=== PATIENT | male | born 1950 | race African-American/Black ===

== ENCOUNTER 2017-04-05 13:56 | Inpatient (IN) | payer MEDICARE ==
[~2017-04-05] VITALS: Ht 177.8 cm; Wt 57.6 kg
[2017-04-05 14:10] VITALS: BP 126/69
[2017-04-05] MEDS ORDERED: Dicyclomine HCl 10mg/5ml oral soln ORAL ONE (14:15)
--- NOTE | 2017-04-05 14:15 | Emergency Room Report ---
History of Present Illness General Chief Complaint: Diarrhea Source: Patient Present Illness HPI 67YOM with no known PMHx or PSHx presents with watery diarrhea for 2 months. 4-5 watery BMs daily mixed with normal BMs No blood No foreign travel, sick contacts No recent Abx use Appetite normal Denies nausea/vomiting, fever/chills, urinary complaints Allergies: Coded Allergies: No Known Allergies (Unverified , 04/05/17) Patient History Past Medical History: none Past Surgical History: none Pertinent Family History: none Social History: Denies: smoking, alcohol use, drug use Immunizations: UTD Reviewed Nursing Documentation: PMH: Agreed, PSxH: Agreed Nursing Documentation-PMH Past Medical History: No Stated History Review of Systems All Other Systems: negative except mentioned in HPI Physical Exam Vital Signs Date Time Temp Pulse Resp B/P (MAP) Pulse Ox O2 Delivery O2 Flow Rate FiO2 04/05/17 14:00 99.9 102 16 157/79 99 Room Air Sp02 EP Interpretation: reviewed, normal General Appearance: normal inspection, well appearing, no apparent distress, alert, GCS 15, non-toxic Head: normocephalic, atraumatic Eyes: bilateral eye PERRL, bilateral eye EOMI ENT: normal ENT inspection, hearing grossly normal, normal voice Neck: normal inspection, full range of motion, supple, no bony tend Respiratory: normal inspection, lungs clear, normal breath sounds, no respiratory distress, no retraction, no wheezing Cardiovascular #1: regular rate, rhythm, no edema Gastrointestinal: normal inspection, normal bowel sounds, non tender, soft, no mass, no guarding, no hernia, no pulsatile mass, no rebound Genitourinary: no CVA tenderness Musculoskeletal: normal inspection, back normal, normal range of motion, Lucrecia' s Sign negative Neurologic: normal inspection, alert, responsive, speech normal Psychiatric: normal inspection, judgement/insight normal, mood/affect normal Skin: normal inspection, normal color, no rash Medical Decision Making Medicare Attestation I Jostin Hatch MD hereby attest that the medical record entry for date of service, 04/05/17 accurately reflects signatures/notations that I made in my capacity as MD when I treated/diagnosed the above listed Medicare beneficiary. I attest that this information is true, accurate and complete to the best of my knowledge. I understand that any falsification, omission, or concealment of material fact may subject me to administrative, civil, or criminal liability. This patient warrants hospital admission for extreme of age and has a condition that cannot be treated as outpatient. Diagnostic Impression: Primary Impression: Diarrhea Qualified Codes: R19.7 - Diarrhea, unspecified Additional Impressions: Anemia Qualified Codes: D64.9 - Anemia, unspecified Hypokalemia ER Course 2 months diarrhea VSS. Afebrile Abdomen serially non-focal Labs: HypoK - repleted in ED. Critically low Hb/Hct HypoK - Likely d/t diarrhea - Repleted in ED - No ECG changes Anemia - Unknown source - 2U PRBCs transfused in ED - Non focal abdomen. No rectal, upper GI bleed Med/surg admit - stable vitals Dr. Guido 451pm EKG Diagnostic Results Rate: normal Rhythm: NSR ST Segments: no acute changes ASA given to the pt in ED: No Rhythm Strip Diag. Results EP Interpretation: yes Rate: 79 Rhythm: NSR, no PVC's, no ectopy Last Vital Signs Date Time Temp Pulse Resp B/P (MAP) Pulse Ox O2 Delivery O2 Flow Rate FiO2 04/05/17 14:00 99.9 102 16 157/79 99 Room Air Status: improved Disposition: ADMITTED INPATIENT Condition: Serious JOSTIN HATCH M.D. Apr 05, 2017 14:15
[2017-04-05 14:40] LABS: MEAN CORPUSCULAR HEMOGLOBIN 19.9 PG (27.0-31.0); MEAN CORPUSCULAR HGB CONC 29.5 G/DL (32.0-36.0); MEAN CORPUSCULAR VOLUME 68 FL (80-99); MEAN PLATELET VOLUME 5.4 FL (6.5-10.1); PLATELET COUNT 365 K/UL (150-450); RED BLOOD COUNT 3.22 M/UL (4.70-6.10); RED CELL DISTRIBUTION WIDTH 17.1 % (11.6-14.8); WHITE BLOOD COUNT 8.7 K/UL (4.8-10.8)
[2017-04-05 14:53] LABS: ALANINE AMINOTRANSFERASE 17 U/L (12-78); ALBUMIN/GLOBULIN RATIO 0.7 (1.0-2.7); ANION GAP 8 mmol/L (5-15); ASPARTATE AMINO TRANSFERASE 19 U/L (15-37); CALCIUM 8.4 MG/DL (8.5-10.1); CARBON DIOXIDE 27 MMOL/L (21-32); CHLORIDE 102 MMOL/L (98-107); CREATININE 1.1 MG/DL (0.55-1.30); GLOMERULAR FILTRATION RATE > 60 mL/min (>60); LIPASE 135 U/L (73-393); POTASSIUM 3.1 MMOL/L (3.5-5.1); SODIUM 137 MMOL/L (136-145); TOTAL PROTEIN 6.7 G/DL (6.4-8.2)
[2017-04-05] MEDS ORDERED: KCl 10% 40mEq/30ml liquid ORAL ONE (15:00)
[2017-04-05 16:01] LABS: LYMPHOCYTES % (MANUAL) 13 % (20-45); NEUTROPHILS % (MANUAL) 82 % (45-75); TOTAL CELLS COUNTED 100
[2017-04-05 16:03] LABS: ANISOCYTOSIS 3+; HYPOCHROMASIA 3+; MICROCYTES 2+; ROULEAUX 1+
[2017-04-05 16:06] LABS: BAND NEUTROPHILS % (MANUAL) 0 % (0-8); BASOPHILS % (MANUAL) 0 % (0-2); EOSINOPHILS % (MANUAL) 0 % (0-3); PLATELET ESTIMATE ADEQUATE; PLATELET MORPHOLOGY NORMAL
[2017-04-05 17:39] LABS: APPEARANCE,URINE CLEAR; KETONES,URINE NEGATIVE (NEGATIVE); LEUKOCYTE ESTERASE ,URINE NEGATIVE (NEGATIVE); NITRITE,URINE NEGATIVE (NEGATIVE); PH,URINE 7 (4.5-8.0); PROTEIN,URINE NEGATIVE (NEGATIVE); UROBILINOGEN,URINE 1 MG/DL (0.0-1.0)
[2017-04-05] MEDS ORDERED: MULTIVITAMINS1 EAC2 ORAL (18:05)
[2017-04-05] MEDS ORDERED: Mylanta II UD 30ml ORAL PRN (18:30)
[2017-04-05] MEDS ORDERED: Zolpidem 5mg tab ORAL PRN (18:30)
[2017-04-05] MEDS ORDERED: Miralax 17gm pkt ORAL PRN (18:30)
[2017-04-05] MEDS ORDERED: LORazepam Inj 2mg/ml 1ml IV PRN (18:30)
[2017-04-05] MEDS ORDERED: Morphine Sulfate 2mg/ml Inj IVP PRN (18:30)
[2017-04-05 18:34] VITALS: BP 128/71
[2017-04-05 18:46] VITALS: BP 128/71
[2017-04-05 19:59] VITALS: BP 138/82
[2017-04-05 21:43] LABS: PATH BLOOD SMEAR/OMC SENT TO PATHOLOGIST
[2017-04-05 22:44] LABS: RETICULOCYTE COUNT 0.8 % (0.0-2.0)
[2017-04-05 23:55] LABS: PROTHROMBIN TIME 10.8 SEC (9.30-11.50)
[2017-04-05 23:56] VITALS: BP 127/78
[2017-04-05 23:59] LABS: LACTATE DEHYDROGENASE 212 U/L (81-234)
[2017-04-06 00:25] LABS: FOLIC ACID 12.6 NG/ML (3.1-17.5); IRON 26 ug/dL (50-175); TOTAL IRON BINDING CAPACITY 272 ug/dL (250-450)
[2017-04-06 04:39] VITALS: BP 137/68
[2017-04-06 07:39] LABS: PROTHROMBIN TIME 10.5 SEC (9.30-11.50)
[2017-04-06 07:50] LABS: BASOPHILS % (AUTO) 0.5 % (0.0-2.0); EOSINOPHILS % (AUTO) 0.6 % (0.0-3.0); LYMPHOCYTES % (AUTO) 12.4 % (20.0-45.0); MEAN CORPUSCULAR HEMOGLOBIN 22.7 PG (27.0-31.0); MEAN CORPUSCULAR HGB CONC 31.6 G/DL (32.0-36.0); MEAN CORPUSCULAR VOLUME 72 FL (80-99); MEAN PLATELET VOLUME 6.2 FL (6.5-10.1); MONOCYTES % (AUTO) 8.6 % (1.0-10.0); NEUTROPHILS % (AUTO) 77.9 % (45.0-75.0); PLATELET COUNT 295 K/UL (150-450); RED BLOOD COUNT 3.92 M/UL (4.70-6.10); RED CELL DISTRIBUTION WIDTH 19.9 % (11.6-14.8); WHITE BLOOD COUNT 8.9 K/UL (4.8-10.8)
[2017-04-06 08:20] LABS: ALANINE AMINOTRANSFERASE 16 U/L (12-78); ALBUMIN/GLOBULIN RATIO 0.6 (1.0-2.7); ANION GAP 7 mmol/L (5-15); ASPARTATE AMINO TRANSFERASE 22 U/L (15-37); CALCIUM 8.5 MG/DL (8.5-10.1); CARBON DIOXIDE 29 MMOL/L (21-32); CHLORIDE 106 MMOL/L (98-107); CREATININE 0.9 MG/DL (0.55-1.30); GLOMERULAR FILTRATION RATE > 60 mL/min (>60); POTASSIUM 4.1 MMOL/L (3.5-5.1); SODIUM 142 MMOL/L (136-145); THYROID STIMULATING HORMONE 0.806 uiU/mL (0.360-3.740); TOTAL PROTEIN 6.7 G/DL (6.4-8.2)
[2017-04-06 08:24] VITALS: BP 120/64
[2017-04-06 09:00] VITALS: BP 140/105
[2017-04-06 12:16] VITALS: BP 135/79
--- NOTE | 2017-04-06 15:29 | Cardiology Report ---
APPROVED REPORT EKG Measurement Heart [id number] Normal sinus rhythm Possible Left atrial enlargement Rightward axis Borderline ECG
[2017-04-06 16:07] VITALS: BP 130/71
--- NOTE | 2017-04-06 18:42 | GI Initial Consult Note ---
Linda Ratliff N.PRadha 04/06/17 1842: History of Present Illness General Date patient seen: Apr 06, 2017 Time patient seen: 10:00 Reason for Hospitalization: Diarrhea Referring physician: CYN BAILEY Reason for Consultation: DIARRHEA Present Illness HPI 67YOM with no known PMHx or PSHx presents with watery diarrhea for 2 months. 4-5 watery BMs daily mixed with normal BMs No blood No foreign travel, sick contacts No recent Abx use Appetite normal Denies nausea/vomiting, fever/chills, urinary complaints. GI consulted for chronic diarrhea and anemia. HPI as noted above. Pt seen on floor, awake A&Ox4 NAD with no active s/sx of N/V/D. He presents today with anemia requiring 2 units of blood and c/o of chronic diarrhea for months. Noted patient ESR is also elevated. He has no history of endoscopic or colonoscopy. Home Meds Reported Medications Multivitamins* (MULTIVITAMINS*) 1 Each Tablet, 1 TAB ORAL DAILY, TAB 0 Refills 04/05/17 Med list reviewed/reconciled: Yes Allergies: Coded Allergies: No Known Allergies (Unverified , 04/05/17) Patient History History Provided By: Patient, Medical Record PMH Narrative Past Medical History: none Past Surgical History: none Pertinent Family History: none Social History: Denies: smoking, alcohol use, drug use Immunizations: UTD Reviewed Nursing Documentation: PMH: Agreed, PSxH: Agreed Nursing Documentation-PM Past Medical History: No Stated History Review of Systems All Other Systems: negative except mentioned in HPI Physical Exam Vital Signs Date Time Temp Pulse Resp B/P (MAP) Pulse Ox O2 Delivery O2 Flow Rate FiO2 04/05/17 14:00 99.9 102 16 157/79 99 Room Air Sp02 EP Interpretation: reviewed, normal Labs Laboratory Tests Test 04/05/17 23:30 04/06/17 05:10 Prothrombin Time 10.8 SEC (9.30-11.50) 10.5 SEC (9.30-11.50) Prothromb Time International Ratio 1.0 (0.9-1.1) 1.0 (0.9-1.1) Activated Partial Thromboplast Time 29 SEC (23-33) 29 SEC (23-33) Iron Level 26 ug/dL (50-175) L Total Iron Binding Capacity 272 ug/dL (250-450) Percent Iron Saturation 10 % (15-50) L Unsaturated Iron Binding 246 ug/dL (112-346) Lactate Dehydrogenase 212 U/L (81-234) Vitamin B12 Level 471 PG/ML (193-986) Folate 12.6 NG/ML (3.1-17.5) White Blood Count 8.9 K/UL (4.8-10.8) Red Blood Count 3.92 M/UL (4.70-6.10) L Hemoglobin 8.9 G/DL (14.2-18.0) #L Hematocrit 28.1 % (42.0-52.0) L Mean Corpuscular Volume 72 FL (80-99) L Mean Corpuscular Hemoglobin 22.7 PG (27.0-31.0) L Mean Corpuscular Hemoglobin Concent 31.6 G/DL (32.0-36.0) L Red Cell Distribution Width 19.9 % (11.6-14.8) H Platelet Count 295 K/UL (150-450) Mean Platelet Volume 6.2 FL (6.5-10.1) L Neutrophils (%) (Auto) 77.9 % (45.0-75.0) H Lymphocytes (%) (Auto) 12.4 % (20.0-45.0) L Monocytes (%) (Auto) 8.6 % (1.0-10.0) Eosinophils (%) (Auto) 0.6 % (0.0-3.0) Basophils (%) (Auto) 0.5 % (0.0-2.0) Erythrocyte Sedimentation Rate 46 MM/HR (0-20) H Reticulocyte Count 1.0 % (0.0-2.0) Sodium Level 142 MMOL/L (136-145) Potassium Level 4.1 MMOL/L (3.5-5.1) Chloride Level 106 MMOL/L (98-107) Carbon Dioxide Level 29 MMOL/L (21-32) Anion Gap 7 mmol/L (5-15) Blood Urea Nitrogen 10 mg/dL (7-18) Creatinine 0.9 MG/DL (0.55-1.30) Estimat Glomerular Filtration Rate > 60 mL/min (>60) Glucose Level 77 MG/DL (74-106) Calcium Level 8.5 MG/DL (8.5-10.1) Total Bilirubin 0.5 MG/DL (0.2-1.0) Aspartate Amino Transf (AST/SGOT) 22 U/L (15-37) Alanine Aminotransferase (ALT/SGPT) 16 U/L (12-78) Alkaline Phosphatase 47 U/L (46-116) Total Protein 6.7 G/DL (6.4-8.2) Albumin 2.6 G/DL (3.4-5.0) L Globulin 4.1 g/dL Albumin/Globulin Ratio 0.6 (1.0-2.7) L Thyroid Stimulating Hormone (TSH) 0.806 uiU/mL (0.360-3.740) General Appearance: well appearing, no apparent distress, alert Head: normocephalic EENT: PERRL/EOMI, normal ENT inspection Neck: supple Respiratory: normal breath sounds, no respiratory distress Cardiovascular: normal rate Gastrointestinal: normal inspection, non tender, soft, normal bowel sounds, non -distended Rectal: deferred Genitourinary: deferred Musculoskeletal: normal inspection, back normal Neurologic: normal inspection, alert, oriented x3, responsive Psychiatric: normal inspection, judgement/insight normal, memory normal Skin: normal inspection, normal color, no rash, warm/dry, palpation normal, well hydrated Lymphatic: normal inspection, no adenopathy Current Medications Current Medications Medications (Trade) Dose Ordered Sig/Juana Route PRN Reason Start Time Stop Time Status Last Admin Dose Admin Acetaminophen (Tylenol) 650 mg Q4H PRN ORAL fever 04/05/17 18:30 05/05/17 18:29 Al Hydroxide/Mg Hydroxide (Mylanta II) 30 ml Q6H PRN ORAL dyspepsia 04/05/17 18:30 05/05/17 18:29 Dextrose (Dextrose 50%) STAT PRN IV Hypoglycemia 04/05/17 18:30 05/05/17 18:29 Lorazepam (Ativan 2mg/ml 1ml) 0.5 mg Q4H PRN IV For Anxiety 04/05/17 18:30 04/12/17 18:29 Morphine Sulfate (Morphine Sulfate) 1 mg Q4H PRN IVP For Pain 4-10 04/05/17 18:30 04/12/17 18:29 Ondansetron HCl (Zofran) 4 mg Q6H PRN IVP Nausea & Vomiting 04/05/17 18:30 05/05/17 18:29 Polyethylene Glycol (Miralax) 17 gm HSPRN PRN ORAL Constipation 04/05/17 18:30 05/05/17 18:29 Zolpidem Tartrate (Ambien) 5 mg HSPRN PRN ORAL Insomnia 04/05/17 18:30 04/12/17 18:29 GI: Plan Problems: (1) Iron deficiency (2) Anemia (3) Diarrhea (4) Dehydration Plan tentatively schedule patient for EGD/colonoscopy this tuesday - CLD tomorrow starting lunch, regular diet now. iron deficient >> venofer x 1 send for cdiff, stool studies PO hydration + electrolyte replacement anemia work up OB stool r/o GI bleed monitor H&H, prn transfusions bowel regime ppi fu labs Discussed with Dr. Xiao. Thank you for this patient referral, we will follow. LEXII XIAO 04/08/17 0949: History of Present Illness General Reason for Hospitalization: Diarrhea Present Illness Home Meds Reported Medications Multivitamins* (MULTIVITAMINS*) 1 Each Tablet, 1 TAB ORAL DAILY, TAB 0 Refills 04/05/17 Allergies: Coded Allergies: No Known Allergies (Unverified , 04/05/17) GI: Plan Plan The patient was seen and examined at bedside and all new and available data was reviewed in the patients chart. I agree with the above findings, impression and plan. (Patient seen earlier today. Signature stamp does not reflect patient encounter time.). - MD Evy [facility]Little [facility] Aj N.PRadha Apr 06, 2017 18:42 LEXII XIAO Apr 08, 2017 09:49
[2017-04-06 20:00] VITALS: BP 134/69
[2017-04-06] MEDS ORDERED: Iron Sucrose 100 MG in NS 55 ML IV ONE (21:00)
--- NOTE | 2017-04-06 22:02 | Consultation ---
Consult Note Consult Note ID CONSULT: Clarence# [id number] Assessment/Plan ASSESSMENT: 67 y/o male with: // Chronic diarrhea ( >2mo ) r/o infectious - pending stool Cx, C.difficile // Severe periodontal disease // Afebrile without leukocytosis // Severe microcytic iron deficiency anemia r/o GIB - GI following, plan EGD, colonoscopy - SP PRBCs - CEA pending // Unintentional weight loss // Elevated ESR // NKDA // Full Code PLAN: - no indication for empiric ABX at this time - check O&P, giardia, cryptosporidium - EGD/colonoscopy per GI - f/u C.difficile, stool culture, CEA - monitor CBC, temperatures - monitor BMP - transfuse prn Thanks! Will follow ALEXANDRE JEAN Apr 06, 2017 22:02
--- NOTE | 2017-04-06 22:15 | History and Physical ---
History of Present Illness General Date patient seen: Apr 05, 2017 Reason for Hospitalization: Diarrhea Present Illness HPI 67 year old male with no known PMHx or PSHx presents with watery diarrhea for 2 months.. 4-5 watery BMs daily mixed with normal BMs Denies nausea/vomiting, fever/chills, urinary complaints. Pt looks chronically ill. He was found to have hem of 6. and admitted for symptomatic anemia and chronic diarrhea. Allergies: Coded Allergies: No Known Allergies (Unverified , 04/05/17) Medication History Scheduled Multivitamins* (Multivitamins*), 1 TAB ORAL DAILY, (Reported) Patient History Healthcare decision maker Resuscitation status Advanced Directive on File Past Medical/Surgical History Past Medical/Surgical History: (1) Diarrhea Review of Systems Constitutional: Reports: fever, malaise Gastrointestinal: Reports: diarrhea All Other Systems: negative except mentioned in HPI Physical Exam General Appearance: cachetic Lines, tubes and drains: peripheral Neck: non-tender, normal alignment Respiratory/Chest: chest wall non-tender, lungs clear Breasts: no masses Cardiovascular/Chest: normal peripheral pulses Abdomen: normal bowel sounds, soft Last 24 Hour Vital Signs Date Time Temp Pulse Resp B/P (MAP) Pulse Ox O2 Delivery O2 Flow Rate FiO2 04/06/17 20:00 98.4 65 20 134/69 95 Room Air 04/06/17 16:07 98.0 70 20 130/71 100 Room Air 04/06/17 12:16 98.8 81 20 135/79 100 Room Air 04/06/17 09:00 97.7 63 19 140/105 96 Room Air 04/06/17 08:24 98.2 61 18 120/64 100 Room Air 04/06/17 04:39 97.7 77 18 137/68 100 Room Air 04/05/17 23:56 98.2 87 18 127/78 100 Room Air Intake and Output 04/06/17 04/07/17 19:00 07:00 Intake Total 1490 ml Balance 1490 ml Intake Oral 1490 ml # Voids 3 Laboratory Tests Test 04/05/17 23:30 04/06/17 05:10 Prothrombin Time 10.8 SEC (9.30-11.50) 10.5 SEC (9.30-11.50) Prothromb Time International Ratio 1.0 (0.9-1.1) 1.0 (0.9-1.1) Activated Partial Thromboplast Time 29 SEC (23-33) 29 SEC (23-33) Iron Level 26 ug/dL (50-175) L Total Iron Binding Capacity 272 ug/dL (250-450) Percent Iron Saturation 10 % (15-50) L Unsaturated Iron Binding 246 ug/dL (112-346) Lactate Dehydrogenase 212 U/L (81-234) Vitamin B12 Level 471 PG/ML (193-986) Folate 12.6 NG/ML (3.1-17.5) White Blood Count 8.9 K/UL (4.8-10.8) Red Blood Count 3.92 M/UL (4.70-6.10) L Hemoglobin 8.9 G/DL (14.2-18.0) #L Hematocrit 28.1 % (42.0-52.0) L Mean Corpuscular Volume 72 FL (80-99) L Mean Corpuscular Hemoglobin 22.7 PG (27.0-31.0) L Mean Corpuscular Hemoglobin Concent 31.6 G/DL (32.0-36.0) L Red Cell Distribution Width 19.9 % (11.6-14.8) H Platelet Count 295 K/UL (150-450) Mean Platelet Volume 6.2 FL (6.5-10.1) L Neutrophils (%) (Auto) 77.9 % (45.0-75.0) H Lymphocytes (%) (Auto) 12.4 % (20.0-45.0) L Monocytes (%) (Auto) 8.6 % (1.0-10.0) Eosinophils (%) (Auto) 0.6 % (0.0-3.0) Basophils (%) (Auto) 0.5 % (0.0-2.0) Erythrocyte Sedimentation Rate 46 MM/HR (0-20) H Reticulocyte Count 1.0 % (0.0-2.0) Sodium Level 142 MMOL/L (136-145) Potassium Level 4.1 MMOL/L (3.5-5.1) Chloride Level 106 MMOL/L (98-107) Carbon Dioxide Level 29 MMOL/L (21-32) Anion Gap 7 mmol/L (5-15) Blood Urea Nitrogen 10 mg/dL (7-18) Creatinine 0.9 MG/DL (0.55-1.30) Estimat Glomerular Filtration Rate > 60 mL/min (>60) Glucose Level 77 MG/DL (74-106) Calcium Level 8.5 MG/DL (8.5-10.1) Total Bilirubin 0.5 MG/DL (0.2-1.0) Aspartate Amino Transf (AST/SGOT) 22 U/L (15-37) Alanine Aminotransferase (ALT/SGPT) 16 U/L (12-78) Alkaline Phosphatase 47 U/L (46-116) Total Protein 6.7 G/DL (6.4-8.2) Albumin 2.6 G/DL (3.4-5.0) L Globulin 4.1 g/dL Albumin/Globulin Ratio 0.6 (1.0-2.7) L Thyroid Stimulating Hormone (TSH) 0.806 uiU/mL (0.360-3.740) Height (Feet): 5 Height (Inches): 10.00 Weight (Pounds): 140 Medications Current Medications Medications (Trade) Dose Ordered Sig/Juana Route PRN Reason Start Time Stop Time Status Last Admin Dose Admin Acetaminophen (Tylenol) 650 mg Q4H PRN ORAL fever 04/05/17 18:30 05/05/17 18:29 Al Hydroxide/Mg Hydroxide (Mylanta II) 30 ml Q6H PRN ORAL dyspepsia 04/05/17 18:30 05/05/17 18:29 Dextrose (Dextrose 50%) STAT PRN IV Hypoglycemia 04/05/17 18:30 05/05/17 18:29 Lorazepam (Ativan 2mg/ml 1ml) 0.5 mg Q4H PRN IV For Anxiety 04/05/17 18:30 04/12/17 18:29 Morphine Sulfate (Morphine Sulfate) 1 mg Q4H PRN IVP For Pain 4-10 04/05/17 18:30 04/12/17 18:29 Ondansetron HCl (Zofran) 4 mg Q6H PRN IVP Nausea & Vomiting 04/05/17 18:30 05/05/17 18:29 Pantoprazole (Protonix) 40 mg DAILY IVP 04/07/17 09:00 05/07/17 08:59 Polyethylene Glycol (Miralax) 17 gm HSPRN PRN ORAL Constipation 04/05/17 18:30 05/05/17 18:29 Zolpidem Tartrate (Ambien) 5 mg HSPRN PRN ORAL Insomnia 04/05/17 18:30 04/12/17 18:29 Assessment/Plan Problem List: (1) Diarrhea ICD Codes: R19.7 - Diarrhea, unspecified SNOMED: 94824996 Qualifiers: Qualified Codes: R19.7 - Diarrhea, unspecified (2) Severe protein-calorie malnutrition ICD Codes: E43 - Unspecified severe protein-calorie malnutrition SNOMED: 026552036 (3) Anemia ICD Codes: D64.9 - Anemia, unspecified SNOMED: 109080064 Qualifiers: Qualified Codes: D64.9 - Anemia, unspecified (4) Dehydration ICD Codes: E86.0 - Dehydration SNOMED: 15539685 Assessment/Plan stool for o/p anemia w/u GI evaluation CYN BAILEY Apr 06, 2017 22:15
--- NOTE | 2017-04-06 22:16 | Pulmonology Progress Note ---
Assessment/Plan Problems: (1) Diarrhea (2) Severe protein-calorie malnutrition (3) Anemia (4) Dehydration Assessment/Plan stool for o/p anemia w/u GI evaluation appreciated, for EGD on tuesday prbc prn, venofer Subjective ROS Limited/Unobtainable: No Constitutional: Reports: no symptoms HEENT: Repors: no symptoms Respiratory: Reports: no symptoms Cardiovascular: Reports: no symptoms Allergies: Coded Allergies: No Known Allergies (Unverified , 04/05/17) Objective Last 24 Hour Vital Signs Date Time Temp Pulse Resp B/P (MAP) Pulse Ox O2 Delivery O2 Flow Rate FiO2 04/06/17 20:00 98.4 65 20 134/69 95 Room Air 04/06/17 16:07 98.0 70 20 130/71 100 Room Air 04/06/17 12:16 98.8 81 20 135/79 100 Room Air 04/06/17 09:00 97.7 63 19 140/105 96 Room Air 04/06/17 08:24 98.2 61 18 120/64 100 Room Air 04/06/17 04:39 97.7 77 18 137/68 100 Room Air 04/05/17 23:56 98.2 87 18 127/78 100 Room Air Intake and Output 04/06/17 04/07/17 19:00 07:00 Intake Total 1490 ml Balance 1490 ml Intake Oral 1490 ml # Voids 3 General Appearance: cachetic HEENT: normocephalic, atraumatic Respiratory/Chest: chest wall non-tender, lungs clear Cardiovascular: normal peripheral pulses, normal rate Abdomen: normal bowel sounds, soft, non tender Genitourinary: normal external genitalia Extremities: no clubbing Neurologic/Psychiatric: plate worker helper II-XII grossly normal Lymphatic: no neck adenopathy Laboratory Tests 04/05/17 23:30: Prothrombin Time 10.8, Prothromb Time International Ratio 1.0, Activated Partial Thromboplast Time 29, Iron Level 26L, Total Iron Binding Capacity 272, Percent Iron Saturation 10L, Unsaturated Iron Binding 246, Lactate Dehydrogenase 212, Vitamin B12 Level 471, Folate 12.6 04/06/17 05:10: Prothrombin Time 10.5, Prothromb Time International Ratio 1.0, Activated Partial Thromboplast Time 29, White Blood Count 8.9, Red Blood Count 3.92L, Hemoglobin 8.9#L, Hematocrit 28.1L, Mean Corpuscular Volume 72L, Mean Corpuscular Hemoglobin 22.7L, Mean Corpuscular Hemoglobin Concent 31.6L, Red Cell Distribution Width 19.9H, Platelet Count 295, Mean Platelet Volume 6.2L, Neutrophils (%) (Auto) 77.9H, Lymphocytes (%) (Auto) 12.4L, Monocytes (%) (Auto ) 8.6, Eosinophils (%) (Auto) 0.6, Basophils (%) (Auto) 0.5, Erythrocyte Sedimentation Rate 46H, Reticulocyte Count 1.0, Sodium Level 142, Potassium Level 4.1, Chloride Level 106, Carbon Dioxide Level 29, Anion Gap 7, Blood Urea Nitrogen 10, Creatinine 0.9, Estimat Glomerular Filtration Rate > 60, Glucose Level 77, Calcium Level 8.5, Total Bilirubin 0.5, Aspartate Amino Transf (AST/ SGOT) 22, Alanine Aminotransferase (ALT/SGPT) 16, Alkaline Phosphatase 47, Total Protein 6.7, Albumin 2.6L, Globulin 4.1, Albumin/Globulin Ratio 0.6L, Thyroid Stimulating Hormone (TSH) 0.806 Current Medications Medications (Trade) Dose Ordered Sig/Juana Route PRN Reason Start Time Stop Time Status Last Admin Dose Admin Acetaminophen (Tylenol) 650 mg Q4H PRN ORAL fever 04/05/17 18:30 05/05/17 18:29 Al Hydroxide/Mg Hydroxide (Mylanta II) 30 ml Q6H PRN ORAL dyspepsia 04/05/17 18:30 05/05/17 18:29 Dextrose (Dextrose 50%) STAT PRN IV Hypoglycemia 04/05/17 18:30 05/05/17 18:29 Lorazepam (Ativan 2mg/ml 1ml) 0.5 mg Q4H PRN IV For Anxiety 04/05/17 18:30 04/12/17 18:29 Morphine Sulfate (Morphine Sulfate) 1 mg Q4H PRN IVP For Pain 4-10 04/05/17 18:30 04/12/17 18:29 Ondansetron HCl (Zofran) 4 mg Q6H PRN IVP Nausea & Vomiting 04/05/17 18:30 05/05/17 18:29 Pantoprazole (Protonix) 40 mg DAILY IVP 04/07/17 09:00 05/07/17 08:59 Polyethylene Glycol (Miralax) 17 gm HSPRN PRN ORAL Constipation 04/05/17 18:30 05/05/17 18:29 Zolpidem Tartrate (Ambien) 5 mg HSPRN PRN ORAL Insomnia 04/05/17 18:30 04/12/17 18:29 CYN BAILEY Apr 06, 2017 22:16
--- NOTE | 2017-04-06 23:28 | Diagnostic Imaging Report ---
APPROVED REPORT CPT Code: 97920 Present Symptoms Comments: R/O DVT BILATERAL: Imaging reveals a patent deep venous system bilaterally. There is no evidence of thrombus within the femoral, popliteal or tibial segments. The greater saphenous veins are also within normal limits. Doppler indicates normal spontaneous flow within these segments.
[2017-04-07] VITALS: BP 139/81
--- NOTE | 2017-04-07 03:30 | Consultation ---
DATE OF CONSULTATION: 04/06/2017 INFECTIOUS DISEASE CONSULTATION CONSULTING PHYSICIAN: Wilfred Quiros M.D. REQUESTING PHYSICIAN: Monique Guido M.D. REASON FOR CONSULTATION: Chronic diarrhea. HISTORY OF PRESENT ILLNESS: This is a 67-year-old male, admitted on 04/06/2017 with chronic diarrhea. Diarrhea has been for more than two months. Four to five watery bowel movements a day. No blood. No recent travel. No associated weight loss. Denies fevers, chills, or abdominal pain. He is afebrile without leukocytosis. He has elevated ESR and severe microcytic iron-deficiency anemia for which he was transfused and is now receiving intravenous iron. He has been seen by gastrointestinal and has plans for upper and lower endoscopy. C. difficile toxin and stool culture are pending. ID now consulted to assist in management. PAST MEDICAL HISTORY: None. PAST SURGICAL HISTORY: None. MEDICATIONS: 1. Protonix. 2. No antibiotics. ALLERGIES: No known drug allergies. SOCIAL HISTORY: The patient lives in [place]. No recent travel. FAMILY HISTORY: Noncontributory. REVIEW OF SYSTEMS: As per history of present illness. Ten systems reviewed. All pertinent positives and negatives noted. PHYSICAL EXAMINATION: VITAL SIGNS: Maximum temperature 99.9 degrees, blood pressure 134/69, heart rate in the 70s, respiratory rate 20, and saturating 95% on room air. GENERAL: No apparent distress. Nontoxic appearing. Thin. HEAD AND NECK: Severe periodontal disease. CARDIOVASCULAR: Regular rate and rhythm. No murmurs. PULMONARY: Clear to auscultation bilaterally. ABDOMEN: Bowel sounds present. Soft, nondistended, and nontender. EXTREMITIES: No edema. SKIN: No rash. NEUROLOGICAL: Alert and oriented x3. Nonfocal. LABORATORY DATA: White blood cell count 8.9 with left shift, hemoglobin 6.4, increased to 8.9, and platelets 295,000. Sodium 142, potassium 4.1, chloride 106, bicarb 29, BUN 10, and creatinine 0.9. ESR 46. INR 1. Liver function tests within normal limits. Urinalysis negative. MICROBIOLOGY: 1. On 04/06/2017, C. difficile toxin pending. 2. On 04/06/2017, stool culture pending. IMAGING: On 04/06/2017, Doppler ultrasound, negative for DVT. ASSESSMENT: 1. Chronic diarrhea for more than two months rule out infectious causes. Stool culture and Clostridium difficile are pending. 2. Severe periodontal disease. 3. Afebrile without leukocytosis. 4. Severe microcytic iron deficiency anemia. We will rule out gastrointestinal bleed. No malignancy. Gastrointestinal is following and has planned for esophagogastroduodenoscopy and colonoscopy. Hemoglobin has improved after transfusion. 5. Unintentional weight loss. 6. Elevated erythrocyte sedimentation rate. 7. No known drug allergies. 8. Full Code. PLAN: 1. No indication for empiric antibiotics at this time. 2. Check ova and parasite, Giardia, and Cryptosporidium. 3. Esophagogastroduodenoscopy and colonoscopy per GI. 4. Follow up with C. difficile stool culture and CEA. 5. Monitor CBC and temperatures. 6. Monitor BMP. 7. Transfuse as needed. Thank you. We will follow. Wilfred Quiros M.D. DR: CLAUDE JOB#: [id number] CC: Monique Guido M.D.; Fax#: [phone] Rylee Jennings M.D; FAX#: [phone]
[2017-04-07 04:00] VITALS: BP 116/58
[2017-04-07 07:51] LABS: ANION GAP 9 mmol/L (5-15); CALCIUM 9.2 MG/DL (8.5-10.1); CARBON DIOXIDE 29 MMOL/L (21-32); CHLORIDE 100 MMOL/L (98-107); CREATININE 0.9 MG/DL (0.55-1.30); GLOMERULAR FILTRATION RATE > 60 mL/min (>60); MAGNESIUM 1.8 MG/DL (1.8-2.4); PHOSPHORUS 2.8 MG/DL (2.5-4.9); POTASSIUM 3.4 MMOL/L (3.5-5.1); SODIUM 138 MMOL/L (136-145)
[2017-04-07 07:56] LABS: BASOPHILS % (AUTO) 0.4 % (0.0-2.0); EOSINOPHILS % (AUTO) 0.3 % (0.0-3.0); LYMPHOCYTES % (AUTO) 14.5 % (20.0-45.0); MEAN CORPUSCULAR HEMOGLOBIN 21.6 PG (27.0-31.0); MEAN CORPUSCULAR HGB CONC 30.3 G/DL (32.0-36.0); MEAN CORPUSCULAR VOLUME 72 FL (80-99); MEAN PLATELET VOLUME 6.7 FL (6.5-10.1); MONOCYTES % (AUTO) 7.6 % (1.0-10.0); NEUTROPHILS % (AUTO) 77.2 % (45.0-75.0); PLATELET COUNT 312 K/UL (150-450); RED BLOOD COUNT 4.79 M/UL (4.70-6.10); RED CELL DISTRIBUTION WIDTH 19.5 % (11.6-14.8); WHITE BLOOD COUNT 9.6 K/UL (4.8-10.8)
[2017-04-07 07:58] LABS: PROTHROMBIN TIME 10.5 SEC (9.30-11.50)
[2017-04-07 08:28] LABS: FERRITIN 19 NG/ML (8-388); THYROID STIMULATING HORMONE 0.995 uiU/mL (0.360-3.740)
[2017-04-07] MEDS: Pantoprazole Inj IVP SCH (08:38)
[2017-04-07 08:47] VITALS: BP 134/70
[2017-04-07 09:08] LABS: FOLIC ACID 17.2 NG/ML (3.1-17.5); IRON 234 ug/dL (50-175); TOTAL IRON BINDING CAPACITY 347 ug/dL (250-450)
[2017-04-07 11:49] LABS: OTHERS PATHOLOGIST COMMENT
[2017-04-07] MEDS ORDERED: Nulytely 4L ORAL ONE (16:00)
[2017-04-07] MEDS ORDERED: Bisacodyl EC 5mg tab ORAL ONE (16:00)
[2017-04-07] MEDS ORDERED: Tubing IV Secondary IV ONE (16:01)
[2017-04-07] MEDS ORDERED: Tubing Blood Filter IV ONE (16:01)
--- NOTE | 2017-04-07 17:20 | GI Progress Note ---
Assessment/Plan Problems: (1) Colonoscopy planned SNOMED: 789864847 (2) Diarrhea ICD Codes: R19.7 - Diarrhea, unspecified SNOMED: 80008474 Qualifiers: Qualified Codes: R19.7 - Diarrhea, unspecified (3) Iron deficiency ICD Codes: E61.1 - Iron deficiency SNOMED: 73546003 (4) Anemia ICD Codes: D64.9 - Anemia, unspecified SNOMED: 241482030 Qualifiers: Qualified Codes: D64.9 - Anemia, unspecified (5) Dehydration ICD Codes: E86.0 - Dehydration SNOMED: 18530957 (6) Severe protein-calorie malnutrition ICD Codes: E43 - Unspecified severe protein-calorie malnutrition SNOMED: 520634674 Status: stable Status Narrative Discussed with Dr. Son. Assessment/Plan EGD/colonoscopy scheduled tomorrow. - CLD, NPO @ [place] - hold all blood thinners tonight iron deficient >> venofer x 1 send for cdiff, stool studies PO hydration + electrolyte replacement anemia work up OB stool r/o GI bleed monitor H&H, prn transfusions bowel regime ppi fu labs Discussed with Dr. Son. Thank you for this patient referral, we will follow. The patient was seen and examined at bedside and all new and available data was reviewed in the patients chart. I agree with the above findings, impression and plan. (Patient seen earlier today. Signature stamp does not reflect patient encounter time.). - Adam Son MD Subjective Subjective diarrhea Objective Last 24 Hour Vital Signs Date Time Temp Pulse Resp B/P (MAP) Pulse Ox O2 Delivery O2 Flow Rate FiO2 04/07/17 08:47 97.3 83 18 134/70 98 04/07/17 04:00 98.1 69 18 116/58 99 Room Air 04/07/17 00:00 98.1 79 18 139/81 98 Room Air 04/06/17 20:00 98.4 65 20 134/69 95 Room Air Laboratory Tests Test 04/07/17 04:35 04/07/17 14:45 White Blood Count 9.6 K/UL (4.8-10.8) Red Blood Count 4.79 M/UL (4.70-6.10) Hemoglobin 10.4 G/DL (14.2-18.0) L Hematocrit 34.2 % (42.0-52.0) L Mean Corpuscular Volume 72 FL (80-99) L Mean Corpuscular Hemoglobin 21.6 PG (27.0-31.0) L Mean Corpuscular Hemoglobin Concent 30.3 G/DL (32.0-36.0) L Red Cell Distribution Width 19.5 % (11.6-14.8) H Platelet Count 312 K/UL (150-450) Mean Platelet Volume 6.7 FL (6.5-10.1) Neutrophils (%) (Auto) 77.2 % (45.0-75.0) H Lymphocytes (%) (Auto) 14.5 % (20.0-45.0) L Monocytes (%) (Auto) 7.6 % (1.0-10.0) Eosinophils (%) (Auto) 0.3 % (0.0-3.0) Basophils (%) (Auto) 0.4 % (0.0-2.0) Reticulocyte Count 1.0 % (0.0-2.0) Prothrombin Time 10.5 SEC (9.30-11.50) Prothromb Time International Ratio 1.0 (0.9-1.1) Activated Partial Thromboplast Time 30 SEC (23-33) Sodium Level 138 MMOL/L (136-145) Potassium Level 3.4 MMOL/L (3.5-5.1) L Chloride Level 100 MMOL/L (98-107) Carbon Dioxide Level 29 MMOL/L (21-32) Anion Gap 9 mmol/L (5-15) Blood Urea Nitrogen 7 mg/dL (7-18) Creatinine 0.9 MG/DL (0.55-1.30) Estimat Glomerular Filtration Rate > 60 mL/min (>60) Glucose Level 83 MG/DL (74-106) Calcium Level 9.2 MG/DL (8.5-10.1) Phosphorus Level 2.8 MG/DL (2.5-4.9) Magnesium Level 1.8 MG/DL (1.8-2.4) Iron Level 234 ug/dL (50-175) H Total Iron Binding Capacity 347 ug/dL (250-450) Percent Iron Saturation 67 % (15-50) H Unsaturated Iron Binding 113 ug/dL (112-346) Ferritin 19 NG/ML (8-388) Vitamin B12 Level 412 PG/ML (193-986) Folate 17.2 NG/ML (3.1-17.5) Thyroid Stimulating Hormone (TSH) 0.995 uiU/mL (0.360-3.740) Free Thyroxine 1.18 NG/DL (0.10-1.46) HIV (1&2) Antibody Rapid Negative (NEGATIVE) Stool Occult Blood Pending Giardia Antigen Pending Height (Feet): 5 Height (Inches): 10.00 Weight (Pounds): 140 General Appearance: WD/WN, no apparent distress, alert Cardiovascular: normal rate Respiratory/Chest: normal breath sounds, no respiratory distress Abdominal Exam: normal bowel sounds, non tender, soft Extremities: normal range of motion, non-tender Linda Ratliff N.P. Apr 07, 2017 17:20 LEXII SON Apr 08, 2017 09:56
[2017-04-07 20:43] VITALS: BP 157/99
--- NOTE | 2017-04-07 20:57 | Infectious Diseases Prog Note ---
Assessment/Plan Assessment/Plan ASSESSMENT: 67 y/o male with: // Chronic diarrhea ( >2mo ) r/o infectious - pending: stool Cx, C.difficile, O& P, giardia // Severe periodontal disease // Afebrile without leukocytosis // Severe microcytic iron deficiency anemia r/o GIB - GI following - EGD / colonoscopy 04/08: pending - SP PRBCs - CEA pending // Unintentional weight loss // Elevated ESR // NKDA // Full Code PLAN: - no indication for empiric ABX at this time - EGD/colonoscopy per GI - f/u C.difficile, stool culture, CEA, O&P, giardia - monitor CBC, temperatures - monitor BMP - transfuse prn Subjective Allergies: Coded Allergies: No Known Allergies (Unverified , 04/05/17) Subjective remains afebrile stool studies pending plan EGD/colo tomorrow Objective Vital Signs Last 24 Hour Vital Signs Date Time Temp Pulse Resp B/P (MAP) Pulse Ox O2 Delivery O2 Flow Rate FiO2 04/07/17 20:43 96.8 83 20 157/99 98 Room Air 04/07/17 08:47 97.3 83 18 134/70 98 04/07/17 04:00 98.1 69 18 116/58 99 Room Air 04/07/17 00:00 98.1 79 18 139/81 98 Room Air Height (Feet): 5 Height (Inches): 10.00 Weight (Pounds): 140 General Appearance: no acute distress Respiratory/Chest: no respiratory distress Cardiovascular: normal rate, regular rhythm Abdomen: normal bowel sounds, soft, non tender, non distended Laboratory Tests Test 04/07/17 04:35 04/07/17 14:45 White Blood Count 9.6 K/UL (4.8-10.8) Red Blood Count 4.79 M/UL (4.70-6.10) Hemoglobin 10.4 G/DL (14.2-18.0) L Hematocrit 34.2 % (42.0-52.0) L Mean Corpuscular Volume 72 FL (80-99) L Mean Corpuscular Hemoglobin 21.6 PG (27.0-31.0) L Mean Corpuscular Hemoglobin Concent 30.3 G/DL (32.0-36.0) L Red Cell Distribution Width 19.5 % (11.6-14.8) H Platelet Count 312 K/UL (150-450) Mean Platelet Volume 6.7 FL (6.5-10.1) Neutrophils (%) (Auto) 77.2 % (45.0-75.0) H Lymphocytes (%) (Auto) 14.5 % (20.0-45.0) L Monocytes (%) (Auto) 7.6 % (1.0-10.0) Eosinophils (%) (Auto) 0.3 % (0.0-3.0) Basophils (%) (Auto) 0.4 % (0.0-2.0) Reticulocyte Count 1.0 % (0.0-2.0) Prothrombin Time 10.5 SEC (9.30-11.50) Prothromb Time International Ratio 1.0 (0.9-1.1) Activated Partial Thromboplast Time 30 SEC (23-33) Sodium Level 138 MMOL/L (136-145) Potassium Level 3.4 MMOL/L (3.5-5.1) L Chloride Level 100 MMOL/L (98-107) Carbon Dioxide Level 29 MMOL/L (21-32) Anion Gap 9 mmol/L (5-15) Blood Urea Nitrogen 7 mg/dL (7-18) Creatinine 0.9 MG/DL (0.55-1.30) Estimat Glomerular Filtration Rate > 60 mL/min (>60) Glucose Level 83 MG/DL (74-106) Calcium Level 9.2 MG/DL (8.5-10.1) Phosphorus Level 2.8 MG/DL (2.5-4.9) Magnesium Level 1.8 MG/DL (1.8-2.4) Iron Level 234 ug/dL (50-175) H Total Iron Binding Capacity 347 ug/dL (250-450) Percent Iron Saturation 67 % (15-50) H Unsaturated Iron Binding 113 ug/dL (112-346) Ferritin 19 NG/ML (8-388) Vitamin B12 Level 412 PG/ML (193-986) Folate 17.2 NG/ML (3.1-17.5) Thyroid Stimulating Hormone (TSH) 0.995 uiU/mL (0.360-3.740) Free Thyroxine 1.18 NG/DL (0.10-1.46) HIV (1&2) Antibody Rapid Negative (NEGATIVE) Stool Occult Blood Pending Giardia Antigen Pending Current Medications Medications (Trade) Dose Ordered Sig/Juana Route PRN Reason Start Time Stop Time Status Last Admin Dose Admin Acetaminophen (Tylenol) 650 mg Q4H PRN ORAL fever 04/05/17 18:30 05/05/17 18:29 Al Hydroxide/Mg Hydroxide (Mylanta II) 30 ml Q6H PRN ORAL dyspepsia 04/05/17 18:30 05/05/17 18:29 Dextrose (Dextrose 50%) STAT PRN IV Hypoglycemia 04/05/17 18:30 05/05/17 18:29 Lorazepam (Ativan 2mg/ml 1ml) 0.5 mg Q4H PRN IV For Anxiety 04/05/17 18:30 04/12/17 18:29 Morphine Sulfate (Morphine Sulfate) 1 mg Q4H PRN IVP For Pain 4-10 04/05/17 18:30 04/12/17 18:29 Ondansetron HCl (Zofran) 4 mg Q6H PRN IVP Nausea & Vomiting 04/05/17 18:30 05/05/17 18:29 Pantoprazole (Protonix) 40 mg DAILY IVP 04/07/17 09:00 05/07/17 08:59 04/07/17 08:38 Polyethylene Glycol (Miralax) 17 gm HSPRN PRN ORAL Constipation 04/05/17 18:30 05/05/17 18:29 Sodium Phosphate (Fleet's Sodium Phosl Enema) 133 ml ONCE ONCE RECTAL 04/07/17 23:00 04/07/17 23:01 Zolpidem Tartrate (Ambien) 5 mg HSPRN PRN ORAL Insomnia 04/05/17 18:30 04/12/17 18:29 ALEXANDRE JEAN Apr 07, 2017 20:57
--- NOTE | 2017-04-07 21:30 | Pulmonology Progress Note ---
Assessment/Plan Problems: (1) Diarrhea (2) Severe protein-calorie malnutrition (3) Anemia (4) Dehydration Assessment/Plan stool for o/p anemia w/u GI evaluation appreciated, for EGD on tuesday CT abd/pevis and chest to rule out malignandcy Subjective ROS Limited/Unobtainable: No Constitutional: Reports: no symptoms HEENT: Repors: no symptoms Respiratory: Reports: no symptoms Allergies: Coded Allergies: No Known Allergies (Unverified , 04/05/17) Objective Last 24 Hour Vital Signs Date Time Temp Pulse Resp B/P (MAP) Pulse Ox O2 Delivery O2 Flow Rate FiO2 04/07/17 20:43 96.8 83 20 157/99 98 Room Air 04/07/17 08:47 97.3 83 18 134/70 98 04/07/17 04:00 98.1 69 18 116/58 99 Room Air 04/07/17 00:00 98.1 79 18 139/81 98 Room Air Intake and Output 04/07/17 04/08/17 19:00 07:00 Intake Total 480 ml Balance 480 ml Intake Oral 480 ml # Voids 6 General Appearance: WD/WN, cachetic HEENT: normocephalic, atraumatic Respiratory/Chest: chest wall non-tender, lungs clear Cardiovascular: normal peripheral pulses, normal rate Abdomen: normal bowel sounds, soft, non tender Genitourinary: normal external genitalia Extremities: no clubbing 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 Laboratory Tests 04/07/17 04:35: White Blood Count 9.6, Red Blood Count 4.79, Hemoglobin 10.4L, Hematocrit 34.2L , Mean Corpuscular Volume 72L, Mean Corpuscular Hemoglobin 21.6L, Mean Corpuscular Hemoglobin Concent 30.3L, Red Cell Distribution Width 19.5H, Platelet Count 312, Mean Platelet Volume 6.7, Neutrophils (%) (Auto) 77.2H, Lymphocytes (%) (Auto) 14.5L, Monocytes (%) (Auto) 7.6, Eosinophils (%) (Auto) 0.3, Basophils (%) (Auto) 0.4, Reticulocyte Count 1.0, Prothrombin Time 10.5, Prothromb Time International Ratio 1.0, Activated Partial Thromboplast Time 30, Sodium Level 138, Potassium Level 3.4L, Chloride Level 100, Carbon Dioxide Level 29, Anion Gap 9, Blood Urea Nitrogen 7, Creatinine 0.9, Estimat Glomerular Filtration Rate > 60, Glucose Level 83, Calcium Level 9.2, Phosphorus Level 2.8, Magnesium Level 1.8, Iron Level 234H, Total Iron Binding Capacity 347, Percent Iron Saturation 67H, Unsaturated Iron Binding 113, Ferritin 19, Vitamin B12 Level 412, Folate 17.2, Thyroid Stimulating Hormone ( TSH) 0.995, Free Thyroxine 1.18, HIV (1&2) Antibody Rapid Negative 04/07/17 14:45: Stool Occult Blood [Pending], Giardia Antigen [Pending] Current Medications Medications (Trade) Dose Ordered Sig/Juana Route PRN Reason Start Time Stop Time Status Last Admin Dose Admin Acetaminophen (Tylenol) 650 mg Q4H PRN ORAL fever 04/05/17 18:30 05/05/17 18:29 Al Hydroxide/Mg Hydroxide (Mylanta II) 30 ml Q6H PRN ORAL dyspepsia 04/05/17 18:30 05/05/17 18:29 Dextrose (Dextrose 50%) STAT PRN IV Hypoglycemia 04/05/17 18:30 05/05/17 18:29 Lorazepam (Ativan 2mg/ml 1ml) 0.5 mg Q4H PRN IV For Anxiety 04/05/17 18:30 04/12/17 18:29 Morphine Sulfate (Morphine Sulfate) 1 mg Q4H PRN IVP For Pain 4-10 04/05/17 18:30 04/12/17 18:29 Ondansetron HCl (Zofran) 4 mg Q6H PRN IVP Nausea & Vomiting 04/05/17 18:30 05/05/17 18:29 Pantoprazole (Protonix) 40 mg DAILY IVP 04/07/17 09:00 05/07/17 08:59 04/07/17 08:38 Polyethylene Glycol (Miralax) 17 gm HSPRN PRN ORAL Constipation 04/05/17 18:30 05/05/17 18:29 Sodium Phosphate (Fleet's Sodium Phosl Enema) 133 ml ONCE ONCE RECTAL 04/07/17 23:00 04/07/17 23:01 Zolpidem Tartrate (Ambien) 5 mg HSPRN PRN ORAL Insomnia 04/05/17 18:30 04/12/17 18:29 CYN BAILEY Apr 07, 2017 21:30
[2017-04-07] MEDS ORDERED: Fleet's Enema 133ml RECTAL ONE (23:00)
[2017-04-08] VITALS (8 sets, daily range): BP systolic 118–149; BP diastolic 56–85
--- NOTE | 2017-04-08 06:39 | Anethesia Preoperative Eval ---
Anesthesia Pre-op PMH/ROS General Date of Evaluation: Apr 08, 2017 Time of Evaluation: 06:35 Anesthesiologist: wanda ASA Score: ASA 2 Mallampati Score Class I : Soft palate, uvula, fauces, pillars visible Class II: Soft palate, uvula, fauces visible Class III: Soft palate, base of uvula visible Class IV: Only hard plate visible Mallampati Classification: Class II Surgeon: cayden Diagnosis: gerd, anemia Surgical Procedure: egd/colonoscopy Anesthesia History: none Family History: no anesthesia problems Allergies: Coded Allergies: No Known Allergies (Unverified , 04/05/17) Medications: see eMAR Past Medical History Gastrointestinal/Genitourinary: Reports: GERD Hematology/Immune: Reports: anemia Anesthesia Pre-op Phys. Exam Physician Exam Last Vital Signs Date Time Temp Pulse Resp B/P (MAP) Pulse Ox O2 Delivery O2 Flow Rate FiO2 04/08/17 03:08 97.0 66 20 132/68 99 Room Air Constitutional: NAD Neurologic: CN 2-12 intact Cardiovascular: RRR Respiratory: CTA Gastrointestinal: S/NT/ND Airway Exam Mallampati Score: Class II MO: full Neck: supple TMD: 2fb ROM: full Teeth: broken Anesthesia Pre-op A/P Labs Hematology Test 04/08/17 05:10 White Blood Count Pending Red Blood Count Pending Hemoglobin Pending Hematocrit Pending Mean Corpuscular Volume Pending Mean Corpuscular Hemoglobin Pending Mean Corpuscular Hemoglobin Concent Pending Red Cell Distribution Width Pending Platelet Count Pending Mean Platelet Volume Pending Neutrophils (%) (Auto) Pending Lymphocytes (%) (Auto) Pending Monocytes (%) (Auto) Pending Eosinophils (%) (Auto) Pending Basophils (%) (Auto) Pending Coagulation Test 04/08/17 05:10 Prothrombin Time Pending Prothromb Time International Ratio Pending Activated Partial Thromboplast Time Pending Chemistry Test 04/08/17 05:10 Sodium Level Pending Potassium Level Pending Chloride Level Pending Carbon Dioxide Level Pending Blood Urea Nitrogen Pending Creatinine Pending Estimat Glomerular Filtration Rate Pending Glucose Level Pending Calcium Level Pending Prostate Specific Antigen Pending Risk Assessment & Plan Assessment: asa3 Plan: mac Status Change Before Surgery: No Pre-Antibiotics Drug: EARLINE Shannon Apr 08, 2017 06:39
[2017-04-08 07:00] LABS: PROTHROMBIN TIME 10.7 SEC (9.30-11.50)
[2017-04-08 07:12] LABS: BASOPHILS % (AUTO) 0.4 % (0.0-2.0); EOSINOPHILS % (AUTO) 0.3 % (0.0-3.0); LYMPHOCYTES % (AUTO) 10.7 % (20.0-45.0); MEAN CORPUSCULAR HEMOGLOBIN 21.4 PG (27.0-31.0); MEAN CORPUSCULAR HGB CONC 29.9 G/DL (32.0-36.0); MEAN CORPUSCULAR VOLUME 72 FL (80-99); MEAN PLATELET VOLUME 6.8 FL (6.5-10.1); MONOCYTES % (AUTO) 7.7 % (1.0-10.0); NEUTROPHILS % (AUTO) 80.9 % (45.0-75.0); PLATELET COUNT 282 K/UL (150-450); RED BLOOD COUNT 4.24 M/UL (4.70-6.10); RED CELL DISTRIBUTION WIDTH 20.2 % (11.6-14.8); WHITE BLOOD COUNT 10.4 K/UL (4.8-10.8)
[2017-04-08] MEDS ORDERED: Lidocaine 1% MPF 10mg/ml 5ml ONE (07:45)
[2017-04-08] MEDS ORDERED: Propofol 200mg/20ml IV ONE (07:45)
[2017-04-08 07:54] LABS: ANION GAP 7 mmol/L (5-15); CALCIUM 8.8 MG/DL (8.5-10.1); CARBON DIOXIDE 30 MMOL/L (21-32); CHLORIDE 104 MMOL/L (98-107); CREATININE 0.8 MG/DL (0.55-1.30); GLOMERULAR FILTRATION RATE > 60 mL/min (>60); POTASSIUM 4.4 MMOL/L (3.5-5.1); PSA TOTAL 1.4 ng/mL (0.0-4.0); SODIUM 141 MMOL/L (136-145)
[2017-04-08] MEDS ORDERED: NS 500ML IV ONE (08:00)
[2017-04-08] MEDS ORDERED: Midazolam 2mg/2ml Inj IVP PRN (08:00)
[2017-04-08] MEDS ORDERED: DiphenhydrAMINE 50mg/ml Inj IVP PRN (08:00)
[2017-04-08] MEDS ORDERED: fentaNYL 100 mcg/2 mL IV PRN (08:00)
[2017-04-08] MEDS ORDERED: Atropine Inj 1mg/10ml Syr IV PRN (08:00)
--- NOTE | 2017-04-08 08:01 | Pre-Procedure Note/Attestation ---
Pre-Procedure Note/Attestation Complete Prior to Procedure Planned Procedure: not applicable Procedure Narrative: egd colonoscopy Indications for Procedure Pre-Operative Diagnosis: anemia Attestation I attest that I discussed the nature of the procedure; its benefits; risks and complications; and alternatives (and the risks and benefits of such alternatives ), prior to the procedure, with the patient (or the patient's legal credit and collections representative). I attest that, if there was a reasonable possibility of needing a blood transfusion, the patient (or the patient's legal credit and collections representative) was given the [facility] standardized written summary, pursuant to the Dileep Stephanie Blood Safety Act ([place] Health and Safety Code # 1645, as amended). I attest that I re-evaluated the patient just prior to the surgery and that there has been no change in the patient's H&P, except as documented below: LEXII XIAO Apr 08, 2017 08:01
--- NOTE | 2017-04-08 08:29 | Pulmonology Progress Note ---
Assessment/Plan Assessment/Plan ASSESSMENT rectal mass Diarrhea Dehydration iron deficiency anemia hypokalemia severe protein calorie malnutrition PLAN OF CARE MS floor IVF s/p EGD and colonoscopy 04/08 with findings of rectal mass pathology pending surgery eval appreciated per surgery: no obstruction, no active bleeding, no need for urgent surgical intervention, first will need chemo and radiation recommended onco eval onco consult requested loza CT / CT C/A/P diet as tolerated Stool studies ( stool cx, OP, C dif) GI follows along with surgery Venous Duplex BLE negative anemia w/up c/w iron deficiency anemia on Venofer stool OB pending s/p blood transfusion, HH up, monitor counts PPI dietary eval case discussed and evaluated by supervising physician Subjective Allergies: Coded Allergies: No Known Allergies (Unverified , 04/05/17) Subjective s/p EGD and colon earlier today with findings of rectal mass surgeon already seen and evaluated the patient Objective Last 24 Hour Vital Signs Date Time Temp Pulse Resp B/P (MAP) Pulse Ox O2 Delivery O2 Flow Rate FiO2 04/08/17 03:08 97.0 66 20 132/68 99 Room Air 04/08/17 00:23 96.6 76 20 149/76 99 Room Air 04/07/17 20:43 96.8 83 20 157/99 98 Room Air 04/07/17 08:47 97.3 83 18 134/70 98 General Appearance: no acute distress HEENT: normocephalic, atraumatic, anicteric Respiratory/Chest: lungs clear, normal breath sounds, no respiratory distress Cardiovascular: normal rate, regular rhythm, no JVD Abdomen: normal bowel sounds, soft, non tender, non distended Neurologic/Psychiatric: no motor/sensory deficits, alert, oriented x 3, responsive Musculoskeletal: normal muscle bulk Microbiology Date/Time Source Procedure Growth Status 04/07/17 14:45 Stool Clostridium difficile Toxin Assay - Final Complete Laboratory Tests 04/07/17 14:45: Stool Occult Blood Positive, Giardia Antigen [Pending] 04/08/17 05:10: White Blood Count 10.4, Red Blood Count 4.24L, Hemoglobin 9.1L, Hematocrit 30.4L , Mean Corpuscular Volume 72L, Mean Corpuscular Hemoglobin 21.4L, Mean Corpuscular Hemoglobin Concent 29.9L, Red Cell Distribution Width 20.2H, Platelet Count 282, Mean Platelet Volume 6.8, Neutrophils (%) (Auto) 80.9H, Lymphocytes (%) (Auto) 10.7L, Monocytes (%) (Auto) 7.7, Eosinophils (%) (Auto) 0.3, Basophils (%) (Auto) 0.4, Prothrombin Time 10.7, Prothromb Time International Ratio 1.0, Activated Partial Thromboplast Time 29, Sodium Level 141, Potassium Level 4.4, Chloride Level 104, Carbon Dioxide Level 30, Anion Gap 7, Blood Urea Nitrogen 7, Creatinine 0.8, Estimat Glomerular Filtration Rate > 60, Glucose Level 76, Calcium Level 8.8, Prostate Specific Antigen 1.4 Current Medications Medications (Trade) Dose Ordered Sig/Junaa Route PRN Reason Start Time Stop Time Status Last Admin Dose Admin Acetaminophen (Tylenol) 650 mg Q4H PRN ORAL fever 04/05/17 18:30 05/05/17 18:29 Al Hydroxide/Mg Hydroxide (Mylanta II) 30 ml Q6H PRN ORAL dyspepsia 04/05/17 18:30 05/05/17 18:29 Al Hydroxide/Mg Hydroxide (Mylanta) 15 ml Q1H PRN ORAL gi upset 04/08/17 08:00 UNV Atropine Sulfate (Atropine) 0.5 mg Q5M PRN IV bpm less than 45 04/08/17 08:00 UNV Dextrose (Dextrose 50%) STAT PRN IV Hypoglycemia 04/05/17 18:30 05/05/17 18:29 Diphenhydramine HCl (Benadryl) 25 mg Q15M PRN IVP Itching 04/08/17 08:00 UNV Fentanyl Citrate (Sublimaze 100 mcg/2 mL) 25 mcg Q10M PRN IV Moderate Pain (Pain Scale 4-6) 04/08/17 08:00 UNV Hydralazine HCl (Apresoline) 5 mg Q30M PRN IV SBP>160 OR___/DBP>90 OR___ 04/08/17 08:00 UNV Lorazepam (Ativan 2mg/ml 1ml) 0.5 mg Q4H PRN IV For Anxiety 04/05/17 18:30 04/12/17 18:29 Midazolam HCl (Versed 2mg/2ml vial) 1 mg Q15M PRN IVP For Anxiety 04/08/17 08:00 UNV Morphine Sulfate (Morphine Sulfate) 1 mg Q4H PRN IVP For Pain 4-10 04/05/17 18:30 04/12/17 18:29 Ondansetron HCl (Zofran) 4 mg Q1H PRN IVP Nausea & Vomiting 04/08/17 08:00 UNV Ondansetron HCl (Zofran) 4 mg Q6H PRN IVP Nausea & Vomiting 04/05/17 18:30 05/05/17 18:29 Pantoprazole (Protonix) 40 mg DAILY IVP 04/07/17 09:00 05/07/17 08:59 04/07/17 08:38 Polyethylene Glycol (Miralax) 17 gm HSPRN PRN ORAL Constipation 04/05/17 18:30 05/05/17 18:29 Sodium Chloride 1,000 ml @ 10 mls/hr Q24H IVLG 04/08/17 07:55 04/08/17 09:54 UNV Zolpidem Tartrate (Ambien) 5 mg HSPRN PRN ORAL Insomnia 04/05/17 18:30 04/12/17 18:29 Suhas ([facility])Gloria NP Apr 08, 2017 08:29
--- NOTE | 2017-04-08 08:49 | Endoscopy Procedure Note ---
Endoscopy Procedure Note Indication for Procedure: anemia Procedures Performed: EGD, colonoscopy Operative Findings/Diagnosis: rectal mass, 8 colon polyps Specimen: yes Pt Tolerated Procedure Well: Yes Estimated Blood Loss: none Anesthesiologist: gabrielle Anesthesia: general - GOPI anthony Implant(s) used?: No 50 yrs or older w/o bx or poly: Not Applicable 10yrs. F/U not recommended: Not Applicable LEXII XIAO Apr 08, 2017 08:49
--- NOTE | 2017-04-08 08:53 | General Progress Note ---
Assessment/Plan Problem List: (1) Rectal mass ICD Codes: K62.9 - Disease of anus and rectum, unspecified SNOMED: 886624257 (2) Diarrhea ICD Codes: R19.7 - Diarrhea, unspecified SNOMED: 59065598 Qualifiers: Qualified Codes: R19.7 - Diarrhea, unspecified (3) Iron deficiency ICD Codes: E61.1 - Iron deficiency SNOMED: 63332918 (4) Anemia ICD Codes: D64.9 - Anemia, unspecified SNOMED: 790346326 Qualifiers: Qualified Codes: D64.9 - Anemia, unspecified Assessment/Plan fu biopsy results loza CT CEA Subjective ROS Limited/Unobtainable: Yes Allergies: Coded Allergies: No Known Allergies (Unverified , 04/05/17) Objective Last 24 Hour Vital Signs Date Time Temp Pulse Resp B/P (MAP) Pulse Ox O2 Delivery O2 Flow Rate FiO2 04/08/17 03:08 97.0 66 20 132/68 99 Room Air 04/08/17 00:23 96.6 76 20 149/76 99 Room Air 04/07/17 20:43 96.8 83 20 157/99 98 Room Air Laboratory Tests 04/07/17 14:45: Stool Occult Blood Positive, Giardia Antigen [Pending] 04/08/17 05:10: White Blood Count 10.4, Red Blood Count 4.24L, Hemoglobin 9.1L, Hematocrit 30.4L , Mean Corpuscular Volume 72L, Mean Corpuscular Hemoglobin 21.4L, Mean Corpuscular Hemoglobin Concent 29.9L, Red Cell Distribution Width 20.2H, Platelet Count 282, Mean Platelet Volume 6.8, Neutrophils (%) (Auto) 80.9H, Lymphocytes (%) (Auto) 10.7L, Monocytes (%) (Auto) 7.7, Eosinophils (%) (Auto) 0.3, Basophils (%) (Auto) 0.4, Prothrombin Time 10.7, Prothromb Time International Ratio 1.0, Activated Partial Thromboplast Time 29, Sodium Level 141, Potassium Level 4.4, Chloride Level 104, Carbon Dioxide Level 30, Anion Gap 7, Blood Urea Nitrogen 7, Creatinine 0.8, Estimat Glomerular Filtration Rate > 60, Glucose Level 76, Calcium Level 8.8, Prostate Specific Antigen 1.4 Height (Feet): 5 Height (Inches): 10.00 Weight (Pounds): 127 General Appearance: alert EENT: normal ENT inspection Neck: supple Cardiovascular: normal rate Respiratory/Chest: decreased breath sounds Abdomen: normal bowel sounds, non tender, soft Extremities: non-tender LEXII XIAO Apr 08, 2017 08:53
[2017-04-08] MEDS: Pantoprazole Inj IVP SCH (09:38)
--- NOTE | 2017-04-08 09:57 | Immediate Post-Op Evaluation ---
Immediate Post-Op Evalulation Immediate Post-Op Evalulation Procedure: egd/colonoscopy Date of Evaluation: Apr 08, 2017 Time of Evaluation: 09:07 IV Fluids: 200ml 0.9ns Blood Products: none Estimated Blood Loss: negligible Blood Pressure Systolic: 124 Blood Pressure Diastolic: 74 Pulse Rate: 72 Respiratory Rate: 18 O2 Sat by Pulse Oximetry: 100 Temperature (Fahrenheit): 97.7 Pain Score (1-10): 0 Nausea: No Vomiting: No Complications none Patient Status: awake, reacts, patent Hydration Status: adequate Drug: EARLINE Shannon Apr 08, 2017 09:57
--- NOTE | 2017-04-08 09:58 | 48 Hour Post Anesthesia Eval ---
Post Anesthesia Evaluation Procedure: egd/colonoscopy Date of Evaluation: Apr 08, 2017 Time of Evaluation: 09:57 Blood Pressure Systolic: 124 0: 76 Pulse Rate: 73 Respiratory Rate: 18 Temperature (Fahrenheit): 97.7 O2 Sat by Pulse Oximetry: 100 Airway: patent Nausea: No Vomiting: No Pain Intensity: 0 Hydration Status: adequate Cardiopulmonary Status: stable Mental Status/LOC: patient returned to baseline Post-Anesthesia Complications: none Follow-up care needed: N/A EARLINE ALONSO Apr 08, 2017 09:58
--- NOTE | 2017-04-08 11:23 | Infectious Diseases Prog Note ---
Assessment/Plan Assessment/Plan ASSESSMENT: 67 y/o male with: // Chronic diarrhea ( >2mo ) r/o infectious - pending: stool Cx, O&P, giardia C.difficile: Neg SP EGD and Colonoscopy : rectal mass, 8 colon polyp // Severe periodontal disease // Afebrile without leukocytosis // Severe microcytic iron deficiency anemia r/o GIB - GI following - EGD / colonoscopy 04/08: pending - SP PRBCs - CEA pending // Unintentional weight loss // Elevated ESR // NKDA // Full Code PLAN: - no indication for empiric ABX at this time - EGD/colonoscopy per GI - f/u stool culture, CEA, O&P, giardia - monitor CBC, temperatures - monitor BMP - transfuse prn Subjective Allergies: Coded Allergies: No Known Allergies (Unverified , 04/05/17) Subjective comfortable Objective Vital Signs Last 24 Hour Vital Signs Date Time Temp Pulse Resp B/P (MAP) Pulse Ox O2 Delivery O2 Flow Rate FiO2 04/08/17 09:58 73 18 100 04/08/17 09:57 72 18 100 04/08/17 09:12 97.8 78 17 141/73 99 Room Air 04/08/17 09:05 77 19 125/70 98 Room Air 04/08/17 09:00 74 20 136/75 100 Nasal Cannula 3.0 04/08/17 08:55 97.9 71 18 125/76 100 Nasal Cannula 3.0 04/08/17 03:08 97.0 66 20 132/68 99 Room Air 04/08/17 00:23 96.6 76 20 149/76 99 Room Air 04/07/17 20:43 96.8 83 20 157/99 98 Room Air Height (Feet): 5 Height (Inches): 10.00 Weight (Pounds): 127 HEENT: anicteric Respiratory/Chest: normal breath sounds Cardiovascular: regularly irregular Abdomen: no organomegaly Microbiology Date/Time Source Procedure Growth Status 04/07/17 14:45 Stool Stool Culture - Preliminary Gram Negative Bacillus 1 Resulted 04/07/17 14:45 Stool Clostridium difficile Toxin Assay - Final Complete Laboratory Tests Test 04/07/17 14:45 04/08/17 05:10 Stool Occult Blood Positive (NEGATIVE) Giardia Antigen Pending White Blood Count 10.4 K/UL (4.8-10.8) Red Blood Count 4.24 M/UL (4.70-6.10) L Hemoglobin 9.1 G/DL (14.2-18.0) L Hematocrit 30.4 % (42.0-52.0) L Mean Corpuscular Volume 72 FL (80-99) L Mean Corpuscular Hemoglobin 21.4 PG (27.0-31.0) L Mean Corpuscular Hemoglobin Concent 29.9 G/DL (32.0-36.0) L Red Cell Distribution Width 20.2 % (11.6-14.8) H Platelet Count 282 K/UL (150-450) Mean Platelet Volume 6.8 FL (6.5-10.1) Neutrophils (%) (Auto) 80.9 % (45.0-75.0) H Lymphocytes (%) (Auto) 10.7 % (20.0-45.0) L Monocytes (%) (Auto) 7.7 % (1.0-10.0) Eosinophils (%) (Auto) 0.3 % (0.0-3.0) Basophils (%) (Auto) 0.4 % (0.0-2.0) Prothrombin Time 10.7 SEC (9.30-11.50) Prothromb Time International Ratio 1.0 (0.9-1.1) Activated Partial Thromboplast Time 29 SEC (23-33) Sodium Level 141 MMOL/L (136-145) Potassium Level 4.4 MMOL/L (3.5-5.1) Chloride Level 104 MMOL/L (98-107) Carbon Dioxide Level 30 MMOL/L (21-32) Anion Gap 7 mmol/L (5-15) Blood Urea Nitrogen 7 mg/dL (7-18) Creatinine 0.8 MG/DL (0.55-1.30) Estimat Glomerular Filtration Rate > 60 mL/min (>60) Glucose Level 76 MG/DL (74-106) Calcium Level 8.8 MG/DL (8.5-10.1) Prostate Specific Antigen 1.4 ng/mL (0.0-4.0) Current Medications Medications (Trade) Dose Ordered Sig/Juana Route PRN Reason Start Time Stop Time Status Last Admin Dose Admin Acetaminophen (Tylenol) 650 mg Q4H PRN ORAL fever 04/05/17 18:30 05/05/17 18:29 Al Hydroxide/Mg Hydroxide (Mylanta II) 30 ml Q6H PRN ORAL dyspepsia 04/05/17 18:30 05/05/17 18:29 Al Hydroxide/Mg Hydroxide (Mylanta) 15 ml Q1H PRN ORAL gi upset 04/08/17 08:00 04/08/17 13:00 Atropine Sulfate (Atropine) 0.5 mg Q5M PRN IV bpm less than 45 04/08/17 08:00 04/08/17 13:00 Dextrose (Dextrose 50%) STAT PRN IV Hypoglycemia 04/05/17 18:30 05/05/17 18:29 Diphenhydramine HCl (Benadryl) 25 mg Q15M PRN IVP Itching 04/08/17 08:00 04/08/17 13:00 Fentanyl Citrate (Sublimaze 100 mcg/2 mL) 25 mcg Q10M PRN IV Moderate Pain (Pain Scale 4-6) 04/08/17 08:00 04/08/17 13:00 Hydralazine HCl (Apresoline) 5 mg Q30M PRN IV SBP>160 OR___/DBP>90 OR___ 04/08/17 08:00 04/08/17 13:00 Lorazepam (Ativan 2mg/ml 1ml) 0.5 mg Q4H PRN IV For Anxiety 04/05/17 18:30 04/12/17 18:29 Midazolam HCl (Versed 2mg/2ml vial) 1 mg Q15M PRN IVP For Anxiety 04/08/17 08:00 04/08/17 13:00 Morphine Sulfate (Morphine Sulfate) 1 mg Q4H PRN IVP For Pain 4-10 04/05/17 18:30 04/12/17 18:29 Ondansetron HCl (Zofran) 4 mg Q1H PRN IVP Nausea & Vomiting 04/08/17 08:00 04/08/17 13:00 Ondansetron HCl (Zofran) 4 mg Q6H PRN IVP Nausea & Vomiting 04/05/17 18:30 05/05/17 18:29 Pantoprazole (Protonix) 40 mg DAILY IVP 04/07/17 09:00 05/07/17 08:59 04/08/17 09:38 Polyethylene Glycol (Miralax) 17 gm HSPRN PRN ORAL Constipation 04/05/17 18:30 05/05/17 18:29 Sodium Chloride 1,000 ml @ 10 mls/hr Q24H IVLG 04/08/17 07:55 04/08/17 13:00 Zolpidem Tartrate (Ambien) 5 mg HSPRN PRN ORAL Insomnia 04/05/17 18:30 04/12/17 18:29 ASHLYN WALDRON M.D. Apr 08, 2017 11:23
--- NOTE | 2017-04-08 13:44 | Consultation ---
History of Present Illness General Date patient seen: Apr 08, 2017 Chief Complaint: Diarrhea Referring physician: CYN BAILEY Reason for Consultation: DIARRHEA Present Illness HPI 67M admitted with complaints of persistent watery diarrhea for 2+ months. upon admission was scheduled for EGD and colonoscopy by GI. CT scan performed. Rectal tumor noted. Patient states he has not had any problems other than diarrhea. on other complaints. no weight loss that he recalls. no pain. no n /v/f/c. surgery called to evaluate. Allergies: Coded Allergies: No Known Allergies (Unverified , 04/05/17) Medication History Scheduled Multivitamins* (Multivitamins*), 1 TAB ORAL DAILY, (Reported) Patient History History Provided By: Patient, Medical Record Healthcare decision maker Resuscitation status Advanced Directive on File Past Medical/Surgical History Past Medical/Surgical History: (1) Hypokalemia (2) Diarrhea (3) Iron deficiency (4) Anemia (5) Dehydration (6) Severe protein-calorie malnutrition (7) Colonoscopy planned (8) Rectal mass Review of Systems All Other Systems: negative except mentioned in HPI Physical Exam General Appearance: no apparent distress Lines, tubes and drains: peripheral HEENT: mucous membranes moist, PERRL Neck: normal inspection Respiratory/Chest: normal breath sounds, no respiratory distress, no accessory muscle use Cardiovascular/Chest: normal peripheral pulses, normal rate Abdomen: normal bowel sounds, non tender, soft, no organomegaly, no mass Genitourinary/Rectal: other - deferred till tomorrow. just had colonoscopy. Extremities: normal inspection Skin Exam: normal pigmentation Neurologic: alert, oriented x 3 Last 24 Hour Vital Signs Date Time Temp Pulse Resp B/P (MAP) Pulse Ox O2 Delivery O2 Flow Rate FiO2 04/08/17 09:58 73 18 100 04/08/17 09:57 72 18 100 04/08/17 09:12 97.8 78 17 141/73 99 Room Air 04/08/17 09:05 77 19 125/70 98 Room Air 04/08/17 09:00 74 20 136/75 100 Nasal Cannula 3.0 04/08/17 08:55 97.9 71 18 125/76 100 Nasal Cannula 3.0 04/08/17 03:08 97.0 66 20 132/68 99 Room Air 04/08/17 00:23 96.6 76 20 149/76 99 Room Air 04/07/17 20:43 96.8 83 20 157/99 98 Room Air Intake and Output 04/08/17 04/09/17 19:00 07:00 Intake Total 150 ml Output Total 0 ml Balance 150 ml IV Total 150 ml Output Estimated Blood Loss 0 ml Laboratory Tests Test 04/07/17 14:45 04/08/17 05:10 Stool Occult Blood Positive (NEGATIVE) Giardia Antigen Pending White Blood Count 10.4 K/UL (4.8-10.8) Red Blood Count 4.24 M/UL (4.70-6.10) L Hemoglobin 9.1 G/DL (14.2-18.0) L Hematocrit 30.4 % (42.0-52.0) L Mean Corpuscular Volume 72 FL (80-99) L Mean Corpuscular Hemoglobin 21.4 PG (27.0-31.0) L Mean Corpuscular Hemoglobin Concent 29.9 G/DL (32.0-36.0) L Red Cell Distribution Width 20.2 % (11.6-14.8) H Platelet Count 282 K/UL (150-450) Mean Platelet Volume 6.8 FL (6.5-10.1) Neutrophils (%) (Auto) 80.9 % (45.0-75.0) H Lymphocytes (%) (Auto) 10.7 % (20.0-45.0) L Monocytes (%) (Auto) 7.7 % (1.0-10.0) Eosinophils (%) (Auto) 0.3 % (0.0-3.0) Basophils (%) (Auto) 0.4 % (0.0-2.0) Prothrombin Time 10.7 SEC (9.30-11.50) Prothromb Time International Ratio 1.0 (0.9-1.1) Activated Partial Thromboplast Time 29 SEC (23-33) Sodium Level 141 MMOL/L (136-145) Potassium Level 4.4 MMOL/L (3.5-5.1) Chloride Level 104 MMOL/L (98-107) Carbon Dioxide Level 30 MMOL/L (21-32) Anion Gap 7 mmol/L (5-15) Blood Urea Nitrogen 7 mg/dL (7-18) Creatinine 0.8 MG/DL (0.55-1.30) Estimat Glomerular Filtration Rate > 60 mL/min (>60) Glucose Level 76 MG/DL (74-106) Calcium Level 8.8 MG/DL (8.5-10.1) Prostate Specific Antigen 1.4 ng/mL (0.0-4.0) Microbiology Date/Time Source Procedure Growth Status 04/07/17 14:45 Stool Stool Culture - Preliminary Gram Negative Bacillus 1 Resulted 04/07/17 14:45 Stool Clostridium difficile Toxin Assay - Final Complete Height (Feet): 5 Height (Inches): 10.00 Weight (Pounds): 127 Medications Current Medications Medications (Trade) Dose Ordered Sig/Juana Route PRN Reason Start Time Stop Time Status Last Admin Dose Admin Acetaminophen (Tylenol) 650 mg Q4H PRN ORAL fever 04/05/17 18:30 05/05/17 18:29 Al Hydroxide/Mg Hydroxide (Mylanta II) 30 ml Q6H PRN ORAL dyspepsia 04/05/17 18:30 05/05/17 18:29 Dextrose (Dextrose 50%) STAT PRN IV Hypoglycemia 04/05/17 18:30 05/05/17 18:29 Lorazepam (Ativan 2mg/ml 1ml) 0.5 mg Q4H PRN IV For Anxiety 04/05/17 18:30 04/12/17 18:29 Morphine Sulfate (Morphine Sulfate) 1 mg Q4H PRN IVP For Pain 4-10 04/05/17 18:30 04/12/17 18:29 Ondansetron HCl (Zofran) 4 mg Q6H PRN IVP Nausea & Vomiting 04/05/17 18:30 05/05/17 18:29 Pantoprazole (Protonix) 40 mg DAILY IVP 04/07/17 09:00 05/07/17 08:59 04/08/17 09:38 Polyethylene Glycol (Miralax) 17 gm HSPRN PRN ORAL Constipation 04/05/17 18:30 05/05/17 18:29 Zolpidem Tartrate (Ambien) 5 mg HSPRN PRN ORAL Insomnia 04/05/17 18:30 04/12/17 18:29 Assessment/Plan Problem List: (1) Rectal mass Assessment & Plan: 67M recently diagnosed rectal tumor. pathology unknown. history minimal. -will await pathology results -no acute surgical intervention given non obstructive and no active bleeding -if cancer will need chemo/radiation first -heme/onc consult. -will follow. ICD Codes: K62.9 - Disease of anus and rectum, unspecified SNOMED: [id number] Wayne Ulloa Apr 08, 2017 13:44
--- NOTE | 2017-04-08 16:30 | Procedure Note ---
DATE OF PROCEDURE: 04/08/2017 SURGEON: Mainor Son M.D. PROCEDURE: Upper endoscopy with biopsy and colonoscopy with biopsy with snare polypectomy. ANESTHESIOLOGIST: Tari Dobbins M.D. INSTRUMENT: Olympus adult flexible upper endoscope and colonoscope. INDICATION: Anemia. REASON FOR PROCEDURE: The procedure, risks, benefits, and possible consequences, including hemorrhage, aspiration, perforation and infection, and alternative treatments, were explained to the patient/legal guardian by Dr. Mainor Son and the patient/legal guardian understood and accepted these risks. DESCRIPTION OF PROCEDURE: After informed consent was obtained and the patient was adequately sedated, Olympus upper endoscope was advanced from mouth into the second portion of the duodenum and retroflexion was performed in the stomach. The patient has distal esophageal ring and small hiatal hernia. No evidence of obvious esophagitis. In the stomach, there were numerous polyps, mostly fundic gland polyps and one of them was biopsied. There was also evidence of gastritis. Random biopsy from antrum was obtained to rule out H. pylori infection. At this time, the upper endoscope was retrieved and the patient was turned over for colonoscopy. First, a rectal exam was performed, which shows that the patient had a mass examined in the rectum. Then, the scope was advanced from the rectum into the cecum documented by appendiceal orifice, ileocecal valve, and right upper quadrant palpation. Quality of prep was very good. The patient had severe diverticulosis throughout the colon both in the right and left. The patient had a total of eight polyps removed in this colonoscopy examination, two in the ascending, four in the transverse, and two in the sigmoid. The largest polyp was in the transverse, which was roughly about 8 mm removed with the snare polypectomy technique. The rest of the polyps were smaller, some removed with a snare and some with biopsy. The patient had a mass starting at the anal verge and ulcerative. There was a short segment, maybe 2 cm mass that is somewhat circumferential and ulcerated. We did multiple biopsy of this mass. SUMMARY OF FINDINGS: 1. Distal esophageal ring. 2. Hiatal hernia. 3. Gastritis. 4. Gastric polyps. 5. A total of eight colonic polyps removed, see above for details. 6. Diverticulosis, severe. 7. Rectal mass. RECOMMENDATIONS: Follow up biopsies and treat accordingly. Check CEA level. Follow up loza CT. If there is no evidence of any metastasis on the CT, the patient will need a rectal EUS for staging. I want to thank, Dr. Guido, for this kind referral. Mainor Son M.D. DR: EDILBERTO JOB#: [id number] CC: Monique Guido M.D.; Fax#: [phone]
--- NOTE | 2017-04-08 17:17 | Diagnostic Imaging Report ---
INDICATION: Weight loss, anemia, diarrhea, history of cancer needing metastatic workup TECHNIQUE: Patient ingested oral contrast. IV administration nonionic contrast . Multiphasic spiral acquisitions obtained through the chest, abdomen, and pelvis Multiplanar reconstructions were generated. Total dose length product 947 mGycm. CTDIvol(s) 8, 64, 10, 10 mGy. Radiation dose was minimized using automated exposure control COMPARISON: None FINDINGS There is generalized edema of the subcutaneous, abdominal, and mediastinal fat. Chest: The lungs demonstrate minimal scarring or atelectasis at the lung bases . There is a 2 mm nodule in the left upper lobe, image 13 series 6, located at the periphery. Otherwise, no infiltrates, effusions, masses demonstrated. The heart size is normal. There is questionably left ventricular muscular hypertrophy.. No pericardial effusion. No mediastinal or hilar mass or adenopathy. The thyroid is prominent but otherwise unremarkable. No axillary or chest wall mass or adenopathy. The bones are unremarkable Abdomen pelvis: A large complex mass is present within the pelvis, involving the distal rectum and extending to the anus. This measures 6.3 cm transverse by 7.5 cm AP by 9 cm craniocaudad. It demonstrates mostly enhancing soft tissue. However, there are areas of lobulation. There is a contiguous area of multiple foci of mural low attenuation which may represent either cystic necrotic areas or intramural abscesses. These are predominantly posterolateral to the left.. No definite pelvic adenopathy demonstrated. The mass is inseparable from the prostate anteriorly and inferiorly. A fat plane does exists between the mass and the seminal vesicles except for a focal area on the right. The liver demonstrates multiple cysts. It also demonstrates multiple subcentimeter low attenuation lesions which are too small to characterize. Gallbladder, bile ducts, pancreas,, adrenals are unremarkable. The right kidney demonstrates a 1.5 diameter lower pole cyst. The left kidney is unremarkable. There is a retroaortic left renal vein incidentally noted. No mesenteric or retroperitoneal mass or adenopathy. The prostate is enlarged, measures 6 cm transverse by 3.3 cm AP. It may be compressed anteriorly by the mass, as it is ovoid rather than round Despite the mass, there is no proximal colonic dilatation demonstrated. Contrast extends all the way through the small bowel and to the colon at the level of the mass. There is no evidence of diverticulosis or diverticulitis. The appendix is normal. No small bowel distention or small bowel wall thickening demonstrated. No free or loculated intraperitoneal air or fluid. The esophagus, stomach, duodenum are all unremarkable. The bones are unremarkable except for degenerative changes of the lumbar spine Impression: 6.3 x 7.5 x 9 cm mass involving the rectum. This is consistent with clinical history of rectal carcinoma described by the referring physician. Invasion of the mass into the adjacent prostate and the right side of the seminal vesicles not completely excludable Confluent areas of low-attenuation within the periphery of the mass, as described. These may represent cystic necrotic areas, versus mural abscesses. Despite the size of the mass, no definite local pelvic adenopathy. No definite evidence of hepatic metastases. However, there are hepatic low attenuation lesions which are too small to characterize, most likely represent cysts but small metastatic deposits cannot be completely ruled out. In addition, there are larger hepatic low attenuation lesions with definite represent cysts 2 mm left upper lobe pulmonary nodule. Nonspecific, likely postinflammatory in nature but a small metastatic deposit cannot be ruled out No other evidence of metastatic disease Possible ventricular muscular hypertrophy Prostatomegaly Degenerative spondylosis The CT scanner at [facility] is accredited by the [employer] and the scans are performed using protocols designed to limit radiation exposure to as low as reasonably achievable to attain images of sufficient resolution adequate for diagnostic evaluation.
[2017-04-08 21:36] LABS: IRON 34 ug/dL (50-175); TOTAL IRON BINDING CAPACITY 292 ug/dL (250-450)
[2017-04-08 21:48] LABS: FERRITIN 50 NG/ML (8-388)
[2017-04-09 00:29] VITALS: BP 140/74
[2017-04-09 04:51] VITALS: BP 140/90
--- NOTE | 2017-04-09 07:55 | General Progress Note ---
Progress Note Progress Note pt seen for large rectal mass. had colonoscopy yersterday showing same. CT abd/pelvis confirms large 7 cm mass of rectum. -will await pathology results though almost certainly CA, if confirmed would require neioadjuvant chemo/radiation first -will follow. CARMITA LEBRON Apr 09, 2017 07:55
[2017-04-09 08:16] LABS: BASOPHILS % (AUTO) 0.3 % (0.0-2.0); EOSINOPHILS % (AUTO) 0.5 % (0.0-3.0); LYMPHOCYTES % (AUTO) 12.7 % (20.0-45.0); MEAN CORPUSCULAR HEMOGLOBIN 21.6 PG (27.0-31.0); MEAN CORPUSCULAR HGB CONC 30.1 G/DL (32.0-36.0); MEAN CORPUSCULAR VOLUME 72 FL (80-99); MEAN PLATELET VOLUME 6.3 FL (6.5-10.1); MONOCYTES % (AUTO) 6.6 % (1.0-10.0); NEUTROPHILS % (AUTO) 79.9 % (45.0-75.0); PLATELET COUNT 280 K/UL (150-450); RED BLOOD COUNT 4.05 M/UL (4.70-6.10); RED CELL DISTRIBUTION WIDTH 20.8 % (11.6-14.8)
--- NOTE | 2017-04-09 08:22 | Pulmonology Progress Note ---
Assessment/Plan Assessment/Plan ASSESSMENT rectal mass Diarrhea Dehydration iron deficiency anemia hypokalemia severe protein calorie malnutrition PLAN OF CARE MS floor IVF s/p EGD and colonoscopy 04/08 with findings of rectal mass pathology pending surgery eval appreciated per surgery: no obstruction, no active bleeding, no need for urgent surgical intervention, first will need chemo and radiation recommended onco eval onco consult requested loza CT / CT C/A/P demonstrated -6.3 x 7.5 x 9 cm mass involving the rectum. Invasion of the mass into the adjacent prostate and the right side of the seminal vesicles not completely excludable diet as tolerated Stool studies ( stool cx, OP, C dif) GI follows along with surgery Venous Duplex BLE negative anemia w/up c/w iron deficiency anemia on Venofer stool OB positive s/p blood transfusion, HH up, monitor counts PPI dietary eval onco eval pending, first will need chemo and radiation prior to surgery PSA WNL fup with pathology case discussed and evaluated by supervising physician Subjective Allergies: Coded Allergies: No Known Allergies (Unverified , 04/05/17) Subjective s/p EGD and colon with findings of rectal mass CT /P confirmed presence of rectal mass HH with small trend down, no active bleeding Objective Last 24 Hour Vital Signs Date Time Temp Pulse Resp B/P (MAP) Pulse Ox O2 Delivery O2 Flow Rate FiO2 04/09/17 04:51 97.6 93 20 140/90 98 Room Air 04/09/17 00:29 97.8 80 19 140/74 98 Room Air 04/08/17 20:52 97.7 90 19 146/85 98 Room Air 04/08/17 16:00 97.7 85 19 118/56 97 Room Air 04/08/17 09:58 73 18 100 04/08/17 09:57 72 18 100 04/08/17 09:12 97.8 78 17 141/73 99 Room Air 04/08/17 09:05 77 19 125/70 98 Room Air 04/08/17 09:00 74 20 136/75 100 Nasal Cannula 3.0 04/08/17 08:55 97.9 71 18 125/76 100 Nasal Cannula 3.0 Objective General Appearance: no acute distress HEENT: normocephalic, atraumatic, anicteric Respiratory/Chest: lungs clear, normal breath sounds, no respiratory distress Cardiovascular: normal rate, regular rhythm, no JVD Abdomen: normal bowel sounds, soft, non tender, non distended Neurologic/Psychiatric: no motor/sensory deficits, alert, oriented x 3, responsive Musculoskeletal: normal muscle bulk Microbiology Date/Time Source Procedure Growth Status 04/07/17 14:45 Stool Stool Culture - Preliminary Gram Negative Bacillus 1 Resulted 04/07/17 14:45 Stool Clostridium difficile Toxin Assay - Final Complete Laboratory Tests 04/09/17 05:10: White Blood Count [Pending], Red Blood Count [Pending], Hemoglobin [Pending], Hematocrit [Pending], Mean Corpuscular Volume [Pending], Mean Corpuscular Hemoglobin [Pending], Mean Corpuscular Hemoglobin Concent [Pending], Red Cell Distribution Width [Pending], Platelet Count [Pending], Mean Platelet Volume [ Pending], Neutrophils (%) (Auto) [Pending], Lymphocytes (%) (Auto) [Pending], Monocytes (%) (Auto) [Pending], Eosinophils (%) (Auto) [Pending], Basophils (%) (Auto) [Pending], Sodium Level [Pending], Potassium Level [Pending], Chloride Level [Pending], Carbon Dioxide Level [Pending], Blood Urea Nitrogen [Pending], Creatinine [Pending], Estimat Glomerular Filtration Rate [Pending], Glucose Level [Pending], Calcium Level [Pending] Current Medications Medications (Trade) Dose Ordered Sig/Juana Route PRN Reason Start Time Stop Time Status Last Admin Dose Admin Acetaminophen (Tylenol) 650 mg Q4H PRN ORAL fever 04/05/17 18:30 05/05/17 18:29 Al Hydroxide/Mg Hydroxide (Mylanta II) 30 ml Q6H PRN ORAL dyspepsia 04/05/17 18:30 05/05/17 18:29 Dextrose (Dextrose 50%) STAT PRN IV Hypoglycemia 04/05/17 18:30 05/05/17 18:29 Iron Sucrose 100 mg/Sodium Chloride 60 ml @ 240 mls/hr BEDTIME IV 04/09/17 21:00 04/13/17 21:14 Lorazepam (Ativan 2mg/ml 1ml) 0.5 mg Q4H PRN IV For Anxiety 04/05/17 18:30 04/12/17 18:29 Morphine Sulfate (Morphine Sulfate) 1 mg Q4H PRN IVP For Pain 4-10 04/05/17 18:30 04/12/17 18:29 Ondansetron HCl (Zofran) 4 mg Q6H PRN IVP Nausea & Vomiting 04/05/17 18:30 05/05/17 18:29 Pantoprazole (Protonix) 40 mg DAILY IVP 04/07/17 09:00 05/07/17 08:59 04/08/17 09:38 Polyethylene Glycol (Miralax) 17 gm HSPRN PRN ORAL Constipation 04/05/17 18:30 05/05/17 18:29 Zolpidem Tartrate (Ambien) 5 mg HSPRN PRN ORAL Insomnia 04/05/17 18:30 04/12/17 18:29 Suhas BarthWhite Plains HospitalGloria Thompson NP Apr 09, 2017 08:21
[2017-04-09 08:41] LABS: ANION GAP 7 mmol/L (5-15); CALCIUM 8.6 MG/DL (8.5-10.1); CARBON DIOXIDE 30 MMOL/L (21-32); CHLORIDE 104 MMOL/L (98-107); GLOMERULAR FILTRATION RATE > 60 mL/min (>60); SODIUM 140 MMOL/L (136-145)
[2017-04-09 08:48] VITALS: BP 144/91
[2017-04-09] MEDS: Pantoprazole Inj IVP SCH (09:08)
[2017-04-09 12:12] VITALS: BP 173/96
--- NOTE | 2017-04-09 12:25 | Infectious Diseases Prog Note ---
Assessment/Plan Assessment/Plan A; Chronic diarrhea Rectal mass Colon polyps, 8 removed Anemia Distal esophageal ring P; observe off antibiotic Subjective ROS Limited/Unobtainable: No Constitutional: Reports: no symptoms HEENT: Reports: no symptoms Respiratory: Reports: no symptoms Cardiovascular: Reports: no symptoms Gastrointestinal/Abdominal: Reports: no symptoms Genitourinary: Reports: no symptoms Allergies: Coded Allergies: No Known Allergies (Unverified , 04/05/17) Objective Vital Signs Last 24 Hour Vital Signs Date Time Temp Pulse Resp B/P (MAP) Pulse Ox O2 Delivery O2 Flow Rate FiO2 04/09/17 12:12 97.6 73 18 173/96 100 Room Air 04/09/17 08:48 97.2 94 20 144/91 100 Room Air 04/09/17 04:51 97.6 93 20 140/90 98 Room Air 04/09/17 00:29 97.8 80 19 140/74 98 Room Air 04/08/17 20:52 97.7 90 19 146/85 98 Room Air 04/08/17 16:00 97.7 85 19 118/56 97 Room Air Height (Feet): 5 Height (Inches): 10.00 Weight (Pounds): 127 HEENT: mucous membranes moist Respiratory/Chest: lungs clear Cardiovascular: normal rate Abdomen: soft, non tender Extremities: no edema Neurologic/Psychiatric: alert, oriented x 3, responsive Microbiology Date/Time Source Procedure Growth Status 04/07/17 14:45 Stool Stool Culture - Preliminary NO SALMONELLA,SHIGELLA,OR CAMPYLOBACT... Resulted 04/07/17 14:45 Stool Clostridium difficile Toxin Assay - Final Complete Laboratory Tests Test 04/09/17 05:10 White Blood Count 9.0 K/UL (4.8-10.8) Red Blood Count 4.05 M/UL (4.70-6.10) L Hemoglobin 8.8 G/DL (14.2-18.0) L Hematocrit 29.1 % (42.0-52.0) L Mean Corpuscular Volume 72 FL (80-99) L Mean Corpuscular Hemoglobin 21.6 PG (27.0-31.0) L Mean Corpuscular Hemoglobin Concent 30.1 G/DL (32.0-36.0) L Red Cell Distribution Width 20.8 % (11.6-14.8) H Platelet Count 280 K/UL (150-450) Mean Platelet Volume 6.3 FL (6.5-10.1) L Neutrophils (%) (Auto) 79.9 % (45.0-75.0) H Lymphocytes (%) (Auto) 12.7 % (20.0-45.0) L Monocytes (%) (Auto) 6.6 % (1.0-10.0) Eosinophils (%) (Auto) 0.5 % (0.0-3.0) Basophils (%) (Auto) 0.3 % (0.0-2.0) Sodium Level 140 MMOL/L (136-145) Potassium Level 4.0 MMOL/L (3.5-5.1) Chloride Level 104 MMOL/L (98-107) Carbon Dioxide Level 30 MMOL/L (21-32) Anion Gap 7 mmol/L (5-15) Blood Urea Nitrogen 11 mg/dL (7-18) Creatinine 1.0 MG/DL (0.55-1.30) Estimat Glomerular Filtration Rate > 60 mL/min (>60) Glucose Level 87 MG/DL (74-106) Calcium Level 8.6 MG/DL (8.5-10.1) Current Medications Medications (Trade) Dose Ordered Sig/Juana Route PRN Reason Start Time Stop Time Status Last Admin Dose Admin Acetaminophen (Tylenol) 650 mg Q4H PRN ORAL fever 04/05/17 18:30 05/05/17 18:29 Al Hydroxide/Mg Hydroxide (Mylanta II) 30 ml Q6H PRN ORAL dyspepsia 04/05/17 18:30 05/05/17 18:29 Clonidine HCl (Catapres) 0.1 mg EVERY 6 HOURS PRN ORAL sbp above 160 04/09/17 12:00 05/09/17 11:59 Dextrose (Dextrose 50%) STAT PRN IV Hypoglycemia 04/05/17 18:30 05/05/17 18:29 Iron Sucrose 100 mg/Sodium Chloride 60 ml @ 240 mls/hr BEDTIME IV 04/09/17 21:00 04/13/17 21:14 Lorazepam (Ativan 2mg/ml 1ml) 0.5 mg Q4H PRN IV For Anxiety 04/05/17 18:30 04/12/17 18:29 Morphine Sulfate (Morphine Sulfate) 1 mg Q4H PRN IVP For Pain 4-10 04/05/17 18:30 04/12/17 18:29 Ondansetron HCl (Zofran) 4 mg Q6H PRN IVP Nausea & Vomiting 04/05/17 18:30 05/05/17 18:29 Pantoprazole (Protonix) 40 mg DAILY IVP 04/07/17 09:00 05/07/17 08:59 04/09/17 09:08 Polyethylene Glycol (Miralax) 17 gm HSPRN PRN ORAL Constipation 04/05/17 18:30 05/05/17 18:29 Zolpidem Tartrate (Ambien) 5 mg HSPRN PRN ORAL Insomnia 04/05/17 18:30 04/12/17 18:29 MATTHEW STORM Apr 09, 2017 12:25
[2017-04-09 16:00] VITALS: BP 121/68
[2017-04-09 20:00] VITALS: BP 121/74
[2017-04-09] MEDS: Iron Sucrose 100 MG in NS 55 ML IV SCH (21:25)
[2017-04-10] VITALS: BP 134/76
[2017-04-10 04:00] VITALS: BP 151/89
--- NOTE | 2017-04-10 07:11 | General Progress Note ---
Progress Note Progress Note pt seen for large rectal mass. sp colonoscopy and bx. of large rectal mass and had multiple polyps removed pt hs also had ct of abdomen and pelvis showing : A large complex mass is present within the pelvis, involving the distal rectum and extending to the anus. This measures 6.3 cm transverse by 7.5 cm AP by 9 cm craniocaudad. It demonstrates mostly enhancing soft tissue. However, there are areas of lobulation. There is a contiguous area of multiple foci of mural low attenuation which may represent either cystic necrotic areas or intramural abscesses. These are predominantly posterolateral to the left.. No definite pelvic adenopathy demonstrated. The mass is inseparable from the prostate anteriorly and inferiorly. A fat plane does exists between the mass and the seminal vesicles except for a focal area on the right. As noted previously aqwait pathology result. If CA is confirmed usually wound undergo neoadjuvant chemo/radiation therapy prior to surgical resection. Above discussed with patient. VICARMITA Apr 10, 2017 07:11
[2017-04-10 08:02] LABS: BASOPHILS % (AUTO) 0.3 % (0.0-2.0); EOSINOPHILS % (AUTO) 0.5 % (0.0-3.0); LYMPHOCYTES % (AUTO) 16.8 % (20.0-45.0); MEAN CORPUSCULAR HGB CONC 30.5 G/DL (32.0-36.0); MEAN CORPUSCULAR VOLUME 72 FL (80-99); MEAN PLATELET VOLUME 7.8 FL (6.5-10.1); MONOCYTES % (AUTO) 7.3 % (1.0-10.0); NEUTROPHILS % (AUTO) 75.1 % (45.0-75.0); PLATELET COUNT 273 K/UL (150-450); RED BLOOD COUNT 4.31 M/UL (4.70-6.10); RED CELL DISTRIBUTION WIDTH 21.8 % (11.6-14.8); WHITE BLOOD COUNT 8.6 K/UL (4.8-10.8)
[2017-04-10 08:03] VITALS: BP 133/80
[2017-04-10 08:03] LABS: PSA TOTAL 1.2 ng/mL (0.0-4.0)
[2017-04-10 08:20] LABS: ANION GAP 8 mmol/L (5-15); CALCIUM 9.3 MG/DL (8.5-10.1); CARBON DIOXIDE 29 MMOL/L (21-32); CHLORIDE 103 MMOL/L (98-107); CREATININE 0.9 MG/DL (0.55-1.30); GLOMERULAR FILTRATION RATE > 60 mL/min (>60); POTASSIUM 3.8 MMOL/L (3.5-5.1); SODIUM 140 MMOL/L (136-145)
--- NOTE | 2017-04-10 08:37 | Pulmonology Progress Note ---
Assessment/Plan Assessment/Plan ASSESSMENT rectal Ca st 3 pulmonary nodule , possible mets Diarrhea Dehydration iron deficiency anemia hypokalemia severe protein calorie malnutrition PLAN OF CARE MS floor IVF s/p EGD and colonoscopy 04/08 with findings of rectal mass pathology pending surgery eval appreciated per surgery: no obstruction, no active bleeding, no need for urgent surgical intervention, first will need chemo and radiation recommended onco eval onco eval appreciated cancer tumor markers pending ulmonary nodule -possible mets per onco needs to be set with radiation oncology loza CT / CT C/A/P demonstrated -6.3 x 7.5 x 9 cm mass involving the rectum. Invasion of the mass into the adjacent prostate and the right side of the seminal vesicles not completely excludable PSA WNL diet as tolerated Stool studies ( stool cx, OP, C dif)all negative GI follows along with surgery per order- 04/11 endoscopic US with possible FNA/biopsy Venous Duplex BLE negative anemia w/up c/w iron deficiency anemia on Venofer stool OB positive s/p blood transfusion, HH up, monitor counts PPI dietary eval onco follwos, first will need chemo and radiation prior to surgery PSA WNL fup with pathology endoscopic US aspiration with biopsy for staging of rectal mass in am dc plan with further recommendations from onco case discussed and evaluated by supervising physician Subjective Allergies: Coded Allergies: No Known Allergies (Unverified , 04/05/17) Subjective s/p EGD and colon with findings of rectal mass CT A/P confirmed presence of rectal mass CT chest with pulmonary nodule HH at baseline, no active bleeding occasional abdominal discomfort Objective Last 24 Hour Vital Signs Date Time Temp Pulse Resp B/P (MAP) Pulse Ox O2 Delivery O2 Flow Rate FiO2 04/10/17 08:03 97.7 85 18 133/80 97 Room Air 04/10/17 04:00 97.7 84 18 151/89 97 Room Air 04/10/17 00:00 97.3 92 18 134/76 99 Room Air 04/09/17 20:00 97.9 80 18 121/74 99 Room Air 04/09/17 16:00 97.8 76 17 121/68 100 Room Air 04/09/17 14:39 173/96 04/09/17 12:12 97.6 73 18 173/96 100 Room Air 04/09/17 08:48 97.2 94 20 144/91 100 Room Air Objective General Appearance: no acute distress HEENT: normocephalic, atraumatic, anicteric Respiratory/Chest: lungs clear, normal breath sounds, no respiratory distress Cardiovascular: normal rate, regular rhythm, no JVD Abdomen: normal bowel sounds, soft, non tender, non distended Neurologic/Psychiatric: no motor/sensory deficits, alert, oriented x 3, responsive Musculoskeletal: normal muscle bulk Microbiology Date/Time Source Procedure Growth Status 04/07/17 14:45 Stool Ova and Parasites - Final Complete 04/07/17 14:45 Stool Ova and Parasite Result 1 - Final Complete 04/07/17 14:45 Stool Stool Culture - Preliminary NO SALMONELLA,SHIGELLA,OR CAMPYLOBACT... Resulted 04/07/17 14:45 Stool Clostridium difficile Toxin Assay - Final Complete Laboratory Tests 04/10/17 04:30: White Blood Count 8.6, Red Blood Count 4.31L, Hemoglobin 9.5L, Hematocrit 31.1L , Mean Corpuscular Volume 72L, Mean Corpuscular Hemoglobin 22.0L, Mean Corpuscular Hemoglobin Concent 30.5L, Red Cell Distribution Width 21.8H, Platelet Count 273, Mean Platelet Volume 7.8, Neutrophils (%) (Auto) 75.1H, Lymphocytes (%) (Auto) 16.8L, Monocytes (%) (Auto) 7.3, Eosinophils (%) (Auto) 0.5, Basophils (%) (Auto) 0.3, Sodium Level 140, Potassium Level 3.8, Chloride Level 103, Carbon Dioxide Level 29, Anion Gap 8, Blood Urea Nitrogen 9, Creatinine 0.9, Estimat Glomerular Filtration Rate > 60, Glucose Level 81, Calcium Level 9.3, Ferritin 51, Prostate Specific Antigen 1.2 Current Medications Medications (Trade) Dose Ordered Sig/Juana Route PRN Reason Start Time Stop Time Status Last Admin Dose Admin Acetaminophen (Tylenol) 650 mg Q4H PRN ORAL fever 04/05/17 18:30 05/05/17 18:29 Al Hydroxide/Mg Hydroxide (Mylanta II) 30 ml Q6H PRN ORAL dyspepsia 04/05/17 18:30 05/05/17 18:29 Clonidine HCl (Catapres) 0.1 mg EVERY 6 HOURS PRN ORAL sbp above 160 04/09/17 12:00 05/09/17 11:59 04/09/17 14:39 Dextrose (Dextrose 50%) STAT PRN IV Hypoglycemia 04/05/17 18:30 05/05/17 18:29 Iron Sucrose 100 mg/Sodium Chloride 60 ml @ 240 mls/hr BEDTIME IV 04/09/17 21:00 04/13/17 21:14 04/09/17 21:25 Lorazepam (Ativan 2mg/ml 1ml) 0.5 mg Q4H PRN IV For Anxiety 04/05/17 18:30 04/12/17 18:29 Morphine Sulfate (Morphine Sulfate) 1 mg Q4H PRN IVP For Pain 4-10 04/05/17 18:30 04/12/17 18:29 Ondansetron HCl (Zofran) 4 mg Q6H PRN IVP Nausea & Vomiting 04/05/17 18:30 05/05/17 18:29 Pantoprazole (Protonix) 40 mg DAILY IVP 04/07/17 09:00 05/07/17 08:59 04/09/17 09:08 Polyethylene Glycol (Miralax) 17 gm HSPRN PRN ORAL Constipation 04/05/17 18:30 05/05/17 18:29 Zolpidem Tartrate (Ambien) 5 mg HSPRN PRN ORAL Insomnia 04/05/17 18:30 04/12/17 18:29 Suhas BarthHelen Hayes HospitalGloria Thompson NP Apr 10, 2017 08:37
[2017-04-10] MEDS: Pantoprazole Inj IVP SCH (08:43)
--- NOTE | 2017-04-10 09:16 | General Progress Note ---
Assessment/Plan Assessment/Plan Stage III rectal cancer --> potential evidence of pulm mets but 2mm needs outpatient eval --> plain for chemotherapy with radiation and needs to be set up with rad onc --> appreciate surgery recs --> imaging has been reviewed Anemia of GI bleed --> hgb goal of >7 Anemia of chronic diease Diarrhea Dehydration Hypokaelmia Subjective Date patient seen: Apr 09, 2017 Constitutional: Denies: no symptoms, chills, diaphoresis, fever, malaise, weakness, other HEENT: Denies: no symptoms, eye pain, blurred vision, tearing, double vision, ear pain, ear discharge, nose pain, nose congestion, throat pain, throat swelling, mouth pain, mouth swelling, other Cardiovascular: Denies: no symptoms, chest pain, edema, irregular heart rate, lightheadedness, palpitations, syncope, other Respiratory: Denies: no symptoms, cough, orthopnea, shortness of breath, SOB with excertion, SOB at rest, sputum, stridor, wheezing, other Gastrointestinal/Abdominal: Denies: no symptoms, abdomen distended, abdominal pain, black stools, tarry stools, blood in stool, constipated, diarrhea, difficulty swallowing, nausea, poor appetite, poor fluid intake, rectal bleeding , vomiting, other Genitourinary: Denies: no symptoms, burning, discharge, frequency, flank pain, hematuria, incontinence, pain, urgency, other Neurologic/Psychiatric: Denies: no symptoms, anxiety, depressed, emotional problems, headache, numbness, paresthesia, pre-existing deficit, seizure, tingling, tremors, weakness, other Endocrine: Denies: no symptoms, excessive sweating, flushing, intolerance to cold, intolerance to heat, increased hunger, increased thirst, increased urine, unexplained weight gain, unexplained weight loss, other Hematologic/Lymphatic: Denies: no symptoms, anemia, easy bleeding, easy bruising, other Allergies: Coded Allergies: No Known Allergies (Unverified , 04/05/17) Subjective stable, no events, stage iii ca Objective Last 24 Hour Vital Signs Date Time Temp Pulse Resp B/P (MAP) Pulse Ox O2 Delivery O2 Flow Rate FiO2 04/10/17 08:03 97.7 85 18 133/80 97 Room Air 04/10/17 04:00 97.7 84 18 151/89 97 Room Air 04/10/17 00:00 97.3 92 18 134/76 99 Room Air 04/09/17 20:00 97.9 80 18 121/74 99 Room Air 04/09/17 16:00 97.8 76 17 121/68 100 Room Air 04/09/17 14:39 173/96 04/09/17 12:12 97.6 73 18 173/96 100 Room Air Laboratory Tests 04/10/17 04:30: White Blood Count 8.6, Red Blood Count 4.31L, Hemoglobin 9.5L, Hematocrit 31.1L , Mean Corpuscular Volume 72L, Mean Corpuscular Hemoglobin 22.0L, Mean Corpuscular Hemoglobin Concent 30.5L, Red Cell Distribution Width 21.8H, Platelet Count 273, Mean Platelet Volume 7.8, Neutrophils (%) (Auto) 75.1H, Lymphocytes (%) (Auto) 16.8L, Monocytes (%) (Auto) 7.3, Eosinophils (%) (Auto) 0.5, Basophils (%) (Auto) 0.3, Sodium Level 140, Potassium Level 3.8, Chloride Level 103, Carbon Dioxide Level 29, Anion Gap 8, Blood Urea Nitrogen 9, Creatinine 0.9, Estimat Glomerular Filtration Rate > 60, Glucose Level 81, Calcium Level 9.3, Ferritin 51, Prostate Specific Antigen 1.2 Height (Feet): 5 Height (Inches): 10.00 Weight (Pounds): 127 General Appearance: alert EENT: TMs normal Neck: normal alignment Cardiovascular: regular rhythm Respiratory/Chest: lungs clear Abdomen: non tender Genitourinary/Rectal: normal rectal exam DEENA DUDLEY Apr 10, 2017 09:16
--- NOTE | 2017-04-10 10:28 | Infectious Diseases Prog Note ---
Assessment/Plan Assessment/Plan A; diarrhea removed Rectal mass Colon polyps, 8 removed Anemia Distal esophageal ring P; observe off antibiotic Waiting for pathology report Subjective ROS Limited/Unobtainable: No Constitutional: Reports: no symptoms Cardiovascular: Reports: no symptoms Gastrointestinal/Abdominal: Reports: blood in stool Genitourinary: Reports: no symptoms Neurologic: Reports: no symptoms Allergies: Coded Allergies: No Known Allergies (Unverified , 04/05/17) Objective Vital Signs Last 24 Hour Vital Signs Date Time Temp Pulse Resp B/P (MAP) Pulse Ox O2 Delivery O2 Flow Rate FiO2 04/10/17 08:03 97.7 85 18 133/80 97 Room Air 04/10/17 04:00 97.7 84 18 151/89 97 Room Air 04/10/17 00:00 97.3 92 18 134/76 99 Room Air 04/09/17 20:00 97.9 80 18 121/74 99 Room Air 04/09/17 16:00 97.8 76 17 121/68 100 Room Air 04/09/17 14:39 173/96 04/09/17 12:12 97.6 73 18 173/96 100 Room Air Height (Feet): 5 Height (Inches): 10.00 Weight (Pounds): 127 General Appearance: no acute distress HEENT: mucous membranes moist Respiratory/Chest: lungs clear Cardiovascular: normal rate Abdomen: soft, non tender Extremities: no edema Neurologic/Psychiatric: alert, oriented x 3, responsive Microbiology Date/Time Source Procedure Growth Status 04/07/17 14:45 Stool Ova and Parasites - Final Complete 04/07/17 14:45 Stool Ova and Parasite Result 1 - Final Complete 04/07/17 14:45 Stool Stool Culture - Preliminary NO SALMONELLA,SHIGELLA,OR CAMPYLOBACT... Resulted 04/07/17 14:45 Stool Clostridium difficile Toxin Assay - Final Complete Laboratory Tests Test 04/10/17 04:30 White Blood Count 8.6 K/UL (4.8-10.8) Red Blood Count 4.31 M/UL (4.70-6.10) L Hemoglobin 9.5 G/DL (14.2-18.0) L Hematocrit 31.1 % (42.0-52.0) L Mean Corpuscular Volume 72 FL (80-99) L Mean Corpuscular Hemoglobin 22.0 PG (27.0-31.0) L Mean Corpuscular Hemoglobin Concent 30.5 G/DL (32.0-36.0) L Red Cell Distribution Width 21.8 % (11.6-14.8) H Platelet Count 273 K/UL (150-450) Mean Platelet Volume 7.8 FL (6.5-10.1) Neutrophils (%) (Auto) 75.1 % (45.0-75.0) H Lymphocytes (%) (Auto) 16.8 % (20.0-45.0) L Monocytes (%) (Auto) 7.3 % (1.0-10.0) Eosinophils (%) (Auto) 0.5 % (0.0-3.0) Basophils (%) (Auto) 0.3 % (0.0-2.0) Sodium Level 140 MMOL/L (136-145) Potassium Level 3.8 MMOL/L (3.5-5.1) Chloride Level 103 MMOL/L (98-107) Carbon Dioxide Level 29 MMOL/L (21-32) Anion Gap 8 mmol/L (5-15) Blood Urea Nitrogen 9 mg/dL (7-18) Creatinine 0.9 MG/DL (0.55-1.30) Estimat Glomerular Filtration Rate > 60 mL/min (>60) Glucose Level 81 MG/DL (74-106) Calcium Level 9.3 MG/DL (8.5-10.1) Ferritin 51 NG/ML (8-388) Prostate Specific Antigen 1.2 ng/mL (0.0-4.0) Current Medications Medications (Trade) Dose Ordered Sig/Juana Route PRN Reason Start Time Stop Time Status Last Admin Dose Admin Acetaminophen (Tylenol) 650 mg Q4H PRN ORAL fever 04/05/17 18:30 05/05/17 18:29 Al Hydroxide/Mg Hydroxide (Mylanta II) 30 ml Q6H PRN ORAL dyspepsia 04/05/17 18:30 05/05/17 18:29 Clonidine HCl (Catapres) 0.1 mg EVERY 6 HOURS PRN ORAL sbp above 160 04/09/17 12:00 05/09/17 11:59 04/09/17 14:39 Dextrose (Dextrose 50%) STAT PRN IV Hypoglycemia 04/05/17 18:30 05/05/17 18:29 Iron Sucrose 100 mg/Sodium Chloride 60 ml @ 240 mls/hr BEDTIME IV 04/09/17 21:00 04/13/17 21:14 04/09/17 21:25 Lorazepam (Ativan 2mg/ml 1ml) 0.5 mg Q4H PRN IV For Anxiety 04/10/17 10:30 04/17/17 23:59 Morphine Sulfate (Morphine Sulfate) 1 mg Q4H PRN IVP For Pain 4-10 04/10/17 10:30 04/17/17 23:59 Ondansetron HCl (Zofran) 4 mg Q6H PRN IVP Nausea & Vomiting 04/05/17 18:30 05/05/17 18:29 Pantoprazole (Protonix) 40 mg DAILY IVP 04/07/17 09:00 05/07/17 08:59 04/10/17 08:43 Polyethylene Glycol (Miralax) 17 gm HSPRN PRN ORAL Constipation 04/05/17 18:30 05/05/17 18:29 Zolpidem Tartrate (Ambien) 5 mg HSPRN PRN ORAL Insomnia 04/05/17 18:30 04/12/17 18:29 MATTHEW STORM Apr 10, 2017 10:28
[2017-04-10] MEDS ORDERED: Morphine Sulfate 2mg/ml Inj IVP PRN (10:30)
[2017-04-10] MEDS ORDERED: LORazepam Inj 2mg/ml 1ml IV PRN (10:30)
--- NOTE | 2017-04-10 11:30 | Consultation ---
DATE OF CONSULTATION: 04/09/2017 HEMATOLOGY/ONCOLOGY CONSULTATION CONSULTING PHYSICIAN: Ajay Ching M.D. ATTENDING PHYSICIAN: Monique Guido M.D. REASON FOR CONSULTATION: Rectal mass and anemia. CURRENT COMPLAINT AND HISTORY OF PRESENT ILLNESS: Dear Dr. Guido, Today, I had an opportunity to see one of your patient's, who as you are well aware is a 67-year-old delightful gentleman with a past medical history remarkable for diarrhea for two months. The patient ended up to be seen in the emergency room at [facility] and subsequently was worked up. The patient underwent colonoscopy by Dr. Son. Rectal mass was found. During evaluation, it was found that the patient developed significant anemia. My service was called to handle the issue of rectal mass as well as anemia. PAST MEDICAL HISTORY: Chronic diarrhea. Severe periodontal disease. Leukocytosis with left shift. Iron-deficiency anemia. Anemia of chronic disease. Unintentional weight loss. Elevated sedimentation rate. MEDICATIONS: 1. Iron IV. 2. Catapres. 3. Protonix. 4. Tylenol. 5. Morphine sulfate. 6. MiraLAX. 7. Zofran. 8. Ambien. 9. Mylanta. ALLERGIES: NKDA. FAMILY HISTORY: Noncontributory. SOCIAL HISTORY: No history of smoking. No history of alcohol abuse. No history of illicit drug use. REVIEW OF SYSTEMS: Unobtainable. PHYSICAL EXAMINATION: VITAL SIGNS: T-max 97 degrees. Respiratory rate 20. Heart rate 80. Blood pressure 130/80. HEENT: Head, normocephalic and atraumatic. NECK: Supple. No thyroid enlargement. No lymphadenopathy. LUNGS: Decreased breath sounds bilaterally with a few rhonchi in the base. HEART: S1 and S2 regular. ABDOMEN: Soft and benign. No organomegaly present. Bowel sounds present. EXTREMITIES: No cyanosis, clubbing, or edema. LABORATORY DATA: WBC 9.0, hemoglobin 8.8, hematocrit 29.1, and platelets 280,000. Coagulation shows INR 1.0. Chemistry shows creatinine 1.0. Stool for OB positive. IMPRESSION: 1. Rectal mass, possible rectal cancer. 2. Anemia of iron deficiency. 3. Anemia of chronic disease. 4. Decreased hemoglobin and hematocrit, rule out gastrointestinal bleed. 5. Chronic diarrhea. 6. Malnutrition. 7. Failure to thrive. RECOMMENDATIONS: 1. Watch counts. 2. Watch coagulopathy. 3. GI followup. 4. Surgical followup. 5. Possible chemotherapy. 6. Possible radiation. 7. Pain control. 8. Discussed with the staff. 9. Skin care. 10. Nutrition. Ajay MD Jeane DR: MONSE JOB#: [id number] CC:
[2017-04-10 11:42] VITALS: BP 135/84
[2017-04-10 16:22] VITALS: BP_SYST 142
[2017-04-10 19:37] VITALS: BP_SYST 158; BP_SYST 98; BP_DIAS 54; BP_DIAS 99
[2017-04-10] MEDS: Iron Sucrose 100 MG in NS 55 ML IV SCH (21:03)
--- NOTE | 2017-04-10 22:44 | General Progress Note ---
Assessment/Plan Assessment/Plan Stage III rectal cancer --> potential evidence of pulm mets but 2mm needs outpatient eval --> plain for chemotherapy with radiation and needs to be set up with rad onc --> appreciate surgery recs --> imaging has been reviewed Anemia of GI bleed --> hgb goal of >7 --> continue to trend HH daily Anemia of chronic disease Diarrhea Dehydration Hypokaelmia Subjective Constitutional: Reports: no symptoms HEENT: Reports: no symptoms Cardiovascular: Reports: no symptoms Respiratory: Reports: no symptoms Gastrointestinal/Abdominal: Reports: no symptoms Genitourinary: Reports: no symptoms Neurologic/Psychiatric: Reports: no symptoms Endocrine: Reports: no symptoms Hematologic/Lymphatic: Reports: no symptoms Allergies: Coded Allergies: No Known Allergies (Unverified , 04/05/17) Subjective stable, no events Objective Last 24 Hour Vital Signs Date Time Temp Pulse Resp B/P (MAP) Pulse Ox O2 Delivery O2 Flow Rate FiO2 04/10/17 19:37 98.2 93 18 158/99 96 Room Air 04/10/17 16:22 98.2 84 18 142/ 97 Room Air 04/10/17 11:42 97.9 85 18 135/84 100 Room Air 04/10/17 08:03 97.7 85 18 133/80 97 Room Air 04/10/17 04:00 97.7 84 18 151/89 97 Room Air 04/10/17 00:00 97.3 92 18 134/76 99 Room Air Intake and Output 04/10/17 04/11/17 19:00 07:00 Intake Total 840 ml Balance 840 ml Intake Oral 840 ml # Voids 5 # Bowel Movements 3 Laboratory Tests 04/10/17 04:30: White Blood Count 8.6, Red Blood Count 4.31L, Hemoglobin 9.5L, Hematocrit 31.1L , Mean Corpuscular Volume 72L, Mean Corpuscular Hemoglobin 22.0L, Mean Corpuscular Hemoglobin Concent 30.5L, Red Cell Distribution Width 21.8H, Platelet Count 273, Mean Platelet Volume 7.8, Neutrophils (%) (Auto) 75.1H, Lymphocytes (%) (Auto) 16.8L, Monocytes (%) (Auto) 7.3, Eosinophils (%) (Auto) 0.5, Basophils (%) (Auto) 0.3, Sodium Level 140, Potassium Level 3.8, Chloride Level 103, Carbon Dioxide Level 29, Anion Gap 8, Blood Urea Nitrogen 9, Creatinine 0.9, Estimat Glomerular Filtration Rate > 60, Glucose Level 81, Calcium Level 9.3, Ferritin 51, Prostate Specific Antigen 1.2 Height (Feet): 5 Height (Inches): 10.00 Weight (Pounds): 127 General Appearance: no apparent distress EENT: normal ENT inspection Neck: normal inspection Extremities: normal range of motion, non-tender DEENA DUDLEY Apr 10, 2017 22:44
[2017-04-11] VITALS (10 sets, daily range): BP systolic 127–154; BP diastolic 71–93
[2017-04-11 07:53] LABS: MEAN CORPUSCULAR HEMOGLOBIN 22.2 PG (27.0-31.0); MEAN CORPUSCULAR HGB CONC 30.5 G/DL (32.0-36.0); MEAN CORPUSCULAR VOLUME 73 FL (80-99); MEAN PLATELET VOLUME 7.1 FL (6.5-10.1); PLATELET COUNT 290 K/UL (150-450); RED BLOOD COUNT 4.54 M/UL (4.70-6.10); RED CELL DISTRIBUTION WIDTH 21.8 % (11.6-14.8); WHITE BLOOD COUNT 14.8 K/UL (4.8-10.8)
[2017-04-11] MEDS: Pantoprazole Inj IVP SCH (08:05)
[2017-04-11 08:20] LABS: ANION GAP 7 mmol/L (5-15); CARBON DIOXIDE 29 MMOL/L (21-32); CHLORIDE 100 MMOL/L (98-107); CREATININE 0.9 MG/DL (0.55-1.30); GLOMERULAR FILTRATION RATE > 60 mL/min (>60); POTASSIUM 3.4 MMOL/L (3.5-5.1); SODIUM 136 MMOL/L (136-145)
--- NOTE | 2017-04-11 08:28 | Anethesia Preoperative Eval ---
Anesthesia Pre-op PMH/ROS General Date of Evaluation: Apr 11, 2017 Time of Evaluation: 08:24 Anesthesiologist: wanda ASA Score: ASA 2 Mallampati Score Class I : Soft palate, uvula, fauces, pillars visible Class II: Soft palate, uvula, fauces visible Class III: Soft palate, base of uvula visible Class IV: Only hard plate visible Mallampati Classification: Class II Surgeon: cayden Diagnosis: anemia Surgical Procedure: eus Anesthesia History: none Social History: smoking - nonsmoker Family History: no anesthesia problems Allergies: Coded Allergies: No Known Allergies (Unverified , 04/05/17) Medications: see eMAR Past Medical History Gastrointestinal/Genitourinary: Reports: GERD, other - rectal mass Hematology/Immune: Reports: anemia Anesthesia Pre-op Phys. Exam Physician Exam Last Vital Signs Date Time Temp Pulse Resp B/P (MAP) Pulse Ox O2 Delivery O2 Flow Rate FiO2 04/11/17 05:55 97.8 68 19 151/74 98 Room Air 04/08/17 09:00 3.0 Constitutional: NAD Neurologic: CN 2-12 intact Cardiovascular: RRR Respiratory: CTA Gastrointestinal: S/NT/ND Airway Exam Mallampati Score: Class II MO: full Neck: supple TMD: 2fb ROM: full Teeth: broken Anesthesia Pre-op A/P Labs Labs Test 04/09/17 05:10 04/10/17 04:30 04/11/17 05:00 White Blood Count 9.0 K/UL (4.8-10.8) 8.6 K/UL (4.8-10.8) 14.8 K/UL (4.8-10.8) Red Blood Count 4.05 M/UL (4.70-6.10) 4.31 M/UL (4.70-6.10) 4.54 M/UL (4.70-6.10) Hemoglobin 8.8 G/DL (14.2-18.0) 9.5 G/DL (14.2-18.0) 10.1 G/DL (14.2-18.0) Hematocrit 29.1 % (42.0-52.0) 31.1 % (42.0-52.0) 33.0 % (42.0-52.0) Mean Corpuscular Volume 72 FL (80-99) 72 FL (80-99) 73 FL (80-99) Mean Corpuscular Hemoglobin 21.6 PG (27.0-31.0) 22.0 PG (27.0-31.0) 22.2 PG (27.0-31.0) Mean Corpuscular Hemoglobin Concent 30.1 G/DL (32.0-36.0) 30.5 G/DL (32.0-36.0) 30.5 G/DL (32.0-36.0) Red Cell Distribution Width 20.8 % (11.6-14.8) 21.8 % (11.6-14.8) 21.8 % (11.6-14.8) Platelet Count 280 K/UL (150-450) 273 K/UL (150-450) 290 K/UL (150-450) Mean Platelet Volume 6.3 FL (6.5-10.1) 7.8 FL (6.5-10.1) 7.1 FL (6.5-10.1) Neutrophils (%) (Auto) 79.9 % (45.0-75.0) 75.1 % (45.0-75.0) % (45.0-75.0) Lymphocytes (%) (Auto) 12.7 % (20.0-45.0) 16.8 % (20.0-45.0) % (20.0-45.0) Monocytes (%) (Auto) 6.6 % (1.0-10.0) 7.3 % (1.0-10.0) % (1.0-10.0) Eosinophils (%) (Auto) 0.5 % (0.0-3.0) 0.5 % (0.0-3.0) % (0.0-3.0) Basophils (%) (Auto) 0.3 % (0.0-2.0) 0.3 % (0.0-2.0) % (0.0-2.0) Sodium Level 140 MMOL/L (136-145) 140 MMOL/L (136-145) 136 MMOL/L (136-145) Potassium Level 4.0 MMOL/L (3.5-5.1) 3.8 MMOL/L (3.5-5.1) 3.4 MMOL/L (3.5-5.1) Chloride Level 104 MMOL/L (98-107) 103 MMOL/L (98-107) 100 MMOL/L (98-107) Carbon Dioxide Level 30 MMOL/L (21-32) 29 MMOL/L (21-32) 29 MMOL/L (21-32) Anion Gap 7 mmol/L (5-15) 8 mmol/L (5-15) 7 mmol/L (5-15) Blood Urea Nitrogen 11 mg/dL (7-18) 9 mg/dL (7-18) 8 mg/dL (7-18) Creatinine 1.0 MG/DL (0.55-1.30) 0.9 MG/DL (0.55-1.30) 0.9 MG/DL (0.55-1.30) Estimat Glomerular Filtration Rate > 60 mL/min (>60) > 60 mL/min (>60) > 60 mL/min (>60) Glucose Level 87 MG/DL (74-106) 81 MG/DL (74-106) 84 MG/DL (74-106) Calcium Level 8.6 MG/DL (8.5-10.1) 9.3 MG/DL (8.5-10.1) 9.0 MG/DL (8.5-10.1) Ferritin 51 NG/ML (8-388) Prostate Specific Antigen 1.2 ng/mL (0.0-4.0) Prothrombin Time 10.0 SEC (9.30-11.50) Prothromb Time International Ratio 1.0 (0.9-1.1) Activated Partial Thromboplast Time 32 SEC (23-33) Risk Assessment & Plan Assessment: asa2 Plan: mac Status Change Before Surgery: No Pre-Antibiotics Drug: EARLINE Shannon Apr 11, 2017 08:28
[2017-04-11] MEDS ORDERED: DiphenhydrAMINE 50mg/ml Inj IVP PRN (08:30)
[2017-04-11] MEDS ORDERED: Atropine Inj 1mg/10ml Syr IV PRN (08:30)
[2017-04-11] MEDS ORDERED: fentaNYL 100 mcg/2 mL IV PRN (08:30)
[2017-04-11] MEDS ORDERED: Midazolam 2mg/2ml Inj IVP PRN (08:30)
--- NOTE | 2017-04-11 08:44 | Pre-Procedure Note/Attestation ---
Pre-Procedure Note/Attestation Complete Prior to Procedure Procedure Narrative: EUS Indications for Procedure Pre-Operative Diagnosis: rectal mass Attestation I attest that I discussed the nature of the procedure; its benefits; risks and complications; and alternatives (and the risks and benefits of such alternatives ), prior to the procedure, with the patient (or the patient's legal data entry representative). I attest that, if there was a reasonable possibility of needing a blood transfusion, the patient (or the patient's legal data entry representative) was given the [facility] standardized written summary, pursuant to the [place] Blood Safety Act ([place] Health and Safety Code # 1645, as amended). I attest that I re-evaluated the patient just prior to the surgery and that there has been no change in the patient's H&P, except as documented below: LEXII XIAO Apr 11, 2017 08:44
--- NOTE | 2017-04-11 08:44 | General Progress Note ---
Assessment/Plan Problem List: (1) Rectal mass ICD Codes: K62.9 - Disease of anus and rectum, unspecified SNOMED: 080583211 (2) Diarrhea ICD Codes: R19.7 - Diarrhea, unspecified SNOMED: 81606038 Qualifiers: Qualified Codes: R19.7 - Diarrhea, unspecified (3) Iron deficiency ICD Codes: E61.1 - Iron deficiency SNOMED: 58019036 (4) Anemia ICD Codes: D64.9 - Anemia, unspecified SNOMED: 660099912 Qualifiers: Qualified Codes: D64.9 - Anemia, unspecified Assessment/Plan fu biopsy results PLAN eus TODAY CEA Subjective ROS Limited/Unobtainable: No Allergies: Coded Allergies: No Known Allergies (Unverified , 04/05/17) Objective Last 24 Hour Vital Signs Date Time Temp Pulse Resp B/P (MAP) Pulse Ox O2 Delivery O2 Flow Rate FiO2 04/11/17 05:55 97.8 68 19 151/74 98 Room Air 04/11/17 00:40 98.0 83 19 154/86 98 Room Air 04/10/17 19:37 98.2 93 18 158/99 96 Room Air 04/10/17 16:22 98.2 84 18 142/ 97 Room Air 04/10/17 11:42 97.9 85 18 135/84 100 Room Air Laboratory Tests 04/11/17 05:00: White Blood Count 14.8#H, Red Blood Count 4.54L, Hemoglobin 10.1L, Hematocrit 33.0L, Mean Corpuscular Volume 73L, Mean Corpuscular Hemoglobin 22.2L, Mean Corpuscular Hemoglobin Concent 30.5L, Red Cell Distribution Width 21.8H, Platelet Count 290, Mean Platelet Volume 7.1, Neutrophils (%) (Auto) , Lymphocytes (%) (Auto) , Monocytes (%) (Auto) , Eosinophils (%) (Auto) , Basophils (%) (Auto) , Neutrophils % (Manual) [Pending], Lymphocytes % (Manual) [Pending], Platelet Estimate [Pending], Platelet Morphology [Pending], Prothrombin Time 10.0, Prothromb Time International Ratio 1.0, Activated Partial Thromboplast Time 32, Sodium Level 136, Potassium Level 3.4L, Chloride Level 100, Carbon Dioxide Level 29, Anion Gap 7, Blood Urea Nitrogen 8, Creatinine 0.9, Estimat Glomerular Filtration Rate > 60, Glucose Level 84, Calcium Level 9.0 Height (Feet): 5 Height (Inches): 10.00 Weight (Pounds): 127 General Appearance: no apparent distress EENT: normal ENT inspection Neck: supple Respiratory/Chest: decreased breath sounds Abdomen: normal bowel sounds, non tender, soft Extremities: non-tender LEXII XIAO Apr 11, 2017 08:43
[2017-04-11] MEDS ORDERED: Propofol 200mg/20ml IV ONE (08:45)
[2017-04-11] MEDS ORDERED: Lidocaine 1% MPF 10mg/ml 5ml ONE (08:45)
[2017-04-11] MEDS ORDERED: NS 500ML IV ONE (08:59)
--- NOTE | 2017-04-11 09:17 | Endoscopy Procedure Note ---
Endoscopy Procedure Note Indication for Procedure: rectal mass Procedures Performed: other - EUS Operative Findings/Diagnosis: T3N1 lesion Specimen: none Pt Tolerated Procedure Well: Yes Estimated Blood Loss: none Anesthesiologist: gabrielle Anesthesia: MAC Implant(s) used?: No 50 yrs or older w/o bx or poly: Not Applicable 10yrs. F/U not recommended: Not Applicable LEXII XIAO Apr 11, 2017 09:17
--- NOTE | 2017-04-11 09:37 | Immediate Post-Op Evaluation ---
Immediate Post-Op Evalulation Immediate Post-Op Evalulation Procedure: eus rectal Date of Evaluation: Apr 11, 2017 Time of Evaluation: 09:36 IV Fluids: 100ml 0.9ns Blood Products: none Estimated Blood Loss: negligible Blood Pressure Systolic: 127 Blood Pressure Diastolic: 71 Pulse Rate: 82 Respiratory Rate: 18 O2 Sat by Pulse Oximetry: 100 Temperature (Fahrenheit): 99.5 Pain Score (1-10): 0 Nausea: No Vomiting: No Complications none Patient Status: awake, reacts, patent Hydration Status: adequate Drug: EARLINE Shannon Apr 11, 2017 09:37
--- NOTE | 2017-04-11 09:39 | 48 Hour Post Anesthesia Eval ---
Post Anesthesia Evaluation Procedure: eus rectal Date of Evaluation: Apr 11, 2017 Time of Evaluation: 09:39 Blood Pressure Systolic: 127 0: 71 Pulse Rate: 83 Respiratory Rate: 18 Temperature (Fahrenheit): 99.5 O2 Sat by Pulse Oximetry: 100 Airway: patent Nausea: No Vomiting: No Pain Intensity: 0 Hydration Status: adequate Cardiopulmonary Status: stable Mental Status/LOC: patient returned to baseline Post-Anesthesia Complications: none Follow-up care needed: N/A EARLINE ALONSO Apr 11, 2017 09:39
[2017-04-11 09:42] LABS: ANISOCYTOSIS 2+; BAND NEUTROPHILS % (MANUAL) 0 % (0-8); BASOPHILS % (MANUAL) 0 % (0-2); EOSINOPHILS % (MANUAL) 0 % (0-3); HYPOCHROMASIA 1+; LYMPHOCYTES % (MANUAL) 7 % (20-45); MICROCYTES 1+; NEUTROPHILS % (MANUAL) 87 % (45-75); PLATELET ESTIMATE ADEQUATE; PLATELET MORPHOLOGY NORMAL; TOTAL CELLS COUNTED 100
--- NOTE | 2017-04-11 10:30 | Consultation ---
DATE OF CONSULTATION: 04/08/2017 HEMATOLOGY/ONCOLOGY CONSULTATION CONSULTING PHYSICIAN: oRmmel Ching M.D. REQUESTING PHYSICIAN: Monique Guido M.D. REASON FOR CONSULTATION: Evaluation of rectal carcinoma, colonoscopy. IDENTIFICATION DATA: Dear Dr. Guido, The patient is a pleasant 67-year-old male with complaints of diarrhea for approximately one month. He has had EGD and colonoscopy by GI service. Rectal tumor was noted. No recent weight loss. Imaging was reviewed. He had a CAT scan of the chest, abdomen, and pelvis, which showed hepatosplenomegaly, 2 mm left upper lobe nodule, nonspecific, and no definitive evidence of hepatic metastasis. A large 6.3 x 8 x 9 cm mass in the rectum consistent with clinical rectal carcinoma, invasion into . He presents at this time with anemia. He was seen again by the GI team and noted to be iron deficient. Biopsy completed, it shows evidence of malignancy. Hematology/Oncology service was consulted. PAST MEDICAL HISTORY: Iron-deficiency anemia, hypokalemia, dehydration, severe protein-calorie malnutrition, and rectal mass. PAST SURGICAL HISTORY: EGD and colonoscopy. MEDICATIONS: Multivitamins. ALLERGIES: No known drug allergies. SOCIAL HISTORY: No alcohol, tobacco, or illicit drug use. REVIEW OF SYSTEMS: CONSTITUTIONAL: No fever, chills, or night sweats. SKIN: No rashes, bumps, or itching. HEENT: No headache, hearing or vision changes. BREASTS: No lumps, pain, or discharge. PULMONARY: No cough, sputum, or shortness of breath. GASTROINTESTINAL: No nausea, vomiting, or diarrhea. GENITOURINARY: No dysuria, frequency, or urgency. MUSCULOSKELETAL: No joint swelling, muscle pain, or trauma. PHYSICAL EXAMINATION: GENERAL: The patient is in no acute distress. VITAL SIGNS: Reviewed. PULMONARY: Decreased breath sounds. CARDIOVASCULAR: Regular rate. No S3 or S4. ABDOMEN: Soft, nontender, and nondistended. EXTREMITIES: There is 1+ edema. LABORATORY DATA: WBC 10.7, hemoglobin 9.1, hematocrit 28, and platelets 183,000. . PSA 1.4. CEA is pending. Ferritin of 19. Chemistry panel . INR of 1. ASSESSMENT AND RECOMMENDATIONS: 1. Rectal enlargement and mass consistent with rectal carcinoma, minimal locally advanced at this stage, which is stage III. The best treatment would be chemotherapy with radiation then a colostomy only to confirm that pulmonary nodule is not evidence of stage IV disease. In addition, she will begin chemotherapy with radiation as soon as possible. Pathology is again pending. 2. Anemia, secondary to iron deficiency. The patient has been given iron treatment with Venofer. Continue this for a total of five days. 3. Anemia, secondary to gastrointestinal bleeding. 4. Thrombocytosis, likely secondary to reactive process. 5. Watery diarrhea related to malignancy. 6. Severe protein-calorie malnutrition. 7. Outpatient Hematology/Oncology followup and per the patient's insurance. I appreciate the consultation. Rommel Ching M.D. DR: SOLITARIO JOB#: [id number] CC:
--- NOTE | 2017-04-11 11:22 | Infectious Diseases Prog Note ---
Assessment/Plan Assessment/Plan ASSESSMENT: 67 y/o male with: //New fever and leukocytosis- ?mural abscess vs cancer related vs new CRYSTAL //REctal mass -CT chest/abd/p w/: 04/08: 6.3 x 7.5 x 9 cm mass involving the rectum. This is consistent with clinical history of rectal carcinoma described by the referring physician. Invasion of the mass into the adjacent prostate and the right side of the seminal vesicles not completely excludable. Confluent areas of low-attenuation within the periphery of the mass, as described. These may represent cystic necrotic areas, versus mural abscesses. Despite the size of the mass, no definite local pelvic adenopathy. No definite evidence of hepatic metastases. However, there are hepatic low attenuation lesions which are too small to characterize, most likely represent cysts but small metastatic deposits cannot be completely ruled out. In addition , there are larger hepatic low attenuation lesions with definite represent cysts 2 mm left upper lobe pulmonary nodule. Nonspecific, likely postinflammatory in nature but a small metastatic deposit cannot be ruled outNo other evidence of metastatic disease Possible ventricular muscular hypertrophy. Prostatomegaly. Degenerative spondylosis // Chronic diarrhea ( >2mo ) r/o infectious -stool cx normal michael -o+p x1 neg -Giardia ag neg- C.difficile: Neg SP EGD and Colonoscopy : rectal mass, 8 colon polyp // Severe periodontal disease // Severe microcytic iron deficiency anemia r/o GIB - GI following - EGD / colonoscopy 04/08: pending - SP PRBCs - CEA pending // Unintentional weight loss // Elevated ESR // NKDA // Full Code PLAN: -Start empiric IV Zosyn given fever and leukocytosis for possible abscess -u/a with reflex, CXR, Bcx x2 -obtain Crypstoporidium ag, o+p x2, Cyclospora/isospora stool - no indication for empiric ABX at this time - monitor CBC, temperatures - monitor BMP - transfuse prn Discussed with RN and with Dr Ulloa. Subjective Allergies: Coded Allergies: No Known Allergies (Unverified , 04/05/17) Subjective febrile this am to 101.3 and leukocytosist to 14.8. Objective Vital Signs Last 24 Hour Vital Signs Date Time Temp Pulse Resp B/P (MAP) Pulse Ox O2 Delivery O2 Flow Rate FiO2 04/11/17 09:46 101.3 78 17 135/78 100 Room Air 04/11/17 09:40 84 17 137/79 100 Room Air 04/11/17 09:39 83 18 100 04/11/17 09:37 82 18 100 04/11/17 09:35 86 18 138/82 99 Room Air 04/11/17 09:30 80 18 138/85 100 Simple Mask 6.0 04/11/17 09:24 99.5 82 15 127/71 100 Simple Mask 6.0 04/11/17 05:55 97.8 68 19 151/74 98 Room Air 04/11/17 00:40 98.0 83 19 154/86 98 Room Air 04/10/17 19:37 98.2 93 18 158/99 96 Room Air 04/10/17 16:22 98.2 84 18 142/ 97 Room Air 04/10/17 11:42 97.9 85 18 135/84 100 Room Air Height (Feet): 5 Height (Inches): 10.00 Weight (Pounds): 127 Objective General Appearance: no acute distress, cahcetic HEENT: mucous membranes moist Respiratory/Chest: lungs clear Cardiovascular: normal rate Abdomen: soft, non tender Extremities: no edema Neurologic/Psychiatric: alert, oriented x 3, responsive reviewed Laboratory Tests Test 04/11/17 05:00 White Blood Count 14.8 K/UL (4.8-10.8) #H Red Blood Count 4.54 M/UL (4.70-6.10) L Hemoglobin 10.1 G/DL (14.2-18.0) L Hematocrit 33.0 % (42.0-52.0) L Mean Corpuscular Volume 73 FL (80-99) L Mean Corpuscular Hemoglobin 22.2 PG (27.0-31.0) L Mean Corpuscular Hemoglobin Concent 30.5 G/DL (32.0-36.0) L Red Cell Distribution Width 21.8 % (11.6-14.8) H Platelet Count 290 K/UL (150-450) Mean Platelet Volume 7.1 FL (6.5-10.1) Neutrophils (%) (Auto) % (45.0-75.0) Lymphocytes (%) (Auto) % (20.0-45.0) Monocytes (%) (Auto) % (1.0-10.0) Eosinophils (%) (Auto) % (0.0-3.0) Basophils (%) (Auto) % (0.0-2.0) Differential Total Cells Counted 100 Neutrophils % (Manual) 87 % (45-75) H Lymphocytes % (Manual) 7 % (20-45) L Monocytes % (Manual) 6 % (1-10) Eosinophils % (Manual) 0 % (0-3) Basophils % (Manual) 0 % (0-2) Band Neutrophils 0 % (0-8) Platelet Estimate Adequate Platelet Morphology Normal Hypochromasia 1+ Anisocytosis 2+ Microcytosis 1+ Prothrombin Time 10.0 SEC (9.30-11.50) Prothromb Time International Ratio 1.0 (0.9-1.1) Activated Partial Thromboplast Time 32 SEC (23-33) Sodium Level 136 MMOL/L (136-145) Potassium Level 3.4 MMOL/L (3.5-5.1) L Chloride Level 100 MMOL/L (98-107) Carbon Dioxide Level 29 MMOL/L (21-32) Anion Gap 7 mmol/L (5-15) Blood Urea Nitrogen 8 mg/dL (7-18) Creatinine 0.9 MG/DL (0.55-1.30) Estimat Glomerular Filtration Rate > 60 mL/min (>60) Glucose Level 84 MG/DL (74-106) Calcium Level 9.0 MG/DL (8.5-10.1) Current Medications Medications (Trade) Dose Ordered Sig/Juana Route PRN Reason Start Time Stop Time Status Last Admin Dose Admin Acetaminophen (Tylenol) 650 mg Q4H PRN ORAL fever 04/05/17 18:30 05/05/17 18:29 04/11/17 10:07 Al Hydroxide/Mg Hydroxide (Mylanta II) 30 ml Q6H PRN ORAL dyspepsia 04/05/17 18:30 05/05/17 18:29 Al Hydroxide/Mg Hydroxide (Mylanta) 15 ml Q1H PRN ORAL gi upset 04/11/17 08:30 04/11/17 14:30 Atropine Sulfate (Atropine) 0.5 mg Q5M PRN IV bpm less than 45 04/11/17 08:30 04/11/17 14:30 Clonidine HCl (Catapres) 0.1 mg EVERY 6 HOURS PRN ORAL sbp above 160 04/09/17 12:00 05/09/17 11:59 04/09/17 14:39 Dextrose (Dextrose 50%) STAT PRN IV Hypoglycemia 04/05/17 18:30 05/05/17 18:29 Diphenhydramine HCl (Benadryl) 25 mg Q15M PRN IVP Itching 04/11/17 08:30 04/11/17 14:30 Fentanyl Citrate (Sublimaze 100 mcg/2 mL) 25 mcg Q10M PRN IV Moderate Pain (Pain Scale 4-6) 04/11/17 08:30 04/11/17 14:30 Hydralazine HCl (Apresoline) 5 mg Q30M PRN IV SBP>160 /DBP>90 04/11/17 08:30 04/11/17 14:30 Iron Sucrose 100 mg/Sodium Chloride 60 ml @ 240 mls/hr BEDTIME IV 04/09/17 21:00 04/13/17 21:14 04/10/17 21:03 Lorazepam (Ativan 2mg/ml 1ml) 0.5 mg Q4H PRN IV For Anxiety 04/10/17 10:30 04/17/17 23:59 Midazolam HCl (Versed 2mg/2ml vial) 1 mg Q15M PRN IVP For Anxiety 04/11/17 08:30 04/11/17 14:30 Morphine Sulfate (Morphine Sulfate) 1 mg Q4H PRN IVP For Pain 4-10 04/10/17 10:30 04/17/17 23:59 Ondansetron HCl (Zofran) 4 mg Q1H PRN IVP Nausea & Vomiting 04/11/17 08:30 04/11/17 14:30 Ondansetron HCl (Zofran) 4 mg Q6H PRN IVP Nausea & Vomiting 04/05/17 18:30 05/05/17 18:29 Pantoprazole (Protonix) 40 mg DAILY IVP 04/07/17 09:00 05/07/17 08:59 04/11/17 08:05 Polyethylene Glycol (Miralax) 17 gm HSPRN PRN ORAL Constipation 04/05/17 18:30 05/05/17 18:29 Zolpidem Tartrate (Ambien) 5 mg HSPRN PRN ORAL Insomnia 04/05/17 18:30 04/12/17 18:29 Lalita Sifuentes M.D. Apr 11, 2017 11:22
[2017-04-11] MEDS: Zosyn 3.375gm/50ml Premix 50 ML IVPB SCH ×2 (14:22→22:00)
--- NOTE | 2017-04-11 14:27 | Diagnostic Imaging Report ---
Clinical Indication: Abdominal pain Technique: No oral contrast utilized, per emergency room physician request IV administration nonionic contrast. Venous phase spiral acquisition obtained through the abdomen and pelvis. Multiplanar reconstructions were generated. Total dose length product 424 mGycm. CTDIvol(s) 9.8 mGy. Dose reduction achieved using automated exposure control Comparison: 04/08/2017 Findings: 7.5 x 6.5 x 9.5 cm diameter rectal mass is again demonstrated. Mural cystic necrotic areas are again demonstrated posterior to the left. The mass is inseparable from the prostate anteriorly. No evidence of colonic dilatation despite the mass. No small bowel distention. The appendix is unremarkable, although the tip herniates slightly into the right inguinal canal. There is colonic diverticulosis. No evidence of diverticulitis. No small bowel distention. The liver demonstrates multiple cysts, as well as multiple subcentimeter low-attenuation lesions which are too small to characterize. There is generalized mild edema of the subcutaneous fat.. The gallbladder, bile ducts, pancreas, spleen, are unremarkable. 15 mm right renal cyst is again demonstrated, unchanged. The left kidney is unremarkable. No hydronephrosis. The prostate is enlarged The included lung bases are clear except for some scarring on the left. The bones are unremarkable except for degenerative changes of the lumbar spine. Findings are overall unchanged Impression: No significant change, over 3 days 7.5 x 6.5 x 9.5 cm diameter rectal mass, also previously described. As previously reported, mural low attenuation is noted posterior to the left. This may represent there is of necrosis, adjacent chronic adenopathy, or one or more mural abscesses. Prostatomegaly Multiple hepatic cysts. Subcentimeter low-attenuation lesions in the liver also demonstrated, most likely benign simple cysts, neoplasm as etiology of any these cannot be ruled out Other findings as noted, including right renal cyst, left basilar pulmonary parenchymal scarring, degenerative spondylosis The CT scanner at [facility] is accredited by the [employer] [place] [employer] and the scans are performed using protocols designed to limit radiation exposure to as low as reasonably achievable to attain images of sufficient resolution adequate for diagnostic evaluation.
--- NOTE | 2017-04-11 20:00 | Procedure Note ---
DATE OF PROCEDURE: 04/11/2017 SURGEON: Mainor Son M.D. REFERRING PHYSICIAN: Monique Guido M.D. PROCEDURE: Rectal ultrasound. INDICATION: Rectal mass. The procedure, risks, benefits, and possible consequences, including hemorrhage, aspiration, perforation and infection, and alternative treatments, were explained to the patient/legal guardian by Dr. Mainor Son and the patient/legal guardian understood and accepted these risks. DESCRIPTION OF PROCEDURE: After informed consent was obtained and the patient was adequately sedated, first rectal exam was performed, which was positive for a rectal mass. Then, the scope was advanced from the rectum into the area at about 25 cm from anal verge. The patient had a large rectal mass right above the dentate line. This passed breaking through the muscularis propria layer, so at least T3. There was also a lymph node, 8 mm lymph node was seen, so this is most probably a T3 N1 lesion so far. The patient tolerated the procedure well without any complication. Again, a large mass starting from the anal verge and breaking through the muscularis propria layer of the rectal wall and there is at least one lymph node. So this is a T3 N1 lesion of the rectum. RECOMMENDATIONS: Follow up with Oncology for possibly chemoradiation and possible future surgeries if there is no obvious metastasis. I want to thank Dr. Guido for this kind referral. Mainor Son M.D. DR: RAVI JOB#: [id number] CC: Monique Guido M.D.; Fax#: [phone]
[2017-04-11] MEDS: Iron Sucrose 100 MG in NS 55 ML IV SCH (21:00)
--- NOTE | 2017-04-11 21:09 | Pulmonology Progress Note ---
Assessment/Plan Problems: (1) Sepsis (2) Diarrhea (3) Severe protein-calorie malnutrition (4) Anemia (5) Dehydration (6) Rectal mass Assessment/Plan stool for o/p anemia w/u GI evaluation appreciated, f biopsy results pending loza cultures abx started by ID PT/ot Subjective ROS Limited/Unobtainable: No Constitutional: Reports: no symptoms HEENT: Repors: no symptoms Allergies: Coded Allergies: No Known Allergies (Unverified , 04/05/17) Objective Last 24 Hour Vital Signs Date Time Temp Pulse Resp B/P (MAP) Pulse Ox O2 Delivery O2 Flow Rate FiO2 04/11/17 20:00 100.2 115 18 146/93 99 Room Air 04/11/17 15:49 98.8 96 18 150/83 100 Room Air 04/11/17 12:00 98.1 97 20 142/87 98 Room Air 04/11/17 11:06 98.1 04/11/17 09:46 101.3 78 17 135/78 100 Room Air 04/11/17 09:40 84 17 137/79 100 Room Air 04/11/17 09:39 83 18 100 04/11/17 09:37 82 18 100 04/11/17 09:35 86 18 138/82 99 Room Air 04/11/17 09:30 80 18 138/85 100 Simple Mask 6.0 04/11/17 09:24 99.5 82 15 127/71 100 Simple Mask 6.0 04/11/17 05:55 97.8 68 19 151/74 98 Room Air 04/11/17 00:40 98.0 83 19 154/86 98 Room Air Intake and Output 04/11/17 04/12/17 19:00 07:00 Intake Total 460 ml Output Total 0 ml Balance 460 ml Intake Oral 360 ml IV Total 100 ml Output Estimated Blood Loss 0 ml # Voids 2 # Bowel Movements 1 General Appearance: cachetic HEENT: normocephalic, atraumatic Respiratory/Chest: chest wall non-tender, lungs clear Cardiovascular: normal peripheral pulses, normal rate Abdomen: normal bowel sounds, soft, non tender Skin: no lesions Neurologic/Psychiatric: flower arranger II-XII grossly normal Laboratory Tests 04/11/17 05:00: White Blood Count 14.8#H, Red Blood Count 4.54L, Hemoglobin 10.1L, Hematocrit 33.0L, Mean Corpuscular Volume 73L, Mean Corpuscular Hemoglobin 22.2L, Mean Corpuscular Hemoglobin Concent 30.5L, Red Cell Distribution Width 21.8H, Platelet Count 290, Mean Platelet Volume 7.1, Neutrophils (%) (Auto) , Lymphocytes (%) (Auto) , Monocytes (%) (Auto) , Eosinophils (%) (Auto) , Basophils (%) (Auto) , Differential Total Cells Counted 100, Neutrophils % ( Manual) 87H, Lymphocytes % (Manual) 7L, Monocytes % (Manual) 6, Eosinophils % ( Manual) 0, Basophils % (Manual) 0, Band Neutrophils 0, Platelet Estimate Adequate, Platelet Morphology Normal, Hypochromasia 1+, Anisocytosis 2+, Microcytosis 1+, Prothrombin Time 10.0, Prothromb Time International Ratio 1.0, Activated Partial Thromboplast Time 32, Sodium Level 136, Potassium Level 3.4L, Chloride Level 100, Carbon Dioxide Level 29, Anion Gap 7, Blood Urea Nitrogen 8 , Creatinine 0.9, Estimat Glomerular Filtration Rate > 60, Glucose Level 84, Calcium Level 9.0 04/11/17 20:00: Stool Cyclospora Smear [Pending], Cryptosporidium Exam (LAB) [Pending], Isospora Exam [Pending] Current Medications Medications (Trade) Dose Ordered Sig/Juana Route PRN Reason Start Time Stop Time Status Last Admin Dose Admin Acetaminophen (Tylenol) 650 mg Q4H PRN ORAL fever 04/05/17 18:30 05/05/17 18:29 04/11/17 18:52 Al Hydroxide/Mg Hydroxide (Mylanta II) 30 ml Q6H PRN ORAL dyspepsia 04/05/17 18:30 05/05/17 18:29 Clonidine HCl (Catapres) 0.1 mg EVERY 6 HOURS PRN ORAL sbp above 160 04/09/17 12:00 05/09/17 11:59 04/09/17 14:39 Dextrose (Dextrose 50%) STAT PRN IV Hypoglycemia 04/05/17 18:30 05/05/17 18:29 Iron Sucrose 100 mg/Sodium Chloride 60 ml @ 240 mls/hr BEDTIME IV 04/09/17 21:00 04/13/17 21:14 04/10/17 21:03 Lorazepam (Ativan 2mg/ml 1ml) 0.5 mg Q4H PRN IV For Anxiety 04/10/17 10:30 04/17/17 23:59 Morphine Sulfate (Morphine Sulfate) 1 mg Q4H PRN IVP For Pain 4-10 04/10/17 10:30 04/17/17 23:59 Ondansetron HCl (Zofran) 4 mg Q6H PRN IVP Nausea & Vomiting 04/05/17 18:30 05/05/17 18:29 Pantoprazole (Protonix) 40 mg DAILY IVP 04/07/17 09:00 05/07/17 08:59 04/11/17 08:05 Piperacillin/ Tazobactam/ Dextrose 50 ml @ 12.5 mls/hr Q8HR IVPB 04/11/17 14:00 04/16/17 13:59 04/11/17 14:22 Polyethylene Glycol (Miralax) 17 gm HSPRN PRN ORAL Constipation 04/05/17 18:30 05/05/17 18:29 Zolpidem Tartrate (Ambien) 5 mg HSPRN PRN ORAL Insomnia 04/05/17 18:30 04/12/17 18:29 CYN BAILEY Apr 11, 2017 21:09
[2017-04-12] VITALS (7 sets, daily range): BP systolic 113–153; BP diastolic 62–91
[2017-04-12] MEDS: Zosyn 3.375gm/50ml Premix 50 ML IVPB SCH ×3 (05:34→21:17)
[2017-04-12 06:31] LABS: APPEARANCE,URINE CLEAR; KETONES,URINE NEGATIVE (NEGATIVE); LEUKOCYTE ESTERASE ,URINE NEGATIVE (NEGATIVE); NITRITE,URINE NEGATIVE (NEGATIVE); PH,URINE 7 (4.5-8.0); PROTEIN,URINE NEGATIVE (NEGATIVE); UROBILINOGEN,URINE 1 MG/DL (0.0-1.0)
[2017-04-12 06:45] LABS: SQUAMOUS EPITHELIAL CELL,UR OCCASIONAL /LPF (NONE/OCC); WBC,URINE 0-2 /HPF (0 - 0)
[2017-04-12 07:01] LABS: ALANINE AMINOTRANSFERASE 19 U/L (12-78); ALBUMIN/GLOBULIN RATIO 0.5 (1.0-2.7); ANION GAP 7 mmol/L (5-15); ASPARTATE AMINO TRANSFERASE 29 U/L (15-37); CALCIUM 8.8 MG/DL (8.5-10.1); CARBON DIOXIDE 29 MMOL/L (21-32); CHLORIDE 100 MMOL/L (98-107); GLOMERULAR FILTRATION RATE > 60 mL/min (>60); POTASSIUM 4.7 MMOL/L (3.5-5.1); SODIUM 136 MMOL/L (136-145); TOTAL PROTEIN 7.4 G/DL (6.4-8.2)
[2017-04-12 07:04] LABS: MEAN CORPUSCULAR HEMOGLOBIN 23.2 PG (27.0-31.0); MEAN CORPUSCULAR VOLUME 73 FL (80-99); MEAN PLATELET VOLUME 6.8 FL (6.5-10.1); PLATELET COUNT 290 K/UL (150-450); WHITE BLOOD COUNT 20.2 K/UL (4.8-10.8)
--- NOTE | 2017-04-12 08:34 | General Progress Note ---
Assessment/Plan Assessment/Plan Assessment/Plan Stage III rectal cancer --> potential evidence of pulm mets but 2mm needs outpatient eval --> plan for chemotherapy with radiation and needs to be set up with rad onc --> discussed with pt importance of outpatient chemo --> appreciate surgery recs --> imaging has been reviewed Anemia of GI bleed --> hgb goal of >7 --> continue to trend HH daily Anemia of chronic disease Diarrhea Dehydration Hypokaelmia Subjective Date patient seen: Apr 11, 2017 Constitutional: Reports: fever HEENT: Reports: no symptoms Cardiovascular: Reports: no symptoms Respiratory: Reports: no symptoms Gastrointestinal/Abdominal: Reports: no symptoms Genitourinary: Reports: no symptoms Neurologic/Psychiatric: Reports: no symptoms Endocrine: Reports: no symptoms Hematologic/Lymphatic: Reports: no symptoms Allergies: Coded Allergies: No Known Allergies (Unverified , 04/05/17) Subjective procedure today Objective Last 24 Hour Vital Signs Date Time Temp Pulse Resp B/P (MAP) Pulse Ox O2 Delivery O2 Flow Rate FiO2 04/12/17 04:00 98.6 103 18 145/89 99 Room Air 04/12/17 00:00 98.8 101 18 140/84 100 Room Air 04/11/17 20:00 100.2 115 18 146/93 99 Room Air 04/11/17 19:51 99.9 04/11/17 15:49 98.8 96 18 150/83 100 Room Air 04/11/17 12:00 98.1 97 20 142/87 98 Room Air 04/11/17 09:46 101.3 78 17 135/78 100 Room Air 04/11/17 09:40 84 17 137/79 100 Room Air 04/11/17 09:39 83 18 100 04/11/17 09:37 82 18 100 04/11/17 09:35 86 18 138/82 99 Room Air 04/11/17 09:30 80 18 138/85 100 Simple Mask 6.0 04/11/17 09:24 99.5 82 15 127/71 100 Simple Mask 6.0 Laboratory Tests 04/11/17 20:00: Stool Cyclospora Smear [Pending], Cryptosporidium Exam (LAB) [Pending], Isospora Exam [Pending] 04/12/17 03:20: Urine Color Yellow, Urine Appearance Clear, Urine pH 7, Urine Specific [place] 1.010, Urine Protein Negative, Urine Glucose (UA) Negative, Urine Ketones Negative, Urine Occult Blood 1+H, Urine Nitrite Negative, Urine Bilirubin Negative, Urine Urobilinogen 1H, Urine Leukocyte Esterase Negative, Urine RBC 2- 4H, Urine WBC 0-2, Urine Squamous Epithelial Cells Occasional, Urine Transitional Epithelial Cells , Urine Bacteria None 04/12/17 06:10: White Blood Count 20.2H, Red Blood Count 4.00L, Hemoglobin 9.3L, Hematocrit 29.0L, Mean Corpuscular Volume 73L, Mean Corpuscular Hemoglobin 23.2L, Mean Corpuscular Hemoglobin Concent 32.0, Red Cell Distribution Width 23.0H, Platelet Count 290, Mean Platelet Volume 6.8, Neutrophils (%) (Auto) , Lymphocytes (%) (Auto) , Monocytes (%) (Auto) , Eosinophils (%) (Auto) , Basophils (%) (Auto) , Neutrophils % (Manual) [Pending], Lymphocytes % (Manual) [Pending], Platelet Estimate [Pending], Platelet Morphology [Pending], Sodium Level 136, Potassium Level 4.7, Chloride Level 100, Carbon Dioxide Level 29, Anion Gap 7, Blood Urea Nitrogen 13, Creatinine 1.0, Estimat Glomerular Filtration Rate > 60, Glucose Level 83, Calcium Level 8.8, Total Bilirubin 0.6, Aspartate Amino Transf (AST/SGOT) 29, Alanine Aminotransferase (ALT/SGPT) 19, Alkaline Phosphatase 46, Total Protein 7.4, Albumin 2.6L, Globulin 4.8, Albumin/ Globulin Ratio 0.5L Height (Feet): 5 Height (Inches): 10.00 Weight (Pounds): 127 General Appearance: no apparent distress EENT: PERRL/EOMI Neck: normal alignment, supple Cardiovascular: normal rate, regular rhythm Respiratory/Chest: chest wall non-tender Abdomen: normal bowel sounds Neurologic: alert Rommel Ching Apr 12, 2017 08:34
[2017-04-12 08:57] LABS: BAND NEUTROPHILS % (MANUAL) 1 % (0-8); BASOPHILS % (MANUAL) 0 % (0-2); EOSINOPHILS % (MANUAL) 0 % (0-3); HYPOCHROMASIA 2+; LYMPHOCYTES % (MANUAL) 3 % (20-45); NEUTROPHILS % (MANUAL) 90 % (45-75); PLATELET ESTIMATE ADEQUATE; PLATELET MORPHOLOGY NORMAL; TOTAL CELLS COUNTED 100
[2017-04-12 08:59] LABS: ANISOCYTOSIS 2+; MICROCYTES 1+
[2017-04-12] MEDS: Pantoprazole Inj IVP SCH (09:52)
--- NOTE | 2017-04-12 10:42 | Infectious Diseases Prog Note ---
Assessment/Plan Assessment/Plan ASSESSMENT: 67 y/o male with: //New fever and leukocytosis; worsening leukocytosis- 2ry to GNR Bacteremia- suspect this is 2ry to a probable mural abscess seen periprostatic on CT vs bacterial gut translocation after colonoscopy or rectal EUS done 04/11 morning - -04/11 BCx / GNR (ID and sensi pending) -CT abd/p 04/11:No significant change, over 3 days. 7.5 x 6.5 x 9.5 cm diameter rectal mass, also previously described. As previously reported, mural low attenuation is noted posterior to the left. This may represent there is of necrosis, adjacent chronic adenopathy, or one or more mural abscesses. Prostatomegaly.Multiple hepatic cysts. Subcentimeter low-attenuation lesions in the liver also demonstrated, most likely benign simple cysts, neoplasm as etiology of any these cannot be ruled out -EUS rectal 04/11: large rectal mass right above the dentate line. This passed breaking through the muscularis propria layer, so at least T3. There was also a lymph node, 8 mm lymph node was seen, so this is most probably a T3 N1 lesion so far. //REctal mass -CT chest/abd/p w/: 04/08: 6.3 x 7.5 x 9 cm mass involving the rectum. This is consistent with clinical history of rectal carcinoma described by the referring physician. Invasion of the mass into the adjacent prostate and the right side of the seminal vesicles not completely excludable. Confluent areas of low-attenuation within the periphery of the mass, as described. These may represent cystic necrotic areas, versus mural abscesses. Despite the size of the mass, no definite local pelvic adenopathy. No definite evidence of hepatic metastases. However, there are hepatic low attenuation lesions which are too small to characterize, most likely represent cysts but small metastatic deposits cannot be completely ruled out. In addition , there are larger hepatic low attenuation lesions with definite represent cysts 2 mm left upper lobe pulmonary nodule. Nonspecific, likely postinflammatory in nature but a small metastatic deposit cannot be ruled outNo other evidence of metastatic disease Possible ventricular muscular hypertrophy. Prostatomegaly. Degenerative spondylosis // Chronic diarrhea ( >2mo ) r/o infectious -stool cx normal michael -o+p x1 neg -Giardia ag neg- C.difficile: Neg SP EGD and Colonoscopy : rectal mass, 8 colon polyp // Severe periodontal disease // Severe microcytic iron deficiency anemia r/o GIB - GI following - EGD / colonoscopy 04/08: pending - SP PRBCs - CEA pending // Unintentional weight loss // Elevated ESR // NKDA // Full Code PLAN: -Continue IV Zosyn #2 pending ID and sensi GNR bcx -repeat 2 sets of bcx -Consider IR guided drainage of area of possible mural abscess -f/u Crypstoporidium ag, o+p x2, Cyclospora/isospora stool - monitor CBC, temperatures - monitor BMP - transfuse prn Discussed with RN and Dr Guido. Subjective Allergies: Coded Allergies: No Known Allergies (Unverified , 04/05/17) Subjective fever curve improving, Tm 100.2 in last 24hrs leukocytosis worsening, now up to 20 high grade bacteremia with GNR underweitn EUS rectal yesterday morning Objective Vital Signs Last 24 Hour Vital Signs Date Time Temp Pulse Resp B/P (MAP) Pulse Ox O2 Delivery O2 Flow Rate FiO2 04/12/17 08:00 98.4 111 20 152/91 Room Air 04/12/17 04:00 98.6 103 18 145/89 99 Room Air 04/12/17 00:00 98.8 101 18 140/84 100 Room Air 04/11/17 20:00 100.2 115 18 146/93 99 Room Air 04/11/17 19:51 99.9 04/11/17 15:49 98.8 96 18 150/83 100 Room Air 04/11/17 12:00 98.1 97 20 142/87 98 Room Air Height (Feet): 5 Height (Inches): 10.00 Weight (Pounds): 127 Objective General Appearance: no acute distress, cahcetic HEENT: mucous membranes moist Respiratory/Chest: lungs clear Cardiovascular: normal rate Abdomen: soft, non tender Extremities: no edema Neurologic/Psychiatric: alert, oriented x 3, responsive Microbiology Date/Time Source Procedure Growth Status 04/11/17 12:30 Blood Blood Culture - Preliminary Resulted 04/11/17 12:15 Blood Blood Culture - Preliminary Resulted Laboratory Tests Test 04/11/17 20:00 04/12/17 03:20 04/12/17 06:10 Stool Cyclospora Smear Pending Cryptosporidium Exam (LAB) Pending Isospora Exam Pending Urine Color Yellow Urine Appearance Clear Urine pH 7 (4.5-8.0) Urine Specific [place] 1.010 (1.005-1.035) Urine Protein Negative (NEGATIVE) Urine Glucose (UA) Negative (NEGATIVE) Urine Ketones Negative (NEGATIVE) Urine Occult Blood 1+ (NEGATIVE) H Urine Nitrite Negative (NEGATIVE) Urine Bilirubin Negative (NEGATIVE) Urine Urobilinogen 1 MG/DL (0.0-1.0) H Urine Leukocyte Esterase Negative (NEGATIVE) Urine RBC 2-4 /HPF (0 - 0) H Urine WBC 0-2 /HPF (0 - 0) Urine Squamous Epithelial Cells Occasional /LPF Urine Transitional Epithelial Cells /LPF (NONE) Urine Bacteria None /HPF (NONE) White Blood Count 20.2 K/UL (4.8-10.8) H Red Blood Count 4.00 M/UL (4.70-6.10) L Hemoglobin 9.3 G/DL (14.2-18.0) L Hematocrit 29.0 % (42.0-52.0) L Mean Corpuscular Volume 73 FL (80-99) L Mean Corpuscular Hemoglobin 23.2 PG (27.0-31.0) L Mean Corpuscular Hemoglobin Concent 32.0 G/DL (32.0-36.0) Red Cell Distribution Width 23.0 % (11.6-14.8) H Platelet Count 290 K/UL (150-450) Mean Platelet Volume 6.8 FL (6.5-10.1) Neutrophils (%) (Auto) % (45.0-75.0) Lymphocytes (%) (Auto) % (20.0-45.0) Monocytes (%) (Auto) % (1.0-10.0) Eosinophils (%) (Auto) % (0.0-3.0) Basophils (%) (Auto) % (0.0-2.0) Differential Total Cells Counted 100 Neutrophils % (Manual) 90 % (45-75) H Lymphocytes % (Manual) 3 % (20-45) L Monocytes % (Manual) 6 % (1-10) Eosinophils % (Manual) 0 % (0-3) Basophils % (Manual) 0 % (0-2) Band Neutrophils 1 % (0-8) Platelet Estimate Adequate Platelet Morphology Normal Hypochromasia 2+ Anisocytosis 2+ Microcytosis 1+ Sodium Level 136 MMOL/L (136-145) Potassium Level 4.7 MMOL/L (3.5-5.1) Chloride Level 100 MMOL/L (98-107) Carbon Dioxide Level 29 MMOL/L (21-32) Anion Gap 7 mmol/L (5-15) Blood Urea Nitrogen 13 mg/dL (7-18) Creatinine 1.0 MG/DL (0.55-1.30) Estimat Glomerular Filtration Rate > 60 mL/min (>60) Glucose Level 83 MG/DL (74-106) Calcium Level 8.8 MG/DL (8.5-10.1) Total Bilirubin 0.6 MG/DL (0.2-1.0) Aspartate Amino Transf (AST/SGOT) 29 U/L (15-37) Alanine Aminotransferase (ALT/SGPT) 19 U/L (12-78) Alkaline Phosphatase 46 U/L (46-116) Total Protein 7.4 G/DL (6.4-8.2) Albumin 2.6 G/DL (3.4-5.0) L Globulin 4.8 g/dL Albumin/Globulin Ratio 0.5 (1.0-2.7) L Current Medications Medications (Trade) Dose Ordered Sig/Juana Route PRN Reason Start Time Stop Time Status Last Admin Dose Admin Acetaminophen (Tylenol) 650 mg Q4H PRN ORAL fever 04/05/17 18:30 05/05/17 18:29 04/11/17 18:52 Al Hydroxide/Mg Hydroxide (Mylanta II) 30 ml Q6H PRN ORAL dyspepsia 04/05/17 18:30 05/05/17 18:29 Clonidine HCl (Catapres) 0.1 mg EVERY 6 HOURS PRN ORAL sbp above 160 04/09/17 12:00 05/09/17 11:59 04/09/17 14:39 Dextrose (Dextrose 50%) STAT PRN IV Hypoglycemia 04/05/17 18:30 05/05/17 18:29 Iron Sucrose 100 mg/Sodium Chloride 60 ml @ 240 mls/hr BEDTIME IV 04/09/17 21:00 04/13/17 21:14 04/11/17 21:00 Lorazepam (Ativan 2mg/ml 1ml) 0.5 mg Q4H PRN IV For Anxiety 04/10/17 10:30 04/17/17 23:59 Morphine Sulfate (Morphine Sulfate) 1 mg Q4H PRN IVP For Pain 4-10 04/10/17 10:30 04/17/17 23:59 Ondansetron HCl (Zofran) 4 mg Q6H PRN IVP Nausea & Vomiting 04/05/17 18:30 05/05/17 18:29 Pantoprazole (Protonix) 40 mg DAILY IVP 04/07/17 09:00 05/07/17 08:59 04/12/17 09:52 Piperacillin/ Tazobactam/ Dextrose 50 ml @ 12.5 mls/hr Q8HR IVPB 04/11/17 14:00 04/16/17 13:59 04/12/17 05:34 Polyethylene Glycol (Miralax) 17 gm HSPRN PRN ORAL Constipation 04/05/17 18:30 05/05/17 18:29 Zolpidem Tartrate (Ambien) 5 mg HSPRN PRN ORAL Insomnia 04/05/17 18:30 04/12/17 18:29 Lalita Sifuentes M.D. Apr 12, 2017 10:42
--- NOTE | 2017-04-12 14:43 | GI Progress Note ---
Assessment/Plan Problems: (1) Colonoscopy planned SNOMED: 157369910 (2) Diarrhea ICD Codes: R19.7 - Diarrhea, unspecified SNOMED: 51218762 Qualifiers: Qualified Codes: R19.7 - Diarrhea, unspecified (3) Iron deficiency ICD Codes: E61.1 - Iron deficiency SNOMED: 84215173 (4) Anemia ICD Codes: D64.9 - Anemia, unspecified SNOMED: 443964645 Qualifiers: Qualified Codes: D64.9 - Anemia, unspecified (5) Dehydration ICD Codes: E86.0 - Dehydration SNOMED: 62394819 (6) Severe protein-calorie malnutrition ICD Codes: E43 - Unspecified severe protein-calorie malnutrition SNOMED: 386243778 Status: unchanged Status Narrative Discussed with Dr. Son. Assessment/Plan s/p EUS rectal mass - T3 N1 lesion of the rectum. RECOMMENDATIONS: fu oncology recs for possible chemoradiation fu surgical recs if there is no obvious metastasis. Subjective Subjective diarrhea Objective Last 24 Hour Vital Signs Date Time Temp Pulse Resp B/P (MAP) Pulse Ox O2 Delivery O2 Flow Rate FiO2 04/12/17 12:00 96.4 125 20 153/91 98 Room Air 04/12/17 08:00 98.4 111 20 152/91 Room Air 04/12/17 04:00 98.6 103 18 145/89 99 Room Air 04/12/17 00:00 98.8 101 18 140/84 100 Room Air 04/11/17 20:00 100.2 115 18 146/93 99 Room Air 04/11/17 19:51 99.9 04/11/17 15:49 98.8 96 18 150/83 100 Room Air Laboratory Tests Test 04/11/17 20:00 04/12/17 03:20 04/12/17 06:10 Stool Cyclospora Smear Pending Cryptosporidium Exam (LAB) Pending Isospora Exam Pending Urine Color Yellow Urine Appearance Clear Urine pH 7 (4.5-8.0) Urine Specific [place] 1.010 (1.005-1.035) Urine Protein Negative (NEGATIVE) Urine Glucose (UA) Negative (NEGATIVE) Urine Ketones Negative (NEGATIVE) Urine Occult Blood 1+ (NEGATIVE) H Urine Nitrite Negative (NEGATIVE) Urine Bilirubin Negative (NEGATIVE) Urine Urobilinogen 1 MG/DL (0.0-1.0) H Urine Leukocyte Esterase Negative (NEGATIVE) Urine RBC 2-4 /HPF (0 - 0) H Urine WBC 0-2 /HPF (0 - 0) Urine Squamous Epithelial Cells Occasional /LPF Urine Transitional Epithelial Cells /LPF (NONE) Urine Bacteria None /HPF (NONE) White Blood Count 20.2 K/UL (4.8-10.8) H Red Blood Count 4.00 M/UL (4.70-6.10) L Hemoglobin 9.3 G/DL (14.2-18.0) L Hematocrit 29.0 % (42.0-52.0) L Mean Corpuscular Volume 73 FL (80-99) L Mean Corpuscular Hemoglobin 23.2 PG (27.0-31.0) L Mean Corpuscular Hemoglobin Concent 32.0 G/DL (32.0-36.0) Red Cell Distribution Width 23.0 % (11.6-14.8) H Platelet Count 290 K/UL (150-450) Mean Platelet Volume 6.8 FL (6.5-10.1) Neutrophils (%) (Auto) % (45.0-75.0) Lymphocytes (%) (Auto) % (20.0-45.0) Monocytes (%) (Auto) % (1.0-10.0) Eosinophils (%) (Auto) % (0.0-3.0) Basophils (%) (Auto) % (0.0-2.0) Differential Total Cells Counted 100 Neutrophils % (Manual) 90 % (45-75) H Lymphocytes % (Manual) 3 % (20-45) L Monocytes % (Manual) 6 % (1-10) Eosinophils % (Manual) 0 % (0-3) Basophils % (Manual) 0 % (0-2) Band Neutrophils 1 % (0-8) Platelet Estimate Adequate Platelet Morphology Normal Hypochromasia 2+ Anisocytosis 2+ Microcytosis 1+ Sodium Level 136 MMOL/L (136-145) Potassium Level 4.7 MMOL/L (3.5-5.1) Chloride Level 100 MMOL/L (98-107) Carbon Dioxide Level 29 MMOL/L (21-32) Anion Gap 7 mmol/L (5-15) Blood Urea Nitrogen 13 mg/dL (7-18) Creatinine 1.0 MG/DL (0.55-1.30) Estimat Glomerular Filtration Rate > 60 mL/min (>60) Glucose Level 83 MG/DL (74-106) Calcium Level 8.8 MG/DL (8.5-10.1) Total Bilirubin 0.6 MG/DL (0.2-1.0) Aspartate Amino Transf (AST/SGOT) 29 U/L (15-37) Alanine Aminotransferase (ALT/SGPT) 19 U/L (12-78) Alkaline Phosphatase 46 U/L (46-116) Total Protein 7.4 G/DL (6.4-8.2) Albumin 2.6 G/DL (3.4-5.0) L Globulin 4.8 g/dL Albumin/Globulin Ratio 0.5 (1.0-2.7) L Height (Feet): 5 Height (Inches): 10.00 Weight (Pounds): 127 General Appearance: WD/WN, no apparent distress, alert Cardiovascular: normal rate Respiratory/Chest: normal breath sounds, no respiratory distress Abdominal Exam: normal bowel sounds, non tender, soft Extremities: normal range of motion, non-tender Linda Ratliff N.P. Apr 12, 2017 14:43
--- NOTE | 2017-04-12 15:05 | General Progress Note ---
Progress Note Progress Note Surgery: patient febrile with worsening leukocytosis today. states he feels well. otherwise no complaints. CT reviewed with radiologist. possible that perirectal mass has abscess but more likely necrotic tissue. given fevers and wbc without other etiology will need to evaluate further to ensure not an abscess. will plan for radiological aspiration soon. Wayne Ulloa Apr 12, 2017 15:05
--- NOTE | 2017-04-12 16:18 | Pulmonology Progress Note ---
Assessment/Plan Problems: (1) Sepsis (2) Diarrhea (3) Severe protein-calorie malnutrition (4) Anemia (5) Dehydration (6) Rectal mass Assessment/Plan CT guided drainage ordered WBC rising febrile today stool for o/p anemia w/u biopsy results pending loza cultures abx by ID PT/ot Ct of head and neuro evaluation Subjective ROS Limited/Unobtainable: No Constitutional: Reports: no symptoms HEENT: Repors: no symptoms Respiratory: Reports: no symptoms Allergies: Coded Allergies: No Known Allergies (Unverified , 04/05/17) Objective Last 24 Hour Vital Signs Date Time Temp Pulse Resp B/P (MAP) Pulse Ox O2 Delivery O2 Flow Rate FiO2 04/12/17 12:00 96.4 125 20 153/91 98 Room Air 04/12/17 08:00 98.4 111 20 152/91 Room Air 04/12/17 04:00 98.6 103 18 145/89 99 Room Air 04/12/17 00:00 98.8 101 18 140/84 100 Room Air 04/11/17 20:00 100.2 115 18 146/93 99 Room Air 04/11/17 19:51 99.9 Intake and Output 04/12/17 04/13/17 19:00 07:00 Intake Total 300 ml Output Total 200 ml Balance 100 ml Intake Oral 300 ml Output Urine Total 200 ml # Bowel Movements 1 General Appearance: cachetic HEENT: normocephalic, atraumatic Respiratory/Chest: chest wall non-tender, lungs clear Cardiovascular: normal peripheral pulses, normal rate Abdomen: normal bowel sounds, soft, non tender Genitourinary: normal external genitalia Extremities: no cyanosis Skin: no rash 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, no motor/sensory deficits Microbiology Date/Time Source Procedure Growth Status 04/11/17 12:30 Blood Blood Culture - Preliminary Resulted 04/11/17 12:15 Blood Blood Culture - Preliminary Resulted Laboratory Tests 04/11/17 20:00: Stool Cyclospora Smear [Pending], Cryptosporidium Exam (LAB) [Pending], Isospora Exam [Pending] 04/12/17 03:20: Urine Color Yellow, Urine Appearance Clear, Urine pH 7, Urine Specific Shepherd 1.010, Urine Protein Negative, Urine Glucose (UA) Negative, Urine Ketones Negative, Urine Occult Blood 1+H, Urine Nitrite Negative, Urine Bilirubin Negative, Urine Urobilinogen 1H, Urine Leukocyte Esterase Negative, Urine RBC 2- 4H, Urine WBC 0-2, Urine Squamous Epithelial Cells Occasional, Urine Transitional Epithelial Cells , Urine Bacteria None 04/12/17 06:10: White Blood Count 20.2H, Red Blood Count 4.00L, Hemoglobin 9.3L, Hematocrit 29.0L, Mean Corpuscular Volume 73L, Mean Corpuscular Hemoglobin 23.2L, Mean Corpuscular Hemoglobin Concent 32.0, Red Cell Distribution Width 23.0H, Platelet Count 290, Mean Platelet Volume 6.8, Neutrophils (%) (Auto) , Lymphocytes (%) (Auto) , Monocytes (%) (Auto) , Eosinophils (%) (Auto) , Basophils (%) (Auto) , Differential Total Cells Counted 100, Neutrophils % ( Manual) 90H, Lymphocytes % (Manual) 3L, Monocytes % (Manual) 6, Eosinophils % ( Manual) 0, Basophils % (Manual) 0, Band Neutrophils 1, Platelet Estimate Adequate, Platelet Morphology Normal, Hypochromasia 2+, Anisocytosis 2+, Microcytosis 1+, Sodium Level 136, Potassium Level 4.7, Chloride Level 100, Carbon Dioxide Level 29, Anion Gap 7, Blood Urea Nitrogen 13, Creatinine 1.0, Estimat Glomerular Filtration Rate > 60, Glucose Level 83, Calcium Level 8.8, Total Bilirubin 0.6, Aspartate Amino Transf (AST/SGOT) 29, Alanine Aminotransferase (ALT/SGPT) 19, Alkaline Phosphatase 46, Total Protein 7.4, Albumin 2.6L, Globulin 4.8, Albumin/Globulin Ratio 0.5L Current Medications Medications (Trade) Dose Ordered Sig/Juana Route PRN Reason Start Time Stop Time Status Last Admin Dose Admin Acetaminophen (Tylenol) 650 mg Q4H PRN ORAL fever 04/05/17 18:30 05/05/17 18:29 04/12/17 15:59 Al Hydroxide/Mg Hydroxide (Mylanta II) 30 ml Q6H PRN ORAL dyspepsia 04/05/17 18:30 05/05/17 18:29 Clonidine HCl (Catapres) 0.1 mg EVERY 6 HOURS PRN ORAL sbp above 160 04/09/17 12:00 05/09/17 11:59 04/09/17 14:39 Dextrose (Dextrose 50%) STAT PRN IV Hypoglycemia 04/05/17 18:30 05/05/17 18:29 Iron Sucrose 100 mg/Sodium Chloride 60 ml @ 240 mls/hr BEDTIME IV 04/09/17 21:00 04/13/17 21:14 04/11/17 21:00 Lorazepam (Ativan 2mg/ml 1ml) 0.5 mg Q4H PRN IV For Anxiety 04/10/17 10:30 04/17/17 23:59 Morphine Sulfate (Morphine Sulfate) 1 mg Q4H PRN IVP For Pain 4-10 04/10/17 10:30 04/17/17 23:59 Ondansetron HCl (Zofran) 4 mg Q6H PRN IVP Nausea & Vomiting 04/05/17 18:30 05/05/17 18:29 Pantoprazole (Protonix) 40 mg DAILY IVP 04/07/17 09:00 05/07/17 08:59 04/12/17 09:52 Piperacillin/ Tazobactam/ Dextrose 50 ml @ 12.5 mls/hr Q8HR IVPB 04/11/17 14:00 04/16/17 13:59 04/12/17 15:16 Polyethylene Glycol (Miralax) 17 gm HSPRN PRN ORAL Constipation 04/05/17 18:30 05/05/17 18:29 Zolpidem Tartrate (Ambien) 5 mg HSPRN PRN ORAL Insomnia 04/05/17 18:30 04/12/17 18:29 CYN BAILEY Apr 12, 2017 16:18
--- NOTE | 2017-04-12 16:56 | General Progress Note ---
Assessment/Plan Assessment/Plan Assessment/Plan Stage III rectal cancer --> potential evidence of pulm mets but 2mm needs outpatient eval --> plan for chemotherapy with radiation and needs to be set up with rad onc --> discussed with pt importance of outpatient chemo --> appreciate surgery recs --> imaging has been reviewed Anemia of GI bleed --> hgb goal of >7 --> continue to trend HH daily Leukocytosis 2/2 bacteremia --> ID following Fever 2/2 infection Anemia of chronic disease Diarrhea Dehydration Hypokaelmia Subjective Constitutional: Reports: fever HEENT: Reports: no symptoms Cardiovascular: Reports: no symptoms Respiratory: Reports: no symptoms Gastrointestinal/Abdominal: Reports: no symptoms Genitourinary: Reports: no symptoms Neurologic/Psychiatric: Reports: no symptoms Endocrine: Reports: no symptoms Hematologic/Lymphatic: Reports: no symptoms Allergies: Coded Allergies: No Known Allergies (Unverified , 04/05/17) Subjective febrile, worsening leukocytosis Objective Last 24 Hour Vital Signs Date Time Temp Pulse Resp B/P (MAP) Pulse Ox O2 Delivery O2 Flow Rate FiO2 04/12/17 16:00 98.8 100 20 130/73 97 Room Air 04/12/17 12:00 96.4 125 20 153/91 98 Room Air 04/12/17 08:00 98.4 111 20 152/91 Room Air 04/12/17 04:00 98.6 103 18 145/89 99 Room Air 04/12/17 00:00 98.8 101 18 140/84 100 Room Air 04/11/17 20:00 100.2 115 18 146/93 99 Room Air 04/11/17 19:51 99.9 Intake and Output 04/12/17 04/13/17 19:00 07:00 Intake Total 300 ml Output Total 200 ml Balance 100 ml Intake Oral 300 ml Output Urine Total 200 ml # Bowel Movements 1 Laboratory Tests 04/11/17 20:00: Stool Cyclospora Smear [Pending], Cryptosporidium Exam (LAB) [Pending], Isospora Exam [Pending] 04/12/17 03:20: Urine Color Yellow, Urine Appearance Clear, Urine pH 7, Urine Specific Melbeta 1.010, Urine Protein Negative, Urine Glucose (UA) Negative, Urine Ketones Negative, Urine Occult Blood 1+H, Urine Nitrite Negative, Urine Bilirubin Negative, Urine Urobilinogen 1H, Urine Leukocyte Esterase Negative, Urine RBC 2- 4H, Urine WBC 0-2, Urine Squamous Epithelial Cells Occasional, Urine Transitional Epithelial Cells , Urine Bacteria None 04/12/17 06:10: White Blood Count 20.2H, Red Blood Count 4.00L, Hemoglobin 9.3L, Hematocrit 29.0L, Mean Corpuscular Volume 73L, Mean Corpuscular Hemoglobin 23.2L, Mean Corpuscular Hemoglobin Concent 32.0, Red Cell Distribution Width 23.0H, Platelet Count 290, Mean Platelet Volume 6.8, Neutrophils (%) (Auto) , Lymphocytes (%) (Auto) , Monocytes (%) (Auto) , Eosinophils (%) (Auto) , Basophils (%) (Auto) , Differential Total Cells Counted 100, Neutrophils % ( Manual) 90H, Lymphocytes % (Manual) 3L, Monocytes % (Manual) 6, Eosinophils % ( Manual) 0, Basophils % (Manual) 0, Band Neutrophils 1, Platelet Estimate Adequate, Platelet Morphology Normal, Hypochromasia 2+, Anisocytosis 2+, Microcytosis 1+, Sodium Level 136, Potassium Level 4.7, Chloride Level 100, Carbon Dioxide Level 29, Anion Gap 7, Blood Urea Nitrogen 13, Creatinine 1.0, Estimat Glomerular Filtration Rate > 60, Glucose Level 83, Calcium Level 8.8, Total Bilirubin 0.6, Aspartate Amino Transf (AST/SGOT) 29, Alanine Aminotransferase (ALT/SGPT) 19, Alkaline Phosphatase 46, Total Protein 7.4, Albumin 2.6L, Globulin 4.8, Albumin/Globulin Ratio 0.5L Height (Feet): 5 Height (Inches): 10.00 Weight (Pounds): 127 General Appearance: no apparent distress EENT: normal ENT inspection Neck: normal alignment Cardiovascular: normal rate Respiratory/Chest: lungs clear Neurologic: oriented x 3 Rommel Ching Apr 12, 2017 16:56
[2017-04-12] MEDS: Iron Sucrose 100 MG in NS 55 ML IV SCH (20:23)
[2017-04-13 03:44] VITALS: BP 145/78
[2017-04-13] MEDS: Zosyn 3.375gm/50ml Premix 50 ML IVPB SCH ×3 (06:05→21:43)
[2017-04-13 06:52] LABS: ANION GAP 9 mmol/L (5-15); CALCIUM 8.5 MG/DL (8.5-10.1); CARBON DIOXIDE 27 MMOL/L (21-32); CHLORIDE 100 MMOL/L (98-107); GLOMERULAR FILTRATION RATE > 60 mL/min (>60); POTASSIUM 3.9 MMOL/L (3.5-5.1); SODIUM 135 MMOL/L (136-145)
[2017-04-13 07:01] LABS: MEAN CORPUSCULAR HEMOGLOBIN 22.3 PG (27.0-31.0); MEAN CORPUSCULAR HGB CONC 30.9 G/DL (32.0-36.0); MEAN CORPUSCULAR VOLUME 72 FL (80-99); MEAN PLATELET VOLUME 6.5 FL (6.5-10.1); PLATELET COUNT 298 K/UL (150-450); RED BLOOD COUNT 3.82 M/UL (4.70-6.10); RED CELL DISTRIBUTION WIDTH 23.2 % (11.6-14.8); WHITE BLOOD COUNT 17.4 K/UL (4.8-10.8)
[2017-04-13 08:00] VITALS: BP 145/97
[2017-04-13 08:36] LABS: BAND NEUTROPHILS % (MANUAL) 0 % (0-8); BASOPHILS % (MANUAL) 0 % (0-2); EOSINOPHILS % (MANUAL) 0 % (0-3); LYMPHOCYTES % (MANUAL) 4 % (20-45); NEUTROPHILS % (MANUAL) 89 % (45-75); PLATELET ESTIMATE ADEQUATE; TOTAL CELLS COUNTED 100
[2017-04-13 08:37] LABS: HYPOCHROMASIA 1+; MICROCYTES 1+; PLATELET MORPHOLOGY NORMAL
[2017-04-13] MEDS: Pantoprazole Inj IVP SCH (08:50)
--- NOTE | 2017-04-13 10:09 | Pre-Procedure Note/Attestation ---
Pre-Procedure Note/Attestation Complete Prior to Procedure Planned Procedure: not applicable Procedure Narrative: CT guided aspiration of perirectal fluid collections Indications for Procedure Pre-Operative Diagnosis: perirectal abscess Attestation I attest that I discussed the nature of the procedure; its benefits; risks and complications; and alternatives (and the risks and benefits of such alternatives ), prior to the procedure, with the patient (or the patient's legal inbound call center representative). I attest that, if there was a reasonable possibility of needing a blood transfusion, the patient (or the patient's legal inbound call center representative) was given the [facility] standardized written summary, pursuant to the Dileep Stephanie Blood Safety Act ([place] Health and Safety Code # 1645, as amended). I attest that I re-evaluated the patient just prior to the surgery and that there has been no change in the patient's H&P, except as documented below: KEITH CORLEY M.D. Apr 13, 2017 10:09
--- NOTE | 2017-04-13 10:18 | Infectious Diseases Prog Note ---
Assessment/Plan Assessment/Plan ASSESSMENT: 67 y/o male with: //New fever and leukocytosis; worsening leukocytosis- 2ry to GNR Bacteremia- suspect this is 2ry to a probable mural abscess seen periprostatic on CT vs bacterial gut translocation after colonoscopy or rectal EUS done 04/11 morning - leukocytosis improving, still spiking fevers 04/13 -04/11 BCx 4/ GNR (ID and sensi pending); Bcx 04/12 pending -CT abd/p 04/11:No significant change, over 3 days. 7.5 x 6.5 x 9.5 cm diameter rectal mass, also previously described. As previously reported, mural low attenuation is noted posterior to the left. This may represent there is of necrosis, adjacent chronic adenopathy, or one or more mural abscesses. Prostatomegaly.Multiple hepatic cysts. Subcentimeter low-attenuation lesions in the liver also demonstrated, most likely benign simple cysts, neoplasm as etiology of any these cannot be ruled out -EUS rectal 04/11: large rectal mass right above the dentate line. This passed breaking through the muscularis propria layer, so at least T3. There was also a lymph node, 8 mm lymph node was seen, so this is most probably a T3 N1 lesion so far. //REctal mass -CT chest/abd/p w/: 04/08: 6.3 x 7.5 x 9 cm mass involving the rectum. This is consistent with clinical history of rectal carcinoma described by the referring physician. Invasion of the mass into the adjacent prostate and the right side of the seminal vesicles not completely excludable. Confluent areas of low-attenuation within the periphery of the mass, as described. These may represent cystic necrotic areas, versus mural abscesses. Despite the size of the mass, no definite local pelvic adenopathy. No definite evidence of hepatic metastases. However, there are hepatic low attenuation lesions which are too small to characterize, most likely represent cysts but small metastatic deposits cannot be completely ruled out. In addition , there are larger hepatic low attenuation lesions with definite represent cysts 2 mm left upper lobe pulmonary nodule. Nonspecific, likely postinflammatory in nature but a small metastatic deposit cannot be ruled outNo other evidence of metastatic disease Possible ventricular muscular hypertrophy. Prostatomegaly. Degenerative spondylosis // Chronic diarrhea ( >2mo ) r/o infectious -stool cx normal michael -o+p x1 neg -Giardia ag neg- C.difficile: Neg SP EGD and Colonoscopy : rectal mass, 8 colon polyp (largest 8mm); path pending // Severe periodontal disease // Severe microcytic iron deficiency anemia r/o GIB - GI following - EGD / colonoscopy 04/08: pending - SP PRBCs - CEA pending // Unintentional weight loss // Elevated ESR // NKDA // Full Code PLAN: -Continue IV Zosyn #3 pending ID and sensi GNR bcx -f/u repeat 2 sets of bcx -For IR guided drainage of area of possible mural abscess today -please send aerobic and anaerobic cx -f/u Crypstoporidium ag, o+p x2, Cyclospora/isospora stool - monitor CBC, temperatures - monitor BMP - transfuse prn Discussed with RN and Dr Guido. Subjective Allergies: Coded Allergies: No Known Allergies (Unverified , 04/05/17) Subjective spike T up to 102 yesterday afternoon awaiting repaet Bcx and ID GNR leukocytosis improving for CT guided drainage today Objective Vital Signs Last 24 Hour Vital Signs Date Time Temp Pulse Resp B/P (MAP) Pulse Ox O2 Delivery O2 Flow Rate FiO2 04/13/17 08:00 97.7 106 19 145/97 97 Room Air 04/13/17 03:44 97.9 79 21 145/78 98 Room Air 04/12/17 23:35 97.9 84 20 129/71 96 04/12/17 20:13 98.4 91 20 113/62 99 Room Air 04/12/17 16:58 98.8 04/12/17 16:00 98.8 100 20 130/73 97 Room Air 04/12/17 15:55 102.0 04/12/17 12:00 96.4 125 20 153/91 98 Room Air Height (Feet): 5 Height (Inches): 10.00 Weight (Pounds): 127 Objective General Appearance: no acute distress, cahcetic HEENT: mucous membranes moist Respiratory/Chest: lungs clear Cardiovascular: normal rate Abdomen: soft, non tender Extremities: no edema Neurologic/Psychiatric: alert, oriented x 3, responsive Microbiology Date/Time Source Procedure Growth Status 04/11/17 12:30 Blood Blood Culture - Preliminary Gram Negative Bacillus 1 Resulted 04/11/17 12:15 Blood Blood Culture - Preliminary Gram Negative Bacillus 1 Resulted Laboratory Tests Test 04/13/17 05:10 White Blood Count 17.4 K/UL (4.8-10.8) H Red Blood Count 3.82 M/UL (4.70-6.10) L Hemoglobin 8.5 G/DL (14.2-18.0) L Hematocrit 27.6 % (42.0-52.0) L Mean Corpuscular Volume 72 FL (80-99) L Mean Corpuscular Hemoglobin 22.3 PG (27.0-31.0) L Mean Corpuscular Hemoglobin Concent 30.9 G/DL (32.0-36.0) L Red Cell Distribution Width 23.2 % (11.6-14.8) H Platelet Count 298 K/UL (150-450) Mean Platelet Volume 6.5 FL (6.5-10.1) Neutrophils (%) (Auto) % (45.0-75.0) Lymphocytes (%) (Auto) % (20.0-45.0) Monocytes (%) (Auto) % (1.0-10.0) Eosinophils (%) (Auto) % (0.0-3.0) Basophils (%) (Auto) % (0.0-2.0) Differential Total Cells Counted 100 Neutrophils % (Manual) 89 % (45-75) H Lymphocytes % (Manual) 4 % (20-45) L Monocytes % (Manual) 7 % (1-10) Eosinophils % (Manual) 0 % (0-3) Basophils % (Manual) 0 % (0-2) Band Neutrophils 0 % (0-8) Platelet Estimate Adequate Platelet Morphology Normal Hypochromasia 1+ Microcytosis 1+ Sodium Level 135 MMOL/L (136-145) L Potassium Level 3.9 MMOL/L (3.5-5.1) Chloride Level 100 MMOL/L (98-107) Carbon Dioxide Level 27 MMOL/L (21-32) Anion Gap 9 mmol/L (5-15) Blood Urea Nitrogen 13 mg/dL (7-18) Creatinine 1.0 MG/DL (0.55-1.30) Estimat Glomerular Filtration Rate > 60 mL/min (>60) Glucose Level 82 MG/DL (74-106) Calcium Level 8.5 MG/DL (8.5-10.1) Current Medications Medications (Trade) Dose Ordered Sig/Juana Route PRN Reason Start Time Stop Time Status Last Admin Dose Admin Acetaminophen (Tylenol) 650 mg Q4H PRN ORAL fever 04/05/17 18:30 05/05/17 18:29 04/12/17 15:59 Al Hydroxide/Mg Hydroxide (Mylanta II) 30 ml Q6H PRN ORAL dyspepsia 04/05/17 18:30 05/05/17 18:29 Clonidine HCl (Catapres) 0.1 mg EVERY 6 HOURS PRN ORAL sbp above 160 04/09/17 12:00 05/09/17 11:59 04/09/17 14:39 Dextrose (Dextrose 50%) STAT PRN IV Hypoglycemia 04/05/17 18:30 05/05/17 18:29 Iron Sucrose 100 mg/Sodium Chloride 60 ml @ 240 mls/hr BEDTIME IV 04/09/17 21:00 04/13/17 21:14 04/12/17 20:23 Lorazepam (Ativan 2mg/ml 1ml) 0.5 mg Q4H PRN IV For Anxiety 04/10/17 10:30 04/17/17 23:59 Morphine Sulfate (Morphine Sulfate) 1 mg Q4H PRN IVP For Pain 4-10 04/10/17 10:30 04/17/17 23:59 Ondansetron HCl (Zofran) 4 mg Q6H PRN IVP Nausea & Vomiting 04/05/17 18:30 05/05/17 18:29 Pantoprazole (Protonix) 40 mg DAILY IVP 04/07/17 09:00 05/07/17 08:59 04/13/17 08:50 Piperacillin/ Tazobactam/ Dextrose 50 ml @ 12.5 mls/hr Q8HR IVPB 04/11/17 14:00 04/16/17 13:59 04/13/17 06:05 Polyethylene Glycol (Miralax) 17 gm HSPRN PRN ORAL Constipation 04/05/17 18:30 05/05/17 18:29 Lalita Sifuentes M.D. Apr 13, 2017 10:18
--- NOTE | 2017-04-13 10:45 | General Progress Note ---
Progress Note Progress Note Surgery: had IR drainage of perirectal fluid. seems to be serosang. will await microbiology results. samples sent. Wayne Ulloa Apr 13, 2017 10:45
--- NOTE | 2017-04-13 11:04 | Diagnostic Imaging Report ---
Indication: MASS Technique: Spiral acquisitions obtained through the brain pre- and post-IV contrast administration. Angled axial and coronal 5 x 5 mm slices reconstructed. Total dose length product 3095 mGycm. CTDIvol(s) 70, 16, 99, 70 mGy. Dose reduction achieved using automated exposure control Comparison: None Findings: No acute hemorrhage or edema. No mass effect or midline shift. No abnormal contrast enhancement demonstrated. There is mild age-related enlargement of the ventricles and extra axial CSF spaces. There is periventricular deep white matter chronic ischemic change. Tiny lacunar infarct is seen adjacent to the frontal horn of the left lateral ventricle. Impression: Chronic and age-related changes Negative for acute intracranial bleed, mass effect, or contrast enhancing lesion The CT scanner at [facility] is accredited by the [employer] and the scans are performed using protocols designed to limit radiation exposure to as low as reasonably achievable to attain images of sufficient resolution adequate for diagnostic evaluation.
--- NOTE | 2017-04-13 11:33 | GI Progress Note ---
Assessment/Plan Problems: (1) Colonoscopy planned SNOMED: 884261646 (2) Diarrhea ICD Codes: R19.7 - Diarrhea, unspecified SNOMED: 71853718 Qualifiers: Qualified Codes: R19.7 - Diarrhea, unspecified (3) Iron deficiency ICD Codes: E61.1 - Iron deficiency SNOMED: 27480347 (4) Anemia ICD Codes: D64.9 - Anemia, unspecified SNOMED: 477609424 Qualifiers: Qualified Codes: D64.9 - Anemia, unspecified (5) Dehydration ICD Codes: E86.0 - Dehydration SNOMED: 80857474 (6) Severe protein-calorie malnutrition ICD Codes: E43 - Unspecified severe protein-calorie malnutrition SNOMED: 852066216 Status: stable Status Narrative Discussed with Dr. Son. Assessment/Plan s/p EUS rectal mass - T3 N1 lesion of the rectum. RECOMMENDATIONS: fu oncology recs for possible chemoradiation fu surgical recs if there is no obvious metastasis. Subjective Gastrointestinal/Abdominal: Reports: no symptoms Subjective diarrhea Objective Last 24 Hour Vital Signs Date Time Temp Pulse Resp B/P (MAP) Pulse Ox O2 Delivery O2 Flow Rate FiO2 04/13/17 08:00 97.7 106 19 145/97 97 Room Air 04/13/17 03:44 97.9 79 21 145/78 98 Room Air 04/12/17 23:35 97.9 84 20 129/71 96 04/12/17 20:13 98.4 91 20 113/62 99 Room Air 04/12/17 16:58 98.8 04/12/17 16:00 98.8 100 20 130/73 97 Room Air 04/12/17 15:55 102.0 04/12/17 12:00 96.4 125 20 153/91 98 Room Air Intake and Output 04/13/17 04/14/17 19:00 07:00 # Bowel Movements 2 Laboratory Tests Test 04/13/17 05:10 White Blood Count 17.4 K/UL (4.8-10.8) H Red Blood Count 3.82 M/UL (4.70-6.10) L Hemoglobin 8.5 G/DL (14.2-18.0) L Hematocrit 27.6 % (42.0-52.0) L Mean Corpuscular Volume 72 FL (80-99) L Mean Corpuscular Hemoglobin 22.3 PG (27.0-31.0) L Mean Corpuscular Hemoglobin Concent 30.9 G/DL (32.0-36.0) L Red Cell Distribution Width 23.2 % (11.6-14.8) H Platelet Count 298 K/UL (150-450) Mean Platelet Volume 6.5 FL (6.5-10.1) Neutrophils (%) (Auto) % (45.0-75.0) Lymphocytes (%) (Auto) % (20.0-45.0) Monocytes (%) (Auto) % (1.0-10.0) Eosinophils (%) (Auto) % (0.0-3.0) Basophils (%) (Auto) % (0.0-2.0) Differential Total Cells Counted 100 Neutrophils % (Manual) 89 % (45-75) H Lymphocytes % (Manual) 4 % (20-45) L Monocytes % (Manual) 7 % (1-10) Eosinophils % (Manual) 0 % (0-3) Basophils % (Manual) 0 % (0-2) Band Neutrophils 0 % (0-8) Platelet Estimate Adequate Platelet Morphology Normal Hypochromasia 1+ Microcytosis 1+ Sodium Level 135 MMOL/L (136-145) L Potassium Level 3.9 MMOL/L (3.5-5.1) Chloride Level 100 MMOL/L (98-107) Carbon Dioxide Level 27 MMOL/L (21-32) Anion Gap 9 mmol/L (5-15) Blood Urea Nitrogen 13 mg/dL (7-18) Creatinine 1.0 MG/DL (0.55-1.30) Estimat Glomerular Filtration Rate > 60 mL/min (>60) Glucose Level 82 MG/DL (74-106) Calcium Level 8.5 MG/DL (8.5-10.1) Height (Feet): 5 Height (Inches): 10.00 Weight (Pounds): 127 General Appearance: WD/WN, no apparent distress, alert Cardiovascular: normal rate Respiratory/Chest: normal breath sounds, no respiratory distress Abdominal Exam: normal bowel sounds, non tender, soft Extremities: normal range of motion, non-tender Linda Ratliff N.Scott Apr 13, 2017 11:33
[2017-04-13 12:00] VITALS: BP 126/72
[2017-04-13 16:00] VITALS: BP 141/75
--- NOTE | 2017-04-13 18:00 | Pulmonology Progress Note ---
Assessment/Plan Problems: (1) Sepsis (2) Diarrhea (3) Severe protein-calorie malnutrition (4) Anemia (5) Dehydration (6) Rectal mass Assessment/Plan CT guided drainage done, serosagnuines blood WBC rising febrile today stool for o/p anemia w/u biopsy results pending loza cultures abx by ID PT/ot Ct of head reviewed Subjective ROS Limited/Unobtainable: No Constitutional: Reports: no symptoms Respiratory: Reports: no symptoms Allergies: Coded Allergies: No Known Allergies (Unverified , 04/05/17) Objective Last 24 Hour Vital Signs Date Time Temp Pulse Resp B/P (MAP) Pulse Ox O2 Delivery O2 Flow Rate FiO2 04/13/17 16:00 98.2 83 19 141/75 99 Room Air 04/13/17 12:00 97.9 97 18 126/72 97 Room Air 04/13/17 08:00 97.7 106 19 145/97 97 Room Air 04/13/17 03:44 97.9 79 21 145/78 98 Room Air 04/12/17 23:35 97.9 84 20 129/71 96 04/12/17 20:13 98.4 91 20 113/62 99 Room Air Intake and Output 04/13/17 04/14/17 19:00 07:00 Intake Total 50.0 ml Balance 50.0 ml IV Total 50.0 ml # Bowel Movements 2 General Appearance: cachetic HEENT: normocephalic, atraumatic Respiratory/Chest: chest wall non-tender, lungs clear Cardiovascular: normal peripheral pulses, normal rate Abdomen: normal bowel sounds, soft, non tender, no organomegaly Genitourinary: normal external genitalia Extremities: no cyanosis Skin: no rash 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 Lymphatic: no neck adenopathy Microbiology Date/Time Source Procedure Growth Status 04/11/17 12:30 Blood Blood Culture - Preliminary Gram Negative Bacillus 1 Resulted 04/11/17 12:15 Blood Blood Culture - Preliminary Gram Negative Bacillus 1 Resulted Laboratory Tests 04/13/17 05:10: White Blood Count 17.4H, Red Blood Count 3.82L, Hemoglobin 8.5L, Hematocrit 27.6L, Mean Corpuscular Volume 72L, Mean Corpuscular Hemoglobin 22.3L, Mean Corpuscular Hemoglobin Concent 30.9L, Red Cell Distribution Width 23.2H, Platelet Count 298, Mean Platelet Volume 6.5, Neutrophils (%) (Auto) , Lymphocytes (%) (Auto) , Monocytes (%) (Auto) , Eosinophils (%) (Auto) , Basophils (%) (Auto) , Differential Total Cells Counted 100, Neutrophils % ( Manual) 89H, Lymphocytes % (Manual) 4L, Monocytes % (Manual) 7, Eosinophils % ( Manual) 0, Basophils % (Manual) 0, Band Neutrophils 0, Platelet Estimate Adequate, Platelet Morphology Normal, Hypochromasia 1+, Microcytosis 1+, Sodium Level 135L, Potassium Level 3.9, Chloride Level 100, Carbon Dioxide Level 27, Anion Gap 9, Blood Urea Nitrogen 13, Creatinine 1.0, Estimat Glomerular Filtration Rate > 60, Glucose Level 82, Calcium Level 8.5 Current Medications Medications (Trade) Dose Ordered Sig/Juana Route PRN Reason Start Time Stop Time Status Last Admin Dose Admin Acetaminophen (Tylenol) 650 mg Q4H PRN ORAL fever 04/05/17 18:30 05/05/17 18:29 04/12/17 15:59 Al Hydroxide/Mg Hydroxide (Mylanta II) 30 ml Q6H PRN ORAL dyspepsia 04/05/17 18:30 05/05/17 18:29 Clonidine HCl (Catapres) 0.1 mg EVERY 6 HOURS PRN ORAL sbp above 160 04/09/17 12:00 05/09/17 11:59 04/09/17 14:39 Dextrose (Dextrose 50%) STAT PRN IV Hypoglycemia 04/05/17 18:30 05/05/17 18:29 Iron Sucrose 100 mg/Sodium Chloride 60 ml @ 240 mls/hr BEDTIME IV 04/09/17 21:00 04/13/17 21:14 04/12/17 20:23 Lorazepam (Ativan 2mg/ml 1ml) 0.5 mg Q4H PRN IV For Anxiety 04/10/17 10:30 04/17/17 23:59 Morphine Sulfate (Morphine Sulfate) 1 mg Q4H PRN IVP For Pain 4-10 04/10/17 10:30 04/17/17 23:59 Ondansetron HCl (Zofran) 4 mg Q6H PRN IVP Nausea & Vomiting 04/05/17 18:30 05/05/17 18:29 Pantoprazole (Protonix) 40 mg DAILY IVP 04/07/17 09:00 05/07/17 08:59 04/13/17 08:50 Piperacillin/ Tazobactam/ Dextrose 50 ml @ 12.5 mls/hr Q8HR IVPB 04/11/17 14:00 04/16/17 13:59 04/13/17 14:18 Polyethylene Glycol (Miralax) 17 gm HSPRN PRN ORAL Constipation 04/05/17 18:30 05/05/17 18:29 CYN BAILEY Apr 13, 2017 18:00
[2017-04-13 20:01] VITALS: BP 130/72
[2017-04-13] MEDS: Iron Sucrose 100 MG in NS 55 ML IV SCH (20:13)
--- NOTE | 2017-04-13 22:06 | General Progress Note ---
Assessment/Plan Assessment/Plan Assessment/Plan Stage III rectal cancer --> potential evidence of and hepatic pulm mets --> plan for chemotherapy with radiation and needs to be set up with rad onc --> discussed with pt importance of outpatient chemo --> appreciate surgery recs --> imaging has been reviewed Anemia of GI bleed --> hgb goal of >7 --> continue to trend HH daily Leukocytosis 2/2 bacteremia --> ID following Fever 2/2 infection Anemia of chronic disease Diarrhea Dehydration Hypokaelmia Subjective Constitutional: Reports: no symptoms HEENT: Reports: no symptoms Cardiovascular: Reports: no symptoms Respiratory: Reports: no symptoms Gastrointestinal/Abdominal: Reports: no symptoms Genitourinary: Reports: no symptoms Neurologic/Psychiatric: Reports: no symptoms Endocrine: Reports: no symptoms Hematologic/Lymphatic: Reports: no symptoms Allergies: Coded Allergies: No Known Allergies (Unverified , 04/05/17) Subjective diarrhea Objective Last 24 Hour Vital Signs Date Time Temp Pulse Resp B/P (MAP) Pulse Ox O2 Delivery O2 Flow Rate FiO2 04/13/17 20:01 97.7 90 21 130/72 99 Room Air 04/13/17 16:00 98.2 83 19 141/75 99 Room Air 04/13/17 12:00 97.9 97 18 126/72 97 Room Air 04/13/17 08:00 97.7 106 19 145/97 97 Room Air 04/13/17 03:44 97.9 79 21 145/78 98 Room Air 04/12/17 23:35 97.9 84 20 129/71 96 Intake and Output 04/13/17 04/14/17 19:00 07:00 Intake Total 100.0 ml Balance 100.0 ml IV Total 100.0 ml # Bowel Movements 3 Laboratory Tests 04/13/17 05:10: White Blood Count 17.4H, Red Blood Count 3.82L, Hemoglobin 8.5L, Hematocrit 27.6L, Mean Corpuscular Volume 72L, Mean Corpuscular Hemoglobin 22.3L, Mean Corpuscular Hemoglobin Concent 30.9L, Red Cell Distribution Width 23.2H, Platelet Count 298, Mean Platelet Volume 6.5, Neutrophils (%) (Auto) , Lymphocytes (%) (Auto) , Monocytes (%) (Auto) , Eosinophils (%) (Auto) , Basophils (%) (Auto) , Differential Total Cells Counted 100, Neutrophils % ( Manual) 89H, Lymphocytes % (Manual) 4L, Monocytes % (Manual) 7, Eosinophils % ( Manual) 0, Basophils % (Manual) 0, Band Neutrophils 0, Platelet Estimate Adequate, Platelet Morphology Normal, Hypochromasia 1+, Microcytosis 1+, Sodium Level 135L, Potassium Level 3.9, Chloride Level 100, Carbon Dioxide Level 27, Anion Gap 9, Blood Urea Nitrogen 13, Creatinine 1.0, Estimat Glomerular Filtration Rate > 60, Glucose Level 82, Calcium Level 8.5 Height (Feet): 5 Height (Inches): 10.00 Weight (Pounds): 127 General Appearance: no apparent distress EENT: normal ENT inspection Neck: normal alignment Cardiovascular: normal rate Respiratory/Chest: no accessory muscle use Skin: normal pigmentation Rommel Ching Apr 13, 2017 22:06
[2017-04-14] VITALS: BP_SYST 111; BP_SYST 140; BP_DIAS 71; BP_DIAS 81
[2017-04-14 04:02] VITALS: BP 144/88
[2017-04-14] MEDS: Zosyn 3.375gm/50ml Premix 50 ML IVPB SCH (05:34)
[2017-04-14 06:42] LABS: BASOPHILS % (AUTO) 0.3 % (0.0-2.0); EOSINOPHILS % (AUTO) 0.2 % (0.0-3.0); LYMPHOCYTES % (AUTO) 8.6 % (20.0-45.0); MEAN CORPUSCULAR HEMOGLOBIN 22.1 PG (27.0-31.0); MEAN CORPUSCULAR VOLUME 74 FL (80-99); MEAN PLATELET VOLUME 6.4 FL (6.5-10.1); MONOCYTES % (AUTO) 8.1 % (1.0-10.0); NEUTROPHILS % (AUTO) 82.8 % (45.0-75.0); PLATELET COUNT 299 K/UL (150-450); RED BLOOD COUNT 3.78 M/UL (4.70-6.10); RED CELL DISTRIBUTION WIDTH 24.4 % (11.6-14.8); WHITE BLOOD COUNT 10.6 K/UL (4.8-10.8)
[2017-04-14 07:41] VITALS: BP 135/86
[2017-04-14 07:48] LABS: ANION GAP 9 mmol/L (5-15); CALCIUM 8.5 MG/DL (8.5-10.1); CARBON DIOXIDE 27 MMOL/L (21-32); CHLORIDE 102 MMOL/L (98-107); CREATININE 0.9 MG/DL (0.55-1.30); GLOMERULAR FILTRATION RATE > 60 mL/min (>60); POTASSIUM 3.3 MMOL/L (3.5-5.1); SODIUM 138 MMOL/L (136-145)
[2017-04-14] MEDS: Pantoprazole Inj IVP SCH (09:02)
--- NOTE | 2017-04-14 10:34 | GI Progress Note ---
Assessment/Plan Problems: (1) Colonoscopy planned SNOMED: 225478680 (2) Diarrhea ICD Codes: R19.7 - Diarrhea, unspecified SNOMED: 54879954 Qualifiers: Qualified Codes: R19.7 - Diarrhea, unspecified (3) Iron deficiency ICD Codes: E61.1 - Iron deficiency SNOMED: 09097537 (4) Anemia ICD Codes: D64.9 - Anemia, unspecified SNOMED: 374929888 Qualifiers: Qualified Codes: D64.9 - Anemia, unspecified (5) Dehydration ICD Codes: E86.0 - Dehydration SNOMED: 26563018 (6) Severe protein-calorie malnutrition ICD Codes: E43 - Unspecified severe protein-calorie malnutrition SNOMED: 868882789 Status: stable Status Narrative Discussed with Dr. Son. Assessment/Plan s/p EUS rectal mass - T3 N1 lesion of the rectum. RECOMMENDATIONS: fu oncology recs for possible chemoradiation fu surgical recs if there is no obvious metastasis. Subjective Subjective diarrhea Objective Last 24 Hour Vital Signs Date Time Temp Pulse Resp B/P (MAP) Pulse Ox O2 Delivery O2 Flow Rate FiO2 04/14/17 07:41 98.1 97 20 135/86 99 Room Air 04/14/17 04:02 98.1 88 20 144/88 99 Room Air 04/14/17 00:00 97.7 83 20 140/81 100 Room Air 04/13/17 20:01 97.7 90 21 130/72 99 Room Air 04/13/17 16:00 98.2 83 19 141/75 99 Room Air 04/13/17 12:00 97.9 97 18 126/72 97 Room Air Intake and Output 04/14/17 04/15/17 19:00 07:00 Intake Total 260 ml Balance 260 ml Intake Oral 260 ml # Voids 2 # Bowel Movements 2 Laboratory Tests Test 04/14/17 04:30 04/14/17 04:50 Sodium Level 138 MMOL/L (136-145) Potassium Level 3.3 MMOL/L (3.5-5.1) L Chloride Level 102 MMOL/L (98-107) Carbon Dioxide Level 27 MMOL/L (21-32) Anion Gap 9 mmol/L (5-15) Blood Urea Nitrogen 9 mg/dL (7-18) Creatinine 0.9 MG/DL (0.55-1.30) Estimat Glomerular Filtration Rate > 60 mL/min (>60) Glucose Level 88 MG/DL (74-106) Calcium Level 8.5 MG/DL (8.5-10.1) White Blood Count 10.6 K/UL (4.8-10.8) Red Blood Count 3.78 M/UL (4.70-6.10) L Hemoglobin 8.4 G/DL (14.2-18.0) L Hematocrit 27.8 % (42.0-52.0) L Mean Corpuscular Volume 74 FL (80-99) L Mean Corpuscular Hemoglobin 22.1 PG (27.0-31.0) L Mean Corpuscular Hemoglobin Concent 30.0 G/DL (32.0-36.0) L Red Cell Distribution Width 24.4 % (11.6-14.8) H Platelet Count 299 K/UL (150-450) Mean Platelet Volume 6.4 FL (6.5-10.1) L Neutrophils (%) (Auto) 82.8 % (45.0-75.0) H Lymphocytes (%) (Auto) 8.6 % (20.0-45.0) L Monocytes (%) (Auto) 8.1 % (1.0-10.0) Eosinophils (%) (Auto) 0.2 % (0.0-3.0) Basophils (%) (Auto) 0.3 % (0.0-2.0) Height (Feet): 5 Height (Inches): 10.00 Weight (Pounds): 127 General Appearance: WD/WN, no apparent distress, alert Cardiovascular: normal rate Respiratory/Chest: normal breath sounds, no respiratory distress Abdominal Exam: normal bowel sounds, non tender, soft Extremities: normal range of motion, non-tender Linda Ratliff N.P. Apr 14, 2017 10:34
[2017-04-14] MEDS ORDERED: NS 275ml ONE (11:00)
[2017-04-14] MEDS ORDERED: Tubing IV Secondary IV ONE (11:00)
--- NOTE | 2017-04-14 11:08 | Infectious Diseases Prog Note ---
Assessment/Plan Assessment/Plan ASSESSMENT: 67 y/o male with: //High grade E.coli bacteremia - possible from perirectal abscess vs gut translocation after either colonoscopy or rectal EUS 04/11 --04/11 BCx / E.coli (panS); Bcx 04/12 NTD --s/p CT guided drainage perirectal abscess 04/13; cx pending //Fever/leukocytosis- 2ry to above- resolved -CT abd/p 04/11:No significant change, over 3 days. 7.5 x 6.5 x 9.5 cm diameter rectal mass, also previously described. As previously reported, mural low attenuation is noted posterior to the left. This may represent there is of necrosis, adjacent chronic adenopathy, or one or more mural abscesses. Prostatomegaly.Multiple hepatic cysts. Subcentimeter low-attenuation lesions in the liver also demonstrated, most likely benign simple cysts, neoplasm as etiology of any these cannot be ruled out -EUS rectal 04/11: large rectal mass right above the dentate line. This passed breaking through the muscularis propria layer, so at least T3. There was also a lymph node, 8 mm lymph node was seen, so this is most probably a T3 N1 lesion so far. //REctal mass-path c/w well differentiated adenoCA -CT chest/abd/p w/: 04/08: 6.3 x 7.5 x 9 cm mass involving the rectum. This is consistent with clinical history of rectal carcinoma described by the referring physician. Invasion of the mass into the adjacent prostate and the right side of the seminal vesicles not completely excludable. Confluent areas of low-attenuation within the periphery of the mass, as described. These may represent cystic necrotic areas, versus mural abscesses. Despite the size of the mass, no definite local pelvic adenopathy. No definite evidence of hepatic metastases. However, there are hepatic low attenuation lesions which are too small to characterize, most likely represent cysts but small metastatic deposits cannot be completely ruled out. In addition , there are larger hepatic low attenuation lesions with definite represent cysts 2 mm left upper lobe pulmonary nodule. Nonspecific, likely postinflammatory in nature but a small metastatic deposit cannot be ruled outNo other evidence of metastatic disease Possible ventricular muscular hypertrophy. Prostatomegaly. Degenerative spondylosis // Chronic diarrhea ( >2mo ) r/o infectious -stool cx normal michael -o+p x1 neg -Giardia ag, Cryptosporidium ag neg- C.difficile: Neg SP EGD and Colonoscopy : rectal mass, 8 colon polyp (largest 8mm); path tubular adenoma, hyperplastic polyp // Severe periodontal disease // Severe microcytic iron deficiency anemia r/o GIB - GI following - EGD / colonoscopy 04/08: pending - SP PRBCs - CEA pending // Unintentional weight loss // Elevated ESR // NKDA // Full Code PLAN: -Switch IV Zosyn #4 to Ceftriaxone 2g IV daily; will treat for 14 day from first neg Bcx 04/12; expected en date 04/25/2017 -upon discharge, can be transitioned to PO Cipro to complete course -f/u repeat 2 sets of bcx -f/u abscess cx -f/u o+p x2, Cyclospora/isospora stool - monitor CBC, temperatures - monitor BMP - transfuse prn Discussed with RN and Dr Guido. Subjective Allergies: Coded Allergies: No Known Allergies (Unverified , 04/05/17) Subjective afebrile in 36hrs leukocytosis resolved Bcx with E.coli, repeat Bcx NTD awaiting abscess cx rectal mass path c/w well differentiated adenoCA Objective Vital Signs Last 24 Hour Vital Signs Date Time Temp Pulse Resp B/P (MAP) Pulse Ox O2 Delivery O2 Flow Rate FiO2 04/14/17 07:41 98.1 97 20 135/86 99 Room Air 04/14/17 04:02 98.1 88 20 144/88 99 Room Air 04/14/17 00:00 97.7 83 20 140/81 100 Room Air 04/13/17 20:01 97.7 90 21 130/72 99 Room Air 04/13/17 16:00 98.2 83 19 141/75 99 Room Air 04/13/17 12:00 97.9 97 18 126/72 97 Room Air Height (Feet): 5 Height (Inches): 10.00 Weight (Pounds): 127 Objective General Appearance: no acute distress, cahcetic HEENT: mucous membranes moist Respiratory/Chest: lungs clear Cardiovascular: normal rate Abdomen: soft, non tender Extremities: no edema Neurologic/Psychiatric: alert, oriented x 3, responsive Microbiology Date/Time Source Procedure Growth Status 04/12/17 18:45 Blood Blood Culture - Preliminary NO GROWTH AFTER 24 HOURS Resulted 04/12/17 18:30 Blood Blood Culture - Preliminary NO GROWTH AFTER 24 HOURS Resulted 04/11/17 12:30 Blood Blood Culture - Final Escherichia Coli Complete 04/11/17 12:15 Blood Blood Culture - Final Escherichia Coli Complete Laboratory Tests Test 04/14/17 04:30 04/14/17 04:50 Sodium Level 138 MMOL/L (136-145) Potassium Level 3.3 MMOL/L (3.5-5.1) L Chloride Level 102 MMOL/L (98-107) Carbon Dioxide Level 27 MMOL/L (21-32) Anion Gap 9 mmol/L (5-15) Blood Urea Nitrogen 9 mg/dL (7-18) Creatinine 0.9 MG/DL (0.55-1.30) Estimat Glomerular Filtration Rate > 60 mL/min (>60) Glucose Level 88 MG/DL (74-106) Calcium Level 8.5 MG/DL (8.5-10.1) White Blood Count 10.6 K/UL (4.8-10.8) Red Blood Count 3.78 M/UL (4.70-6.10) L Hemoglobin 8.4 G/DL (14.2-18.0) L Hematocrit 27.8 % (42.0-52.0) L Mean Corpuscular Volume 74 FL (80-99) L Mean Corpuscular Hemoglobin 22.1 PG (27.0-31.0) L Mean Corpuscular Hemoglobin Concent 30.0 G/DL (32.0-36.0) L Red Cell Distribution Width 24.4 % (11.6-14.8) H Platelet Count 299 K/UL (150-450) Mean Platelet Volume 6.4 FL (6.5-10.1) L Neutrophils (%) (Auto) 82.8 % (45.0-75.0) H Lymphocytes (%) (Auto) 8.6 % (20.0-45.0) L Monocytes (%) (Auto) 8.1 % (1.0-10.0) Eosinophils (%) (Auto) 0.2 % (0.0-3.0) Basophils (%) (Auto) 0.3 % (0.0-2.0) Current Medications Medications (Trade) Dose Ordered Sig/Juana Route PRN Reason Start Time Stop Time Status Last Admin Dose Admin Acetaminophen (Tylenol) 650 mg Q4H PRN ORAL fever 04/05/17 18:30 05/05/17 18:29 04/12/17 15:59 Al Hydroxide/Mg Hydroxide (Mylanta II) 30 ml Q6H PRN ORAL dyspepsia 04/05/17 18:30 05/05/17 18:29 Clonidine HCl (Catapres) 0.1 mg EVERY 6 HOURS PRN ORAL sbp above 160 04/09/17 12:00 05/09/17 11:59 04/09/17 14:39 Dextrose (Dextrose 50%) STAT PRN IV Hypoglycemia 04/05/17 18:30 05/05/17 18:29 Lorazepam (Ativan 2mg/ml 1ml) 0.5 mg Q4H PRN IV For Anxiety 04/10/17 10:30 04/17/17 23:59 Morphine Sulfate (Morphine Sulfate) 1 mg Q4H PRN IVP For Pain 4-10 04/10/17 10:30 04/17/17 23:59 Ondansetron HCl (Zofran) 4 mg Q6H PRN IVP Nausea & Vomiting 04/05/17 18:30 05/05/17 18:29 Pantoprazole (Protonix) 40 mg DAILY IVP 04/07/17 09:00 05/07/17 08:59 04/14/17 09:02 Piperacillin/ Tazobactam/ Dextrose 50 ml @ 12.5 mls/hr Q8HR IVPB 04/11/17 14:00 04/16/17 13:59 04/14/17 05:34 Polyethylene Glycol (Miralax) 17 gm HSPRN PRN ORAL Constipation 04/05/17 18:30 05/05/17 18:29 Lalita Sifuentes M.D. Apr 14, 2017 11:08
--- NOTE | 2017-04-14 12:21 | Diagnostic Imaging Report ---
Indication: Fever, leukocytosis, perirectal fluid collection demonstrated on recent imaging studies Technique: Informed consent obtained prior to commencement of the procedure. Procedure timeout performed. Localizing spiral acquisitions obtained through the lower pelvis. Intended puncture sites were sterilely prepped and draped. Local anesthesia with 1% lidocaine. A Yueh needle was passed into the upper mural fluid collection. A second Yueh needle was passed to the lower fluid collection. Followup CT images obtained, demonstrating satisfactory position of the needles, although the lower needle did require one readjustment. A total of approximately 30 mL of serosanguineous fluid was aspirated from the lower needle. No fluid could be aspirated from the upper needle. This needle was readjusted, and the patient was rescanned. Followup images demonstrate complete evacuation of both collections from aspirating the lower needle, indicating that the 2 locules communicated. Specimen was sent to the lab for microbial analysis. The patient tolerated the procedure well, without immediate complication. Total dose length product 924 mGycm. CTDIvol(s) 10x5 mGy. Radiation dose was minimized using automated exposure control Comparison: CT abdomen pelvis 04/10/2017 Findings: As above Impression: Successful aspiration of suspected perirectal mural abscesses, as described The CT scanner at [facility] is accredited by the [employer] and the scans are performed using protocols designed to limit radiation exposure to as low as reasonably achievable to attain images of sufficient resolution adequate for diagnostic evaluation.
[2017-04-14 13:00] VITALS: BP 129/79
[2017-04-14] MEDS: cefTRIAXone 2 GM in NS 110 ML IVPB SCH (13:57)
[2017-04-14] MEDS ORDERED: Morphine 5mg/2.5ml Oral Soln ORAL PRN (15:00)
[2017-04-14 16:00] VITALS: BP 140/81
--- NOTE | 2017-04-14 17:43 | Pulmonology Progress Note ---
Assessment/Plan Problems: (1) Sepsis (2) Diarrhea (3) Severe protein-calorie malnutrition (4) Anemia (5) Dehydration (6) Rectal mass Assessment/Plan switch abx to PO when OK with ID WBC wnl febrile today stool for o/p anemia w/u biopsy results showed adenocancer loza cultures abx by ID pt refusing rehabilitation Subjective ROS Limited/Unobtainable: No Constitutional: Reports: no symptoms HEENT: Repors: no symptoms Allergies: Coded Allergies: No Known Allergies (Unverified , 04/05/17) Objective Last 24 Hour Vital Signs Date Time Temp Pulse Resp B/P (MAP) Pulse Ox O2 Delivery O2 Flow Rate FiO2 04/14/17 16:00 98.2 92 19 140/81 99 Room Air 04/14/17 13:00 98.6 92 20 129/79 100 Room Air 04/14/17 07:41 98.1 97 20 135/86 99 Room Air 04/14/17 04:02 98.1 88 20 144/88 99 Room Air 04/14/17 00:00 97.7 83 20 140/81 100 Room Air 04/13/17 20:01 97.7 90 21 130/72 99 Room Air Intake and Output 04/14/17 04/15/17 19:00 07:00 Intake Total 710 ml Balance 710 ml Intake Oral 600 ml IV Total 110 ml # Voids 2 # Bowel Movements 4 General Appearance: no acute distress, cachetic HEENT: normocephalic, atraumatic Respiratory/Chest: chest wall non-tender, lungs clear Cardiovascular: normal peripheral pulses, regular rhythm Abdomen: normal bowel sounds, no organomegaly Extremities: no clubbing Skin: no ulcers Neurologic/Psychiatric: abnormal gait Lymphatic: no groin adenopathy Microbiology Date/Time Source Procedure Growth Status 04/12/17 18:45 Blood Blood Culture - Preliminary NO GROWTH AFTER 24 HOURS Resulted 04/12/17 18:30 Blood Blood Culture - Preliminary NO GROWTH AFTER 24 HOURS Resulted Laboratory Tests 04/14/17 04:30: Sodium Level 138, Potassium Level 3.3L, Chloride Level 102, Carbon Dioxide Level 27, Anion Gap 9, Blood Urea Nitrogen 9, Creatinine 0.9, Estimat Glomerular Filtration Rate > 60, Glucose Level 88, Calcium Level 8.5 04/14/17 04:50: White Blood Count 10.6, Red Blood Count 3.78L, Hemoglobin 8.4L, Hematocrit 27.8L , Mean Corpuscular Volume 74L, Mean Corpuscular Hemoglobin 22.1L, Mean Corpuscular Hemoglobin Concent 30.0L, Red Cell Distribution Width 24.4H, Platelet Count 299, Mean Platelet Volume 6.4L, Neutrophils (%) (Auto) 82.8H, Lymphocytes (%) (Auto) 8.6L, Monocytes (%) (Auto) 8.1, Eosinophils (%) (Auto) 0.2, Basophils (%) (Auto) 0.3 Current Medications Medications (Trade) Dose Ordered Sig/Juana Route PRN Reason Start Time Stop Time Status Last Admin Dose Admin Acetaminophen (Tylenol) 650 mg Q4H PRN ORAL fever 04/05/17 18:30 05/05/17 18:29 04/12/17 15:59 Al Hydroxide/Mg Hydroxide (Mylanta II) 30 ml Q6H PRN ORAL dyspepsia 04/05/17 18:30 05/05/17 18:29 Ceftriaxone Sodium 2 gm/ Sodium Chloride 110 ml @ 220 mls/hr Q24H IVPB 04/14/17 13:30 04/21/17 13:29 04/14/17 13:57 Clonidine HCl (Catapres) 0.1 mg EVERY 6 HOURS PRN ORAL sbp above 160 04/09/17 12:00 05/09/17 11:59 04/09/17 14:39 Dextrose (Dextrose 50%) STAT PRN IV Hypoglycemia 04/05/17 18:30 05/05/17 18:29 Lorazepam (Ativan 2mg/ml 1ml) 0.5 mg Q4H PRN IV For Anxiety 04/10/17 10:30 04/17/17 23:59 Morphine Sulfate (Morphine 5mg/ 2.5ml Oral Soln) 3 mg Q4H PRN ORAL PAIN SCALE 4-10 04/14/17 15:00 05/14/17 14:59 Ondansetron HCl (Zofran) 4 mg Q6H PRN IVP Nausea & Vomiting 04/05/17 18:30 05/05/17 18:29 Pantoprazole (Protonix) 40 mg DAILY IVP 04/07/17 09:00 05/07/17 08:59 04/14/17 09:02 Polyethylene Glycol (Miralax) 17 gm HSPRN PRN ORAL Constipation 04/05/17 18:30 05/05/17 18:29 CYN BAILEY Apr 14, 2017 17:43
[2017-04-14 20:00] VITALS: BP 148/82
--- NOTE | 2017-04-14 20:37 | General Progress Note ---
Assessment/Plan Assessment/Plan Assessment/Plan Stage III rectal cancer --> potential evidence of and hepatic pulm mets --> plan for chemotherapy with radiation and needs to be set up with rad onc --> discussed with patient re outpatient chemo --> appreciate surgery recs --> imaging has been reviewed Anemia of GI bleed --> hgb goal of >7 --> continue to trend HH daily Leukocytosis 2/2 bacteremia --> ID following Fever 2/2 infection Anemia of chronic disease Diarrhea Dehydration Hypokaelmia Subjective ROS Limited/Unobtainable: Yes Allergies: Coded Allergies: No Known Allergies (Unverified , 04/05/17) Objective Last 24 Hour Vital Signs Date Time Temp Pulse Resp B/P (MAP) Pulse Ox O2 Delivery O2 Flow Rate FiO2 04/14/17 20:00 97.2 81 20 148/82 99 Room Air 04/14/17 16:00 98.2 92 19 140/81 99 Room Air 04/14/17 13:00 98.6 92 20 129/79 100 Room Air 04/14/17 07:41 98.1 97 20 135/86 99 Room Air 04/14/17 04:02 98.1 88 20 144/88 99 Room Air 04/14/17 00:00 97.7 83 20 140/81 100 Room Air Intake and Output 04/14/17 04/15/17 19:00 07:00 Intake Total 950 ml Balance 950 ml Intake Oral 840 ml IV Total 110 ml # Voids 2 # Bowel Movements 4 Laboratory Tests 04/14/17 04:30: Sodium Level 138, Potassium Level 3.3L, Chloride Level 102, Carbon Dioxide Level 27, Anion Gap 9, Blood Urea Nitrogen 9, Creatinine 0.9, Estimat Glomerular Filtration Rate > 60, Glucose Level 88, Calcium Level 8.5 04/14/17 04:50: White Blood Count 10.6, Red Blood Count 3.78L, Hemoglobin 8.4L, Hematocrit 27.8L , Mean Corpuscular Volume 74L, Mean Corpuscular Hemoglobin 22.1L, Mean Corpuscular Hemoglobin Concent 30.0L, Red Cell Distribution Width 24.4H, Platelet Count 299, Mean Platelet Volume 6.4L, Neutrophils (%) (Auto) 82.8H, Lymphocytes (%) (Auto) 8.6L, Monocytes (%) (Auto) 8.1, Eosinophils (%) (Auto) 0.2, Basophils (%) (Auto) 0.3 Height (Feet): 5 Height (Inches): 10.00 Weight (Pounds): 127 Rommel Ching Apr 14, 2017 20:37
[2017-04-15] VITALS: BP 145/85
[2017-04-15 04:06] VITALS: BP 148/85
[2017-04-15 07:48] LABS: BASOPHILS % (AUTO) 0.5 % (0.0-2.0); EOSINOPHILS % (AUTO) 0.2 % (0.0-3.0); LYMPHOCYTES % (AUTO) 12.3 % (20.0-45.0); MEAN CORPUSCULAR HEMOGLOBIN 22.2 PG (27.0-31.0); MEAN CORPUSCULAR HGB CONC 29.8 G/DL (32.0-36.0); MEAN CORPUSCULAR VOLUME 75 FL (80-99); MEAN PLATELET VOLUME 6.8 FL (6.5-10.1); MONOCYTES % (AUTO) 9.4 % (1.0-10.0); NEUTROPHILS % (AUTO) 77.6 % (45.0-75.0); PLATELET COUNT 310 K/UL (150-450); RED BLOOD COUNT 3.98 M/UL (4.70-6.10); RED CELL DISTRIBUTION WIDTH 24.9 % (11.6-14.8); WHITE BLOOD COUNT 8.8 K/UL (4.8-10.8)
[2017-04-15 08:00] VITALS: BP 141/83
[2017-04-15 08:32] LABS: ALANINE AMINOTRANSFERASE 32 U/L (12-78); ALBUMIN/GLOBULIN RATIO 0.5 (1.0-2.7); ANION GAP 9 mmol/L (5-15); ASPARTATE AMINO TRANSFERASE 55 U/L (15-37); CALCIUM 8.5 MG/DL (8.5-10.1); CARBON DIOXIDE 28 MMOL/L (21-32); CHLORIDE 103 MMOL/L (98-107); CREATININE 0.9 MG/DL (0.55-1.30); CRP QUANT 9.5 mg/dL (0.00-0.90); GLOMERULAR FILTRATION RATE > 60 mL/min (>60); MAGNESIUM 2.1 MG/DL (1.8-2.4); PHOSPHORUS 2.7 MG/DL (2.5-4.9); POTASSIUM 3.4 MMOL/L (3.5-5.1); SODIUM 140 MMOL/L (136-145); TOTAL PROTEIN 7.1 G/DL (6.4-8.2)
[2017-04-15 09:27] LABS: ERYTHROCYTE SEDIMENTATION RATE 73 MM/HR (0-20)
--- NOTE | 2017-04-15 09:55 | Infectious Diseases Prog Note ---
Assessment/Plan Assessment/Plan ASSESSMENT: 67 y/o male with: //High grade E.coli bacteremia - possible from perirectal abscess vs gut translocation after either colonoscopy or rectal EUS 04/11 --04/11 BCx / E.coli (panS); Bcx 04/12 NTD --s/p CT guided drainage perirectal abscess 04/13; cx pending //Fever/leukocytosis- 2ry to above- resolved -CT abd/p 04/11:No significant change, over 3 days. 7.5 x 6.5 x 9.5 cm diameter rectal mass, also previously described. As previously reported, mural low attenuation is noted posterior to the left. This may represent there is of necrosis, adjacent chronic adenopathy, or one or more mural abscesses. Prostatomegaly.Multiple hepatic cysts. Subcentimeter low-attenuation lesions in the liver also demonstrated, most likely benign simple cysts, neoplasm as etiology of any these cannot be ruled out -EUS rectal 04/11: large rectal mass right above the dentate line. This passed breaking through the muscularis propria layer, so at least T3. There was also a lymph node, 8 mm lymph node was seen, so this is most probably a T3 N1 lesion so far. //REctal mass-path c/w well differentiated adenoCA -CT chest/abd/p w/: 04/08: 6.3 x 7.5 x 9 cm mass involving the rectum. This is consistent with clinical history of rectal carcinoma described by the referring physician. Invasion of the mass into the adjacent prostate and the right side of the seminal vesicles not completely excludable. Confluent areas of low-attenuation within the periphery of the mass, as described. These may represent cystic necrotic areas, versus mural abscesses. Despite the size of the mass, no definite local pelvic adenopathy. No definite evidence of hepatic metastases. However, there are hepatic low attenuation lesions which are too small to characterize, most likely represent cysts but small metastatic deposits cannot be completely ruled out. In addition , there are larger hepatic low attenuation lesions with definite represent cysts 2 mm left upper lobe pulmonary nodule. Nonspecific, likely postinflammatory in nature but a small metastatic deposit cannot be ruled outNo other evidence of metastatic disease Possible ventricular muscular hypertrophy. Prostatomegaly. Degenerative spondylosis // Chronic diarrhea ( >2mo ) r/o infectious -stool cx normal michael -o+p x1 neg -Giardia ag, Cryptosporidium ag neg- C.difficile: Neg SP EGD and Colonoscopy : rectal mass, 8 colon polyp (largest 8mm); path tubular adenoma, hyperplastic polyp // Severe periodontal disease // Severe microcytic iron deficiency anemia r/o GIB - GI following - EGD / colonoscopy 04/08: pending - SP PRBCs - CEA pending // Unintentional weight loss // Elevated ESR // NKDA // Full Code PLAN: -Continue IV Ceftriaxone 2g IV daily Abx d#5; will treat for 14 day from first neg Bcx 04/12; expected en date 04/25/2017 -upon discharge, can be transitioned to PO Cipro to complete course -s/p 4d Zosyn 04/14 -f/u repeat 2 sets of bcx -f/u abscess cx -f/u o+p x2, Cyclospora/isospora stool - monitor CBC, temperatures - monitor BMP - transfuse prn Discussed with RN and Dr Guido. Subjective Allergies: Coded Allergies: No Known Allergies (Unverified , 04/05/17) Subjective afebrile in >48hrs leukocytosis resolved Bcx with E.coli, repeat Bcx NTD awaiting abscess cx Objective Vital Signs Last 24 Hour Vital Signs Date Time Temp Pulse Resp B/P (MAP) Pulse Ox O2 Delivery O2 Flow Rate FiO2 04/15/17 08:00 98.6 98 19 141/83 100 Room Air 04/15/17 04:06 97.6 82 18 148/85 92 Room Air 99.0 04/15/17 00:00 97.3 84 18 145/85 99 Room Air 04/14/17 20:00 97.2 81 20 148/82 99 Room Air 04/14/17 16:00 98.2 92 19 140/81 99 Room Air 04/14/17 13:00 98.6 92 20 129/79 100 Room Air Height (Feet): 5 Height (Inches): 10.00 Weight (Pounds): 127 Objective General Appearance: no acute distress, cahcetic HEENT: mucous membranes moist Respiratory/Chest: lungs clear Cardiovascular: normal rate Abdomen: soft, non tender Extremities: no edema Neurologic/Psychiatric: alert, oriented x 3, responsive Microbiology Date/Time Source Procedure Growth Status 04/12/17 18:45 Blood Blood Culture - Preliminary NO GROWTH AFTER 48 HOURS Resulted 04/12/17 18:30 Blood Blood Culture - Preliminary NO GROWTH AFTER 48 HOURS Resulted Laboratory Tests Test 04/15/17 05:20 White Blood Count 8.8 K/UL (4.8-10.8) Red Blood Count 3.98 M/UL (4.70-6.10) L Hemoglobin 8.8 G/DL (14.2-18.0) L Hematocrit 29.7 % (42.0-52.0) L Mean Corpuscular Volume 75 FL (80-99) L Mean Corpuscular Hemoglobin 22.2 PG (27.0-31.0) L Mean Corpuscular Hemoglobin Concent 29.8 G/DL (32.0-36.0) L Red Cell Distribution Width 24.9 % (11.6-14.8) H Platelet Count 310 K/UL (150-450) Mean Platelet Volume 6.8 FL (6.5-10.1) Neutrophils (%) (Auto) 77.6 % (45.0-75.0) H Lymphocytes (%) (Auto) 12.3 % (20.0-45.0) L Monocytes (%) (Auto) 9.4 % (1.0-10.0) Eosinophils (%) (Auto) 0.2 % (0.0-3.0) Basophils (%) (Auto) 0.5 % (0.0-2.0) Erythrocyte Sedimentation Rate 73 MM/HR (0-20) H Sodium Level 140 MMOL/L (136-145) Potassium Level 3.4 MMOL/L (3.5-5.1) L Chloride Level 103 MMOL/L (98-107) Carbon Dioxide Level 28 MMOL/L (21-32) Anion Gap 9 mmol/L (5-15) Blood Urea Nitrogen 8 mg/dL (7-18) Creatinine 0.9 MG/DL (0.55-1.30) Estimat Glomerular Filtration Rate > 60 mL/min (>60) Glucose Level 72 MG/DL (74-106) L Calcium Level 8.5 MG/DL (8.5-10.1) Phosphorus Level 2.7 MG/DL (2.5-4.9) Magnesium Level 2.1 MG/DL (1.8-2.4) Total Bilirubin 0.2 MG/DL (0.2-1.0) Aspartate Amino Transf (AST/SGOT) 55 U/L (15-37) H Alanine Aminotransferase (ALT/SGPT) 32 U/L (12-78) Alkaline Phosphatase 46 U/L (46-116) C-Reactive Protein, Quantitative 9.5 mg/dL (0.00-0.90) H Total Protein 7.1 G/DL (6.4-8.2) Albumin 2.4 G/DL (3.4-5.0) L Globulin 4.7 g/dL Albumin/Globulin Ratio 0.5 (1.0-2.7) L Current Medications Medications (Trade) Dose Ordered Sig/Juana Route PRN Reason Start Time Stop Time Status Last Admin Dose Admin Acetaminophen (Tylenol) 650 mg Q4H PRN ORAL fever 04/05/17 18:30 05/05/17 18:29 04/12/17 15:59 Al Hydroxide/Mg Hydroxide (Mylanta II) 30 ml Q6H PRN ORAL dyspepsia 04/05/17 18:30 05/05/17 18:29 Ceftriaxone Sodium 2 gm/ Sodium Chloride 110 ml @ 220 mls/hr Q24H IVPB 04/14/17 13:30 04/21/17 13:29 04/14/17 13:57 Clonidine HCl (Catapres) 0.1 mg EVERY 6 HOURS PRN ORAL sbp above 160 04/09/17 12:00 05/09/17 11:59 04/09/17 14:39 Dextrose (Dextrose 50%) STAT PRN IV Hypoglycemia 04/05/17 18:30 05/05/17 18:29 Lorazepam (Ativan 2mg/ml 1ml) 0.5 mg Q4H PRN IV For Anxiety 04/10/17 10:30 04/17/17 23:59 Morphine Sulfate (Morphine 5mg/ 2.5ml Oral Soln) 3 mg Q4H PRN ORAL PAIN SCALE 4-10 04/14/17 15:00 05/14/17 14:59 Ondansetron HCl (Zofran) 4 mg Q6H PRN IVP Nausea & Vomiting 04/05/17 18:30 05/05/17 18:29 Pantoprazole (Protonix) 40 mg DAILY IVP 04/07/17 09:00 05/07/17 08:59 04/14/17 09:02 Polyethylene Glycol (Miralax) 17 gm HSPRN PRN ORAL Constipation 04/05/17 18:30 05/05/17 18:29 Lalita Sifuentes M.D. Apr 15, 2017 09:55
--- NOTE | 2017-04-15 09:58 | GI Progress Note ---
Assessment/Plan Problems: (1) Colonoscopy planned SNOMED: 805562946 (2) Diarrhea ICD Codes: R19.7 - Diarrhea, unspecified SNOMED: 44622958 Qualifiers: Qualified Codes: R19.7 - Diarrhea, unspecified (3) Iron deficiency ICD Codes: E61.1 - Iron deficiency SNOMED: 27350864 (4) Anemia ICD Codes: D64.9 - Anemia, unspecified SNOMED: 166310857 Qualifiers: Qualified Codes: D64.9 - Anemia, unspecified (5) Dehydration ICD Codes: E86.0 - Dehydration SNOMED: 01952267 (6) Severe protein-calorie malnutrition ICD Codes: E43 - Unspecified severe protein-calorie malnutrition SNOMED: 321287073 Status: stable Status Narrative Discussed with Dr. Son. Assessment/Plan s/p EUS rectal mass - T3 N1 lesion of the rectum. RECOMMENDATIONS: fu oncology recs for possible chemoradiation fu surgical recs if there is no obvious metastasis. Subjective Subjective diarrhea Objective Last 24 Hour Vital Signs Date Time Temp Pulse Resp B/P (MAP) Pulse Ox O2 Delivery O2 Flow Rate FiO2 04/15/17 08:00 98.6 98 19 141/83 100 Room Air 04/15/17 04:06 97.6 82 18 148/85 92 Room Air 99.0 04/15/17 00:00 97.3 84 18 145/85 99 Room Air 04/14/17 20:00 97.2 81 20 148/82 99 Room Air 04/14/17 16:00 98.2 92 19 140/81 99 Room Air 04/14/17 13:00 98.6 92 20 129/79 100 Room Air Laboratory Tests Test 04/15/17 05:20 White Blood Count 8.8 K/UL (4.8-10.8) Red Blood Count 3.98 M/UL (4.70-6.10) L Hemoglobin 8.8 G/DL (14.2-18.0) L Hematocrit 29.7 % (42.0-52.0) L Mean Corpuscular Volume 75 FL (80-99) L Mean Corpuscular Hemoglobin 22.2 PG (27.0-31.0) L Mean Corpuscular Hemoglobin Concent 29.8 G/DL (32.0-36.0) L Red Cell Distribution Width 24.9 % (11.6-14.8) H Platelet Count 310 K/UL (150-450) Mean Platelet Volume 6.8 FL (6.5-10.1) Neutrophils (%) (Auto) 77.6 % (45.0-75.0) H Lymphocytes (%) (Auto) 12.3 % (20.0-45.0) L Monocytes (%) (Auto) 9.4 % (1.0-10.0) Eosinophils (%) (Auto) 0.2 % (0.0-3.0) Basophils (%) (Auto) 0.5 % (0.0-2.0) Erythrocyte Sedimentation Rate 73 MM/HR (0-20) H Sodium Level 140 MMOL/L (136-145) Potassium Level 3.4 MMOL/L (3.5-5.1) L Chloride Level 103 MMOL/L (98-107) Carbon Dioxide Level 28 MMOL/L (21-32) Anion Gap 9 mmol/L (5-15) Blood Urea Nitrogen 8 mg/dL (7-18) Creatinine 0.9 MG/DL (0.55-1.30) Estimat Glomerular Filtration Rate > 60 mL/min (>60) Glucose Level 72 MG/DL (74-106) L Calcium Level 8.5 MG/DL (8.5-10.1) Phosphorus Level 2.7 MG/DL (2.5-4.9) Magnesium Level 2.1 MG/DL (1.8-2.4) Total Bilirubin 0.2 MG/DL (0.2-1.0) Aspartate Amino Transf (AST/SGOT) 55 U/L (15-37) H Alanine Aminotransferase (ALT/SGPT) 32 U/L (12-78) Alkaline Phosphatase 46 U/L (46-116) C-Reactive Protein, Quantitative 9.5 mg/dL (0.00-0.90) H Total Protein 7.1 G/DL (6.4-8.2) Albumin 2.4 G/DL (3.4-5.0) L Globulin 4.7 g/dL Albumin/Globulin Ratio 0.5 (1.0-2.7) L Height (Feet): 5 Height (Inches): 10.00 Weight (Pounds): 127 General Appearance: WD/WN, no apparent distress, alert, thin Cardiovascular: normal rate Respiratory/Chest: normal breath sounds, no respiratory distress Abdominal Exam: normal bowel sounds, non tender, soft Extremities: normal range of motion, non-tender Linda Ratliff N.P. Apr 15, 2017 09:58
[2017-04-15] MEDS: Pantoprazole Inj IVP SCH (10:25)
[2017-04-15 12:00] VITALS: BP 147/90
--- NOTE | 2017-04-15 12:33 | General Progress Note ---
Assessment/Plan Assessment/Plan Assessment/Plan Stage III rectal cancer --> potential evidence of and hepatic pulm mets --> plan for chemotherapy with radiation and needs to be set up with rad onc --> discussed with patient re outpatient chemo --> appreciate surgery recs --> imaging has been reviewed Anemia of GI bleed --> hgb goal of >7 --> continue to trend HH daily Leukocytosis 2/2 bacteremia --> ID following Fever 2/2 infection Anemia of chronic disease Diarrhea Dehydration Hypokaelmia Subjective Gastrointestinal/Abdominal: Reports: blood in stool Allergies: Coded Allergies: No Known Allergies (Unverified , 04/05/17) All Systems: reviewed and negative except above Subjective pt having bloody diarrhea per RN Objective Last 24 Hour Vital Signs Date Time Temp Pulse Resp B/P (MAP) Pulse Ox O2 Delivery O2 Flow Rate FiO2 04/15/17 12:00 98.1 90 19 147/90 100 04/15/17 08:00 98.6 98 19 141/83 100 Room Air 04/15/17 04:06 97.6 82 18 148/85 92 Room Air 99.0 04/15/17 00:00 97.3 84 18 145/85 99 Room Air 04/14/17 20:00 97.2 81 20 148/82 99 Room Air 04/14/17 16:00 98.2 92 19 140/81 99 Room Air 04/14/17 13:00 98.6 92 20 129/79 100 Room Air Intake and Output 04/15/17 04/16/17 19:00 07:00 # Bowel Movements 2 Laboratory Tests 04/15/17 05:20: White Blood Count 8.8, Red Blood Count 3.98L, Hemoglobin 8.8L, Hematocrit 29.7L , Mean Corpuscular Volume 75L, Mean Corpuscular Hemoglobin 22.2L, Mean Corpuscular Hemoglobin Concent 29.8L, Red Cell Distribution Width 24.9H, Platelet Count 310, Mean Platelet Volume 6.8, Neutrophils (%) (Auto) 77.6H, Lymphocytes (%) (Auto) 12.3L, Monocytes (%) (Auto) 9.4, Eosinophils (%) (Auto) 0.2, Basophils (%) (Auto) 0.5, Erythrocyte Sedimentation Rate 73H, Sodium Level 140, Potassium Level 3.4L, Chloride Level 103, Carbon Dioxide Level 28, Anion Gap 9, Blood Urea Nitrogen 8, Creatinine 0.9, Estimat Glomerular Filtration Rate > 60, Glucose Level 72L, Calcium Level 8.5, Phosphorus Level 2.7, Magnesium Level 2.1, Total Bilirubin 0.2, Aspartate Amino Transf (AST/SGOT) 55H , Alanine Aminotransferase (ALT/SGPT) 32, Alkaline Phosphatase 46, C-Reactive Protein, Quantitative 9.5H, Total Protein 7.1, Albumin 2.4L, Globulin 4.7, Albumin/Globulin Ratio 0.5L Height (Feet): 5 Height (Inches): 10.00 Weight (Pounds): 127 General Appearance: no apparent distress EENT: normal ENT inspection Abdomen: hyperactive bowel sounds Extremities: non-tender, normal inspection Neurologic: [place] II-XII grossly normal Rommel Ching Apr 15, 2017 12:33
--- NOTE | 2017-04-15 12:43 | General Progress Note ---
Progress Note Progress Note Afebrile. Pt is awake, tolerating regular diet. He denies abdominal pain. The colonoscopic bx confirmed the presence of an adenocarcinoma of the rectum. I concur with the oncologist's recommendation for chemo-radiation. Thereis no need for surgical intervention at this time. Jones Gusman MD Apr 15, 2017 12:43
[2017-04-15] MEDS: cefTRIAXone 2 GM in NS 110 ML IVPB SCH (13:17)
--- NOTE | 2017-04-15 13:40 | Pulmonology Progress Note ---
Assessment/Plan Assessment/Plan ASSESSMENT rectal adenocarcinoma st 3 s/p 04/13 CT guided drainage of perirectal abscess bacteremia with E coli ( due to rectal abscess vs possible gut translocation during recent GI procedures ) pulmonary nodule , possible mets Diarrhea Dehydration iron deficiency anemia hypokalemia severe protein calorie malnutrition PLAN OF CARE MS floor IVF s/p EGD and colonoscopy 04/08 with findings of rectal mass pathology pending surgery eval appreciated per surgery: no obstruction, no active bleeding, no need for urgent surgical intervention, first will need chemo and radiation abx ID follows initial blood cx + E coli Repeated blood cx preliminary negative onco follows, first will need chemo and radiation prior to surgery PSA WNL cancer tumor markers pending pulmonary nodule -possible mets per onco needs to be set with radiation oncology loza CT / CT C/A/P demonstrated -6.3 x 7.5 x 9 cm mass involving the rectum. Invasion of the mass into the adjacent prostate and the right side of the seminal vesicles not completely excludable PSA WNL diet as tolerated Stool studies ( stool cx, OP, C dif)all negative GI follows along with surgery per order- 04/11 endoscopic US with possible FNA/biopsy Venous Duplex BLE negative anemia w/up c/w iron deficiency anemia on Venofer stool OB positive s/p blood transfusion, HH up, monitor counts PPI dietary eval dc plan with further recommendations from onco , fup with onco as outpt case discussed and evaluated by supervising physician fup oncology recs for possible chemoradiation fup surgical recs if there is no obvious metastasis. Subjective Allergies: Coded Allergies: No Known Allergies (Unverified , 04/05/17) Subjective leukocytosis resolved s/p successful drainage of 30 ml of serosanguineous fluid episode of rectal bleeding last night Objective Last 24 Hour Vital Signs Date Time Temp Pulse Resp B/P (MAP) Pulse Ox O2 Delivery O2 Flow Rate FiO2 04/15/17 12:00 98.1 90 19 147/90 100 04/15/17 08:00 98.6 98 19 141/83 100 Room Air 04/15/17 04:06 97.6 82 18 148/85 92 Room Air 99.0 04/15/17 00:00 97.3 84 18 145/85 99 Room Air 04/14/17 20:00 97.2 81 20 148/82 99 Room Air 04/14/17 16:00 98.2 92 19 140/81 99 Room Air Intake and Output 04/15/17 04/16/17 19:00 07:00 # Bowel Movements 2 Objective General Appearance: no acute distress HEENT: normocephalic, atraumatic, anicteric Respiratory/Chest: lungs clear, normal breath sounds, no respiratory distress Cardiovascular: normal rate, regular rhythm, no JVD Abdomen: normal bowel sounds, soft, non tender, non distended Neurologic/Psychiatric: no motor/sensory deficits, alert, oriented x 3, responsive Musculoskeletal: normal muscle bulk Microbiology Date/Time Source Procedure Growth Status 04/12/17 18:45 Blood Blood Culture - Preliminary NO GROWTH AFTER 48 HOURS Resulted 04/12/17 18:30 Blood Blood Culture - Preliminary NO GROWTH AFTER 48 HOURS Resulted 04/13/17 10:20 Abdominal Abscess Anaerobic Culture - Preliminary NO GROWTH AFTER 48 HOURS Resulted Laboratory Tests 04/15/17 05:20: White Blood Count 8.8, Red Blood Count 3.98L, Hemoglobin 8.8L, Hematocrit 29.7L , Mean Corpuscular Volume 75L, Mean Corpuscular Hemoglobin 22.2L, Mean Corpuscular Hemoglobin Concent 29.8L, Red Cell Distribution Width 24.9H, Platelet Count 310, Mean Platelet Volume 6.8, Neutrophils (%) (Auto) 77.6H, Lymphocytes (%) (Auto) 12.3L, Monocytes (%) (Auto) 9.4, Eosinophils (%) (Auto) 0.2, Basophils (%) (Auto) 0.5, Erythrocyte Sedimentation Rate 73H, Sodium Level 140, Potassium Level 3.4L, Chloride Level 103, Carbon Dioxide Level 28, Anion Gap 9, Blood Urea Nitrogen 8, Creatinine 0.9, Estimat Glomerular Filtration Rate > 60, Glucose Level 72L, Calcium Level 8.5, Phosphorus Level 2.7, Magnesium Level 2.1, Total Bilirubin 0.2, Aspartate Amino Transf (AST/SGOT) 55H , Alanine Aminotransferase (ALT/SGPT) 32, Alkaline Phosphatase 46, C-Reactive Protein, Quantitative 9.5H, Total Protein 7.1, Albumin 2.4L, Globulin 4.7, Albumin/Globulin Ratio 0.5L Current Medications Medications (Trade) Dose Ordered Sig/Juana Route PRN Reason Start Time Stop Time Status Last Admin Dose Admin Acetaminophen (Tylenol) 650 mg Q4H PRN ORAL fever 04/05/17 18:30 05/05/17 18:29 04/12/17 15:59 Al Hydroxide/Mg Hydroxide (Mylanta II) 30 ml Q6H PRN ORAL dyspepsia 04/05/17 18:30 05/05/17 18:29 Ceftriaxone Sodium 2 gm/ Sodium Chloride 110 ml @ 220 mls/hr Q24H IVPB 04/14/17 13:30 04/21/17 13:29 04/15/17 13:17 Clonidine HCl (Catapres) 0.1 mg EVERY 6 HOURS PRN ORAL sbp above 160 04/09/17 12:00 05/09/17 11:59 04/09/17 14:39 Dextrose (Dextrose 50%) STAT PRN IV Hypoglycemia 04/05/17 18:30 05/05/17 18:29 Lorazepam (Ativan 2mg/ml 1ml) 0.5 mg Q4H PRN IV For Anxiety 04/10/17 10:30 04/17/17 23:59 Morphine Sulfate (Morphine 5mg/ 2.5ml Oral Soln) 3 mg Q4H PRN ORAL PAIN SCALE 4-10 04/14/17 15:00 05/14/17 14:59 Ondansetron HCl (Zofran) 4 mg Q6H PRN IVP Nausea & Vomiting 04/05/17 18:30 05/05/17 18:29 Pantoprazole (Protonix) 40 mg DAILY IVP 04/07/17 09:00 05/07/17 08:59 04/15/17 10:25 Polyethylene Glycol (Miralax) 17 gm HSPRN PRN ORAL Constipation 04/05/17 18:30 05/05/17 18:29 [facility]Gloria Thompson NP Apr 15, 2017 13:40
[2017-04-15] MEDS ORDERED: KCl 10% 40mEq/30ml liquid NG ONE (14:00)
[2017-04-15 16:00] VITALS: BP 130/80
[2017-04-15 20:00] VITALS: BP 158/90
[2017-04-16] VITALS: BP 154/91
[2017-04-16 04:00] VITALS: BP 153/91
[2017-04-16 08:00] VITALS: BP 160/95
--- NOTE | 2017-04-16 08:02 | General Progress Note ---
Assessment/Plan Problem List: (1) Diarrhea ICD Codes: R19.7 - Diarrhea, unspecified SNOMED: 78161440 Qualifiers: Qualified Codes: R19.7 - Diarrhea, unspecified (2) Iron deficiency ICD Codes: E61.1 - Iron deficiency SNOMED: 47262388 (3) Anemia ICD Codes: D64.9 - Anemia, unspecified SNOMED: 121390247 Qualifiers: Qualified Codes: D64.9 - Anemia, unspecified (4) Rectal cancer ICD Codes: C20 - Malignant neoplasm of rectum SNOMED: 049086677 Assessment/Plan fu oncology plans patient will need out patient chemo and radiation fu H&H PRN blood transfusion Subjective ROS Limited/Unobtainable: Yes Allergies: Coded Allergies: No Known Allergies (Unverified , 04/05/17) Subjective no event over night Objective Last 24 Hour Vital Signs Date Time Temp Pulse Resp B/P (MAP) Pulse Ox O2 Delivery O2 Flow Rate FiO2 04/16/17 04:00 97.7 68 21 153/91 100 Room Air 04/16/17 00:00 97.9 68 20 154/91 100 Room Air 04/15/17 20:00 98.1 21 158/90 100 Room Air 04/15/17 16:00 98.1 86 19 130/80 99 Room Air 04/15/17 12:00 98.1 90 19 147/90 100 Height (Feet): 5 Height (Inches): 10.00 Weight (Pounds): 127 General Appearance: alert EENT: normal ENT inspection Neck: supple Cardiovascular: normal rate Respiratory/Chest: decreased breath sounds Abdomen: normal bowel sounds, non tender, soft Extremities: non-tender LEXII XIAO Apr 16, 2017 08:02
[2017-04-16 08:46] LABS: ANION GAP 7 mmol/L (5-15); CALCIUM 8.6 MG/DL (8.5-10.1); CARBON DIOXIDE 28 MMOL/L (21-32); CHLORIDE 104 MMOL/L (98-107); CREATININE 0.9 MG/DL (0.55-1.30); GLOMERULAR FILTRATION RATE > 60 mL/min (>60); POTASSIUM 4.9 MMOL/L (3.5-5.1); SODIUM 139 MMOL/L (136-145)
[2017-04-16 08:54] LABS: BASOPHILS % (AUTO) 0.6 % (0.0-2.0); EOSINOPHILS % (AUTO) 0.6 % (0.0-3.0); LYMPHOCYTES % (AUTO) 16.3 % (20.0-45.0); MEAN CORPUSCULAR HEMOGLOBIN 23.3 PG (27.0-31.0); MEAN CORPUSCULAR HGB CONC 30.9 G/DL (32.0-36.0); MEAN CORPUSCULAR VOLUME 75 FL (80-99); MEAN PLATELET VOLUME 7.1 FL (6.5-10.1); MONOCYTES % (AUTO) 8.2 % (1.0-10.0); NEUTROPHILS % (AUTO) 74.2 % (45.0-75.0); PLATELET COUNT 330 K/UL (150-450); RED BLOOD COUNT 3.78 M/UL (4.70-6.10); RED CELL DISTRIBUTION WIDTH 25.4 % (11.6-14.8); WHITE BLOOD COUNT 8.8 K/UL (4.8-10.8)
[2017-04-16] MEDS: Pantoprazole Inj IVP SCH (09:05)
--- NOTE | 2017-04-16 10:05 | Infectious Diseases Prog Note ---
Assessment/Plan Assessment/Plan ASSESSMENT: 67 y/o male with: //High grade E.coli bacteremia - possible from perirectal abscess vs gut translocation after either colonoscopy or rectal EUS 04/11 --04/11 BCx / E.coli (panS); Bcx 04/12 NTD --s/p CT guided drainage perirectal abscess 04/13; cx NTD --30 mL of serosanguineous fluid was aspirated //Fever/leukocytosis- 2ry to above- resolved -CT abd/p 04/11:No significant change, over 3 days. 7.5 x 6.5 x 9.5 cm diameter rectal mass, also previously described. As previously reported, mural low attenuation is noted posterior to the left. This may represent there is of necrosis, adjacent chronic adenopathy, or one or more mural abscesses. Prostatomegaly.Multiple hepatic cysts. Subcentimeter low-attenuation lesions in the liver also demonstrated, most likely benign simple cysts, neoplasm as etiology of any these cannot be ruled out -EUS rectal 04/11: large rectal mass right above the dentate line. This passed breaking through the muscularis propria layer, so at least T3. There was also a lymph node, 8 mm lymph node was seen, so this is most probably a T3 N1 lesion so far. //REctal mass-path c/w well differentiated adenoCA -CT chest/abd/p w/: 04/08: 6.3 x 7.5 x 9 cm mass involving the rectum. This is consistent with clinical history of rectal carcinoma described by the referring physician. Invasion of the mass into the adjacent prostate and the right side of the seminal vesicles not completely excludable. Confluent areas of low-attenuation within the periphery of the mass, as described. These may represent cystic necrotic areas, versus mural abscesses. Despite the size of the mass, no definite local pelvic adenopathy. No definite evidence of hepatic metastases. However, there are hepatic low attenuation lesions which are too small to characterize, most likely represent cysts but small metastatic deposits cannot be completely ruled out. In addition , there are larger hepatic low attenuation lesions with definite represent cysts 2 mm left upper lobe pulmonary nodule. Nonspecific, likely postinflammatory in nature but a small metastatic deposit cannot be ruled outNo other evidence of metastatic disease Possible ventricular muscular hypertrophy. Prostatomegaly. Degenerative spondylosis // Chronic diarrhea ( >2mo ) r/o infectious -stool cx normal michael -o+p x1 neg -Giardia ag, Cryptosporidium ag neg- C.difficile: Neg SP EGD and Colonoscopy : rectal mass, 8 colon polyp (largest 8mm); path tubular adenoma, hyperplastic polyp // Severe periodontal disease // Severe microcytic iron deficiency anemia r/o GIB - GI following - EGD / colonoscopy 04/08: pending - SP PRBCs - CEA pending // Unintentional weight loss // Elevated ESR // NKDA // Full Code PLAN: -Continue IV Ceftriaxone 2g IV daily Abx d#6; will treat for 14 day from first neg Bcx 04/12; expected en date 04/25/2017 -upon discharge, can be transitioned to PO Cipro 750mg bid to complete course -s/p 4d Zosyn 04/14 -f/u repeat 2 sets of bcx -f/u abscess cx -f/u o+p x2, Cyclospora/isospora stool - monitor CBC, temperatures - monitor BMP - transfuse prn Discussed with RN and Dr Guido. Subjective Allergies: Coded Allergies: No Known Allergies (Unverified , 04/05/17) Subjective afebrile in >72hrs leukocytosis resolved Bcx with E.coli, repeat Bcx NTD abscess cx NTD Objective Vital Signs Last 24 Hour Vital Signs Date Time Temp Pulse Resp B/P (MAP) Pulse Ox O2 Delivery O2 Flow Rate FiO2 04/16/17 08:00 97.9 91 18 160/95 99 Room Air 04/16/17 04:00 97.7 68 21 153/91 100 Room Air 04/16/17 00:00 97.9 68 20 154/91 100 Room Air 04/15/17 20:00 98.1 21 158/90 100 Room Air 04/15/17 16:00 98.1 86 19 130/80 99 Room Air 04/15/17 12:00 98.1 90 19 147/90 100 Height (Feet): 5 Height (Inches): 10.00 Weight (Pounds): 127 Objective General Appearance: no acute distress, cahcetic HEENT: mucous membranes moist Respiratory/Chest: lungs clear Cardiovascular: normal rate Abdomen: soft, non tender Extremities: no edema Neurologic/Psychiatric: alert, oriented x 3, responsive Microbiology Date/Time Source Procedure Growth Status 04/13/17 10:20 Abdominal Abscess Anaerobic Culture - Preliminary NO GROWTH AFTER 72 HOURS Resulted Laboratory Tests Test 04/16/17 05:57 White Blood Count 8.8 K/UL (4.8-10.8) Red Blood Count 3.78 M/UL (4.70-6.10) L Hemoglobin 8.8 G/DL (14.2-18.0) L Hematocrit 28.5 % (42.0-52.0) L Mean Corpuscular Volume 75 FL (80-99) L Mean Corpuscular Hemoglobin 23.3 PG (27.0-31.0) L Mean Corpuscular Hemoglobin Concent 30.9 G/DL (32.0-36.0) L Red Cell Distribution Width 25.4 % (11.6-14.8) H Platelet Count 330 K/UL (150-450) Mean Platelet Volume 7.1 FL (6.5-10.1) Neutrophils (%) (Auto) 74.2 % (45.0-75.0) Lymphocytes (%) (Auto) 16.3 % (20.0-45.0) L Monocytes (%) (Auto) 8.2 % (1.0-10.0) Eosinophils (%) (Auto) 0.6 % (0.0-3.0) Basophils (%) (Auto) 0.6 % (0.0-2.0) Sodium Level 139 MMOL/L (136-145) Potassium Level 4.9 MMOL/L (3.5-5.1) Chloride Level 104 MMOL/L (98-107) Carbon Dioxide Level 28 MMOL/L (21-32) Anion Gap 7 mmol/L (5-15) Blood Urea Nitrogen 10 mg/dL (7-18) Creatinine 0.9 MG/DL (0.55-1.30) Estimat Glomerular Filtration Rate > 60 mL/min (>60) Glucose Level 76 MG/DL (74-106) Calcium Level 8.6 MG/DL (8.5-10.1) Current Medications Medications (Trade) Dose Ordered Sig/Juana Route PRN Reason Start Time Stop Time Status Last Admin Dose Admin Acetaminophen (Tylenol) 650 mg Q4H PRN ORAL fever 04/05/17 18:30 05/05/17 18:29 04/12/17 15:59 Al Hydroxide/Mg Hydroxide (Mylanta II) 30 ml Q6H PRN ORAL dyspepsia 04/05/17 18:30 05/05/17 18:29 Ceftriaxone Sodium 2 gm/ Sodium Chloride 110 ml @ 220 mls/hr Q24H IVPB 04/14/17 13:30 04/21/17 13:29 04/15/17 13:17 Clonidine HCl (Catapres) 0.1 mg EVERY 6 HOURS PRN ORAL sbp above 160 04/09/17 12:00 05/09/17 11:59 04/09/17 14:39 Dextrose (Dextrose 50%) STAT PRN IV Hypoglycemia 04/05/17 18:30 05/05/17 18:29 Lorazepam (Ativan 2mg/ml 1ml) 0.5 mg Q4H PRN IV For Anxiety 04/10/17 10:30 04/17/17 23:59 Morphine Sulfate (Morphine 5mg/ 2.5ml Oral Soln) 3 mg Q4H PRN ORAL PAIN SCALE 4-10 04/14/17 15:00 05/14/17 14:59 Ondansetron HCl (Zofran) 4 mg Q6H PRN IVP Nausea & Vomiting 04/05/17 18:30 05/05/17 18:29 Pantoprazole (Protonix) 40 mg DAILY IVP 04/07/17 09:00 05/07/17 08:59 04/16/17 09:05 Polyethylene Glycol (Miralax) 17 gm HSPRN PRN ORAL Constipation 04/05/17 18:30 05/05/17 18:29 Lalita Sifuentes M.D. Apr 16, 2017 10:05
[2017-04-16 12:00] VITALS: BP 150/93
[2017-04-16] MEDS: cefTRIAXone 2 GM in NS 110 ML IVPB SCH (12:35)
--- NOTE | 2017-04-16 13:14 | Pulmonology Progress Note ---
Assessment/Plan Problems: (1) Sepsis (2) Diarrhea (3) Severe protein-calorie malnutrition (4) Anemia (5) Dehydration (6) Rectal mass Assessment/Plan still blood per rectum WBC wnl febrile today stool for o/p anemia w/u biopsy results showed adenocancer loza cultures abx by ID Subjective ROS Limited/Unobtainable: No Constitutional: Reports: no symptoms HEENT: Repors: no symptoms Respiratory: Reports: no symptoms Allergies: Coded Allergies: No Known Allergies (Unverified , 04/05/17) Objective Last 24 Hour Vital Signs Date Time Temp Pulse Resp B/P (MAP) Pulse Ox O2 Delivery O2 Flow Rate FiO2 04/16/17 12:00 97.3 88 17 150/93 100 Room Air 04/16/17 08:00 97.9 91 18 160/95 99 Room Air 04/16/17 04:00 97.7 68 21 153/91 100 Room Air 04/16/17 00:00 97.9 68 20 154/91 100 Room Air 04/15/17 20:00 98.1 21 158/90 100 Room Air 04/15/17 16:00 98.1 86 19 130/80 99 Room Air Intake and Output 04/16/17 04/17/17 19:00 07:00 # Bowel Movements 1 Objective General Appearance: no acute distress, cachetic HEENT: normocephalic, atraumatic, anicteric, mucous membranes moist Respiratory/Chest: lungs clear, no respiratory distress, no accessory muscle use Cardiovascular: normal rate, regular rhythm, no JVD Abdomen: normal bowel sounds, soft, non tender, non distended Extremities: no edema, pedal pulses normal Neurologic/Psychiatric: alert, responsive, other - A/A/O x 1 only Musculoskeletal: atrophy - BLE Laboratory Tests 04/16/17 05:57: White Blood Count 8.8, Red Blood Count 3.78L, Hemoglobin 8.8L, Hematocrit 28.5L , Mean Corpuscular Volume 75L, Mean Corpuscular Hemoglobin 23.3L, Mean Corpuscular Hemoglobin Concent 30.9L, Red Cell Distribution Width 25.4H, Platelet Count 330, Mean Platelet Volume 7.1, Neutrophils (%) (Auto) 74.2, Lymphocytes (%) (Auto) 16.3L, Monocytes (%) (Auto) 8.2, Eosinophils (%) (Auto) 0.6, Basophils (%) (Auto) 0.6, Sodium Level 139, Potassium Level 4.9, Chloride Level 104, Carbon Dioxide Level 28, Anion Gap 7, Blood Urea Nitrogen 10, Creatinine 0.9, Estimat Glomerular Filtration Rate > 60, Glucose Level 76, Calcium Level 8.6 Current Medications Medications (Trade) Dose Ordered Sig/Juana Route PRN Reason Start Time Stop Time Status Last Admin Dose Admin Acetaminophen (Tylenol) 650 mg Q4H PRN ORAL fever 04/05/17 18:30 05/05/17 18:29 04/12/17 15:59 Al Hydroxide/Mg Hydroxide (Mylanta II) 30 ml Q6H PRN ORAL dyspepsia 04/05/17 18:30 05/05/17 18:29 Ceftriaxone Sodium 2 gm/ Sodium Chloride 110 ml @ 220 mls/hr Q24H IVPB 04/14/17 13:30 04/21/17 13:29 04/16/17 12:35 Clonidine HCl (Catapres) 0.1 mg EVERY 6 HOURS PRN ORAL sbp above 160 04/09/17 12:00 05/09/17 11:59 04/09/17 14:39 Dextrose (Dextrose 50%) STAT PRN IV Hypoglycemia 04/05/17 18:30 05/05/17 18:29 Lorazepam (Ativan 2mg/ml 1ml) 0.5 mg Q4H PRN IV For Anxiety 04/10/17 10:30 04/17/17 23:59 Morphine Sulfate (Morphine 5mg/ 2.5ml Oral Soln) 3 mg Q4H PRN ORAL PAIN SCALE 4-10 04/14/17 15:00 05/14/17 14:59 Ondansetron HCl (Zofran) 4 mg Q6H PRN IVP Nausea & Vomiting 04/05/17 18:30 05/05/17 18:29 Pantoprazole (Protonix) 40 mg DAILY IVP 04/07/17 09:00 05/07/17 08:59 04/16/17 09:05 Polyethylene Glycol (Miralax) 17 gm HSPRN PRN ORAL Constipation 04/05/17 18:30 05/05/17 18:29 CYN BIALEY Apr 16, 2017 13:14
[2017-04-16 16:00] VITALS: BP 140/90
[2017-04-16 20:00] VITALS: BP 146/92
[2017-04-17] VITALS: BP 140/89
[2017-04-17 04:00] VITALS: BP 137/77
--- NOTE | 2017-04-17 07:20 | General Progress Note ---
Assessment/Plan Assessment/Plan Assessment/Plan Stage III rectal cancer --> potential evidence of and hepatic pulm mets --> plan for chemotherapy with radiation and needs to be set up with rad onc --> discussed with patient re outpatient chemo --> appreciate surgery recs --> imaging has been reviewed Anemia of GI bleed --> hgb goal of >7 --> continue to trend HH daily Leukocytosis 2/2 bacteremia --> ID following Fever 2/2 infection --> improving Anemia of chronic disease Diarrhea Dehydration Hypokaelmia Subjective Date patient seen: Apr 16, 2017 Constitutional: Reports: no symptoms HEENT: Reports: no symptoms Cardiovascular: Reports: no symptoms Respiratory: Reports: no symptoms Gastrointestinal/Abdominal: Reports: no symptoms Genitourinary: Reports: no symptoms Neurologic/Psychiatric: Reports: no symptoms Endocrine: Reports: no symptoms Hematologic/Lymphatic: Reports: anemia Allergies: Coded Allergies: No Known Allergies (Unverified , 04/05/17) Subjective afebrile Objective Last 24 Hour Vital Signs Date Time Temp Pulse Resp B/P (MAP) Pulse Ox O2 Delivery O2 Flow Rate FiO2 04/17/17 04:00 98.2 92 18 137/77 100 Room Air 04/17/17 00:00 97.7 81 20 140/89 100 Room Air 04/16/17 20:00 97.9 88 18 146/92 100 Room Air 04/16/17 16:00 97.9 78 19 140/90 100 Room Air 04/16/17 12:00 97.3 88 17 150/93 100 Room Air 04/16/17 08:00 97.9 91 18 160/95 99 Room Air Height (Feet): 5 Height (Inches): 10.00 Weight (Pounds): 127 General Appearance: no apparent distress EENT: normal ENT inspection Respiratory/Chest: no accessory muscle use Extremities: non-tender Skin: warm/dry Rommel Ching Apr 17, 2017 07:20
--- NOTE | 2017-04-17 07:51 | General Progress Note ---
Assessment/Plan Problem List: (1) Diarrhea ICD Codes: R19.7 - Diarrhea, unspecified SNOMED: 00551277 Qualifiers: Qualified Codes: R19.7 - Diarrhea, unspecified (2) Iron deficiency ICD Codes: E61.1 - Iron deficiency SNOMED: 29620490 (3) Anemia ICD Codes: D64.9 - Anemia, unspecified SNOMED: 384820336 Qualifiers: Qualified Codes: D64.9 - Anemia, unspecified (4) Rectal cancer ICD Codes: C20 - Malignant neoplasm of rectum SNOMED: 772851811 Assessment/Plan fu oncology plans patient will need out patient chemo and radiation fu H&H PRN blood transfusion Subjective ROS Limited/Unobtainable: Yes Allergies: Coded Allergies: No Known Allergies (Unverified , 04/05/17) Subjective minimall rectal bleedt Objective Last 24 Hour Vital Signs Date Time Temp Pulse Resp B/P (MAP) Pulse Ox O2 Delivery O2 Flow Rate FiO2 04/17/17 04:00 98.2 92 18 137/77 100 Room Air 04/17/17 00:00 97.7 81 20 140/89 100 Room Air 04/16/17 20:00 97.9 88 18 146/92 100 Room Air 04/16/17 16:00 97.9 78 19 140/90 100 Room Air 04/16/17 12:00 97.3 88 17 150/93 100 Room Air 04/16/17 08:00 97.9 91 18 160/95 99 Room Air Height (Feet): 5 Height (Inches): 10.00 Weight (Pounds): 127 General Appearance: alert EENT: normal ENT inspection Neck: supple Cardiovascular: normal rate Respiratory/Chest: decreased breath sounds Abdomen: normal bowel sounds, non tender, soft Extremities: non-tender LEXII XIAO Apr 17, 2017 07:51
[2017-04-17] MEDS: Pantoprazole Inj IVP SCH (08:02)
[2017-04-17 08:24] VITALS: BP 136/89
[2017-04-17 09:00] LABS: BASOPHILS % (AUTO) 0.5 % (0.0-2.0); EOSINOPHILS % (AUTO) 0.4 % (0.0-3.0); LYMPHOCYTES % (AUTO) 15.1 % (20.0-45.0); MEAN CORPUSCULAR HEMOGLOBIN 23.4 PG (27.0-31.0); MEAN CORPUSCULAR HGB CONC 31.4 G/DL (32.0-36.0); MEAN CORPUSCULAR VOLUME 75 FL (80-99); MEAN PLATELET VOLUME 6.5 FL (6.5-10.1); MONOCYTES % (AUTO) 4.8 % (1.0-10.0); NEUTROPHILS % (AUTO) 79.2 % (45.0-75.0); PLATELET COUNT 352 K/UL (150-450); RED BLOOD COUNT 3.92 M/UL (4.70-6.10); RED CELL DISTRIBUTION WIDTH 24.8 % (11.6-14.8)
[2017-04-17 09:11] LABS: ALANINE AMINOTRANSFERASE 37 U/L (12-78); ALBUMIN/GLOBULIN RATIO 0.5 (1.0-2.7); ANION GAP 7 mmol/L (5-15); ASPARTATE AMINO TRANSFERASE 45 U/L (15-37); CALCIUM 8.6 MG/DL (8.5-10.1); CARBON DIOXIDE 27 MMOL/L (21-32); CHLORIDE 104 MMOL/L (98-107); CREATININE 0.9 MG/DL (0.55-1.30); CRP QUANT 3.3 mg/dL (0.00-0.90); GLOMERULAR FILTRATION RATE > 60 mL/min (>60); MAGNESIUM 1.9 MG/DL (1.8-2.4); PHOSPHORUS 2.4 MG/DL (2.5-4.9); POTASSIUM 3.8 MMOL/L (3.5-5.1); SODIUM 138 MMOL/L (136-145); TOTAL PROTEIN 7.2 G/DL (6.4-8.2)
[2017-04-17 10:01] LABS: ERYTHROCYTE SEDIMENTATION RATE 72 MM/HR (0-20)
[2017-04-17 12:00] VITALS: BP 133/82
[2017-04-17] MEDS: cefTRIAXone 2 GM in NS 110 ML IVPB SCH (13:29)
--- NOTE | 2017-04-17 14:06 | General Progress Note ---
Progress Note Progress Note Pt denies abdominal pain or nausea. He is awaiting initiation of chemo- radiation for his rectal adenocarcinoma. Jones Gusman MD Apr 17, 2017 14:06
[2017-04-17 16:00] VITALS: BP 138/86
--- NOTE | 2017-04-17 19:05 | General Progress Note ---
Assessment/Plan Assessment/Plan Assessment/Plan Stage III rectal cancer --> potential evidence of and hepatic pulm mets --> plan for chemotherapy with radiation, awaiting initiation --> discussed with patient re outpatient chemo --> appreciate surgery recs --> imaging has been reviewed Anemia of GI bleed --> hgb goal of >7 --> continue to trend HH daily Leukocytosis 2/2 bacteremia --> ID following Fever 2/2 infection --> improving Anemia of chronic disease Diarrhea Dehydration Hypokaelmia Subjective Constitutional: Reports: no symptoms HEENT: Reports: no symptoms Cardiovascular: Reports: no symptoms Respiratory: Reports: no symptoms Gastrointestinal/Abdominal: Reports: no symptoms Genitourinary: Reports: no symptoms Neurologic/Psychiatric: Reports: no symptoms Endocrine: Reports: no symptoms Hematologic/Lymphatic: Reports: anemia Allergies: Coded Allergies: No Known Allergies (Unverified , 04/05/17) Subjective no events Objective Last 24 Hour Vital Signs Date Time Temp Pulse Resp B/P (MAP) Pulse Ox O2 Delivery O2 Flow Rate FiO2 04/17/17 16:00 98.0 88 20 138/86 99 Room Air 04/17/17 12:00 97.8 98 19 133/82 100 Room Air 04/17/17 08:24 98.2 105 20 136/89 100 Room Air 04/17/17 04:00 98.2 92 18 137/77 100 Room Air 04/17/17 00:00 97.7 81 20 140/89 100 Room Air 04/16/17 20:00 97.9 88 18 146/92 100 Room Air Intake and Output 04/17/17 04/18/17 19:00 07:00 Intake Total 1080 ml Balance 1080 ml Intake Oral 1080 ml # Voids 4 # Bowel Movements 4 Laboratory Tests 04/17/17 07:50: White Blood Count 9.0, Red Blood Count 3.92L, Hemoglobin 9.2L, Hematocrit 29.3L , Mean Corpuscular Volume 75L, Mean Corpuscular Hemoglobin 23.4L, Mean Corpuscular Hemoglobin Concent 31.4L, Red Cell Distribution Width 24.8H, Platelet Count 352, Mean Platelet Volume 6.5, Neutrophils (%) (Auto) 79.2H, Lymphocytes (%) (Auto) 15.1L, Monocytes (%) (Auto) 4.8, Eosinophils (%) (Auto) 0.4, Basophils (%) (Auto) 0.5, Erythrocyte Sedimentation Rate 72H, Sodium Level 138, Potassium Level 3.8, Chloride Level 104, Carbon Dioxide Level 27, Anion Gap 7, Blood Urea Nitrogen 10, Creatinine 0.9, Estimat Glomerular Filtration Rate > 60, Glucose Level 143H, Calcium Level 8.6, Phosphorus Level 2.4L, Magnesium Level 1.9, Total Bilirubin 0.2, Aspartate Amino Transf (AST/SGOT) 45H , Alanine Aminotransferase (ALT/SGPT) 37, Alkaline Phosphatase 43L, C-Reactive Protein, Quantitative 3.3H, Total Protein 7.2, Albumin 2.4L, Globulin 4.8, Albumin/Globulin Ratio 0.5L Height (Feet): 5 Height (Inches): 10.00 Weight (Pounds): 127 General Appearance: no apparent distress EENT: normal ENT inspection Neck: normal alignment Extremities: normal inspection Edema: trace edema 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
[2017-04-17 20:00] VITALS: BP 138/85
[2017-04-18] VITALS: BP 138/85
[2017-04-18 04:00] VITALS: BP 139/89
[2017-04-18 08:00] VITALS: BP 141/88
[2017-04-18 08:22] LABS: BASOPHILS % (AUTO) 0.3 % (0.0-2.0); EOSINOPHILS % (AUTO) 0.6 % (0.0-3.0); LYMPHOCYTES % (AUTO) 16.9 % (20.0-45.0); MEAN CORPUSCULAR HEMOGLOBIN 22.2 PG (27.0-31.0); MEAN CORPUSCULAR HGB CONC 29.7 G/DL (32.0-36.0); MEAN CORPUSCULAR VOLUME 75 FL (80-99); MEAN PLATELET VOLUME 6.3 FL (6.5-10.1); MONOCYTES % (AUTO) 5.3 % (1.0-10.0); NEUTROPHILS % (AUTO) 76.9 % (45.0-75.0); PLATELET COUNT 388 K/UL (150-450); RED BLOOD COUNT 4.15 M/UL (4.70-6.10); RED CELL DISTRIBUTION WIDTH 25.4 % (11.6-14.8)
[2017-04-18 08:40] LABS: INR 0.9 (0.9-1.1); PROTHROMBIN TIME 9.9 SEC (9.30-11.50)
[2017-04-18] MEDS: Pantoprazole Inj IVP SCH (08:44)
[2017-04-18 09:01] LABS: ALANINE AMINOTRANSFERASE 35 U/L (12-78); ALBUMIN/GLOBULIN RATIO 0.6 (1.0-2.7); ANION GAP 7 mmol/L (5-15); ASPARTATE AMINO TRANSFERASE 48 U/L (15-37); CALCIUM 8.8 MG/DL (8.5-10.1); CARBON DIOXIDE 28 MMOL/L (21-32); CHLORIDE 102 MMOL/L (98-107); CREATININE 0.8 MG/DL (0.55-1.30); GLOMERULAR FILTRATION RATE > 60 mL/min (>60); MAGNESIUM 1.9 MG/DL (1.8-2.4); PHOSPHORUS 2.5 MG/DL (2.5-4.9); POTASSIUM 3.9 MMOL/L (3.5-5.1); SODIUM 137 MMOL/L (136-145); TOTAL PROTEIN 7.3 G/DL (6.4-8.2)
--- NOTE | 2017-04-18 10:22 | GI Progress Note ---
Assessment/Plan Problems: (1) Colonoscopy planned SNOMED: 070069206 (2) Diarrhea ICD Codes: R19.7 - Diarrhea, unspecified SNOMED: 49969547 Qualifiers: Qualified Codes: R19.7 - Diarrhea, unspecified (3) Iron deficiency ICD Codes: E61.1 - Iron deficiency SNOMED: 38458431 (4) Anemia ICD Codes: D64.9 - Anemia, unspecified SNOMED: 812839768 Qualifiers: Qualified Codes: D64.9 - Anemia, unspecified (5) Dehydration ICD Codes: E86.0 - Dehydration SNOMED: 52174611 (6) Severe protein-calorie malnutrition ICD Codes: E43 - Unspecified severe protein-calorie malnutrition SNOMED: 915150183 Status: stable Status Narrative Discussed with Dr. Son. Assessment/Plan s/p EUS rectal mass - T3 N1 lesion of the rectum. RECOMMENDATIONS: fu oncology plans patient will need out patient chemo and radiation fu H&H PRN blood transfusion Subjective Subjective diarrhea Objective Last 24 Hour Vital Signs Date Time Temp Pulse Resp B/P (MAP) Pulse Ox O2 Delivery O2 Flow Rate FiO2 04/18/17 08:00 98.1 97 18 141/88 99 Room Air 04/18/17 04:00 97.9 90 18 139/89 100 Room Air 04/18/17 00:00 97.9 73 20 138/85 98 Room Air 04/17/17 20:00 97.7 89 21 138/85 100 Room Air 04/17/17 16:00 98.0 88 20 138/86 99 Room Air 04/17/17 12:00 97.8 98 19 133/82 100 Room Air Laboratory Tests Test 04/18/17 07:00 White Blood Count 11.0 K/UL (4.8-10.8) H Red Blood Count 4.15 M/UL (4.70-6.10) L Hemoglobin 9.2 G/DL (14.2-18.0) L Hematocrit 31.1 % (42.0-52.0) L Mean Corpuscular Volume 75 FL (80-99) L Mean Corpuscular Hemoglobin 22.2 PG (27.0-31.0) L Mean Corpuscular Hemoglobin Concent 29.7 G/DL (32.0-36.0) L Red Cell Distribution Width 25.4 % (11.6-14.8) H Platelet Count 388 K/UL (150-450) Mean Platelet Volume 6.3 FL (6.5-10.1) L Neutrophils (%) (Auto) 76.9 % (45.0-75.0) H Lymphocytes (%) (Auto) 16.9 % (20.0-45.0) L Monocytes (%) (Auto) 5.3 % (1.0-10.0) Eosinophils (%) (Auto) 0.6 % (0.0-3.0) Basophils (%) (Auto) 0.3 % (0.0-2.0) Prothrombin Time 9.9 SEC (9.30-11.50) Prothromb Time International Ratio 0.9 (0.9-1.1) Activated Partial Thromboplast Time 28 SEC (23-33) Sodium Level 137 MMOL/L (136-145) Potassium Level 3.9 MMOL/L (3.5-5.1) Chloride Level 102 MMOL/L (98-107) Carbon Dioxide Level 28 MMOL/L (21-32) Anion Gap 7 mmol/L (5-15) Blood Urea Nitrogen 11 mg/dL (7-18) Creatinine 0.8 MG/DL (0.55-1.30) Estimat Glomerular Filtration Rate > 60 mL/min (>60) Glucose Level 77 MG/DL (74-106) Calcium Level 8.8 MG/DL (8.5-10.1) Phosphorus Level 2.5 MG/DL (2.5-4.9) Magnesium Level 1.9 MG/DL (1.8-2.4) Total Bilirubin 0.2 MG/DL (0.2-1.0) Aspartate Amino Transf (AST/SGOT) 48 U/L (15-37) H Alanine Aminotransferase (ALT/SGPT) 35 U/L (12-78) Alkaline Phosphatase 45 U/L (46-116) L Total Protein 7.3 G/DL (6.4-8.2) Albumin 2.6 G/DL (3.4-5.0) L Globulin 4.7 g/dL Albumin/Globulin Ratio 0.6 (1.0-2.7) L Height (Feet): 5 Height (Inches): 10.00 Weight (Pounds): 127 General Appearance: WD/WN, no apparent distress, alert Cardiovascular: normal rate Respiratory/Chest: normal breath sounds, no respiratory distress Abdominal Exam: normal bowel sounds, non tender, soft Extremities: normal range of motion, non-tender Linda Ratliff N.P. Apr 18, 2017 10:22
[2017-04-18 12:00] VITALS: BP 139/90
--- NOTE | 2017-04-18 12:23 | Infectious Diseases Prog Note ---
Assessment/Plan Assessment/Plan ASSESSMENT: 67 y/o male with: //High grade E.coli bacteremia - possible from perirectal abscess vs gut translocation after either colonoscopy or rectal EUS 04/11 --04/11 BCx 09/21 E.coli (panS); Bcx 04/12 Neg --s/p CT guided drainage perirectal abscess 04/13; cx Neg --30 mL of serosanguineous fluid was aspirated //Fever/leukocytosis- 2ry to above- fever resolved; mild leukocytosis today- monitor -CT abd/p 04/11:No significant change, over 3 days. 7.5 x 6.5 x 9.5 cm diameter rectal mass, also previously described. As previously reported, mural low attenuation is noted posterior to the left. This may represent there is of necrosis, adjacent chronic adenopathy, or one or more mural abscesses. Prostatomegaly.Multiple hepatic cysts. Subcentimeter low-attenuation lesions in the liver also demonstrated, most likely benign simple cysts, neoplasm as etiology of any these cannot be ruled out -EUS rectal 04/11: large rectal mass right above the dentate line. This passed breaking through the muscularis propria layer, so at least T3. There was also a lymph node, 8 mm lymph node was seen, so this is most probably a T3 N1 lesion so far. //REctal mass-path c/w well differentiated adenoCA -CT chest/abd/p w/: 04/08: 6.3 x 7.5 x 9 cm mass involving the rectum. This is consistent with clinical history of rectal carcinoma described by the referring physician. Invasion of the mass into the adjacent prostate and the right side of the seminal vesicles not completely excludable. Confluent areas of low-attenuation within the periphery of the mass, as described. These may represent cystic necrotic areas, versus mural abscesses. Despite the size of the mass, no definite local pelvic adenopathy. No definite evidence of hepatic metastases. However, there are hepatic low attenuation lesions which are too small to characterize, most likely represent cysts but small metastatic deposits cannot be completely ruled out. In addition , there are larger hepatic low attenuation lesions with definite represent cysts 2 mm left upper lobe pulmonary nodule. Nonspecific, likely postinflammatory in nature but a small metastatic deposit cannot be ruled outNo other evidence of metastatic disease Possible ventricular muscular hypertrophy. Prostatomegaly. Degenerative spondylosis // Chronic diarrhea ( >2mo ) r/o infectious -stool cx normal michael -o+p x1 neg -Giardia ag, Cryptosporidium ag neg- C.difficile: Neg SP EGD and Colonoscopy : rectal mass, 8 colon polyp (largest 8mm); path tubular adenoma, hyperplastic polyp // Severe periodontal disease // Severe microcytic iron deficiency anemia r/o GIB - GI following - EGD / colonoscopy 04/08: pending - SP PRBCs - CEA pending // Unintentional weight loss // Elevated ESR // NKDA // Full Code PLAN: -Continue IV Ceftriaxone 2g IV daily Abx d#8; will treat for 14 day from first neg Bcx 04/12; expected en date 04/25/2017 -upon discharge, can be transitioned to PO Cipro 750mg bid to complete course -s/p 4d Zosyn 04/14 -Trend WBC- if continues to worsen and/or febrile- repeat cultures and consider repeat imaging -f/u o+p x2, Cyclospora/isospora stool - monitor CBC, temperatures - monitor BMP - transfuse prn Discussed with RN. Subjective Allergies: Coded Allergies: No Known Allergies (Unverified , 04/05/17) Subjective afebrile mild leukocytosis repaet bcx and abscess cx neg Objective Vital Signs Last 24 Hour Vital Signs Date Time Temp Pulse Resp B/P (MAP) Pulse Ox O2 Delivery O2 Flow Rate FiO2 04/18/17 08:00 98.1 97 18 141/88 99 Room Air 04/18/17 04:00 97.9 90 18 139/89 100 Room Air 04/18/17 00:00 97.9 73 20 138/85 98 Room Air 04/17/17 20:00 97.7 89 21 138/85 100 Room Air 04/17/17 16:00 98.0 88 20 138/86 99 Room Air Height (Feet): 5 Height (Inches): 10.00 Weight (Pounds): 127 Objective General Appearance: no acute distress, cahcetic HEENT: mucous membranes moist Respiratory/Chest: lungs clear Cardiovascular: normal rate Abdomen: soft, non tender Extremities: no edema Neurologic/Psychiatric: alert, oriented x 3, responsive Laboratory Tests Test 04/18/17 07:00 White Blood Count 11.0 K/UL (4.8-10.8) H Red Blood Count 4.15 M/UL (4.70-6.10) L Hemoglobin 9.2 G/DL (14.2-18.0) L Hematocrit 31.1 % (42.0-52.0) L Mean Corpuscular Volume 75 FL (80-99) L Mean Corpuscular Hemoglobin 22.2 PG (27.0-31.0) L Mean Corpuscular Hemoglobin Concent 29.7 G/DL (32.0-36.0) L Red Cell Distribution Width 25.4 % (11.6-14.8) H Platelet Count 388 K/UL (150-450) Mean Platelet Volume 6.3 FL (6.5-10.1) L Neutrophils (%) (Auto) 76.9 % (45.0-75.0) H Lymphocytes (%) (Auto) 16.9 % (20.0-45.0) L Monocytes (%) (Auto) 5.3 % (1.0-10.0) Eosinophils (%) (Auto) 0.6 % (0.0-3.0) Basophils (%) (Auto) 0.3 % (0.0-2.0) Prothrombin Time 9.9 SEC (9.30-11.50) Prothromb Time International Ratio 0.9 (0.9-1.1) Activated Partial Thromboplast Time 28 SEC (23-33) Sodium Level 137 MMOL/L (136-145) Potassium Level 3.9 MMOL/L (3.5-5.1) Chloride Level 102 MMOL/L (98-107) Carbon Dioxide Level 28 MMOL/L (21-32) Anion Gap 7 mmol/L (5-15) Blood Urea Nitrogen 11 mg/dL (7-18) Creatinine 0.8 MG/DL (0.55-1.30) Estimat Glomerular Filtration Rate > 60 mL/min (>60) Glucose Level 77 MG/DL (74-106) Calcium Level 8.8 MG/DL (8.5-10.1) Phosphorus Level 2.5 MG/DL (2.5-4.9) Magnesium Level 1.9 MG/DL (1.8-2.4) Total Bilirubin 0.2 MG/DL (0.2-1.0) Aspartate Amino Transf (AST/SGOT) 48 U/L (15-37) H Alanine Aminotransferase (ALT/SGPT) 35 U/L (12-78) Alkaline Phosphatase 45 U/L (46-116) L Total Protein 7.3 G/DL (6.4-8.2) Albumin 2.6 G/DL (3.4-5.0) L Globulin 4.7 g/dL Albumin/Globulin Ratio 0.6 (1.0-2.7) L Current Medications Medications (Trade) Dose Ordered Sig/Juana Route PRN Reason Start Time Stop Time Status Last Admin Dose Admin Acetaminophen (Tylenol) 650 mg Q4H PRN ORAL fever 04/05/17 18:30 05/05/17 18:29 04/12/17 15:59 Al Hydroxide/Mg Hydroxide (Mylanta II) 30 ml Q6H PRN ORAL dyspepsia 04/05/17 18:30 05/05/17 18:29 Ceftriaxone Sodium 2 gm/ Sodium Chloride 110 ml @ 220 mls/hr Q24H IVPB 04/14/17 13:30 04/25/17 23:59 04/17/17 13:29 Clonidine HCl (Catapres) 0.1 mg EVERY 6 HOURS PRN ORAL sbp above 160 04/09/17 12:00 05/09/17 11:59 04/09/17 14:39 Dextrose (Dextrose 50%) STAT PRN IV Hypoglycemia 04/05/17 18:30 05/05/17 18:29 Lorazepam (Ativan 2mg/ml 1ml) 0.5 mg Q4H PRN IV For Anxiety 04/10/17 10:30 04/17/17 23:59 Morphine Sulfate (Morphine 5mg/ 2.5ml Oral Soln) 3 mg Q4H PRN ORAL PAIN SCALE 4-10 04/14/17 15:00 05/14/17 14:59 Ondansetron HCl (Zofran) 4 mg Q6H PRN IVP Nausea & Vomiting 04/05/17 18:30 05/05/17 18:29 Pantoprazole (Protonix) 40 mg DAILY IVP 04/07/17 09:00 05/07/17 08:59 04/18/17 08:44 Polyethylene Glycol (Miralax) 17 gm HSPRN PRN ORAL Constipation 04/05/17 18:30 05/05/17 18:29 Lalita Sifuentes M.D. Apr 18, 2017 12:23
[2017-04-18] MEDS: cefTRIAXone 2 GM in NS 110 ML IVPB SCH (13:10)
[2017-04-18] MEDS ORDERED: FERROUS SULFAT325 MG ORAL (15:56)
[2017-04-18] MEDS ORDERED: CIPROFLOXACIN750 MG ORAL (15:56)
[2017-04-18 15:58] VITALS: BP 131/82
--- NOTE | 2017-04-18 18:46 | Pulmonology Progress Note ---
Assessment/Plan Problems: (1) Sepsis (2) Diarrhea (3) Severe protein-calorie malnutrition (4) Anemia (5) Dehydration (6) Rectal mass Assessment/Plan still blood per rectum WBC wnl febrile today stool for o/p anemia w/u biopsy results showed adenocancer loza cultures abx by ID d/w surgeon, not a candidate for surgery Subjective ROS Limited/Unobtainable: Yes Interval Events: late note for 04/17 Allergies: Coded Allergies: No Known Allergies (Unverified , 04/05/17) Objective Last 24 Hour Vital Signs Date Time Temp Pulse Resp B/P (MAP) Pulse Ox O2 Delivery O2 Flow Rate FiO2 04/18/17 15:58 97.9 87 18 131/82 99 Room Air 04/18/17 12:00 98.2 83 19 139/90 100 Room Air 04/18/17 08:00 98.1 97 18 141/88 99 Room Air 04/18/17 04:00 97.9 90 18 139/89 100 Room Air 04/18/17 00:00 97.9 73 20 138/85 98 Room Air 04/17/17 20:00 97.7 89 21 138/85 100 Room Air Intake and Output 04/18/17 04/19/17 19:00 07:00 Intake Total 720 ml Balance 720 ml Intake Oral 720 ml # Voids 2 # Bowel Movements 1 Objective General Appearance: no acute distress, cachetic HEENT: normocephalic, atraumatic, anicteric, mucous membranes moist Respiratory/Chest: lungs clear, no respiratory distress, no accessory muscle use Cardiovascular: normal rate, regular rhythm, no JVD Abdomen: normal bowel sounds, soft, non tender, non distended Extremities: no edema, pedal pulses normal Neurologic/Psychiatric: alert, responsive, other - A/A/O x 1 only Musculoskeletal: atrophy - BLE Laboratory Tests 04/18/17 07:00: White Blood Count 11.0H, Red Blood Count 4.15L, Hemoglobin 9.2L, Hematocrit 31.1L, Mean Corpuscular Volume 75L, Mean Corpuscular Hemoglobin 22.2L, Mean Corpuscular Hemoglobin Concent 29.7L, Red Cell Distribution Width 25.4H, Platelet Count 388, Mean Platelet Volume 6.3L, Neutrophils (%) (Auto) 76.9H, Lymphocytes (%) (Auto) 16.9L, Monocytes (%) (Auto) 5.3, Eosinophils (%) (Auto) 0.6, Basophils (%) (Auto) 0.3, Prothrombin Time 9.9, Prothromb Time International Ratio 0.9, Activated Partial Thromboplast Time 28, Sodium Level 137, Potassium Level 3.9, Chloride Level 102, Carbon Dioxide Level 28, Anion Gap 7, Blood Urea Nitrogen 11, Creatinine 0.8, Estimat Glomerular Filtration Rate > 60, Glucose Level 77, Calcium Level 8.8, Phosphorus Level 2.5, Magnesium Level 1.9, Total Bilirubin 0.2, Aspartate Amino Transf (AST/SGOT) 48H, Alanine Aminotransferase (ALT/SGPT) 35, Alkaline Phosphatase 45L, Total Protein 7.3, Albumin 2.6L, Globulin 4.7, Albumin/Globulin Ratio 0.6L Current Medications Medications (Trade) Dose Ordered Sig/Juana Route PRN Reason Start Time Stop Time Status Last Admin Dose Admin Acetaminophen (Tylenol) 650 mg Q4H PRN ORAL fever 04/05/17 18:30 05/05/17 18:29 04/12/17 15:59 Al Hydroxide/Mg Hydroxide (Mylanta II) 30 ml Q6H PRN ORAL dyspepsia 04/05/17 18:30 05/05/17 18:29 Ceftriaxone Sodium 2 gm/ Sodium Chloride 110 ml @ 220 mls/hr Q24H IVPB 04/14/17 13:30 04/25/17 23:59 04/18/17 13:10 Clonidine HCl (Catapres) 0.1 mg EVERY 6 HOURS PRN ORAL sbp above 160 04/09/17 12:00 05/09/17 11:59 04/09/17 14:39 Dextrose (Dextrose 50%) STAT PRN IV Hypoglycemia 04/05/17 18:30 05/05/17 18:29 Lorazepam (Ativan 2mg/ml 1ml) 0.5 mg Q4H PRN IV For Anxiety 04/10/17 10:30 04/17/17 23:59 Morphine Sulfate (Morphine 5mg/ 2.5ml Oral Soln) 3 mg Q4H PRN ORAL PAIN SCALE 4-10 04/14/17 15:00 05/14/17 14:59 Ondansetron HCl (Zofran) 4 mg Q6H PRN IVP Nausea & Vomiting 04/05/17 18:30 05/05/17 18:29 Pantoprazole (Protonix) 40 mg DAILY IVP 04/07/17 09:00 05/07/17 08:59 04/18/17 08:44 Polyethylene Glycol (Miralax) 17 gm HSPRN PRN ORAL Constipation 04/05/17 18:30 05/05/17 18:29 CYN BAILEY Apr 18, 2017 18:46
--- NOTE | 2017-04-18 18:47 | Pulmonology Progress Note ---
Assessment/Plan Problems: (1) Sepsis (2) Diarrhea (3) Severe protein-calorie malnutrition (4) Anemia (5) Dehydration (6) Rectal mass Assessment/Plan less blood per rectum WBC wnl febrile today stool for o/p anemia w/u comfort care Subjective ROS Limited/Unobtainable: No Interval Events: agreed to go to skilled Allergies: Coded Allergies: No Known Allergies (Unverified , 04/05/17) Objective Last 24 Hour Vital Signs Date Time Temp Pulse Resp B/P (MAP) Pulse Ox O2 Delivery O2 Flow Rate FiO2 04/18/17 15:58 97.9 87 18 131/82 99 Room Air 04/18/17 12:00 98.2 83 19 139/90 100 Room Air 04/18/17 08:00 98.1 97 18 141/88 99 Room Air 04/18/17 04:00 97.9 90 18 139/89 100 Room Air 04/18/17 00:00 97.9 73 20 138/85 98 Room Air 04/17/17 20:00 97.7 89 21 138/85 100 Room Air Intake and Output 04/18/17 04/19/17 19:00 07:00 Intake Total 720 ml Balance 720 ml Intake Oral 720 ml # Voids 2 # Bowel Movements 1 Objective General Appearance: no acute distress, cachetic HEENT: normocephalic, atraumatic, anicteric, mucous membranes moist Respiratory/Chest: lungs clear, no respiratory distress, no accessory muscle use Cardiovascular: normal rate, regular rhythm, no JVD Abdomen: normal bowel sounds, soft, non tender, non distended Extremities: no edema, pedal pulses normal Neurologic/Psychiatric: alert, responsive, other - A/A/O x 1 only Musculoskeletal: atrophy - BLE Laboratory Tests 04/18/17 07:00: White Blood Count 11.0H, Red Blood Count 4.15L, Hemoglobin 9.2L, Hematocrit 31.1L, Mean Corpuscular Volume 75L, Mean Corpuscular Hemoglobin 22.2L, Mean Corpuscular Hemoglobin Concent 29.7L, Red Cell Distribution Width 25.4H, Platelet Count 388, Mean Platelet Volume 6.3L, Neutrophils (%) (Auto) 76.9H, Lymphocytes (%) (Auto) 16.9L, Monocytes (%) (Auto) 5.3, Eosinophils (%) (Auto) 0.6, Basophils (%) (Auto) 0.3, Prothrombin Time 9.9, Prothromb Time International Ratio 0.9, Activated Partial Thromboplast Time 28, Sodium Level 137, Potassium Level 3.9, Chloride Level 102, Carbon Dioxide Level 28, Anion Gap 7, Blood Urea Nitrogen 11, Creatinine 0.8, Estimat Glomerular Filtration Rate > 60, Glucose Level 77, Calcium Level 8.8, Phosphorus Level 2.5, Magnesium Level 1.9, Total Bilirubin 0.2, Aspartate Amino Transf (AST/SGOT) 48H, Alanine Aminotransferase (ALT/SGPT) 35, Alkaline Phosphatase 45L, Total Protein 7.3, Albumin 2.6L, Globulin 4.7, Albumin/Globulin Ratio 0.6L Current Medications Medications (Trade) Dose Ordered Sig/Juana Route PRN Reason Start Time Stop Time Status Last Admin Dose Admin Acetaminophen (Tylenol) 650 mg Q4H PRN ORAL fever 04/05/17 18:30 05/05/17 18:29 04/12/17 15:59 Al Hydroxide/Mg Hydroxide (Mylanta II) 30 ml Q6H PRN ORAL dyspepsia 04/05/17 18:30 05/05/17 18:29 Ceftriaxone Sodium 2 gm/ Sodium Chloride 110 ml @ 220 mls/hr Q24H IVPB 04/14/17 13:30 04/25/17 23:59 04/18/17 13:10 Clonidine HCl (Catapres) 0.1 mg EVERY 6 HOURS PRN ORAL sbp above 160 04/09/17 12:00 05/09/17 11:59 04/09/17 14:39 Dextrose (Dextrose 50%) STAT PRN IV Hypoglycemia 04/05/17 18:30 05/05/17 18:29 Lorazepam (Ativan 2mg/ml 1ml) 0.5 mg Q4H PRN IV For Anxiety 04/10/17 10:30 04/17/17 23:59 Morphine Sulfate (Morphine 5mg/ 2.5ml Oral Soln) 3 mg Q4H PRN ORAL PAIN SCALE 4-10 04/14/17 15:00 05/14/17 14:59 Ondansetron HCl (Zofran) 4 mg Q6H PRN IVP Nausea & Vomiting 04/05/17 18:30 05/05/17 18:29 Pantoprazole (Protonix) 40 mg DAILY IVP 04/07/17 09:00 05/07/17 08:59 04/18/17 08:44 Polyethylene Glycol (Miralax) 17 gm HSPRN PRN ORAL Constipation 04/05/17 18:30 05/05/17 18:29 CYN BAILEY Apr 18, 2017 18:47
--- NOTE | 2017-04-18 22:02 | General Progress Note ---
Assessment/Plan Assessment/Plan Assessment/Plan Stage III rectal cancer --> potential evidence of and hepatic pulm mets --> plan for chemotherapy with radiation, awaiting initiation --> discussed with patient re outpatient chemo --> appreciate surgery recs --> imaging has been reviewed Anemia of GI bleed --> hgb goal of >7 --> continue to trend HH daily Leukocytosis 2/2 bacteremia --> ID following Fever 2/2 infection --> improving Anemia of chronic disease Diarrhea Dehydration Hypokaelmia Subjective Gastrointestinal/Abdominal: Reports: rectal bleeding Allergies: Coded Allergies: No Known Allergies (Unverified , 04/05/17) All Systems: reviewed and negative except above Subjective no events Objective Last 24 Hour Vital Signs Date Time Temp Pulse Resp B/P (MAP) Pulse Ox O2 Delivery O2 Flow Rate FiO2 04/18/17 15:58 97.9 87 18 131/82 99 Room Air 04/18/17 12:00 98.2 83 19 139/90 100 Room Air 04/18/17 08:00 98.1 97 18 141/88 99 Room Air 04/18/17 04:00 97.9 90 18 139/89 100 Room Air 04/18/17 00:00 97.9 73 20 138/85 98 Room Air Intake and Output 04/18/17 04/19/17 19:00 07:00 Intake Total 720 ml Balance 720 ml Intake Oral 720 ml # Voids 2 # Bowel Movements 1 Laboratory Tests 04/18/17 07:00: White Blood Count 11.0H, Red Blood Count 4.15L, Hemoglobin 9.2L, Hematocrit 31.1L, Mean Corpuscular Volume 75L, Mean Corpuscular Hemoglobin 22.2L, Mean Corpuscular Hemoglobin Concent 29.7L, Red Cell Distribution Width 25.4H, Platelet Count 388, Mean Platelet Volume 6.3L, Neutrophils (%) (Auto) 76.9H, Lymphocytes (%) (Auto) 16.9L, Monocytes (%) (Auto) 5.3, Eosinophils (%) (Auto) 0.6, Basophils (%) (Auto) 0.3, Prothrombin Time 9.9, Prothromb Time International Ratio 0.9, Activated Partial Thromboplast Time 28, Sodium Level 137, Potassium Level 3.9, Chloride Level 102, Carbon Dioxide Level 28, Anion Gap 7, Blood Urea Nitrogen 11, Creatinine 0.8, Estimat Glomerular Filtration Rate > 60, Glucose Level 77, Calcium Level 8.8, Phosphorus Level 2.5, Magnesium Level 1.9, Total Bilirubin 0.2, Aspartate Amino Transf (AST/SGOT) 48H, Alanine Aminotransferase (ALT/SGPT) 35, Alkaline Phosphatase 45L, Total Protein 7.3, Albumin 2.6L, Globulin 4.7, Albumin/Globulin Ratio 0.6L Height (Feet): 5 Height (Inches): 10.00 Weight (Pounds): 127 General Appearance: no apparent distress EENT: normal ENT inspection Neck: normal alignment, supple Abdomen: soft, no organomegaly Extremities: non-tender Skin: warm/dry Rommel Ching Apr 18, 2017 22:02
--- NOTE | 2017-04-18 22:15 | Pulmonology Progress Note ---
Assessment/Plan Problems: (1) Sepsis (2) Diarrhea (3) Severe protein-calorie malnutrition (4) Anemia (5) Dehydration (6) Rectal mass Assessment/Plan improving WBC wnl febrile today stool for o/p anemia w/u comfort care Subjective ROS Limited/Unobtainable: No Constitutional: Reports: no symptoms HEENT: Repors: no symptoms Allergies: Coded Allergies: No Known Allergies (Unverified , 04/05/17) Objective Last 24 Hour Vital Signs Date Time Temp Pulse Resp B/P (MAP) Pulse Ox O2 Delivery O2 Flow Rate FiO2 04/18/17 15:58 97.9 87 18 131/82 99 Room Air 04/18/17 12:00 98.2 83 19 139/90 100 Room Air 04/18/17 08:00 98.1 97 18 141/88 99 Room Air 04/18/17 04:00 97.9 90 18 139/89 100 Room Air 04/18/17 00:00 97.9 73 20 138/85 98 Room Air Intake and Output 04/18/17 04/19/17 19:00 07:00 Intake Total 720 ml Balance 720 ml Intake Oral 720 ml # Voids 2 # Bowel Movements 1 Objective General Appearance: no acute distress, cachetic HEENT: normocephalic, atraumatic, anicteric, mucous membranes moist Respiratory/Chest: lungs clear, no respiratory distress, no accessory muscle use Cardiovascular: normal rate, regular rhythm, no JVD Abdomen: normal bowel sounds, soft, non tender, non distended Extremities: no edema, pedal pulses normal Neurologic/Psychiatric: alert, responsive, other - A/A/O x 1 only Musculoskeletal: atrophy - BLE Laboratory Tests 04/18/17 07:00: White Blood Count 11.0H, Red Blood Count 4.15L, Hemoglobin 9.2L, Hematocrit 31.1L, Mean Corpuscular Volume 75L, Mean Corpuscular Hemoglobin 22.2L, Mean Corpuscular Hemoglobin Concent 29.7L, Red Cell Distribution Width 25.4H, Platelet Count 388, Mean Platelet Volume 6.3L, Neutrophils (%) (Auto) 76.9H, Lymphocytes (%) (Auto) 16.9L, Monocytes (%) (Auto) 5.3, Eosinophils (%) (Auto) 0.6, Basophils (%) (Auto) 0.3, Prothrombin Time 9.9, Prothromb Time International Ratio 0.9, Activated Partial Thromboplast Time 28, Sodium Level 137, Potassium Level 3.9, Chloride Level 102, Carbon Dioxide Level 28, Anion Gap 7, Blood Urea Nitrogen 11, Creatinine 0.8, Estimat Glomerular Filtration Rate > 60, Glucose Level 77, Calcium Level 8.8, Phosphorus Level 2.5, Magnesium Level 1.9, Total Bilirubin 0.2, Aspartate Amino Transf (AST/SGOT) 48H, Alanine Aminotransferase (ALT/SGPT) 35, Alkaline Phosphatase 45L, Total Protein 7.3, Albumin 2.6L, Globulin 4.7, Albumin/Globulin Ratio 0.6L CYN BAILEY Apr 18, 2017 22:15
--- NOTE | 2017-04-19 15:28 | Discharge Summary ---
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
--- NOTE | 2017-04-20 07:59 | Discharge Summary 2 SIG ---
DATE OF ADMISSION: 04/05/2017 DATE OF DISCHARGE: 04/18/2017 REASON FOR ADMISSION: 67-year-old male with no known past medical history, presented with watery diarrhea for two months. He reported 4-5 watery bowel movements daily mixed with normal bowel movements. No blood noted. No foreign travel. No sick contacts. No recent antibiotic use. He denied nausea, vomiting, fever, chills, or urinary complaints, but reported unintentional weight loss despite normal appetite. Workup in the emergency room revealed hemoglobin-6.4, hematocrit -21.8, and MCV - 68. Potassium - 3.1. No leukocytosis. The patient admitted for blood transfusion and further management for diarrhea, anemia, and hypokalemia. HOSPITAL STAY: The patient was admitted. GI consult was requested. Tthe patient had undergone on 04/08/2017, upper endoscopy with biopsy and colonoscopy with biopsy with snare polypectomy. Summary of findings included distal esophageal ring, hiatal hernia, gastritis, gastric polyp, total of 8 colonic polyps were removed , severe diverticulosis, and rectal mass. GI recommended to follow up biopsy and treat accordingly, check CEA and follow up with loza CT. Stomach biopsy revealed no H. pylori organism, no intestinal metaplasia or dysplasia. Colon polyp revealed no high-grade dysplasia and rectal mass revealed tubulovillous adenomatous changes with high-grade dysplasia and inflamed ulcerated granulation tissue. No lymphovascular invasion was identified. Subsequently, CT of the chest, abdomen, and pelvis revealed 6.3 x 7.5 x 9 cm mass involving the rectum, consistent with clinical history of rectal carcinoma. Invasion of the mass into adjacent prostate and the right side of the seminal vesicles was not completely excludable, confluent areas of low attenuation within the periphery of the mass might represent cystic necrotic areas versus mural abscess. No definitive evidence of hepatic metastasis; however, there were hepatic low attenuation lesions which were too small to characterize, most likely representing cysts but small metastatic deposits could not be completely excluded. In addition, there were larger hepatic low attenuation lesions definitely representing cysts. A 2-mm left upper lobe pulmonary nodule , nonspecific, likely postinflammatory in nature, but a small metastatic deposit could not be ruled out. Prostatomegaly. No other evidence of metastatic disease. Endoscopic ultrasound was done on 04/11/2017 and revealed large rectal mass above the dentate line, t also lymph node of 8 mm was seen. Graded as T3 N1 lesion. Rectal mass pathology was consistent with well-differentiated adenocarcinoma. On 04/11/2017, the patient developed leukocytosis and fever. ID consult was requested. The patient started on empiric antibiotics. Stool for C. difficile initially was checked and was negative. Stool for ova and parasites was negative. Stool culture revealed no evidence of Salmonella, Shigella, or Campylobacter and showed usual enteric michael. Blood culture drawn on 04/11/2017 revealed high-grade bacteremia with E. coli, 4 out of 4 bottles. ID was closely following the patient. Initially, there was no indication for empiric antibiotics. Giardia, Cryptosporidium were negative. Ova and parasites as mentioned above were negative. With new onset of leukocytosis, the patient was started on empiric Zosyn; given fever and leukocytosis - for possible abscess. The patient subsequently had undergone CT-guided drainage of the abscess on 04/13/2017, by interventional radiology, which resulted in successful aspiration of about 30 mL of serosanguineous fluid. Culture of this fluid was negative. Repeated blood culture the next day were negative. Leukocytosis was trending down. On the day of discharge, fever resolved, mild leukocytosis-11. Per ID, high-grade E. coli bacteremia possibly from perirectal abscess versus gut translocation after either colonoscopy or after endoscopic ultrasound. The patient was on IV antibiotics while in the hospital and continue at the detention facility as recommended by ID specialist. Last day of treatment - 04/25/2017 . The patient tolerated diet.The patient had undergone venous duplex of bilateral lower extremities , which was negative for acute DVT. According to oncologist who followed the patient, the patient has stage III rectal cancer with potential evidence of the hepatic and pulmonary metastasis. Plan was for chemotherapy with radiation. Oncology discussed with the patient regarding outpatient chemotherapy. Surgery closely followed. Per surgery, no obstruction, no active bleeding, and no need for urgent surgical intervention. The patient first would need chemotherapy and radiation. Surgery would be done after chemo and radiation. Hemoglobin and hematocrit were closely monitored. Anemia workup was consistent with anemia of chronic disease and iron deficiency anemia. Hemoglobin goal was above 7. The patient required transfusion of 2 units of packed red blood cells. The patient was on Venofer. Stool OB was positive. Prior to discharge, hemoglobin- 9.3 and hematocrit -31.1, remained stable. RECEPTIONIST/TELEPHONE OPERATOR was within normal limits. Electrolytes were replaced and were stable. Nephrotoxics were avoided. Dietary evaluation was done, and dietary supplements were added to the diet. The patient was stable for discharge to the detention facility, Follow up as an outpatient with oncologist for initiation of chemotherapy and radiation. FINAL DIAGNOSES: 1. Sepsis with high grade of Escherichia coli bacteremia (due to rectal abscess versus possible gut translocation during recent gastrointestinal procedure). 2. Rectal adenocarcinoma, stage III. 3. Perirectal abscess 4. Status post on 04/13/2017, CT-guided drainage of perirectal abscess. 5. Pulmonary and hepatic nodule, possible metastasis. 6. Dehydration ( due to diarrhea). 7. Diarrhea ( due to rectal carcinoma) 8. Iron-deficiency anemia. 9. Anemia of gastrointestinal bleeding, requiring blood tranfsuion 10. Severe protein-calorie malnutrition. 11. Hypokalemia. 12. Status post esophagogastroduodenoscopy and colonoscopy. 13. Status post endovascular ultrasound. DISCHARGE MEDICATIONS: See medication reconciliation list. The patient was discharged on antibiotics and iron supplement. DISCHARGE INSTRUCTIONS: The patient was discharged home. Follow up with oncologist for initiation of chemo and radiation. Monique Guido M.D. Gloria BarthNyc Health + HospitalsDonna N.PRadha DR: EVAN JOB#: [id number] CC: CASSANDRA
== END 2017-04-18 19:28 | DRG 374 ==
LOC: EMR 16:21 → 4W 16:44 → EDBEDREQ 16:53 → 4W 04-11 18:42
PROC: 30233N1 Transfusion of Nonautologous Red Blood Cells into Peripheral Vein, Percutaneous Approach (ICD-10-PCS; principal; 2017-04-05)
PROC: 0DBL8ZZ Excision of Transverse Colon, Via Natural or Artificial Opening Endoscopic (ICD-10-PCS; 2017-04-08 08:06)
PROC: 0DBP8ZX Excision of Rectum, Via Natural or Artificial Opening Endoscopic, Diagnostic (ICD-10-PCS; 2017-04-08 08:06)
PROC: 0DB68ZX Excision of Stomach, Via Natural or Artificial Opening Endoscopic, Diagnostic (ICD-10-PCS; 2017-04-08 08:06)
PROC: 0DB78ZX Excision of Stomach, Pylorus, Via Natural or Artificial Opening Endoscopic, Diagnostic (ICD-10-PCS; 2017-04-08 08:06)
PROC: 0DBK8ZZ Excision of Ascending Colon, Via Natural or Artificial Opening Endoscopic (ICD-10-PCS; 2017-04-08 08:06)
PROC: 0DBN8ZZ Excision of Sigmoid Colon, Via Natural or Artificial Opening Endoscopic (ICD-10-PCS; 2017-04-08 08:06)
PROC: 0DJD8ZZ Inspection of Lower Intestinal Tract, Via Natural or Artificial Opening Endoscopic (ICD-10-PCS; 2017-04-11)
PROC: 0D9P3ZZ Drainage of Rectum, Percutaneous Approach (ICD-10-PCS; 2017-04-13)
DX: C20 Malignant neoplasm of rectum (principal); E43 Unspecified severe protein-calorie malnutrition; A41.51 Sepsis due to Escherichia coli [E. coli]; C78.00 Secondary malignant neoplasm of unspecified lung; C78.7 Secondary malignant neoplasm of liver and intrahepatic bile duct; E86.0 Dehydration; K61.1 Rectal abscess; Z68.1 Body mass index [BMI] 19.9 or less, adult; K62.5 Hemorrhage of anus and rectum; K22.2 Esophageal obstruction; K29.70 Gastritis, unspecified, without bleeding; K31.7 Polyp of stomach and duodenum; K63.5 Polyp of colon; E87.6 Hypokalemia; K44.9 Diaphragmatic hernia without obstruction or gangrene; K57.30 Diverticulosis of large intestine without perforation or abscess without bleeding; Z86.010 Personal history of colon polyps; R19.7 Diarrhea, unspecified; D63.8 Anemia in other chronic diseases classified elsewhere; R62.7 Adult failure to thrive; K05.6 Periodontal disease, unspecified; D50.0 Iron deficiency anemia secondary to blood loss (chronic)
CPT/HCPCS: 36415; 70470; 71260; 74177; 75989; 80048; 80053; 81003; 82270; 82607; 82728; 82746; 83540; 83550; 83615; 83690; 83735; 84100; 84153; 84439; 84443; 85007; 85025; 85044; 85060; 85610; 85651; 85730; 86140; 86703; 86850; 86900; 86901; 86920; 86999; 87015; 87040; 87045; 87075; 87181; 87324; 87329; 93005; 93970; 94003; 94150; 97802; 99285; J8499

== ENCOUNTER 2017-05-16 14:59 | Emergency (ER) | payer MEDICARE ==
[~2017-05-16] VITALS: Ht 177.8 cm; Wt 54.4 kg
[~2017-05-16 14:59] MED LIST: CIPROFLOXACIN750 MG ORAL; FERROUS SULFAT325 MG ORAL; MULTIVITAMINS1 EAC2 ORAL
--- NOTE | 2017-05-16 15:14 | Emergency Room Report ---
History of Present Illness General Chief Complaint: Generalized Weakness Source: Patient, Medical Record, EMS, PMD Present Illness HPI 67-year-old male sent from [facility] for "weakness". Patient endorses "generalized body weakness", Patient was transferred for "further evaluation". Patient stating that he is weak "only when he doesn't eat". Is upset that he doesn't get soft food at [facility]. Also endorsing "many months" of "occasional" specks of blood in stool, and dark stool. Per PMD dmitry Alves has known rectal cancer, has had biopsy, is too weak for radiation. Recent admission for anemia, status post transfusion. Paper work indicates history of hypertension, GERD, hypokalemia, diarrhea, cancer of colon/rectum History of present illness otherwise limited due to patient's condition Allergies: Coded Allergies: LACTOSE (Unverified Allergy, Unknown, 05/16/17) Patient History Past Medical History: other - see history of present illness Past Surgical History: none Pertinent Family History: none Social History: Denies: smoking, alcohol use, drug use Reviewed Nursing Documentation: PMH: Agreed, PSxH: Agreed Nursing Documentation-PMH Hx Cardiac Problems: No Hx Cancer: No Hx Gastrointestinal Problems: Yes Hx Neurological Problems: No Review of Systems All Other Systems: negative except mentioned in HPI Physical Exam Vital Signs Date Time Temp Pulse Resp B/P (MAP) Pulse Ox O2 Delivery O2 Flow Rate FiO2 05/16/17 14:51 98.1 78 18 142/76 98 Room Air Sp02 EP Interpretation: reviewed, normal General Appearance: normal inspection, well appearing, no apparent distress, alert, GCS 15, non-toxic Head: normocephalic, atraumatic Eyes: bilateral eye PERRL, bilateral eye EOMI ENT: normal ENT inspection, hearing grossly normal, normal voice Neck: normal inspection, full range of motion, supple, no bony tend Respiratory: normal inspection, lungs clear, normal breath sounds, no respiratory distress, no retraction, no wheezing Cardiovascular #1: regular rate, rhythm, no edema Gastrointestinal: normal inspection, normal bowel sounds, non tender, soft, no guarding, no hernia Genitourinary: no CVA tenderness Musculoskeletal: normal inspection, back normal, normal range of motion, Lucrecia' s Sign negative Neurologic: normal inspection, alert, responsive, speech normal Psychiatric: normal inspection, judgement/insight normal, mood/affect normal Skin: normal inspection, normal color, no rash Medical Decision Making Diagnostic Impression: Primary Impression: Episode of generalized weakness ER Course vital signs stable No active hemorrhage from rectum H&H stable, metabolic abnormality Patient not actually weak, no focal neuro deficits, likely just upset over food provision at [facility] Discussed with primary care Dr. Guido Agrees with transfer back to [facility] EKG Diagnostic Results Rate: normal Rhythm: NSR ST Segments: no acute changes ASA given to the pt in ED: No Rhythm Strip Diag. Results EP Interpretation: yes Rate: 78 Rhythm: NSR, no PVC's Last Vital Signs Date Time Temp Pulse Resp B/P (MAP) Pulse Ox O2 Delivery O2 Flow Rate FiO2 05/16/17 14:51 98.1 78 18 142/76 98 Room Air Status: improved Disposition: [facility] JOSTIN HATCH M.D. May 16, 2017 15:14
[2017-05-16 16:04] LABS: BASOPHILS % (AUTO) 0.4 % (0.0-2.0); EOSINOPHILS % (AUTO) 0.8 % (0.0-3.0); LYMPHOCYTES % (AUTO) 13.1 % (20.0-45.0); MEAN CORPUSCULAR HEMOGLOBIN 25.4 PG (27.0-31.0); MEAN CORPUSCULAR HGB CONC 30.4 G/DL (32.0-36.0); MEAN CORPUSCULAR VOLUME 83 FL (80-99); MEAN PLATELET VOLUME 6.6 FL (6.5-10.1); MONOCYTES % (AUTO) 7.4 % (1.0-10.0); NEUTROPHILS % (AUTO) 78.2 % (45.0-75.0); PLATELET COUNT 347 K/UL (150-450); RED BLOOD COUNT 4.05 M/UL (4.70-6.10); RED CELL DISTRIBUTION WIDTH 24.6 % (11.6-14.8); WHITE BLOOD COUNT 9.9 K/UL (4.8-10.8)
[2017-05-16 16:12] LABS: ANION GAP 8 mmol/L (5-15); CALCIUM 8.8 MG/DL (8.5-10.1); CARBON DIOXIDE 30 MMOL/L (21-32); CHLORIDE 103 MMOL/L (98-107); GLOMERULAR FILTRATION RATE > 60 mL/min (>60); POTASSIUM 3.6 MMOL/L (3.5-5.1); SODIUM 141 MMOL/L (136-145)
[2017-05-16 16:16] LABS: ALANINE AMINOTRANSFERASE 17 U/L (12-78); ALBUMIN/GLOBULIN RATIO 0.7 (1.0-2.7); ASPARTATE AMINO TRANSFERASE 22 U/L (15-37); LIPASE 131 U/L (73-393); TOTAL PROTEIN 6.8 G/DL (6.4-8.2)
[2017-05-16 16:21] VITALS: BP 153/76
[2017-05-16 18:01] VITALS: BP 142/78
--- NOTE | 2017-05-17 14:19 | Cardiology Report ---
APPROVED REPORT EKG Measurement Heart [id number] Normal sinus rhythm Possible Left atrial enlargement Rightward axis Borderline ECG
== END 2017-05-16 18:02 ==
LOC: EDBD 14:59 → EMR 16:02 → EDBEDREQ 16:27 → CANBEDREQ 16:38 → EMR 18:02
DX: R53.1 Weakness (principal)
CPT/HCPCS: 36415; 80053; 83690; 85025; 86850; 86900; 86901; 93005; 99283

== ENCOUNTER 2017-05-26 14:52 | Inpatient (IN) | payer MEDICARE ==
[~2017-05-26] VITALS: Ht 175.3 cm; Wt 81.6 kg
[2017-05-26] MEDS ORDERED: Surgicel 4in x 8in TOPIC ONE (15:05)
[2017-05-26 15:40] LABS: BASOPHILS % (AUTO) 0.6 % (0.0-2.0); EOSINOPHILS % (AUTO) 1.4 % (0.0-3.0); LYMPHOCYTES % (AUTO) 18.9 % (20.0-45.0); MEAN CORPUSCULAR HEMOGLOBIN 25.4 PG (27.0-31.0); MEAN CORPUSCULAR HGB CONC 29.8 G/DL (32.0-36.0); MEAN CORPUSCULAR VOLUME 85 FL (80-99); MEAN PLATELET VOLUME 7.5 FL (6.5-10.1); MONOCYTES % (AUTO) 8.3 % (1.0-10.0); NEUTROPHILS % (AUTO) 70.8 % (45.0-75.0); PLATELET COUNT 308 K/UL (150-450); RED BLOOD COUNT 4.26 M/UL (4.70-6.10); RED CELL DISTRIBUTION WIDTH 22.9 % (11.6-14.8)
[2017-05-26 15:51] LABS: INR 0.9 (0.9-1.1); PROTHROMBIN TIME 9.9 SEC (9.30-11.50)
[2017-05-26 15:52] LABS: ANION GAP 6 mmol/L (5-15); CALCIUM 8.9 MG/DL (8.5-10.1); CARBON DIOXIDE 31 MMOL/L (21-32); CHLORIDE 103 MMOL/L (98-107); CREATININE 1.2 MG/DL (0.55-1.30); GLOMERULAR FILTRATION RATE > 60 mL/min (>60); POTASSIUM 3.6 MMOL/L (3.5-5.1); SODIUM 140 MMOL/L (136-145)
[2017-05-26 16:04] LABS: ALANINE AMINOTRANSFERASE 17 U/L (12-78); ALBUMIN/GLOBULIN RATIO 0.6 (1.0-2.7); ASPARTATE AMINO TRANSFERASE 26 U/L (15-37); LIPASE 166 U/L (73-393); THYROID STIMULATING HORMONE 0.749 uiU/mL (0.358-3.740); TOTAL PROTEIN 7.3 G/DL (6.4-8.2)
[2017-05-26] MEDS ORDERED: Zolpidem 5mg tab ORAL PRN (16:30)
[2017-05-26] MEDS ORDERED: Miralax 17gm pkt ORAL PRN (16:30)
[2017-05-26] MEDS ORDERED: Morphine Sulfate 2mg/ml Inj IVP PRN (16:30)
[2017-05-26] MEDS ORDERED: LORazepam Inj 2mg/ml 1ml IV PRN (16:30)
[2017-05-26] MEDS ORDERED: Mylanta II UD 30ml ORAL PRN (16:30)
[2017-05-26 16:41] LABS: APPEARANCE,URINE CLEAR; KETONES,URINE NEGATIVE (NEGATIVE); LEUKOCYTE ESTERASE ,URINE NEGATIVE (NEGATIVE); NITRITE,URINE NEGATIVE (NEGATIVE); PH,URINE 5 (4.5-8.0); PROTEIN,URINE 1+ (NEGATIVE); UROBILINOGEN,URINE NORMAL MG/DL (0.0-1.0)
[2017-05-26 17:09] LABS: BACTERIA,URINE OCCASIONAL /HPF; RBC,URINE 0-2 /HPF (0 - 0); SQUAMOUS EPITHELIAL CELL,UR OCCASIONAL /LPF (NONE/OCC); WBC,URINE 0-2 /HPF (0 - 0)
[2017-05-26 21:15] VITALS: BP 130/74
--- NOTE | 2017-05-26 22:10 | History and Physical ---
History of Present Illness General Date patient seen: May 26, 2017 Reason for Hospitalization: Gastrointestinal Bleed Present Illness HPI 67 year old male with hx of rectal cancer, debility, currently at the long term brought in evaluation of anemia and increasing oozing per rectum. Allergies: Coded Allergies: LACTOSE (Unverified Allergy, Unknown, 05/16/17) Medication History Scheduled Docusate Sodium* (Colace*), 100 MG ORAL DAILY, (Reported) Ferrous Sulfate* (Ferrous Sulfate*), 325 MG ORAL TWICE A DAY Multivitamins* (Multivitamins*), 1 TAB ORAL DAILY, (Reported) Scheduled PRN Acetaminophen* (Acetaminophen 325MG Tablet*), 650 MG ORAL Q4H PRN for Mild Pain/ Temp > 100.5, (Reported) Bisacodyl (Dulcolax), 10 MG RC DAILY PRN for Constipation, (Reported) Magnesium Hydroxide* (Milk Of Magnesia*), 30 ML ORAL DAILY PRN for Constipation, (Reported) Discontinued Medications Ciprofloxacin Hcl (Ciprofloxacin Hcl*), 750 MG ORAL BID Discontinued Reason: Pt stopped taking med Patient History Healthcare decision maker Resuscitation status Advanced Directive on File Past Medical/Surgical History Past Medical/Surgical History: (1) Rectal cancer Review of Systems Constitutional: Reports: no symptoms Eye: Reports: no symptoms Physical Exam General Appearance: WD/WN, no apparent distress Lines, tubes and drains: peripheral, central line HEENT: normocephalic, atraumatic Neck: non-tender, normal alignment Respiratory/Chest: chest wall non-tender, lungs clear Breasts: no masses Cardiovascular/Chest: normal peripheral pulses, normal rate Abdomen: normal bowel sounds, soft Genitourinary/Rectal: normal genital exam Extremities: normal range of motion Skin Exam: normal pigmentation Lymphatic: anterior cervical Last 24 Hour Vital Signs Date Time Temp Pulse Resp B/P (MAP) Pulse Ox O2 Delivery O2 Flow Rate FiO2 05/26/17 14:50 97.2 78 20 122/68 99 Laboratory Tests Test 05/26/17 15:10 05/26/17 16:10 White Blood Count 9.0 K/UL (4.8-10.8) Red Blood Count 4.26 M/UL (4.70-6.10) L Hemoglobin 10.8 G/DL (14.2-18.0) L Hematocrit 36.3 % (42.0-52.0) L Mean Corpuscular Volume 85 FL (80-99) Mean Corpuscular Hemoglobin 25.4 PG (27.0-31.0) L Mean Corpuscular Hemoglobin Concent 29.8 G/DL (32.0-36.0) L Red Cell Distribution Width 22.9 % (11.6-14.8) H Platelet Count 308 K/UL (150-450) Mean Platelet Volume 7.5 FL (6.5-10.1) Neutrophils (%) (Auto) 70.8 % (45.0-75.0) Lymphocytes (%) (Auto) 18.9 % (20.0-45.0) L Monocytes (%) (Auto) 8.3 % (1.0-10.0) Eosinophils (%) (Auto) 1.4 % (0.0-3.0) Basophils (%) (Auto) 0.6 % (0.0-2.0) Prothrombin Time 9.9 SEC (9.30-11.50) Prothromb Time International Ratio 0.9 (0.9-1.1) Activated Partial Thromboplast Time 28 SEC (23-33) Sodium Level 140 MMOL/L (136-145) Potassium Level 3.6 MMOL/L (3.5-5.1) Chloride Level 103 MMOL/L (98-107) Carbon Dioxide Level 31 MMOL/L (21-32) Anion Gap 6 mmol/L (5-15) Blood Urea Nitrogen 18 mg/dL (7-18) Creatinine 1.2 MG/DL (0.55-1.30) Estimat Glomerular Filtration Rate > 60 mL/min (>60) Glucose Level 100 MG/DL (74-106) Calcium Level 8.9 MG/DL (8.5-10.1) Total Bilirubin 0.2 MG/DL (0.2-1.0) Aspartate Amino Transf (AST/SGOT) 26 U/L (15-37) Alanine Aminotransferase (ALT/SGPT) 17 U/L (12-78) Alkaline Phosphatase 67 U/L (46-116) Total Protein 7.3 G/DL (6.4-8.2) Albumin 2.8 G/DL (3.4-5.0) L Globulin 4.5 g/dL Albumin/Globulin Ratio 0.6 (1.0-2.7) L Lipase 166 U/L (73-393) Thyroid Stimulating Hormone (TSH) 0.749 uiU/mL (0.358-3.740) HIV (1&2) Antibody Rapid Negative (NEGATIVE) Urine Color Yellow Urine Appearance Clear Urine pH 5 (4.5-8.0) Urine Specific [place] 1.025 (1.005-1.035) Urine Protein 1+ (NEGATIVE) H Urine Glucose (UA) Negative (NEGATIVE) Urine Ketones Negative (NEGATIVE) Urine Occult Blood Negative (NEGATIVE) Urine Nitrite Negative (NEGATIVE) Urine Bilirubin Negative (NEGATIVE) Urine Urobilinogen Normal MG/DL (0.0-1.0) Urine Leukocyte Esterase Negative (NEGATIVE) Urine RBC 0-2 /HPF (0 - 0) H Urine WBC 0-2 /HPF (0 - 0) Urine Squamous Epithelial Cells Occasional /LPF Urine Bacteria Occasional /HPF (NONE) Height (Feet): 5 Height (Inches): 9.00 Weight (Pounds): 180 Medications Current Medications Medications (Trade) Dose Ordered Sig/Juana Route PRN Reason Start Time Stop Time Status Last Admin Dose Admin Acetaminophen (Tylenol) 650 mg Q4H PRN ORAL fever 05/26/17 16:30 06/25/17 16:29 Al Hydroxide/Mg Hydroxide (Mylanta II) 30 ml Q6H PRN ORAL dyspepsia 05/26/17 16:30 06/25/17 16:29 Dextrose (Dextrose 50%) STAT PRN IV Hypoglycemia 05/26/17 16:30 06/25/17 16:29 Ferrous Sulfate (Feosol) 325 mg TWICE A DAY ORAL 05/27/17 09:00 06/26/17 08:59 Lorazepam (Ativan 2mg/ml 1ml) 0.5 mg Q4H PRN IV For Anxiety 05/26/17 16:30 06/02/17 16:29 Morphine Sulfate (Morphine Sulfate) 1 mg Q4H PRN IVP For Moderate to Severe Pain 05/26/17 16:30 06/02/17 16:29 Multivitamins (Multivitamins) 1 tab DAILY ORAL 05/27/17 09:00 06/26/17 08:59 Ondansetron HCl (Zofran) 4 mg Q6H PRN IVP Nausea & Vomiting 12/7/17 16:30 06/25/17 16:29 Polyethylene Glycol (Miralax) 17 gm HSPRN PRN ORAL Constipation 05/26/17 16:30 06/25/17 16:29 Zolpidem Tartrate (Ambien) 5 mg HSPRN PRN ORAL Insomnia 05/26/17 16:30 06/02/17 16:29 Assessment/Plan Problem List: (1) Gastrointestinal hemorrhage ICD Codes: K92.2 - Gastrointestinal hemorrhage, unspecified SNOMED: 61012643 (2) Rectal cancer ICD Codes: C20 - Malignant neoplasm of rectum SNOMED: 998699757 Assessment/Plan prbc prn symptomatic treatment check h/h pain management oncology to see. CYN BAILEY May 26, 2017 22:10
[2017-05-26] MEDS ORDERED: COLACE100 MG ORAL (23:06)
[2017-05-26] MEDS ORDERED: MILK OF MA400 MG/51 ORAL (23:06)
[2017-05-26] MEDS ORDERED: ACETAMINOPHEN325 M1 ORAL (23:06)
[2017-05-26] MEDS ORDERED: DULCOLAX10 MG RC (23:06)
[2017-05-27] VITALS: BP 140/88
[2017-05-27 04:00] VITALS: BP 138/80
[2017-05-27 07:25] LABS: BASOPHILS % (AUTO) 0.8 % (0.0-2.0); EOSINOPHILS % (AUTO) 1.3 % (0.0-3.0); LYMPHOCYTES % (AUTO) 18.2 % (20.0-45.0); MEAN CORPUSCULAR HEMOGLOBIN 26.2 PG (27.0-31.0); MEAN CORPUSCULAR HGB CONC 30.9 G/DL (32.0-36.0); MEAN CORPUSCULAR VOLUME 85 FL (80-99); MEAN PLATELET VOLUME 8.1 FL (6.5-10.1); MONOCYTES % (AUTO) 8.4 % (1.0-10.0); NEUTROPHILS % (AUTO) 71.3 % (45.0-75.0); PLATELET COUNT 259 K/UL (150-450); RED BLOOD COUNT 3.79 M/UL (4.70-6.10); RED CELL DISTRIBUTION WIDTH 23.1 % (11.6-14.8); WHITE BLOOD COUNT 7.9 K/UL (4.8-10.8)
[2017-05-27 07:57] LABS: ALANINE AMINOTRANSFERASE 13 U/L (12-78); ALBUMIN/GLOBULIN RATIO 0.6 (1.0-2.7); ANION GAP 4 mmol/L (5-15); ASPARTATE AMINO TRANSFERASE 24 U/L (15-37); CALCIUM 8.8 MG/DL (8.5-10.1); CARBON DIOXIDE 32 MMOL/L (21-32); CHLORIDE 106 MMOL/L (98-107); CHOLESTEROL 165 MG/DL (< 200); CHOLESTEROL/HDL RATIO 2.2 (3.3-4.4); CREATININE 0.9 MG/DL (0.55-1.30); GLOMERULAR FILTRATION RATE > 60 mL/min (>60); SODIUM 142 MMOL/L (136-145); THYROID STIMULATING HORMONE 0.869 uiU/mL (0.358-3.740)
[2017-05-27 08:00] VITALS: BP 128/76
[2017-05-27 11:48] LABS: FERRITIN 42 NG/ML (8-388); LACTATE DEHYDROGENASE 264 U/L (81-234)
[2017-05-27 12:00] VITALS: BP 152/92
[2017-05-27 12:02] LABS: IRON 99 ug/dL (50-175); TOTAL IRON BINDING CAPACITY 238 ug/dL (250-450)
[2017-05-27 14:22] LABS: ANISOCYTOSIS 3+; BAND NEUTROPHILS % (MANUAL) 0 % (0-8); BASOPHILS % (MANUAL) 0 % (0-2); EOSINOPHILS % (MANUAL) 2 % (0-3); HYPOCHROMASIA 1+; LYMPHOCYTES % (MANUAL) 22 % (20-45); NEUTROPHILS % (MANUAL) 70 % (45-75); PLATELET ESTIMATE ADEQUATE; TOTAL CELLS COUNTED 100
[2017-05-27 14:23] LABS: PLATELET MORPHOLOGY NORMAL
[2017-05-27] MEDS: Dronabinol 2.5mg Cap ORAL SCH (15:15)
[2017-05-27 16:00] VITALS: BP 155/93
--- NOTE | 2017-05-27 16:05 | GI Initial Consult Note ---
History of Present Illness General Date patient seen: May 27, 2017 Time patient seen: 16:05 Reason for Hospitalization: Gastrointestinal Bleed Referring physician: CYN OLVERA Reason for Consultation: RECTAL BLEEDING Present Illness HPI The patient is a pleasant 67-year-old male with complaints of diarrhea for approximately one month. He has had EGD and colonoscopy by GI service during his past admissino 2 months ago. Rectal tumor was noted. No recent weight loss. Imaging was reviewed. He had a CAT scan of the chest, abdomen, and pelvis, which showed hepatosplenomegaly, 2 mm left upper lobe nodule, nonspecific, and no definitive evidence of hepatic metastasis. A large 6.3 x 8 x 9 cm mass in the rectum consistent with clinical rectal carcinoma. He was seen again by the GI team and noted to be iron deficient. Biopsy completed, it shows evidence of malignancy. The patient presents today with noted rectal bleeding. GI consulted for rectal bleeding, dx rectal mass during last admission. HPI as noted above. Pt seen on floor, awake A&Ox4 NAD with no active s/sx of N/V/ D. He is currently being followed by Dr. Ching as outpatient for his rectal mass. Labs show anemia, iron deficient during last admission and hypoalbuminemia. Cdiff noted as negative on current admission. Home Meds Active Scripts Ferrous Sulfate* (FERROUS SULFATE*) 325 Mg Tablet, 325 MG ORAL TWICE A DAY, #60 TAB 0 Refills Prov:Gloria Dai (Vanchtein) FRAME COVERER 04/18/17 Reported Medications Acetaminophen* (ACETAMINOPHEN 325MG TABLET*) 325 Mg Tablet, 650 MG ORAL Q4H Y for Mild Pain/Temp > 100.5, TAB 05/26/17 Magnesium Hydroxide* (MILK OF MAGNESIA*) 400 Mg/5 Ml Oral.susp, 30 ML ORAL DAILY Y for Constipation, ML 05/26/17 Bisacodyl (DULCOLAX) 10 Mg Supp.rect, 10 MG RC DAILY Y for Constipation, SUPP 05/26/17 Docusate Sodium* (COLACE*) 100 Mg Capsule, 100 MG ORAL DAILY, CAP 05/26/17 Multivitamins* (MULTIVITAMINS*) 1 Each Tablet, 1 TAB ORAL DAILY, TAB 0 Refills 04/05/17 Discontinued Scripts Ciprofloxacin Hcl (CIPROFLOXACIN HCL*) 750 Mg Tablet, 750 MG ORAL BID, #16 TAB 0 Refills Prov:Suhas Mao)Gloria FRAME COVERER 04/18/17 Med list reviewed/reconciled: Yes Allergies: Coded Allergies: LACTOSE (Unverified Allergy, Unknown, 05/16/17) Patient History History Provided By: Patient, Medical Record Social History: Denies: smoking, alcohol use, drug use, other Review of Systems All Other Systems: negative except mentioned in HPI Physical Exam Vital Signs Date Time Temp Pulse Resp B/P (MAP) Pulse Ox O2 Delivery O2 Flow Rate FiO2 05/26/17 14:50 97.2 78 20 122/68 99 05/26/17 21:15 Room Air Sp02 EP Interpretation: reviewed, normal Labs Laboratory Tests Test 05/26/17 16:10 05/27/17 06:25 05/27/17 10:50 Urine Color Yellow Urine Appearance Clear Urine pH 5 (4.5-8.0) Urine Specific [place] 1.025 (1.005-1.035) Urine Protein 1+ (NEGATIVE) H Urine Glucose (UA) Negative (NEGATIVE) Urine Ketones Negative (NEGATIVE) Urine Occult Blood Negative (NEGATIVE) Urine Nitrite Negative (NEGATIVE) Urine Bilirubin Negative (NEGATIVE) Urine Urobilinogen Normal MG/DL (0.0-1.0) Urine Leukocyte Esterase Negative (NEGATIVE) Urine RBC 0-2 /HPF (0 - 0) H Urine WBC 0-2 /HPF (0 - 0) Urine Squamous Epithelial Cells Occasional /LPF Urine Bacteria Occasional /HPF (NONE) White Blood Count 7.9 K/UL (4.8-10.8) Red Blood Count 3.79 M/UL (4.70-6.10) L Hemoglobin 9.9 G/DL (14.2-18.0) L Hematocrit 32.2 % (42.0-52.0) L Mean Corpuscular Volume 85 FL (80-99) Mean Corpuscular Hemoglobin 26.2 PG (27.0-31.0) L Mean Corpuscular Hemoglobin Concent 30.9 G/DL (32.0-36.0) L Red Cell Distribution Width 23.1 % (11.6-14.8) H Platelet Count 259 K/UL (150-450) Mean Platelet Volume 8.1 FL (6.5-10.1) Neutrophils (%) (Auto) 71.3 % (45.0-75.0) Lymphocytes (%) (Auto) 18.2 % (20.0-45.0) L Monocytes (%) (Auto) 8.4 % (1.0-10.0) Eosinophils (%) (Auto) 1.3 % (0.0-3.0) Basophils (%) (Auto) 0.8 % (0.0-2.0) Differential Total Cells Counted 100 Neutrophils % (Manual) 70 % (45-75) Lymphocytes % (Manual) 22 % (20-45) Monocytes % (Manual) 6 % (1-10) Eosinophils % (Manual) 2 % (0-3) Basophils % (Manual) 0 % (0-2) Band Neutrophils 0 % (0-8) Platelet Estimate Adequate Platelet Morphology Normal Hypochromasia 1+ Anisocytosis 3+ Sodium Level 142 MMOL/L (136-145) Potassium Level 4.0 MMOL/L (3.5-5.1) Chloride Level 106 MMOL/L (98-107) Carbon Dioxide Level 32 MMOL/L (21-32) Anion Gap 4 mmol/L (5-15) L Blood Urea Nitrogen 12 mg/dL (7-18) Creatinine 0.9 MG/DL (0.55-1.30) Estimat Glomerular Filtration Rate > 60 mL/min (>60) Glucose Level 79 MG/DL (74-106) Calcium Level 8.8 MG/DL (8.5-10.1) Total Bilirubin 0.3 MG/DL (0.2-1.0) 0.4 MG/DL (0.2-1.0) Aspartate Amino Transf (AST/SGOT) 24 U/L (15-37) Alanine Aminotransferase (ALT/SGPT) 13 U/L (12-78) Alkaline Phosphatase 55 U/L (46-116) Total Protein 7.0 G/DL (6.4-8.2) Albumin 2.6 G/DL (3.4-5.0) L Globulin 4.4 g/dL Albumin/Globulin Ratio 0.6 (1.0-2.7) L Triglycerides Level 32 MG/DL (30-150) Cholesterol Level 165 MG/DL (< 200) LDL Cholesterol 88 mg/dL (<100) HDL Cholesterol 75 MG/DL (40-60) H Cholesterol/HDL Ratio 2.2 (3.3-4.4) L Thyroid Stimulating Hormone (TSH) 0.869 uiU/mL (0.358-3.740) Fibrinogen 413 mg/dL (200-400) H Iron Level 99 ug/dL (50-175) Total Iron Binding Capacity 238 ug/dL (250-450) L Percent Iron Saturation 42 % (15-50) Unsaturated Iron Binding 139 ug/dL (112-346) Ferritin 42 NG/ML (8-388) Lactate Dehydrogenase 264 U/L (81-234) H CA 15-3 Antigen Pending Vitamin B12 Level 219 PG/ML (193-986) Hepatitis A IgM Antibody Pending Hepatitis B Surface Antigen Pending Hepatitis B Core IgM Antibody Pending Hepatitis C Antibody Pending General Appearance: well appearing, no apparent distress, alert, thin Head: normocephalic EENT: PERRL/EOMI, normal ENT inspection Neck: supple Respiratory: normal breath sounds, no respiratory distress Cardiovascular: normal rate Gastrointestinal: normal inspection, non tender, soft, normal bowel sounds, non -distended Rectal: deferred Genitourinary: deferred Musculoskeletal: normal inspection, back normal Neurologic: normal inspection, alert, oriented x3, responsive Psychiatric: normal inspection, judgement/insight normal, memory normal Skin: normal inspection, normal color, no rash, warm/dry, palpation normal, well hydrated Lymphatic: normal inspection, no adenopathy Current Medications Current Medications Medications (Trade) Dose Ordered Sig/Juana Route PRN Reason Start Time Stop Time Status Last Admin Dose Admin Acetaminophen (Tylenol) 650 mg Q4H PRN ORAL fever 05/26/17 16:30 06/25/17 16:29 Al Hydroxide/Mg Hydroxide (Mylanta II) 30 ml Q6H PRN ORAL dyspepsia 05/26/17 16:30 06/25/17 16:29 Dextrose (Dextrose 50%) STAT PRN IV Hypoglycemia 05/26/17 16:30 06/25/17 16:29 Dronabinol (Marinol) 2.5 mg DAILY ORAL 05/27/17 15:15 06/26/17 15:14 Ferrous Sulfate (Feosol) 325 mg TWICE A DAY ORAL 05/27/17 09:00 06/26/17 08:59 05/27/17 09:03 Lorazepam (Ativan 2mg/ml 1ml) 0.5 mg Q4H PRN IV For Anxiety 05/26/17 16:30 06/02/17 16:29 Morphine Sulfate (Morphine Sulfate) 1 mg Q4H PRN IVP For Moderate to Severe Pain 05/26/17 16:30 06/02/17 16:29 Multivitamins (Multivitamins) 1 tab DAILY ORAL 05/27/17 09:00 06/26/17 08:59 05/27/17 09:03 Ondansetron HCl (Zofran) 4 mg Q6H PRN IVP Nausea & Vomiting 05/26/17 16:30 06/25/17 16:29 Polyethylene Glycol (Miralax) 17 gm HSPRN PRN ORAL Constipation 05/26/17 16:30 06/25/17 16:29 Zolpidem Tartrate (Ambien) 5 mg HSPRN PRN ORAL Insomnia 05/26/17 16:30 06/02/17 16:29 GI: Plan Problems: (1) Gastrointestinal hemorrhage (2) Rectal cancer (3) Rectal mass (4) Sepsis (5) Severe protein-calorie malnutrition (6) Iron deficiency (7) Dehydration Plan cdiff negative defer GI procedures, fu oncology recs symptomatic treatment at this time monitor H&H, prn transfusions Imodium prn pain mgmt ppi fu labs, hepatitis panel, iron panel given history Discussed with Dr. Son. Thank you for this patient referral, we will follow. Linda Ratliff N.P. May 27, 2017 16:05
[2017-05-27] MEDS ORDERED: Loperamide 2mg cap ORAL PRN (16:15)
--- NOTE | 2017-05-27 16:44 | Pulmonology Progress Note ---
Assessment/Plan Problems: (1) Gastrointestinal hemorrhage (2) Rectal cancer Assessment/Plan prbc prn pain management will alfredo to tp about hop[facility] care, pt didn't get stronger since last admission to get chemo/RT Subjective ROS Limited/Unobtainable: No Constitutional: Reports: no symptoms HEENT: Repors: no symptoms Respiratory: Reports: no symptoms Cardiovascular: Reports: no symptoms Allergies: Coded Allergies: LACTOSE (Unverified Allergy, Unknown, 05/16/17) Objective Last 24 Hour Vital Signs Date Time Temp Pulse Resp B/P (MAP) Pulse Ox O2 Delivery O2 Flow Rate FiO2 05/27/17 12:00 97.7 88 20 152/92 100 05/27/17 08:53 Room Air 05/27/17 08:00 97.9 84 18 128/76 100 05/27/17 04:00 97.9 65 18 138/80 100 05/27/17 00:00 Room Air 05/27/17 00:00 97.7 69 18 140/88 100 05/26/17 21:15 84 18 130/74 100 Room Air 05/26/17 21:15 97.2 18 130/74 100 Room Air General Appearance: cachetic HEENT: normocephalic, atraumatic Respiratory/Chest: lungs clear, chest wall tender Cardiovascular: normal rate Abdomen: normal bowel sounds, soft, non tender Microbiology Date/Time Source Procedure Growth Status 05/27/17 04:30 Stool Clostridium difficile Toxin Assay - Final Complete Laboratory Tests 05/27/17 06:25: White Blood Count 7.9, Red Blood Count 3.79L, Hemoglobin 9.9L, Hematocrit 32.2L , Mean Corpuscular Volume 85, Mean Corpuscular Hemoglobin 26.2L, Mean Corpuscular Hemoglobin Concent 30.9L, Red Cell Distribution Width 23.1H, Platelet Count 259, Mean Platelet Volume 8.1, Neutrophils (%) (Auto) 71.3, Lymphocytes (%) (Auto) 18.2L, Monocytes (%) (Auto) 8.4, Eosinophils (%) (Auto) 1.3, Basophils (%) (Auto) 0.8, Differential Total Cells Counted 100, Neutrophils % (Manual) 70, Lymphocytes % (Manual) 22, Monocytes % (Manual) 6, Eosinophils % (Manual) 2, Basophils % (Manual) 0, Band Neutrophils 0, Platelet Estimate Adequate, Platelet Morphology Normal, Hypochromasia 1+, Anisocytosis 3+ , Sodium Level 142, Potassium Level 4.0, Chloride Level 106, Carbon Dioxide Level 32, Anion Gap 4L, Blood Urea Nitrogen 12, Creatinine 0.9, Estimat Glomerular Filtration Rate > 60, Glucose Level 79, Calcium Level 8.8, Total Bilirubin 0.3, Aspartate Amino Transf (AST/SGOT) 24, Alanine Aminotransferase ( ALT/SGPT) 13, Alkaline Phosphatase 55, Total Protein 7.0, Albumin 2.6L, Globulin 4.4, Albumin/Globulin Ratio 0.6L, Triglycerides Level 32, Cholesterol Level 165, LDL Cholesterol 88, HDL Cholesterol 75H, Cholesterol/HDL Ratio 2.2L, Thyroid Stimulating Hormone (TSH) 0.869 05/27/17 10:50: Total Bilirubin 0.4, Fibrinogen 413H, Iron Level 99, Total Iron Binding Capacity 238L, Percent Iron Saturation 42, Unsaturated Iron Binding 139, Ferritin 42, Lactate Dehydrogenase 264H, CA 15-3 Antigen [Pending], Vitamin B12 Level 219, Hepatitis A IgM Antibody [Pending], Hepatitis B Surface Antigen [ Pending], Hepatitis B Core IgM Antibody [Pending], Hepatitis C Antibody [Pending ] Current Medications Medications (Trade) Dose Ordered Sig/Juana Route PRN Reason Start Time Stop Time Status Last Admin Dose Admin Acetaminophen (Tylenol) 650 mg Q4H PRN ORAL fever 05/26/17 16:30 06/25/17 16:29 Al Hydroxide/Mg Hydroxide (Mylanta II) 30 ml Q6H PRN ORAL dyspepsia 05/26/17 16:30 06/25/17 16:29 Dextrose (Dextrose 50%) STAT PRN IV Hypoglycemia 05/26/17 16:30 06/25/17 16:29 Dronabinol (Marinol) 2.5 mg DAILY ORAL 05/27/17 15:15 06/26/17 15:14 Ferrous Sulfate (Feosol) 325 mg TWICE A DAY ORAL 05/27/17 09:00 06/26/17 08:59 05/27/17 09:03 Loperamide HCl (Imodium) 2 mg Q4H PRN ORAL Diarrhea 05/27/17 16:15 06/26/17 16:14 Lorazepam (Ativan 2mg/ml 1ml) 0.5 mg Q4H PRN IV For Anxiety 05/26/17 16:30 06/02/17 16:29 Morphine Sulfate (Morphine Sulfate) 1 mg Q4H PRN IVP For Moderate to Severe Pain 05/26/17 16:30 06/02/17 16:29 Multivitamins (Multivitamins) 1 tab DAILY ORAL 05/27/17 09:00 06/26/17 08:59 05/27/17 09:03 Ondansetron HCl (Zofran) 4 mg Q6H PRN IVP Nausea & Vomiting 05/26/17 16:30 06/25/17 16:29 Pantoprazole (Protonix) 40 mg DAILY ORAL 05/28/17 09:00 06/27/17 08:59 Polyethylene Glycol (Miralax) 17 gm HSPRN PRN ORAL Constipation 05/26/17 16:30 06/25/17 16:29 Zolpidem Tartrate (Ambien) 5 mg HSPRN PRN ORAL Insomnia 05/26/17 16:30 06/02/17 16:29 CYN BAILEY May 27, 2017 16:44
[2017-05-27 20:00] VITALS: BP 149/93
--- NOTE | 2017-05-27 21:30 | Consultation ---
DATE OF CONSULTATION: 05/27/2017 HEMATOLOGY/ONCOLOGY CONSULTATION CONSULTING PHYSICIAN: Rommel Ching M.D. REQUESTING PHYSICIAN: Monique Guido M.D. REASON FOR CONSULTATION: Evaluation of rectal cancer. IDENTIFICATION DATA: Dear Dr. Guido: The patient is a pleasant 67-year-old male with past medical history, which is significant for stage III rectal adenocarcinoma, who has been seen in the office and the Oncology office has not started chemotherapy at this time and potentially the patient to have appointment this upcoming Tuesday. Hematology service was consulted for evaluation of rectal adenocarcinoma as well as evaluation of potential imaging that the patient requires any, especially of the abdomen and pelvis for he did have evidence of potential metastasis in the past. At this time, he presents with rectal bleeding, noted to have a hemoglobin of 9.9. Again, Hematology service was consulted for evaluation and treatment. PAST MEDICAL HISTORY: 1. Stage III rectal carcinoma. 2. Leukocytosis. 3. Fever, unknown origin. 4. . 5. Anemia of chronic disease. ALLERGIES: Lactulose. MEDICATIONS: Iron, Protonix, Soma, morphine, . FAMILY HISTORY: Noncontributory. SOCIAL HISTORY: No alcohol, tobacco, or illicit drug use. REVIEW OF SYSTEMS: CONSTITUTIONAL: No fevers or chills. SKIN: No rashes, bumps, or itching. HEENT: No headache, hearing or vision changes. BREASTS: No lumps, pain, or discharge. PULMONARY: No cough, sputum, or shortness of breath. GASTROINTESTINAL: Some rectal bleeding is noted. GENITOURINARY: No dysuria, frequency, or urgency. MUSCULOSKELETAL: No joint swelling, muscle pain, or trauma. PHYSICAL EXAMINATION: VITAL SIGNS: Reviewed. Temperature 98 degrees Fahrenheit, pulse 84, respiratory rate 12, blood pressure 120/76, and pulse oximetry 100% on room air. GENERAL: No acute distress. PULMONARY: Decreased breath sounds. CARDIOVASCULAR: Regular rate. No S3 and S4. ABDOMEN: Soft, nontender, and nondistended. EXTREMITIES: A 1+ edema. LABORATORY DATA: Currently, hemoglobin of 9.9, which yesterday was 10.8. INR is 0.9. BUN of 12 and creatinine 0.9. Serology from before reviewed was negative. Negative for HIV currently. IMAGING: On 04/13/2017 revealed chronic age-related changes noted on the CAT scan of the brain and prior imaging of CAT scan of the abdomen and pelvis reviewed of 04/11/2017 shows 7 x 7 x 10 rectal mass as noted before, potential metastasis noted, however, is nondefinitive. ASSESSMENT AND RECOMMENDATION: 1. Stage III rectal adenocarcinoma. Pathology report reviewed from before and the patient had adenocarcinoma well-differentiated large intestine in the rectal area and currently concerning for stage IV. We will order a CAT scan of the abdomen and pelvis for further evaluation. The patient has not started treatment, has an appointment on 05/30/2017. 2. Anemia, secondary to gastrointestinal bleed. Current hemoglobin 9.9. We will send off for ferritin and workup as needed. Hemoglobin goal is above 7. 3. Hypoalbuminemia, likely secondary to decreased p.o. intake. Continue to closely monitor. 4. History of diarrhea, currently improved. 5. Anemia of iron deficiency, currently remains on ferrous sulfate. 6. Continue to closely monitor and check the patient's stage IV disease. Rommel Ching M.D. DR: MAT JOB#: [id number] CC:
--- NOTE | 2017-05-27 22:49 | Emergency Room Report ---
History of Present Illness General Chief Complaint: Gastrointestinal Bleed Source: Patient, Medical Record Present Illness HPI Patient is a 67-year-old male sent in by nursing facility after increased rectal bleeding. The patient was noted to have prior history of rectal cancer. The patient was noted to have moderate amount of bright red blood from the rectum. The patient was sent in for further evaluation treatment. The patient was also sent in for further workup by oncology Allergies: Coded Allergies: LACTOSE (Unverified Allergy, Unknown, 05/16/17) Patient History Past Medical History: see triage record Reviewed Nursing Documentation: PMH: Agreed, PSxH: Agreed Nursing Documentation-PMH Past Medical History Deferred: Pt Cognitively Impaired Past Medical History: No History, Except For Hx Cardiac Problems: Yes Hx Hypertension: Yes Hx Cancer: Yes Hx Gastrointestinal Problems: Yes Hx Neurological Problems: No Review of Systems All Other Systems: negative except mentioned in HPI Physical Exam Vital Signs Date Time Temp Pulse Resp B/P (MAP) Pulse Ox O2 Delivery O2 Flow Rate FiO2 05/26/17 14:50 97.2 78 20 122/68 99 05/26/17 21:15 Room Air Sp02 EP Interpretation: reviewed, normal General Appearance: alert, mild distress, Chronically Ill Head: atraumatic ENT: normal ENT inspection, hearing grossly normal, normal voice Neck: normal inspection, full range of motion, supple, no bony tend Respiratory: normal inspection, lungs clear, normal breath sounds, no respiratory distress, no retraction, no wheezing Cardiovascular #1: regular rate, rhythm, no edema Gastrointestinal: non tender, soft, no guarding, no hernia Rectal: mass, other - gross blood Genitourinary: no CVA tenderness Musculoskeletal: normal inspection, back normal, normal range of motion Neurologic: normal inspection, alert, responsive, speech normal Psychiatric: normal inspection, judgement/insight normal, mood/affect normal Skin: no rash Medical Decision Making Diagnostic Impression: Primary Impression: Gastrointestinal hemorrhage Additional Impression: Rectal cancer ER Course Patient presented for rectal bleeding. Differential diagnosis included wasn't limited to the rectal cancer, proctitis, coagulopathy, anemia among others. Because of complexity of patient's case laboratory testing and imaging studies were ordered. The patient was noted to have evidence of rectal bleeding. The patient started on IV fluids. Laboratory testing showed initially a hemoglobi. Patient was noted to have prior diagnosis of rectal cancer. Dr. Guido was contacted for inpatient management due to complexity of medical condition and primary care physician. The patient is being admitted for the treatment of hemorrhage and a specialist care of cancer related bleeding Labs Test 05/26/17 15:10 05/26/17 16:10 05/27/17 06:25 05/27/17 10:50 Prothrombin Time 9.9 SEC (9.30-11.50) Prothromb Time International Ratio 0.9 (0.9-1.1) Activated Partial Thromboplast Time 28 SEC (23-33) Lipase 166 U/L (73-393) HIV (1&2) Antibody Rapid Negative (NEGATIVE) Urine Color Yellow Urine Appearance Clear Urine pH 5 (4.5-8.0) Urine Specific [place] 1.025 (1.005-1.035) Urine Protein 1+ (NEGATIVE) Urine Glucose (UA) Negative (NEGATIVE) Urine Ketones Negative (NEGATIVE) Urine Occult Blood Negative (NEGATIVE) Urine Nitrite Negative (NEGATIVE) Urine Bilirubin Negative (NEGATIVE) Urine Urobilinogen Normal MG/DL (0.0-1.0) Urine Leukocyte Esterase Negative (NEGATIVE) Urine RBC 0-2 /HPF (0 - 0) Urine WBC 0-2 /HPF (0 - 0) Urine Squamous Epithelial Cells Occasional /LPF Urine Bacteria Occasional /HPF (NONE) White Blood Count 7.9 K/UL (4.8-10.8) Red Blood Count 3.79 M/UL (4.70-6.10) Hemoglobin 9.9 G/DL (14.2-18.0) Hematocrit 32.2 % (42.0-52.0) Mean Corpuscular Volume 85 FL (80-99) Mean Corpuscular Hemoglobin 26.2 PG (27.0-31.0) Mean Corpuscular Hemoglobin Concent 30.9 G/DL (32.0-36.0) Red Cell Distribution Width 23.1 % (11.6-14.8) Platelet Count 259 K/UL (150-450) Mean Platelet Volume 8.1 FL (6.5-10.1) Neutrophils (%) (Auto) 71.3 % (45.0-75.0) Lymphocytes (%) (Auto) 18.2 % (20.0-45.0) Monocytes (%) (Auto) 8.4 % (1.0-10.0) Eosinophils (%) (Auto) 1.3 % (0.0-3.0) Basophils (%) (Auto) 0.8 % (0.0-2.0) Differential Total Cells Counted 100 Neutrophils % (Manual) 70 % (45-75) Lymphocytes % (Manual) 22 % (20-45) Monocytes % (Manual) 6 % (1-10) Eosinophils % (Manual) 2 % (0-3) Basophils % (Manual) 0 % (0-2) Band Neutrophils 0 % (0-8) Platelet Estimate Adequate Platelet Morphology Normal Hypochromasia 1+ Anisocytosis 3+ Sodium Level 142 MMOL/L (136-145) Potassium Level 4.0 MMOL/L (3.5-5.1) Chloride Level 106 MMOL/L (98-107) Carbon Dioxide Level 32 MMOL/L (21-32) Anion Gap 4 mmol/L (5-15) Blood Urea Nitrogen 12 mg/dL (7-18) Creatinine 0.9 MG/DL (0.55-1.30) Estimat Glomerular Filtration Rate > 60 mL/min (>60) Glucose Level 79 MG/DL (74-106) Calcium Level 8.8 MG/DL (8.5-10.1) Aspartate Amino Transf (AST/SGOT) 24 U/L (15-37) Alanine Aminotransferase (ALT/SGPT) 13 U/L (12-78) Alkaline Phosphatase 55 U/L (46-116) Total Protein 7.0 G/DL (6.4-8.2) Albumin 2.6 G/DL (3.4-5.0) Globulin 4.4 g/dL Albumin/Globulin Ratio 0.6 (1.0-2.7) Triglycerides Level 32 MG/DL (30-150) Cholesterol Level 165 MG/DL (< 200) LDL Cholesterol 88 mg/dL (<100) HDL Cholesterol 75 MG/DL (40-60) Cholesterol/HDL Ratio 2.2 (3.3-4.4) Thyroid Stimulating Hormone (TSH) 0.869 uiU/mL (0.358-3.740) Fibrinogen 413 mg/dL (200-400) Iron Level 99 ug/dL (50-175) Total Iron Binding Capacity 238 ug/dL (250-450) Percent Iron Saturation 42 % (15-50) Unsaturated Iron Binding 139 ug/dL (112-346) Ferritin 42 NG/ML (8-388) Total Bilirubin 0.4 MG/DL (0.2-1.0) Lactate Dehydrogenase 264 U/L (81-234) Vitamin B12 Level 219 PG/ML (193-986) Last Vital Signs Date Time Temp Pulse Resp B/P (MAP) Pulse Ox O2 Delivery O2 Flow Rate FiO2 05/27/17 20:00 97.0 79 20 149/93 100 Room Air Status: unchanged Disposition: ADMITTED INPATIENT Condition: Serious Referrals: CYN GUIDO (PCP) Jaime Raman May 27, 2017 22:49
[2017-05-28] VITALS (7 sets, daily range): BP systolic 136–166; BP diastolic 81–96
--- NOTE | 2017-05-28 07:39 | General Progress Note ---
Assessment/Plan Problem List: (1) Rectal cancer ICD Codes: C20 - Malignant neoplasm of rectum SNOMED: 928795532 (2) Gastrointestinal hemorrhage ICD Codes: K92.2 - Gastrointestinal hemorrhage, unspecified SNOMED: 26706202 (3) Rectal mass ICD Codes: K62.9 - Disease of anus and rectum, unspecified SNOMED: 948247516 (4) Iron deficiency ICD Codes: E61.1 - Iron deficiency SNOMED: 56975755 Assessment/Plan so significant rectal bleed on regular diet fu oncology monitor H&H PRN blood transfusion Subjective ROS Limited/Unobtainable: Yes Allergies: Coded Allergies: LACTOSE (Unverified Allergy, Unknown, 05/16/17) Subjective no event Objective Last 24 Hour Vital Signs Date Time Temp Pulse Resp B/P (MAP) Pulse Ox O2 Delivery O2 Flow Rate FiO2 05/28/17 04:00 97.7 92 18 148/93 98 Room Air 05/28/17 00:00 97.0 82 20 148/83 100 Room Air 05/27/17 20:00 97.0 79 20 149/93 100 Room Air 05/27/17 16:00 Room Air 05/27/17 16:00 98.1 93 20 155/93 100 05/27/17 12:00 97.7 88 20 152/92 100 05/27/17 12:00 Room Air 05/27/17 08:53 Room Air 05/27/17 08:00 97.9 84 18 128/76 100 Laboratory Tests 05/27/17 10:50: Fibrinogen 413H, Iron Level 99, Total Iron Binding Capacity 238L, Percent Iron Saturation 42, Unsaturated Iron Binding 139, Ferritin 42, Total Bilirubin 0.4, Lactate Dehydrogenase 264H, CA 15-3 Antigen [Pending], Vitamin B12 Level 219, Hepatitis A IgM Antibody Negative, Hepatitis B Surface Antigen Negative, Hepatitis B Core IgM Antibody Negative, Hepatitis C Antibody <0.1 Height (Feet): 5 Height (Inches): 9.00 Weight (Pounds): 180 General Appearance: no apparent distress EENT: normal ENT inspection Neck: supple Cardiovascular: normal rate Respiratory/Chest: decreased breath sounds Abdomen: normal bowel sounds, non tender, soft Extremities: non-tender LEXII XIAO May 28, 2017 07:39
[2017-05-28 08:26] LABS: CA15-3 9.6 U/mL (0.0-25.0)
[2017-05-28] MEDS: Dronabinol 2.5mg Cap ORAL SCH (09:00)
[2017-05-28] MEDS ORDERED: Tubing IV Secondary IV ONE (17:31)
--- NOTE | 2017-05-28 21:29 | General Progress Note ---
Assessment/Plan Assessment/Plan ASSESSMENT AND RECOMMENDATION: 1. Stage III rectal adenocarcinoma. Pathology report reviewed from before and the patient had adenocarcinoma well-differentiated large intestine in the rectal area and currently concerning for stage IV. -->The patient has not started treatment, has an appointment on 05/30/2017. 2. Anemia, secondary to gastrointestinal bleed. We will send off for ferritin and workup as needed. refusing blood draw this am 3. Hypoalbuminemia, likely secondary to decreased p.o. intake. Continueto closely monitor. Subjective Gastrointestinal/Abdominal: Reports: poor appetite Hematologic/Lymphatic: Reports: anemia Allergies: Coded Allergies: LACTOSE (Unverified Allergy, Unknown, 05/16/17) All Systems: reviewed and negative except above Subjective no event overnight Objective Last 24 Hour Vital Signs Date Time Temp Pulse Resp B/P (MAP) Pulse Ox O2 Delivery O2 Flow Rate FiO2 05/28/17 20:00 98.1 76 20 149/83 100 05/28/17 18:29 89 136/87 05/28/17 17:55 97.3 83 21 166/96 97 Room Air 05/28/17 12:01 97.4 80 21 154/84 97 Room Air 05/28/17 08:00 97.0 95 18 136/81 99 05/28/17 04:00 97.7 92 18 148/93 98 Room Air 05/28/17 00:00 97.0 82 20 148/83 100 Room Air Intake and Output 05/28/17 05/29/17 19:00 07:00 Intake Total 480 ml Balance 480 ml Intake Oral 480 ml # Voids 5 # Bowel Movements 5 Height (Feet): 5 Height (Inches): 9.00 Weight (Pounds): 180 General Appearance: no apparent distress, alert EENT: normal ENT inspection Neck: normal alignment Abdomen: guarding Extremities: normal range of motion, non-tender Rommel Chign May 28, 2017 21:29
--- NOTE | 2017-05-28 22:45 | Pulmonology Progress Note ---
Assessment/Plan Problems: (1) Gastrointestinal hemorrhage (2) Rectal cancer Assessment/Plan debilitated doesn't want CT of abdomen prbc prn pain management will alfredo to tp about [facility], pt didn't get stronger since last admission to get chemo/RT Subjective ROS Limited/Unobtainable: No Constitutional: Reports: no symptoms HEENT: Repors: no symptoms Respiratory: Reports: no symptoms Allergies: Coded Allergies: LACTOSE (Unverified Allergy, Unknown, 05/16/17) Objective Last 24 Hour Vital Signs Date Time Temp Pulse Resp B/P (MAP) Pulse Ox O2 Delivery O2 Flow Rate FiO2 05/28/17 20:00 98.1 76 20 149/83 100 05/28/17 18:29 89 136/87 05/28/17 17:55 97.3 83 21 166/96 97 Room Air 05/28/17 12:01 97.4 80 21 154/84 97 Room Air 05/28/17 08:00 97.0 95 18 136/81 99 05/28/17 04:00 97.7 92 18 148/93 98 Room Air 05/28/17 00:00 97.0 82 20 148/83 100 Room Air Intake and Output 05/28/17 05/29/17 19:00 07:00 Intake Total 480 ml Balance 480 ml Intake Oral 480 ml # Voids 5 # Bowel Movements 5 General Appearance: WD/WN HEENT: normocephalic, atraumatic Respiratory/Chest: chest wall non-tender, lungs clear Cardiovascular: normal peripheral pulses, normal rate Abdomen: normal bowel sounds, soft, non tender Genitourinary: normal external genitalia Extremities: no clubbing Neurologic/Psychiatric: maintenance custodian II-XII grossly normal, no motor/sensory deficits Microbiology Date/Time Source Procedure Growth Status 05/27/17 04:30 Stool Clostridium difficile Toxin Assay - Final Complete Current Medications Medications (Trade) Dose Ordered Sig/Juana Route PRN Reason Start Time Stop Time Status Last Admin Dose Admin Acetaminophen (Tylenol) 650 mg Q4H PRN ORAL fever 05/26/17 16:30 06/25/17 16:29 Al Hydroxide/Mg Hydroxide (Mylanta II) 30 ml Q6H PRN ORAL dyspepsia 05/26/17 16:30 06/25/17 16:29 Clonidine HCl (Catapres) 0.1 mg Q6H PRN ORAL SBP > 160 05/27/17 20:30 06/26/17 20:29 Dextrose (Dextrose 50%) STAT PRN IV Hypoglycemia 05/26/17 16:30 06/25/17 16:29 Dronabinol (Marinol) 2.5 mg DAILY ORAL 05/27/17 15:15 06/26/17 15:14 Ferrous Sulfate (Feosol) 325 mg TWICE A DAY ORAL 05/27/17 09:00 06/26/17 08:59 05/28/17 17:45 Loperamide HCl (Imodium) 2 mg Q4H PRN ORAL Diarrhea 05/27/17 16:15 06/26/17 16:14 Lorazepam (Ativan 2mg/ml 1ml) 0.5 mg Q4H PRN IV For Anxiety 05/26/17 16:30 06/02/17 16:29 Morphine Sulfate (Morphine Sulfate) 1 mg Q4H PRN IVP For Moderate to Severe Pain 05/26/17 16:30 06/02/17 16:29 Multivitamins (Multivitamins) 1 tab DAILY ORAL 05/27/17 09:00 06/26/17 08:59 05/27/17 09:03 Ondansetron HCl (Zofran) 4 mg Q6H PRN IVP Nausea & Vomiting 05/26/17 16:30 06/25/17 16:29 Pantoprazole (Protonix) 40 mg DAILY ORAL 05/28/17 09:00 06/27/17 08:59 Polyethylene Glycol (Miralax) 17 gm HSPRN PRN ORAL Constipation 05/26/17 16:30 06/25/17 16:29 Zolpidem Tartrate (Ambien) 5 mg HSPRN PRN ORAL Insomnia 05/26/17 16:30 06/02/17 16:29 CYN BAILEY May 28, 2017 22:45
[2017-05-29] VITALS (7 sets, daily range): BP systolic 122–156; BP diastolic 77–92
--- NOTE | 2017-05-29 06:33 | General Progress Note ---
Assessment/Plan Problem List: (1) Rectal cancer ICD Codes: C20 - Malignant neoplasm of rectum SNOMED: 524005257 (2) Gastrointestinal hemorrhage ICD Codes: K92.2 - Gastrointestinal hemorrhage, unspecified SNOMED: 95288989 (3) Rectal mass ICD Codes: K62.9 - Disease of anus and rectum, unspecified SNOMED: 745304191 (4) Iron deficiency ICD Codes: E61.1 - Iron deficiency SNOMED: 90637520 Assessment/Plan so significant rectal bleed on regular diet fu oncology monitor H&H PRN blood transfusion Subjective ROS Limited/Unobtainable: Yes Allergies: Coded Allergies: LACTOSE (Unverified Allergy, Unknown, 05/16/17) Subjective no event Objective Last 24 Hour Vital Signs Date Time Temp Pulse Resp B/P (MAP) Pulse Ox O2 Delivery O2 Flow Rate FiO2 05/29/17 04:00 97.2 84 21 152/92 100 05/29/17 00:00 98.1 76 21 138/85 100 05/28/17 20:00 98.1 76 20 149/83 100 05/28/17 18:29 89 136/87 05/28/17 17:55 97.3 83 21 166/96 97 Room Air 05/28/17 12:01 97.4 80 21 154/84 97 Room Air 05/28/17 08:00 97.0 95 18 136/81 99 Height (Feet): 5 Height (Inches): 9.00 Weight (Pounds): 180 General Appearance: alert EENT: normal ENT inspection Neck: supple Cardiovascular: normal rate Respiratory/Chest: lungs clear Abdomen: normal bowel sounds, non tender, soft Extremities: non-tender LEXII XIAO May 29, 2017 06:32
[2017-05-29] MEDS: Dronabinol 2.5mg Cap ORAL SCH (08:40)
--- NOTE | 2017-05-29 12:41 | General Progress Note ---
Assessment/Plan Assessment/Plan ASSESSMENT AND RECOMMENDATION: 1. Stage III rectal adenocarcinoma. Pathology report reviewed from before and the patient had adenocarcinoma well-differentiated large intestine in the rectal area and currently concerning for stage IV. -->The patient has not started treatment, has an appointment on 05/30/2017. -->ct scan as outpatient 2. Anemia, secondary to gastrointestinal bleed. We will send off for ferritin and workup as needed. refusing blood draw this am 3. Hypoalbuminemia, likely secondary to decreased p.o. intake. Continueto closely monitor. Subjective Allergies: Coded Allergies: LACTOSE (Unverified Allergy, Unknown, 05/16/17) All Systems: reviewed and negative except above Subjective no fevers or chills Objective Last 24 Hour Vital Signs Date Time Temp Pulse Resp B/P (MAP) Pulse Ox O2 Delivery O2 Flow Rate FiO2 05/29/17 08:00 98.1 86 18 122/77 99 05/29/17 04:00 97.2 84 21 152/92 100 05/29/17 00:00 98.1 76 21 138/85 100 05/28/17 20:00 98.1 76 20 149/83 100 05/28/17 18:29 89 136/87 05/28/17 17:55 97.3 83 21 166/96 97 Room Air Height (Feet): 5 Height (Inches): 9.00 Weight (Pounds): 180 General Appearance: no apparent distress EENT: PERRL/EOMI Neck: normal alignment Cardiovascular: normal peripheral pulses Respiratory/Chest: chest wall non-tender, lungs clear Neurologic: no motor/sensory deficits Skin: warm/dry Rommel Ching May 29, 2017 12:41
--- NOTE | 2017-05-29 17:44 | Pulmonology Progress Note ---
Assessment/Plan Problems: (1) Gastrointestinal hemorrhage (2) Rectal cancer Assessment/Plan debilitated doesn't want CT of abdomen prbc prn pain management will alfredo to tp about hopice care, pt didn't get stronger since last admission to get chemo/RT Subjective ROS Limited/Unobtainable: No Allergies: Coded Allergies: LACTOSE (Unverified Allergy, Unknown, 05/16/17) Objective Last 24 Hour Vital Signs Date Time Temp Pulse Resp B/P (MAP) Pulse Ox O2 Delivery O2 Flow Rate FiO2 05/29/17 16:00 96.7 70 18 156/85 100 05/29/17 12:00 98.0 70 18 150/85 05/29/17 08:00 98.1 86 18 122/77 99 05/29/17 04:00 97.2 84 21 152/92 100 05/29/17 00:00 98.1 76 21 138/85 100 05/28/17 20:00 98.1 76 20 149/83 100 05/28/17 18:29 89 136/87 05/28/17 17:55 97.3 83 21 166/96 97 Room Air Objective General Appearance: cachectic Lines, tubes and drains: peripheral, HEENT: normocephalic, atraumatic Neck: non-tender, normal alignment Respiratory/Chest: chest wall non-tender, lungs clear, normal breath sounds Breasts: no masses Cardiovascular/Chest: normal rate Abdomen: normal bowel sounds Extremities: normal range of motion Microbiology Date/Time Source Procedure Growth Status 05/27/17 04:30 Stool Clostridium difficile Toxin Assay - Final Complete Current Medications Medications (Trade) Dose Ordered Sig/Juana Route PRN Reason Start Time Stop Time Status Last Admin Dose Admin Acetaminophen (Tylenol) 650 mg Q4H PRN ORAL fever 05/26/17 16:30 06/25/17 16:29 Al Hydroxide/Mg Hydroxide (Mylanta II) 30 ml Q6H PRN ORAL dyspepsia 05/26/17 16:30 06/25/17 16:29 Clonidine HCl (Catapres) 0.1 mg Q6H PRN ORAL SBP > 160 05/27/17 20:30 06/26/17 20:29 Dextrose (Dextrose 50%) STAT PRN IV Hypoglycemia 05/26/17 16:30 06/25/17 16:29 Dronabinol (Marinol) 2.5 mg DAILY ORAL 05/27/17 15:15 06/26/17 15:14 Ferrous Sulfate (Feosol) 325 mg TWICE A DAY ORAL 05/27/17 09:00 06/26/17 08:59 05/29/17 17:38 Loperamide HCl (Imodium) 2 mg Q4H PRN ORAL Diarrhea 05/27/17 16:15 06/26/17 16:14 Lorazepam (Ativan 2mg/ml 1ml) 0.5 mg Q4H PRN IV For Anxiety 05/26/17 16:30 06/02/17 16:29 Morphine Sulfate (Morphine Sulfate) 1 mg Q4H PRN IVP For Moderate to Severe Pain 05/26/17 16:30 06/02/17 16:29 Multivitamins (Multivitamins) 1 tab DAILY ORAL 05/27/17 09:00 06/26/17 08:59 05/27/17 09:03 Ondansetron HCl (Zofran) 4 mg Q6H PRN IVP Nausea & Vomiting 05/26/17 16:30 06/25/17 16:29 Pantoprazole (Protonix) 40 mg DAILY ORAL 05/28/17 09:00 06/27/17 08:59 Polyethylene Glycol (Miralax) 17 gm HSPRN PRN ORAL Constipation 05/26/17 16:30 06/25/17 16:29 Zolpidem Tartrate (Ambien) 5 mg HSPRN PRN ORAL Insomnia 05/26/17 16:30 06/02/17 16:29 CYN BAILEY May 29, 2017 17:44
[2017-05-30 04:00] VITALS: BP 145/90
[2017-05-30 08:00] VITALS: BP 146/87
[2017-05-30] MEDS: Dronabinol 2.5mg Cap ORAL SCH (09:00)
--- NOTE | 2017-05-30 10:51 | GI Progress Note ---
Assessment/Plan Problems: (1) Rectal cancer ICD Codes: C20 - Malignant neoplasm of rectum SNOMED: 678392185 (2) Gastrointestinal hemorrhage ICD Codes: K92.2 - Gastrointestinal hemorrhage, unspecified SNOMED: 04947833 (3) Rectal mass ICD Codes: K62.9 - Disease of anus and rectum, unspecified SNOMED: 360067997 (4) Severe protein-calorie malnutrition ICD Codes: E43 - Unspecified severe protein-calorie malnutrition SNOMED: 386402698 (5) Iron deficiency ICD Codes: E61.1 - Iron deficiency SNOMED: 98724254 (6) Dehydration ICD Codes: E86.0 - Dehydration SNOMED: 61553295 Status: stable Status Narrative Discussed with Dr. Son. Assessment/Plan okay for DC per GI standpoint, fu oncology ambulated with PT today rectal bleed resolved on regular diet monitor H&H PRN blood transfusion The patient was seen and examined at bedside and all new and available data was reviewed in the patients chart. I agree with the above findings, impression and plan. (Patient seen earlier today. Signature stamp does not reflect patient encounter time.). - Adam Son MD Subjective Subjective rectal bleeding resolved Objective Last 24 Hour Vital Signs Date Time Temp Pulse Resp B/P (MAP) Pulse Ox O2 Delivery O2 Flow Rate FiO2 05/30/17 08:00 Room Air 05/30/17 08:00 97.9 92 20 146/87 100 05/30/17 04:00 97.8 80 18 145/90 98 05/29/17 23:56 97.7 73 18 137/81 99 05/29/17 20:00 96.9 68 18 145/83 99 05/29/17 16:00 96.7 70 18 156/85 100 05/29/17 12:00 98.0 70 18 150/85 Height (Feet): 5 Height (Inches): 9.00 Weight (Pounds): 180 General Appearance: WD/WN, no apparent distress, alert Cardiovascular: normal rate Respiratory/Chest: normal breath sounds, no respiratory distress Abdominal Exam: normal bowel sounds, non tender, soft Extremities: normal range of motion, non-tender Linda Ratliff N.P. May 30, 2017 10:51 LEXII SON Jun 01, 2017 08:35
[2017-05-30 12:00] VITALS: BP 155/82
[2017-05-30 13:54] LABS: OTHERS PATHOLOGIST COMMENT
[2017-05-30 16:00] VITALS: BP 151/82
--- NOTE | 2017-05-30 16:24 | Pulmonology Progress Note ---
Assessment/Plan Problems: (1) Gastrointestinal hemorrhage (2) Rectal cancer Assessment/Plan refusing all labs debilitated doesn't want CT of abdomen prbc prn pain management pt wants me to talk to his brother about electing hospice. Subjective ROS Limited/Unobtainable: No Constitutional: Reports: no symptoms HEENT: Repors: no symptoms Respiratory: Reports: no symptoms Allergies: Coded Allergies: LACTOSE (Unverified Allergy, Unknown, 05/16/17) Objective Last 24 Hour Vital Signs Date Time Temp Pulse Resp B/P (MAP) Pulse Ox O2 Delivery O2 Flow Rate FiO2 05/30/17 16:00 97.7 65 20 151/82 100 05/30/17 12:00 98.1 84 20 155/82 100 05/30/17 12:00 Room Air 05/30/17 08:00 Room Air 05/30/17 08:00 97.9 92 20 146/87 100 05/30/17 04:00 97.8 80 18 145/90 98 05/29/17 23:56 97.7 73 18 137/81 99 05/29/17 20:00 96.9 68 18 145/83 99 Objective General Appearance: cachectic Lines, tubes and drains: peripheral, HEENT: normocephalic, atraumatic Neck: non-tender, normal alignment Respiratory/Chest: chest wall non-tender, lungs clear, normal breath sounds Breasts: no masses Cardiovascular/Chest: normal rate Abdomen: normal bowel sounds Extremities: normal range of motion Current Medications Medications (Trade) Dose Ordered Sig/Juana Route PRN Reason Start Time Stop Time Status Last Admin Dose Admin Acetaminophen (Tylenol) 650 mg Q4H PRN ORAL fever 05/26/17 16:30 06/25/17 16:29 Al Hydroxide/Mg Hydroxide (Mylanta II) 30 ml Q6H PRN ORAL dyspepsia 05/26/17 16:30 06/25/17 16:29 Clonidine HCl (Catapres) 0.1 mg Q6H PRN ORAL SBP > 160 05/27/17 20:30 06/26/17 20:29 Dextrose (Dextrose 50%) STAT PRN IV Hypoglycemia 05/26/17 16:30 06/25/17 16:29 Dronabinol (Marinol) 2.5 mg DAILY ORAL 05/27/17 15:15 06/26/17 15:14 Ferrous Sulfate (Feosol) 325 mg TWICE A DAY ORAL 05/27/17 09:00 06/26/17 08:59 05/30/17 09:13 Loperamide HCl (Imodium) 2 mg Q4H PRN ORAL Diarrhea 05/27/17 16:15 06/26/17 16:14 Lorazepam (Ativan 2mg/ml 1ml) 0.5 mg Q4H PRN IV For Anxiety 05/26/17 16:30 06/02/17 16:29 Morphine Sulfate (Morphine Sulfate) 1 mg Q4H PRN IVP For Moderate to Severe Pain 05/26/17 16:30 06/02/17 16:29 Multivitamins (Multivitamins) 1 tab DAILY ORAL 05/27/17 09:00 06/26/17 08:59 05/30/17 09:13 Ondansetron HCl (Zofran) 4 mg Q6H PRN IVP Nausea & Vomiting 05/26/17 16:30 06/25/17 16:29 Pantoprazole (Protonix) 40 mg DAILY ORAL 05/28/17 09:00 06/27/17 08:59 Polyethylene Glycol (Miralax) 17 gm HSPRN PRN ORAL Constipation 05/26/17 16:30 06/25/17 16:29 Zolpidem Tartrate (Ambien) 5 mg HSPRN PRN ORAL Insomnia 05/26/17 16:30 06/02/17 16:29 CYN BAILEY May 30, 2017 16:23
[2017-05-30 20:00] VITALS: BP 149/89
--- NOTE | 2017-05-30 20:50 | General Progress Note ---
Assessment/Plan Assessment/Plan ASSESSMENT AND RECOMMENDATION: 1. Stage III rectal adenocarcinoma. Pathology report reviewed from before and the patient had adenocarcinoma well-differentiated large intestine in the rectal area and currently concerning for stage IV. -->The patient has not started treatment, has an appointment on 05/30/2017. -->ct scan as outpatient 2. Anemia, secondary to gastrointestinal bleed. bleeding stopped. ferritin wnl 3. Hypoalbuminemia, likely secondary to decreased p.o. intake. Continueto closely monitor. Subjective Allergies: Coded Allergies: LACTOSE (Unverified Allergy, Unknown, 05/16/17) All Systems: reviewed and negative except above Subjective NAD. no bleeding from rectum Objective Last 24 Hour Vital Signs Date Time Temp Pulse Resp B/P (MAP) Pulse Ox O2 Delivery O2 Flow Rate FiO2 05/30/17 16:00 97.7 65 20 151/82 100 05/30/17 16:00 Room Air 05/30/17 12:00 98.1 84 20 155/82 100 05/30/17 12:00 Room Air 05/30/17 08:00 Room Air 05/30/17 08:00 97.9 92 20 146/87 100 05/30/17 04:00 97.8 80 18 145/90 98 05/29/17 23:56 97.7 73 18 137/81 99 Intake and Output 05/30/17 05/31/17 19:00 07:00 Intake Total 240 ml Balance 240 ml Intake Oral 240 ml # Voids 5 # Bowel Movements 2 Height (Feet): 5 Height (Inches): 9.00 Weight (Pounds): 180 General Appearance: no apparent distress EENT: normal ENT inspection Cardiovascular: normal peripheral pulses Extremities: non-tender Skin: normal pigmentation Rommel Ching May 30, 2017 20:50
[2017-05-31] VITALS: BP 147/77
[2017-05-31 04:00] VITALS: BP 140/80
[2017-05-31 08:00] VITALS: BP 139/90
[2017-05-31] MEDS: Dronabinol 2.5mg Cap ORAL SCH (09:00)
[2017-05-31 12:00] VITALS: BP 151/93
--- NOTE | 2017-05-31 13:09 | GI Progress Note ---
Assessment/Plan Problems: (1) Rectal cancer ICD Codes: C20 - Malignant neoplasm of rectum SNOMED: 223311697 (2) Gastrointestinal hemorrhage ICD Codes: K92.2 - Gastrointestinal hemorrhage, unspecified SNOMED: 37895811 (3) Rectal mass ICD Codes: K62.9 - Disease of anus and rectum, unspecified SNOMED: 485811572 (4) Severe protein-calorie malnutrition ICD Codes: E43 - Unspecified severe protein-calorie malnutrition SNOMED: 654940082 (5) Iron deficiency ICD Codes: E61.1 - Iron deficiency SNOMED: 83641791 (6) Dehydration ICD Codes: E86.0 - Dehydration SNOMED: 23536957 Status: unchanged Status Narrative Discussed with Dr. Son. Assessment/Plan okay for DC per GI standpoint, fu oncology ambulated with PT today rectal bleed resolved on regular diet monitor H&H PRN blood transfusion Subjective Subjective rectal bleeding resolved refusing labs Objective Last 24 Hour Vital Signs Date Time Temp Pulse Resp B/P (MAP) Pulse Ox O2 Delivery O2 Flow Rate FiO2 05/31/17 12:00 97.7 77 20 151/93 99 05/31/17 08:00 97.3 84 20 139/90 98 05/31/17 08:00 Room Air 05/31/17 04:00 98.2 70 18 140/80 96 05/31/17 04:00 Room Air 05/31/17 00:00 97.7 69 19 147/77 97 05/31/17 00:00 Room Air 05/30/17 20:00 97.3 77 18 149/89 98 05/30/17 20:00 Room Air 05/30/17 16:00 97.7 65 20 151/82 100 05/30/17 16:00 Room Air Intake and Output 05/31/17 06/01/17 19:00 07:00 # Bowel Movements 1 Height (Feet): 5 Height (Inches): 9.00 Weight (Pounds): 180 General Appearance: WD/WN, no apparent distress, alert Cardiovascular: normal rate Respiratory/Chest: normal breath sounds, no respiratory distress Abdominal Exam: normal bowel sounds, non tender, soft Extremities: normal range of motion, non-tender Linda Ratliff N.P. May 31, 2017 13:09
--- NOTE | 2017-05-31 13:44 | General Progress Note ---
Assessment/Plan Assessment/Plan ASSESSMENT AND RECOMMENDATION: 1. Stage III rectal adenocarcinoma. Pathology report reviewed from before and the patient had adenocarcinoma well-differentiated large intestine in the rectal area and currently concerning for stage IV. --> hospice vs chemo as op 2. Anemia, secondary to gastrointestinal bleed. 3. Hypoalbuminemia, likely secondary to decreased p.o. intake. Continueto closely monitor. Subjective Allergies: Coded Allergies: LACTOSE (Unverified Allergy, Unknown, 05/16/17) All Systems: reviewed and negative except above Subjective having diarrhea Objective Last 24 Hour Vital Signs Date Time Temp Pulse Resp B/P (MAP) Pulse Ox O2 Delivery O2 Flow Rate FiO2 05/31/17 12:00 97.7 77 20 151/93 99 05/31/17 08:00 97.3 84 20 139/90 98 05/31/17 08:00 Room Air 05/31/17 04:00 98.2 70 18 140/80 96 05/31/17 04:00 Room Air 05/31/17 00:00 97.7 69 19 147/77 97 05/31/17 00:00 Room Air 05/30/17 20:00 97.3 77 18 149/89 98 05/30/17 20:00 Room Air 05/30/17 16:00 97.7 65 20 151/82 100 05/30/17 16:00 Room Air Intake and Output 05/31/17 06/01/17 19:00 07:00 # Bowel Movements 1 Height (Feet): 5 Height (Inches): 9.00 Weight (Pounds): 180 General Appearance: no apparent distress EENT: TMs normal Neck: normal alignment Cardiovascular: normal peripheral pulses Extremities: normal range of motion Rommel Ching May 31, 2017 13:44
--- NOTE | 2017-05-31 16:46 | Pulmonology Progress Note ---
Assessment/Plan Problems: (1) Gastrointestinal hemorrhage (2) Rectal cancer Assessment/Plan refusing all labs debilitated doesn't want CT of abdomen prbc prn pain management pt wants me to talk to his brother about electing hospice. dc to [facility] Subjective ROS Limited/Unobtainable: No Allergies: Coded Allergies: LACTOSE (Unverified Allergy, Unknown, 05/16/17) Objective Last 24 Hour Vital Signs Date Time Temp Pulse Resp B/P (MAP) Pulse Ox O2 Delivery O2 Flow Rate FiO2 05/31/17 12:00 97.7 77 20 151/93 99 05/31/17 08:00 97.3 84 20 139/90 98 05/31/17 08:00 Room Air 05/31/17 04:00 98.2 70 18 140/80 96 05/31/17 04:00 Room Air 05/31/17 00:00 97.7 69 19 147/77 97 05/31/17 00:00 Room Air 05/30/17 20:00 97.3 77 18 149/89 98 05/30/17 20:00 Room Air Intake and Output 05/31/17 06/01/17 19:00 07:00 # Bowel Movements 1 Objective General Appearance: cachectic Lines, tubes and drains: peripheral, HEENT: normocephalic, atraumatic Neck: non-tender, normal alignment Respiratory/Chest: chest wall non-tender, lungs clear, normal breath sounds Breasts: no masses Cardiovascular/Chest: normal rate Abdomen: normal bowel sounds Extremities: normal range of motion CYN BAILEY May 31, 2017 16:46
--- NOTE | 2017-06-01 14:13 | General Progress Note ---
Assessment/Plan Assessment/Plan NOTE LEFT BY MISTAKE. PT DC 05/31/17 ASSESSMENT AND RECOMMENDATION: 1. Stage III rectal adenocarcinoma. Pathology report reviewed from before and the patient had adenocarcinoma well-differentiated large intestine in the rectal area and currently concerning for stage IV. --> patient considering hospice' --> does not want ct scan 2. Anemia, secondary to gastrointestinal bleed. 3. Hypoalbuminemia, likely secondary to decreased p.o. intake. Continueto closely monitor. Subjective Allergies: Coded Allergies: LACTOSE (Unverified Allergy, Unknown, 05/16/17) All Systems: reviewed and negative except above Subjective refusing labs and procedures NAD Objective Height (Feet): 5 Height (Inches): 9.00 Weight (Pounds): 180 General Appearance: no apparent distress EENT: normal ENT inspection Neck: normal alignment Respiratory/Chest: chest wall non-tender Skin: normal pigmentation Rommel Ching Jun 01, 2017 14:13
--- NOTE | 2017-06-02 11:01 | Diagnostic Imaging Report ---
APPROVED REPORT CPT Code: 41965 Present Symptoms Comments: R/O DVT BILATERAL: Imaging reveals a patent deep venous system bilaterally. There is no evidence of thrombus within the femoral, popliteal or tibial segments. The greater saphenous veins are also within normal limits. Doppler indicates normal spontaneous flow within these segments.
--- NOTE | 2017-06-02 13:57 | Discharge Summary ---
Discharge Summary Hospital Course Date of Admission May 26, 2017 at 17:00 Date of Discharge May 31, 2017 at 16:06 Admitting Diagnosis RECTAL BLEEDING, RECTAL CA HPI Ministerio Waters is a 67 year old male who was admitted on May 26, 2017 at 17: 00 for Rectal Bleeding Hospital Course [id number] Discharge Discharge Disposition Patient was discharged to SNF Discharge Diagnoses: Ann Cabrera NP Jun 02, 2017 13:57
--- NOTE | 2017-06-03 00:30 | Discharge Summary 2 SIG ---
DATE OF ADMISSION: 05/26/2017 DATE OF DISCHARGE: 05/31/2017 CONSULTANTS: 1. Rommel Ching M.D. 2. Mainor Son M.D. BRIEF HOSPITAL COURSE: The patient is a 67-year-old male who has history of rectal CA and debility, who was residing at care home, presented to ED for evaluation of anemia and bleeding per rectum. He has been diagnosed with a stage III rectal adenocarcinoma and has an upcoming appointment with oncologist and to be started on chemotherapy. He was noted to have anemia and was taken to ED. On evaluation at ED, hemoglobin was 9.9 and hematocrit was 32. He was noted to have evidence of rectal bleed and was started on IV hydration. He was admitted to medical floor for evaluation of rectal CA and gastrointestinal bleed. He was monitored for signs of bleeding. He had gastrointestinal evaluation done. Two months ago, he had an endoscopy done where a rectal tumor was noted. He had CAT scan that showed a 6 x 8 x 0.9 centimeter mass in the rectum. He has been having diarrhea for approximately one month. C. difficile was negative. He was followed up by Dr. Ching. Pathology report reviewed from before. The patient has adenocarcinoma, well differentiated in the large intestine, currently stage III, however currently concerning for stage IV. Anemia level was stable. No blood transfusion was needed. He had hepatitis panel checked and was negative. He underwent venous duplex of lower extremity that was negative for DVT bilaterally. Rectal bleed resolved. He was ambulating well with PT. He was planned to undergo a repeat CT scan to assess rectal mass, however, the patient refused and was considering hospice. He was eventually discharged back to care home for hospice evaluation. FINAL DIAGNOSES: 1. Stage III rectal adenocarcinoma, currently concerning for stage IV. 2. Anemia secondary to gastrointestinal bleed. 3. Hypoalbuminemia secondary to decreased p.o. intake. 4. Severe protein-calorie malnutrition. 5. Dehydration. 6. Iron deficiency. DISPOSITION: The patient was discharged to a care home for hospice evaluation. DISCHARGE MEDICATIONS: Refer to medication list. Mirali Zarrabi, M.D. I have been assigned to dictate discharge summary on this account and I was not involved in the patient's management. Ann Cabrera N.P. DR: DARVIN JOB#: [id number] CC: CASSANDRA
== END 2017-05-31 16:06 | DRG 377 ==
LOC: EDBD 14:52 → EMR 16:50 → 4E 17:00 → EDBEDREQSVC 21:04 → EDBEDREQ 21:04 → EDBEDREQTM 21:04 → 4E 05-28 09:33
DX: K92.2 Gastrointestinal hemorrhage, unspecified (principal); E43 Unspecified severe protein-calorie malnutrition; C20 Malignant neoplasm of rectum; E86.0 Dehydration; E61.1 Iron deficiency; R53.81 Other malaise; D62 Acute posthemorrhagic anemia
CPT/HCPCS: 36415; 71260; 74177; 80053; 80061; 81003; 82247; 82378; 82607; 82728; 83540; 83550; 83615; 83690; 84443; 85007; 85025; 85060; 85384; 85610; 85730; 86300; 86703; 86705; 86709; 86803; 86850; 86900; 86901; 87081; 87324; 87340; 93970; 99285

== ENCOUNTER 2017-07-08 19:35 | Inpatient (IN) | payer MEDICARE ==
[~2017-07-08] VITALS: Ht 175.3 cm; Wt 59.0 kg
[~2017-07-08 19:35] MED LIST changes: +ACETAMINOPHEN325 M1 ORAL; +COLACE100 MG ORAL; +DULCOLAX10 MG RC; +MILK OF MA400 MG/51 ORAL
[2017-07-08 20:00] VITALS: BP 145/90
[2017-07-08 20:46] LABS: BASOPHILS % (AUTO) 0.8 % (0.0-2.0); EOSINOPHILS % (AUTO) 3.5 % (0.0-3.0); HEMATOCRIT 32.4 % (42.0-52.0); HEMOGLOBIN 9.9 G/DL (14.2-18.0); LYMPHOCYTES % (AUTO) 21.5 % (20.0-45.0); MEAN CORPUSCULAR VOLUME 85 FL (80-99); MONOCYTES % (AUTO) 6.1 % (1.0-10.0); NEUTROPHILS % (AUTO) 68.2 % (45.0-75.0); PLATELET COUNT 410 K/UL (150-450); RED BLOOD COUNT 3.83 M/UL (4.70-6.10); RED CELL DISTRIBUTION WIDTH 15.7 % (11.6-14.8); WHITE BLOOD COUNT 10.1 K/UL (4.8-10.8)
[2017-07-08 21:00] VITALS: BP 140/88
[2017-07-08 21:12] LABS: ANION GAP 7 mmol/L (5-15); BLOOD UREA NITROGEN 12 mg/dL (7-18); CALCIUM 8.8 MG/DL (8.5-10.1); CARBON DIOXIDE 30 MMOL/L (21-32); CHLORIDE 103 MMOL/L (98-107); CREATININE 0.8 MG/DL (0.55-1.30); POTASSIUM 3.6 MMOL/L (3.5-5.1); SODIUM 140 MMOL/L (136-145)
[2017-07-08 21:26] LABS: ALANINE AMINOTRANSFERASE 11 U/L (12-78); ALBUMIN 2.6 G/DL (3.4-5.0); ALBUMIN/GLOBULIN RATIO 0.6 (1.0-2.7); ALKALINE PHOSPHATASE 62 U/L (46-116); ASPARTATE AMINO TRANSFERASE 22 U/L (15-37); BILIRUBIN,TOTAL 0.2 MG/DL (0.2-1.0)
[2017-07-08 21:41] LABS: APPEARANCE,URINE CLOUDY; BILIRUBIN, URINE NEGATIVE (NEGATIVE); COLOR,URINE YELLOW; GLUCOSE, URINE (UA) NEGATIVE (NEGATIVE); KETONES,URINE NEGATIVE (NEGATIVE); LEUKOCYTE ESTERASE ,URINE NEGATIVE (NEGATIVE); NITRITE,URINE NEGATIVE (NEGATIVE); PH,URINE 6.5 (4.5-8.0); PROTEIN,URINE 1+ (NEGATIVE); UROBILINOGEN,URINE NORMAL MG/DL (0.0-1.0)
[2017-07-08 22:00] VITALS: BP 138/83
--- NOTE | 2017-07-08 22:01 | Emergency Room Report ---
History of Present Illness General Chief Complaint: Generalized Weakness Source: Patient, Medical Record, EMS Present Illness HPI 67-year-old male presents ED for evaluation. Patient sent to ER for evaluation of generalized weakness. Has been feeling weak with poor appetite and diarrhea for several months now. Patient denies any fevers or chills. Denies chest pain shortness breath. Denies abdominal pain. Denies any nausea or vomiting. Denies recent antibiotic use. No other aggravating relieving factors. Denies any other associated symptoms Allergies: Coded Allergies: LACTOSE (Unverified Allergy, Unknown, 05/16/17) Patient History Past Medical History: HTN, GERD, GI bleed Pertinent Family History: none Social History: Denies: smoking, alcohol use, drug use Immunizations: UTD Reviewed Nursing Documentation: PMH: Agreed, PSxH: Agreed Nursing Documentation-PMH Past Medical History: No History, Except For Hx Cardiac Problems: Yes - Anemia Hx Hypertension: Yes Hx Cancer: Yes Hx Gastrointestinal Problems: Yes - Malignant Neoplasm of Colon, GERD, GI bleed Hx Neurological Problems: No - Muscle weakness Review of Systems All Other Systems: negative except mentioned in HPI Physical Exam Vital Signs Date Time Temp Pulse Resp B/P (MAP) Pulse Ox O2 Delivery O2 Flow Rate FiO2 07/08/17 19:33 98.6 91 16 145/90 99 Room Air Sp02 EP Interpretation: reviewed, normal General Appearance: no apparent distress, alert, GCS 15, cachetic, thin Head: normocephalic, atraumatic Eyes: bilateral eye normal inspection, bilateral eye PERRL ENT: hearing grossly normal, normal pharynx, no angioedema, normal voice Neck: full range of motion, supple/symm/no masses Respiratory: chest non-tender, lungs clear, normal breath sounds, speaking full sentences Cardiovascular #1: regular rate, rhythm, no edema Cardiovascular #2: 2+ carotid (R), 2+ carotid (L), 2+ radial (R), 2+ radial (L) , 2+ dorsalis pedis (R), 2+ dorsalis pedis (L) Gastrointestinal: normal bowel sounds, non tender, soft, non-distended, no guarding, no rebound Rectal: deferred Genitourinary: normal inspection, no CVA tenderness Musculoskeletal: back normal, gait/station normal, normal range of motion, non- tender Neurologic: alert, oriented x3, responsive, motor strength/tone normal, sensory intact, speech normal Psychiatric: judgement/insight normal, memory normal, mood/affect normal, no suicidal/homicidal ideation Reflexes: 3+ bicep (R), 3+ bicep (L), 3+ tricep (R), 3+ tricep (L), 3+ knee (R) , 3+ knee (L) Skin: normal color, no rash, warm/dry, well hydrated Lymphatic: no adenopathy Medical Decision Making Diagnostic Impression: Primary Impression: Severe protein-calorie malnutrition Additional Impression: Episode of generalized weakness ER Course Hospital Course 67-year-old male presenting to ED with generalized weakness Differential diagnoses include: Pneumonia, UTI, sepsis, dehydration, MD/ unstable angina Clinical course Patient placed on stretcher. On case monitor with stable vitals are ED course. After initial history and physical, I ordered labs, IV fluids, blood cultures, UA. Labs - electrolytes ok, no leukocytosis, troponins negative Case discussed with Dr Guido and they agreed to admit patient to their service for further care and support I feel this is a highly complex case requiring extensive working including EKG/ Rhythm strip, Xray/CT/US, Blood/urine lab work, repeat exams while in ED, and administration of strong opiates/narcotics for pain control, admission to hospital or close patient follow up. Diagnosis - severe protein calorie malnutrition, episode of generalized weakness Patient admitted to floor in serious condition Labs Test 07/08/17 20:15 07/08/17 20:40 07/08/17 21:00 White Blood Count 10.1 K/UL (4.8-10.8) Red Blood Count 3.83 M/UL (4.70-6.10) Hemoglobin 9.9 G/DL (14.2-18.0) Hematocrit 32.4 % (42.0-52.0) Mean Corpuscular Volume 85 FL (80-99) Mean Corpuscular Hemoglobin 25.8 PG (27.0-31.0) Mean Corpuscular Hemoglobin Concent 30.5 G/DL (32.0-36.0) Red Cell Distribution Width 15.7 % (11.6-14.8) Platelet Count 410 K/UL (150-450) Mean Platelet Volume 6.3 FL (6.5-10.1) Neutrophils (%) (Auto) 68.2 % (45.0-75.0) Lymphocytes (%) (Auto) 21.5 % (20.0-45.0) Monocytes (%) (Auto) 6.1 % (1.0-10.0) Eosinophils (%) (Auto) 3.5 % (0.0-3.0) Basophils (%) (Auto) 0.8 % (0.0-2.0) Sodium Level 140 MMOL/L (136-145) Potassium Level 3.6 MMOL/L (3.5-5.1) Chloride Level 103 MMOL/L (98-107) Carbon Dioxide Level 30 MMOL/L (21-32) Anion Gap 7 mmol/L (5-15) Blood Urea Nitrogen 12 mg/dL (7-18) Creatinine 0.8 MG/DL (0.55-1.30) Estimat Glomerular Filtration Rate > 60 mL/min (>60) Glucose Level 143 MG/DL (74-106) Calcium Level 8.8 MG/DL (8.5-10.1) Total Bilirubin 0.2 MG/DL (0.2-1.0) Aspartate Amino Transf (AST/SGOT) 22 U/L (15-37) Alanine Aminotransferase (ALT/SGPT) 11 U/L (12-78) Alkaline Phosphatase 62 U/L (46-116) Pro-B-Type Natriuretic Peptide 88 pg/mL (0-125) Total Protein 6.8 G/DL (6.4-8.2) Albumin 2.6 G/DL (3.4-5.0) Globulin 4.2 g/dL Albumin/Globulin Ratio 0.6 (1.0-2.7) Urine Color Yellow Urine Appearance Cloudy Urine pH 6.5 (4.5-8.0) Urine Specific [place] 1.015 (1.005-1.035) Urine Protein 1+ (NEGATIVE) Urine Glucose (UA) Negative (NEGATIVE) Urine Ketones Negative (NEGATIVE) Urine Occult Blood Negative (NEGATIVE) Urine Nitrite Negative (NEGATIVE) Urine Bilirubin Negative (NEGATIVE) Urine Urobilinogen Normal MG/DL (0.0-1.0) Urine Leukocyte Esterase Negative (NEGATIVE) Urine RBC 0-2 /HPF (0 - 0) Urine WBC 0-2 /HPF (0 - 0) Urine Squamous Epithelial Cells None /LPF (NONE/OCC) Urine Amorphous Sediment Many /LPF (NONE) Urine Bacteria Few /HPF (NONE) Last Vital Signs Date Time Temp Pulse Resp B/P (MAP) Pulse Ox O2 Delivery O2 Flow Rate FiO2 07/08/17 19:33 98.6 91 16 145/90 99 Room Air Status: improved Disposition: ADMITTED INPATIENT Condition: Serious Referrals: CYN GUIDO (PCP) BEATRICE CASAS M.D. Jul 08, 2017 22:01
[2017-07-08] MEDS ORDERED: LORazepam Inj 2mg/ml 1ml IV PRN (22:45)
[2017-07-08] MEDS ORDERED: Morphine Sulfate 2mg/ml Inj IVP PRN (22:45)
[2017-07-08] MEDS ORDERED: Mylanta II UD 30ml ORAL PRN (22:45)
[2017-07-08] MEDS ORDERED: Zolpidem 5mg tab ORAL PRN (22:45)
[2017-07-08] MEDS ORDERED: Miralax 17gm pkt ORAL PRN (22:45)
[2017-07-08 23:00] VITALS: BP 147/75
[2017-07-09] VITALS (7 sets, daily range): BP systolic 141–155; BP diastolic 79–98
[2017-07-09] MEDS ORDERED: CATAPRES0.1 MG ORAL (03:42)
[2017-07-09] MEDS ORDERED: ZOFRAN4 M3 ORAL (04:02)
[2017-07-09] MEDS ORDERED: ACETAMINOPHEN325 M1 ORAL (04:02)
[2017-07-09] MEDS ORDERED: ANTI-DIARRHEA2 MG PO (04:02)
[2017-07-09] MEDS ORDERED: MIRALAX17 G2 ORAL (04:02)
[2017-07-09] MEDS ORDERED: FLEET ENEMA133 ML RECTAL (04:02)
[2017-07-09] MEDS ORDERED: ALUM-MAG HYDRO360 ML PO (04:02)
[2017-07-09] MEDS ORDERED: PROTONIX40 MG ORAL (04:02)
[2017-07-09 07:36] LABS: BASOPHILS % (AUTO) 0.6 % (0.0-2.0); EOSINOPHILS % (AUTO) 2.8 % (0.0-3.0); HEMATOCRIT 31.2 % (42.0-52.0); HEMOGLOBIN 9.7 G/DL (14.2-18.0); LYMPHOCYTES % (AUTO) 17.6 % (20.0-45.0); MEAN CORPUSCULAR VOLUME 85 FL (80-99); MONOCYTES % (AUTO) 7.2 % (1.0-10.0); NEUTROPHILS % (AUTO) 71.8 % (45.0-75.0); PLATELET COUNT 332 K/UL (150-450); RED BLOOD COUNT 3.67 M/UL (4.70-6.10); RED CELL DISTRIBUTION WIDTH 16.1 % (11.6-14.8); WHITE BLOOD COUNT 11.2 K/UL (4.8-10.8)
[2017-07-09 07:48] LABS: ALANINE AMINOTRANSFERASE 15 U/L (12-78); ALBUMIN 2.6 G/DL (3.4-5.0); ALBUMIN/GLOBULIN RATIO 0.6 (1.0-2.7); ALKALINE PHOSPHATASE 60 U/L (46-116); ANION GAP 8 mmol/L (5-15); ASPARTATE AMINO TRANSFERASE 55 U/L (15-37); BILIRUBIN,TOTAL 0.3 MG/DL (0.2-1.0); BLOOD UREA NITROGEN 9 mg/dL (7-18); CALCIUM 8.6 MG/DL (8.5-10.1); CARBON DIOXIDE 30 MMOL/L (21-32); CHLORIDE 103 MMOL/L (98-107); CHOLESTEROL 161 MG/DL (< 200); CREATININE 0.7 MG/DL (0.55-1.30); HDL CHOLESTEROL 71 MG/DL (40-60); POTASSIUM 3.4 MMOL/L (3.5-5.1); SODIUM 141 MMOL/L (136-145); TRIGLYCERIDES 39 MG/DL (30-150)
[2017-07-09] MEDS ORDERED: Albuterol/Ipratropium 3ml neb HHN PRN (08:15)
--- NOTE | 2017-07-09 08:28 | History and Physical ---
History of Present Illness General Date patient seen: Jul 09, 2017 Time patient seen: 07:55 Reason for Hospitalization: Generalized Weakness Present Illness HPI 67-year-old male with PMH of rectal adenocarcinoma, anemia, HTN, GERD, presented to ED for evaluation from SNF for generalized weakness Patient reported feeling weak, poor appetite, no energy Diarrhea for few months No fever or chills No abdominal pain No n/v No recent abx use in ED VSS no leukocytosis stable lytes and renal parameters HH -9.9/32.4 glucose -148 pro BNP-88 UA no evidence of UTI patient was admitted for further management Allergies: Coded Allergies: LACTOSE (Unverified Allergy, Unknown, 05/16/17) Medication History Scheduled Clonidine Hcl* (Catapres*), 0.1 MG ORAL EVERY 6 HOURS, (Reported) Docusate Sodium* (Colace*), 100 MG ORAL DAILY, (Reported) Ferrous Sulfate* (Ferrous Sulfate*), 325 MG ORAL TWICE A DAY Multivitamins* (Multivitamins*), 1 TAB ORAL DAILY, (Reported) Na Phos,M-B/Na Phos,Di-Ba* (Fleet Enema*), 133 ML RECTAL DAILY, (Reported) Pantoprazole* (Protonix*), 40 MG ORAL DAILY, (Reported) Polyethylene Glycol 3350* (Miralax*), 17 GM ORAL DAILY, (Reported) Scheduled PRN Acetaminophen* (Acetaminophen 325MG Tablet*), 650 MG ORAL Q4H PRN for Mild Pain/ Temp > 100.5, (Reported) Acetaminophen* (Acetaminophen 325MG Tablet*), 325 MG ORAL Q4H PRN for Mild Pain (Pain Scale 1-3), (Reported) Bisacodyl (Dulcolax), 10 MG RC DAILY PRN for Constipation, (Reported) Mag Hydrox/Al Hydrox/Simeth (Alum-Mag Hydroxide-Simeth Liq), 30 ML PO EVERY 6 HOURS PRN for DYSPEPSIA, (Reported) Magnesium Hydroxide* (Milk Of Magnesia*), 30 ML ORAL DAILY PRN for Constipation, (Reported) Ondansetron* (Zofran*), 4 MG ORAL Q6H PRN for Nausea & Vomiting, (Reported) Miscellaneous Medications Loperamide Hcl (Anti-Diarrhea), 2 MG PO, (Reported) Patient History Healthcare decision maker CHANDAN HERNANDEZ MARTIN, BROTHER Resuscitation status Do Not Intubate Advanced Directive on File No Past Medical/Surgical History Past Medical/Surgical History: (1) Rectal cancer (2) Dehydration Review of Systems Constitutional: Reports: weakness Eye: Reports: no symptoms ENT: Reports: no symptoms Respiratory: Reports: no symptoms Cardiovascular: Reports: no symptoms, other - Hx of HTN Gastrointestinal: Reports: see HPI Genitourinary: Reports: no symptoms Musculoskeletal: Reports: muscle stiffness Skin: Reports: no symptoms Psychiatric: Reports: depressed feelings Neurological: Reports: no symptoms Endocrine: Reports: no symptoms Hematologic/Lymphatic: Reports: anemia Physical Exam General Appearance: no apparent distress, other - A/A/O cachetic AA male in NAD Lines, tubes and drains: peripheral HEENT: normocephalic, atraumatic, anicteric, mucous membranes moist Neck: supple Respiratory/Chest: lungs clear, no respiratory distress, no accessory muscle use Cardiovascular/Chest: normal rate, regular rhythm, no JVD Abdomen: normal bowel sounds, non tender, soft Extremities: no calf tenderness, normal capillary refill Neurologic: alert, responsive Musculoskeletal: normal muscle bulk Last 24 Hour Vital Signs Date Time Temp Pulse Resp B/P (MAP) Pulse Ox O2 Delivery O2 Flow Rate FiO2 07/09/17 04:09 97.5 82 20 151/81 99 Room Air 07/09/17 01:45 96.4 83 20 155/98 100 Room Air 07/09/17 00:22 96.4 83 20 155/98 100 Room Air 07/08/17 23:15 98.1 78 17 147/75 100 Room Air 07/08/17 23:00 98.1 78 17 147/75 100 Room Air 07/08/17 22:00 98.2 75 16 138/83 98 Room Air 07/08/17 21:00 98.4 78 16 140/88 99 Room Air 07/08/17 20:00 98.6 80 16 145/90 99 Room Air 07/08/17 19:33 98.6 91 16 145/90 99 Room Air Intake and Output 07/08/17 07/09/17 19:00 07:00 Intake Total 1600 ml Output Total 400 ml Balance 1200 ml Intake Oral 600 ml IV Total 1000 ml Output Urine Total 400 ml # Bowel Movements 3 Laboratory Tests Test 07/08/17 20:15 07/08/17 20:40 07/08/17 21:00 07/09/17 05:20 White Blood Count 10.1 K/UL (4.8-10.8) 11.2 K/UL (4.8-10.8) H Red Blood Count 3.83 M/UL (4.70-6.10) L 3.67 M/UL (4.70-6.10) L Hemoglobin 9.9 G/DL (14.2-18.0) L 9.7 G/DL (14.2-18.0) L Hematocrit 32.4 % (42.0-52.0) L 31.2 % (42.0-52.0) L Mean Corpuscular Volume 85 FL (80-99) 85 FL (80-99) Mean Corpuscular Hemoglobin 25.8 PG (27.0-31.0) L 26.4 PG (27.0-31.0) L Mean Corpuscular Hemoglobin Concent 30.5 G/DL (32.0-36.0) L 31.1 G/DL (32.0-36.0) L Red Cell Distribution Width 15.7 % (11.6-14.8) H 16.1 % (11.6-14.8) H Platelet Count 410 K/UL (150-450) 332 K/UL (150-450) Mean Platelet Volume 6.3 FL (6.5-10.1) L 6.6 FL (6.5-10.1) Neutrophils (%) (Auto) 68.2 % (45.0-75.0) 71.8 % (45.0-75.0) Lymphocytes (%) (Auto) 21.5 % (20.0-45.0) 17.6 % (20.0-45.0) L Monocytes (%) (Auto) 6.1 % (1.0-10.0) 7.2 % (1.0-10.0) Eosinophils (%) (Auto) 3.5 % (0.0-3.0) H 2.8 % (0.0-3.0) Basophils (%) (Auto) 0.8 % (0.0-2.0) 0.6 % (0.0-2.0) Sodium Level 140 MMOL/L (136-145) 141 MMOL/L (136-145) Potassium Level 3.6 MMOL/L (3.5-5.1) 3.4 MMOL/L (3.5-5.1) L Chloride Level 103 MMOL/L (98-107) 103 MMOL/L (98-107) Carbon Dioxide Level 30 MMOL/L (21-32) 30 MMOL/L (21-32) Anion Gap 7 mmol/L (5-15) 8 mmol/L (5-15) Blood Urea Nitrogen 12 mg/dL (7-18) 9 mg/dL (7-18) Creatinine 0.8 MG/DL (0.55-1.30) 0.7 MG/DL (0.55-1.30) Estimat Glomerular Filtration Rate > 60 mL/min (>60) > 60 mL/min (>60) Glucose Level 143 MG/DL (74-106) H 79 MG/DL (74-106) Calcium Level 8.8 MG/DL (8.5-10.1) 8.6 MG/DL (8.5-10.1) Total Bilirubin 0.2 MG/DL (0.2-1.0) 0.3 MG/DL (0.2-1.0) Aspartate Amino Transf (AST/SGOT) 22 U/L (15-37) 55 U/L (15-37) H Alanine Aminotransferase (ALT/SGPT) 11 U/L (12-78) L 15 U/L (12-78) Alkaline Phosphatase 62 U/L (46-116) 60 U/L (46-116) Pro-B-Type Natriuretic Peptide 88 pg/mL (0-125) Total Protein 6.8 G/DL (6.4-8.2) 6.8 G/DL (6.4-8.2) Albumin 2.6 G/DL (3.4-5.0) L 2.6 G/DL (3.4-5.0) L Globulin 4.2 g/dL 4.2 g/dL Albumin/Globulin Ratio 0.6 (1.0-2.7) L 0.6 (1.0-2.7) L Lactic Acid Level 1.70 mmol/L (0.66-2.22) Urine Color Yellow Urine Appearance Cloudy Urine pH 6.5 (4.5-8.0) Urine Specific Morton 1.015 (1.005-1.035) Urine Protein 1+ (NEGATIVE) H Urine Glucose (UA) Negative (NEGATIVE) Urine Ketones Negative (NEGATIVE) Urine Occult Blood Negative (NEGATIVE) Urine Nitrite Negative (NEGATIVE) Urine Bilirubin Negative (NEGATIVE) Urine Urobilinogen Normal MG/DL (0.0-1.0) Urine Leukocyte Esterase Negative (NEGATIVE) Urine RBC 0-2 /HPF (0 - 0) H Urine WBC 0-2 /HPF (0 - 0) Urine Squamous Epithelial Cells None /LPF (NONE/OCC) Urine Amorphous Sediment Many /LPF (NONE) H Urine Bacteria Few /HPF (NONE) Triglycerides Level 39 MG/DL (30-150) Cholesterol Level 161 MG/DL (< 200) LDL Cholesterol 91 mg/dL (<100) HDL Cholesterol 71 MG/DL (40-60) H Cholesterol/HDL Ratio 2.3 (3.3-4.4) L Thyroid Stimulating Hormone (TSH) 0.742 uiU/mL (0.358-3.740) Microbiology Date/Time Source Procedure Growth Status 07/08/17 20:15 Nasal Nares Influenza Types A,B Antigen (DACIA) - Final Complete Height (Feet): 5 Height (Inches): 9.00 Weight (Pounds): 130 Medications Current Medications Medications (Trade) Dose Ordered Sig/Juana Route PRN Reason Start Time Stop Time Status Last Admin Dose Admin Acetaminophen (Tylenol) 650 mg Q4H PRN ORAL fever 07/08/17 22:45 08/07/17 22:44 Al Hydroxide/Mg Hydroxide (Mylanta II) 30 ml Q6H PRN ORAL dyspepsia 07/08/17 22:45 08/07/17 22:44 Dextrose (Dextrose 50%) STAT PRN IV Hypoglycemia 07/08/17 22:45 08/07/17 22:44 Lorazepam (Ativan 2mg/ml 1ml) 0.5 mg Q4H PRN IV For Anxiety 07/08/17 22:45 07/15/17 22:44 Morphine Sulfate (Morphine Sulfate) 1 mg EVERY 4 HOURS PRN IVP For Pain 07/08/17 22:45 07/15/17 22:44 Ondansetron HCl (Zofran) 4 mg Q6H PRN IVP Nausea & Vomiting 07/08/17 22:45 08/07/17 22:44 Polyethylene Glycol (Miralax) 17 gm HSPRN PRN ORAL Constipation 07/08/17 22:45 08/07/17 22:44 Zolpidem Tartrate (Ambien) 5 mg HSPRN PRN ORAL Insomnia 07/08/17 22:45 07/15/17 22:44 Assessment/Plan Assessment/Plan ASSESSMENT diarrhea severe protein calorie malnutrition rectal adenocarcinoma anemia hx of GI bleeding possible dehydration HTN PLAN OF CARE MS floor IVF stool cx and C dif antidiarrheal prn lactose free diet anemia w/up , stool OB, CEA PT/OT prealbumin add Ensure dietary eval and implement dietary recombinations Venous Duplex BLE DVT GI prophylaxis onco eval BP management with CCB and Clonidine prn pain management case discussed and evaluated by supervising physician Suhas Mao),Gloria HUSTON Jul 09, 2017 08:28
[2017-07-09] MEDS: Heparin 5000 units/ml inj SUBQ SCH ×2 (09:30→22:23)
--- NOTE | 2017-07-09 09:48 | Diagnostic Imaging Report ---
Indication: Dyspnea Technique: XRAY Chest 1v Comparison: None. Findings: The cardiomediastinal silhouette is normal. The lungs are clear. There is no evidence of pleural fluid. The bones are unremarkable. Impression: Normal chest.
[2017-07-09] MEDS: 1/2NS w/KCl 20mEq 1000ml 1,000 ML IV SCH ×2 (12:44→23:20)
[2017-07-10] VITALS: BP 144/80
[2017-07-10 04:30] VITALS: BP 146/83
[2017-07-10 07:46] LABS: % IRON SATURATION 6 % (15-50); IRON 13 ug/dL (50-175); TOTAL IRON BINDING CAPACITY 224 ug/dL (250-450)
[2017-07-10 07:50] LABS: FERRITIN 91 NG/ML (8-388)
[2017-07-10 08:00] VITALS: BP 126/74
[2017-07-10] MEDS: Heparin 5000 units/ml inj SUBQ SCH ×2 (09:00→20:40)
--- NOTE | 2017-07-10 09:49 | Pulmonology Progress Note ---
Assessment/Plan Assessment/Plan ASSESSMENT severe protein calorie malnutrition rectal adenocarcinoma diarrhea anemia hx of GI bleeding possible dehydration HTN PLAN OF CARE MS floor IVF anemia w/up c/w GWEN , give Venofer x 3 stool OB, CEA stool cx and C dif negative avoid dairy products, diarrhea noninfectious likely due to malignant process Imodium prn GI eval PT/OT prealbumin pending added Ensure dietary eval and implement dietary recombinations Venous Duplex BLE DVT GI prophylaxis onco eval BP management with CCB and Clonidine prn pain management case discussed and evaluated by supervising physician Subjective Allergies: Coded Allergies: LACTOSE (Unverified Allergy, Unknown, 05/16/17) Subjective mild leukocytosis today, afebrile denies pain still diarrhea no blood HH at baseline Objective Last 24 Hour Vital Signs Date Time Temp Pulse Resp B/P (MAP) Pulse Ox O2 Delivery O2 Flow Rate FiO2 07/10/17 08:19 86 16 Room Air 07/10/17 08:00 98.1 88 18 126/74 100 Room Air 07/10/17 04:30 98.2 70 20 146/83 99 Room Air 07/10/17 02:12 91 16 Room Air 99 07/10/17 00:00 97.6 78 19 144/80 98 Room Air 07/09/17 21:00 97.9 80 21 147/84 99 07/09/17 21:00 Room Air 07/09/17 16:00 98.5 80 20 141/79 100 07/09/17 13:11 97.9 87 20 151/94 100 Intake and Output 07/09/17 07/10/17 19:00 07:00 Intake Total 75 ml 990 ml Balance 75 ml 990 ml Intake Oral 240 ml IV Total 75 ml 750 ml # Voids 3 3 # Bowel Movements 1 3 Objective General Appearance: no apparent distress, other - A/A/O cachetic AA male in NAD Lines, tubes and drains: peripheral HEENT: normocephalic, atraumatic, anicteric, mucous membranes moist Neck: supple Respiratory/Chest: lungs clear, no respiratory distress, no accessory muscle use Cardiovascular/Chest: normal rate, regular rhythm, no JVD Abdomen: normal bowel sounds, non tender, soft Extremities: no calf tenderness, normal capillary refill Neurologic: alert, responsive Musculoskeletal: normal muscle bulk Microbiology Date/Time Source Procedure Growth Status 07/08/17 20:15 Blood Blood Culture - Preliminary NO GROWTH AFTER 24 HOURS Resulted 07/08/17 20:00 Blood Blood Culture - Preliminary NO GROWTH AFTER 24 HOURS Resulted 07/08/17 20:15 Nasal Nares Influenza Types A,B Antigen (DACIA) - Final Complete 07/08/17 06:30 Stool Stool Culture - Preliminary NORMAL FECAL ADRIENNE. Resulted 07/08/17 06:30 Stool Clostridium difficile Toxin Assay - Final Resulted Laboratory Tests 07/10/17 05:10: Iron Level 13L, Total Iron Binding Capacity 224L, Percent Iron Saturation 6L, Unsaturated Iron Binding 211, Ferritin 91, Prealbumin [Pending], Vitamin B12 Level 232, RBC Folate Hemolysate [Pending], Red Blood Cell Folate [Pending] Current Medications Medications (Trade) Dose Ordered Sig/Juana Route PRN Reason Start Time Stop Time Status Last Admin Dose Admin Acetaminophen (Tylenol) 650 mg Q4H PRN ORAL fever 07/08/17 22:45 08/07/17 22:44 Al Hydroxide/Mg Hydroxide (Mylanta II) 30 ml Q6H PRN ORAL dyspepsia 07/08/17 22:45 08/07/17 22:44 Albuterol/ Ipratropium (Albuterol/ Ipratropium) 3 ml Q4H PRN HHN Shortness of Breath 07/09/17 08:15 07/14/17 08:14 Amlodipine Besylate (Norvasc) 2.5 mg DAILY ORAL 07/09/17 09:30 08/08/17 09:29 Clonidine HCl (Catapres Tab) 0.1 mg Q6H PRN ORAL sbp above 160 07/09/17 08:15 08/08/17 08:14 Dextrose (Dextrose 50%) STAT PRN IV Hypoglycemia 07/08/17 22:45 08/07/17 22:44 Famotidine (Pepcid) 20 mg DAILY ORAL 07/09/17 09:30 08/08/17 09:29 Heparin Sodium (Porcine) (Heparin 5000 units/ml) 5,000 units EVERY 12 HOURS SUBQ 07/09/17 09:30 08/08/17 09:29 07/09/17 22:23 Lorazepam (Ativan 2mg/ml 1ml) 0.5 mg Q4H PRN IV For Anxiety 07/08/17 22:45 07/15/17 22:44 Morphine Sulfate (Morphine Sulfate) 1 mg EVERY 4 HOURS PRN IVP For Pain 07/08/17 22:45 07/15/17 22:44 Ondansetron HCl (Zofran) 4 mg Q6H PRN IVP Nausea & Vomiting 07/08/17 22:45 08/07/17 22:44 Polyethylene Glycol (Miralax) 17 gm HSPRN PRN ORAL Constipation 07/08/17 22:45 08/07/17 22:44 Sodium 1,000 ml @ 75 mls/hr [id number] IV 07/09/17 10:00 08/08/17 09:59 07/09/17 12:44 Zolpidem Tartrate (Ambien) 5 mg HSPRN PRN ORAL Insomnia 07/08/17 22:45 07/15/17 22:44 Suhas PearsonGloria lundberg NP Jul 10, 2017 09:49
[2017-07-10] MEDS ORDERED: Loperamide 2mg cap ORAL PRN (10:00)
[2017-07-10 12:00] VITALS: BP 135/77
[2017-07-10] MEDS: 1/2NS w/KCl 20mEq 1000ml 1,000 ML IV SCH (12:25)
[2017-07-10 16:00] VITALS: BP 146/82
[2017-07-10 20:00] VITALS: BP 136/78
[2017-07-10] MEDS: Iron Sucrose 100 MG in NS 55 ML IV SCH (20:27)
--- NOTE | 2017-07-10 20:41 | Consultation ---
Consult Note Assessment/Plan [id number] job ID Rommel Ching Jul 10, 2017 20:41
[2017-07-11] VITALS (7 sets, daily range): BP systolic 113–145; BP diastolic 63–83
[2017-07-11] MEDS: 1/2NS w/KCl 20mEq 1000ml 1,000 ML IV SCH ×2 (02:15→15:20)
[2017-07-11] MEDS: Heparin 5000 units/ml inj SUBQ SCH ×2 (08:44→08:54)
--- NOTE | 2017-07-11 13:15 | Consultation ---
DATE OF CONSULTATION: 07/09/2017 NOTE: POOR AUDIO HEMATOLOGY/ONCOLOGY CONSULTATION CONSULTING PHYSICIAN: Rommel Ching M.D. REQUESTING PHYSICIAN: Monique Guido M.D. REASON FOR CONSULTATION: Evaluation of rectal cancer. IDENTIFICATION DATA: Dear Dr. Guido, The patient is a 67-year-old male with past medical history significant for rectal adenocarcinoma who has been [facility], has been admitted multiple times, most recently for GI bleed May, at which time I evaluated him for a stage III rectal cancer. He had adenocarcinoma well-differentiated of large intestine in the rectal area concerning for stage IV. The patient, at that time, concerning hospice versus chemotherapy and did not want to get a CAT scan. I had talked extensively with the patient's brother, Carlton, and most recent discharge summary I reviewed it and the patient at this time presents with weakness as well as colitis, seen by Gloria Dai. Vital signs were within normal limits, however, the patient noted to be weak, fatigued, poor energy, no appetite. Did not recommend chemotherapy at this time. PAST MEDICAL HISTORY: As noted above. PAST SURGICAL HISTORY: None noted besides surgical resection. MEDICATIONS: . FAMILY HISTORY: Noncontributory. REVIEW OF SYSTEMS: A 12-point review of systems was completed and otherwise negative except as per history of present illness.CONSTITUTIONAL: Weakness as noted. SKIN: No rashes or bumps, however, some dryness noted . HEENT: No headache, hearing or vision changes. BREASTS: No lumps, pain, or discharge. PULMONARY: No cough, sputum, or shortness of breath. GASTROINTESTINAL: No nausea or vomiting, however, abdominal pain noted. GENITOURINARY: No dysuria, frequency, or urgency. MUSCULOSKELETAL: No joint swelling, muscle pain, or trauma. PSYCHIATRIC: PHYSICAL EXAMINATION: VITAL SIGNS: Reviewed. GENERAL: No distress. PULMONARY: Decreased breath sounds. CARDIOVASCULAR: Regular rate. No S3 or S4. ABDOMEN: Soft, nontender, and nondistended. EXTREMITIES: There is 1+ edema. LABORATORY DATA: WBC of 11.3, hemoglobin , and platelet count . RBC and folate level pending. B12 of 213, ferritin 91, and TIBC 223. CEA is pending. ASSESSMENT AND RECOMMENDATIONS: 1. Stage III to IV rectal adenocarcinoma. The patient has not started treatment, currently with severe protein-calorie malnutrition. He is very fatigued and weak. Did not recommend any treatment at this moment. It appears the patient potential benefit from treatment. He has gotten worse every single in the past. 2. Anemia of iron deficiency. Continue the patient on iron. 3. Severe protein-calorie malnutrition. 4. History of gastrointestinal bleed. 5. Anemia secondary to gastrointestinal bleed. 6. Possible dehydration. . I appreciate the consultation. Continue to closely follow. The patient likely is a good hospice candidate. Rommel Ching M.D. DR: Darshan JOB#: [id number] CC:
--- NOTE | 2017-07-11 14:12 | General Progress Note ---
Assessment/Plan Status: deteriorating Assessment/Plan 1. Stage III to IV rectal adenocarcinoma. --> The patient has not started treatment, currently with severe protein- calorie malnutrition. --> He is very fatigued and weak. --> Did not recommend any treatment at this moment. --> It appears the patient potentially benefit from no treatment. --> He has gotten worse after every single treatment in the past. 2. Anemia of iron deficiency. --> Continue the patient on iron. --> Monitor iron levels. 3. Severe protein-calorie malnutrition. 4. History of gastrointestinal bleed. 5. Anemia secondary to gastrointestinal bleed. --> Occult blood has been detected. --> Need GI followup. 6. Possible dehydration. Subjective Date patient seen: Jul 11, 2017 Constitutional: Denies: no symptoms, chills, diaphoresis, fever, malaise, weakness, other HEENT: Denies: no symptoms, eye pain, blurred vision, tearing, double vision, ear pain, ear discharge, nose pain, nose congestion, throat pain, throat swelling, mouth pain, mouth swelling, other Cardiovascular: Denies: no symptoms, chest pain, edema, irregular heart rate, lightheadedness, palpitations, syncope, other Respiratory: Denies: no symptoms, cough, orthopnea, shortness of breath, SOB with excertion, SOB at rest, sputum, stridor, wheezing, other Gastrointestinal/Abdominal: Denies: no symptoms, abdomen distended, abdominal pain, black stools, tarry stools, blood in stool, constipated, diarrhea, difficulty swallowing, nausea, poor appetite, poor fluid intake, rectal bleeding , vomiting, other Hematologic/Lymphatic: Reports: other - GI bleed Allergies: Coded Allergies: LACTOSE (Unverified Allergy, Unknown, 05/16/17) Subjective Occult blood detected. Patient is very weak, resting in bed. Objective Last 24 Hour Vital Signs Date Time Temp Pulse Resp B/P (MAP) Pulse Ox O2 Delivery O2 Flow Rate FiO2 07/11/17 12:05 98.4 92 20 115/63 98 07/11/17 08:42 90 138/81 07/11/17 08:00 97.9 90 20 138/81 98 Room Air 07/11/17 04:00 97.3 77 20 145/83 98 Room Air 07/11/17 00:00 97.9 77 18 145/82 100 Room Air 07/10/17 20:00 97.7 86 18 136/78 99 07/10/17 20:00 Room Air 07/10/17 16:00 97.5 83 18 146/82 Room Air Intake and Output 07/10/17 07/11/17 19:00 07:00 Intake Total 675 ml 1125 ml Balance 675 ml 1125 ml Intake Oral 240 ml IV Total 675 ml 885 ml # Voids 4 3 # Bowel Movements 4 2 Laboratory Tests 07/11/17 06:15: Stool Occult Blood Positive 07/11/17 08:30: Stool Occult Blood [Pending] Height (Feet): 5 Height (Inches): 9.00 Weight (Pounds): 130 General Appearance: lethargic Respiratory/Chest: decreased breath sounds Edema: mild edema Rommel Ching Jul 11, 2017 14:12
--- NOTE | 2017-07-11 16:25 | GI Initial Consult Note ---
Ratliff,Linda Lewisoi N.P. 07/11/17 1625: History of Present Illness General Date patient seen: Jul 11, 2017 Time patient seen: 11:00 Reason for Hospitalization: Generalized Weakness Referring physician: CYN OLVERA Reason for Consultation: DIARRHEA Present Illness HPI 67-year-old male presents ED for evaluation. Patient sent to ER for evaluation of generalized weakness. Has been feeling weak with poor appetite and diarrhea for several months now. Patient denies any fevers or chills. Denies chest pain shortness breath. Denies abdominal pain. Denies any nausea or vomiting. Denies recent antibiotic use. No other aggravating relieving factors. Denies any other associated symptoms. GI consulted for diarrhea. he patient is a pleasant 67-year-old male with complaints of diarrhea for several months now with multiple admissions here at [facility]. He has had EGD and colonoscopy by GI service during his past admission here. Rectal tumor was noted. No recent weight loss. Imaging was reviewed. He had a CAT scan of the chest, abdomen, and pelvis, which showed hepatosplenomegaly, 2 mm left upper lobe nodule, nonspecific, and no definitive evidence of hepatic metastasis. A large 6.3 x 8 x 9 cm mass in the rectum consistent with clinical rectal carcinoma. He was seen again by the GI team and noted to be iron deficient. Biopsy completed, it shows evidence of malignancy. Pt seen on floor, awake A&Ox4 NAD with no active s/sx of N/V/D. He is currently being followed by Dr. Ching as outpatient for his rectal mass. Labs show anemia, iron deficient during last admission and hypoalbuminemia. Cdiff noted as negative on current admission. Home Meds Active Scripts Ferrous Sulfate* (FERROUS SULFATE*) 325 Mg Tablet, 325 MG ORAL TWICE A DAY, #60 TAB 0 Refills Prov:Suhas (Kristie)Gloria TRIAGE CLINICIAN 04/18/17 Reported Medications Acetaminophen* (ACETAMINOPHEN 325MG TABLET*) 325 Mg Tablet, 325 MG ORAL Q4H Y for Mild Pain (Pain Scale 1-3), TAB 07/09/17 Ondansetron* (ZOFRAN*) 4 Mg Tablet, 4 MG ORAL Q6H Y for Nausea & Vomiting, TAB 07/09/17 Pantoprazole* (PROTONIX*) 40 Mg Tablet., 40 MG ORAL DAILY, TAB 07/09/17 Mag Hydrox/Al Hydrox/Simeth (ALUM-MAG HYDROXIDE-SIMETH LIQ) 360 Ml Oral.susp, 30 ML PO EVERY 6 HOURS Y for DYSPEPSIA, ML 07/09/17 Polyethylene Glycol 3350* (MIRALAX*) 17 Gm Powd.pack, 17 GM ORAL DAILY for Constipation, PACKET 07/09/17 Loperamide Hcl (ANTI-DIARRHEA) 2 Mg Tablet, 2 MG PO, TAB 07/09/17 Na Phos,M-B/Na Phos,Di-Ba* (FLEET ENEMA*) 133 Ml Enema, 133 ML RECTAL DAILY, ML 0 Refills 07/09/17 Clonidine Hcl* (CATAPRES*) 0.1 Mg Tablet, 0.1 MG ORAL EVERY 6 HOURS, TAB 07/09/17 Acetaminophen* (ACETAMINOPHEN 325MG TABLET*) 325 Mg Tablet, 650 MG ORAL Q4H Y for Mild Pain/Temp > 100.5, TAB 05/26/17 Magnesium Hydroxide* (MILK OF MAGNESIA*) 400 Mg/5 Ml Oral.susp, 30 ML ORAL DAILY Y for Constipation, ML 05/26/17 Bisacodyl (DULCOLAX) 10 Mg Supp.rect, 10 MG RC DAILY Y for Constipation, SUPP 05/26/17 Docusate Sodium* (COLACE*) 100 Mg Capsule, 100 MG ORAL DAILY, CAP 05/26/17 Multivitamins* (MULTIVITAMINS*) 1 Each Tablet, 1 TAB ORAL DAILY, TAB 0 Refills 04/05/17 Med list reviewed/reconciled: Yes Allergies: Coded Allergies: LACTOSE (Unverified Allergy, Unknown, 05/16/17) Patient History Limited by: medical condition History Provided By: Patient, Medical Record PMH Narrative Past Medical History: HTN, GERD, GI bleed Pertinent Family History: none Social History: Denies: smoking, alcohol use, drug use Immunizations: UTD Reviewed Nursing Documentation: PMH: Agreed, PSxH: Agreed Nursing Documentation-PM Past Medical History: No History, Except For Hx Cardiac Problems: Yes - Anemia Hx Hypertension: Yes Hx Cancer: Yes Hx Gastrointestinal Problems: Yes - Malignant Neoplasm of Rectum, GERD, GI bleed Hx Neurological Problems: No - Muscle weakness Review of Systems All Other Systems: negative except mentioned in HPI Physical Exam Vital Signs Date Time Temp Pulse Resp B/P (MAP) Pulse Ox O2 Delivery O2 Flow Rate FiO2 07/08/17 19:33 98.6 91 16 145/90 99 Room Air 07/10/17 02:12 99 Sp02 EP Interpretation: reviewed, normal Labs Laboratory Tests Test 07/11/17 06:15 07/11/17 08:30 Stool Occult Blood Positive (NEGATIVE) Pending General Appearance: well appearing, no apparent distress, alert, thin Head: normocephalic EENT: PERRL/EOMI, normal ENT inspection Neck: supple Respiratory: normal breath sounds, no respiratory distress Cardiovascular: normal rate Gastrointestinal: normal inspection, non tender, soft, normal bowel sounds, non -distended Rectal: deferred Genitourinary: deferred Musculoskeletal: normal inspection, back normal Neurologic: normal inspection, alert, oriented x3, responsive Psychiatric: normal inspection, judgement/insight normal, memory normal Skin: normal inspection, normal color, no rash, warm/dry, palpation normal, well hydrated Lymphatic: normal inspection, no adenopathy Current Medications Current Medications Medications (Trade) Dose Ordered Sig/Juana Route PRN Reason Start Time Stop Time Status Last Admin Dose Admin Acetaminophen (Tylenol) 650 mg Q4H PRN ORAL fever 07/08/17 22:45 08/07/17 22:44 Al Hydroxide/Mg Hydroxide (Mylanta II) 30 ml Q6H PRN ORAL dyspepsia 07/08/17 22:45 08/07/17 22:44 Albuterol/ Ipratropium (Albuterol/ Ipratropium) 3 ml Q4H PRN HHN Shortness of Breath 07/09/17 08:15 07/14/17 08:14 Amlodipine Besylate (Norvasc) 2.5 mg DAILY ORAL 07/09/17 09:30 08/08/17 09:29 07/11/17 08:42 Clonidine HCl (Catapres Tab) 0.1 mg Q6H PRN ORAL sbp above 160 07/09/17 08:15 08/08/17 08:14 Dextrose (Dextrose 50%) STAT PRN IV Hypoglycemia 07/08/17 22:45 08/07/17 22:44 Famotidine (Pepcid) 20 mg DAILY ORAL 07/09/17 09:30 08/08/17 09:29 07/11/17 08:42 Heparin Sodium (Porcine) (Heparin 5000 units/ml) 5,000 units EVERY 12 HOURS SUBQ 07/09/17 09:30 08/08/17 09:29 07/11/17 08:44 Iron Sucrose 100 mg/Sodium Chloride 60 ml @ 240 mls/hr BEDTIME IV 07/10/17 21:00 07/12/17 21:14 07/10/17 20:27 Loperamide HCl (Imodium) 2 mg Q4H PRN ORAL Diarrhea 07/10/17 10:00 08/09/17 09:59 Lorazepam (Ativan 2mg/ml 1ml) 0.5 mg Q4H PRN IV For Anxiety 07/08/17 22:45 07/15/17 22:44 Morphine Sulfate (Morphine Sulfate) 1 mg EVERY 4 HOURS PRN IVP For Pain 07/08/17 22:45 07/15/17 22:44 Ondansetron HCl (Zofran) 4 mg Q6H PRN IVP Nausea & Vomiting 07/08/17 22:45 08/07/17 22:44 Polyethylene Glycol (Miralax) 17 gm HSPRN PRN ORAL Constipation 07/08/17 22:45 08/07/17 22:44 Sodium 1,000 ml @ 75 mls/hr [id number] IV 07/09/17 10:00 08/08/17 09:59 07/11/17 02:15 Zolpidem Tartrate (Ambien) 5 mg HSPRN PRN ORAL Insomnia 07/08/17 22:45 07/15/17 22:44 GI: Plan Problems: (1) Rectal cancer (2) Dehydration (3) Episode of generalized weakness (4) Severe protein-calorie malnutrition (5) Gastrointestinal hemorrhage (6) Rectal mass (7) Sepsis (8) Iron deficiency Plan cdiff negative OB stool positive iron deficiency fu with oncology recommendations >> patient has not started treatment for rectal CA on regular diet monitor H&H PRN blood transfusion PT/OT evaluation venofer fu labs Discussed with Dr. Xiao. Thank you for this patient referral, we will follow. LEXII XIAO 07/12/17 1221: History of Present Illness General Reason for Hospitalization: Generalized Weakness Present Illness Home Meds Active Scripts Ferrous Sulfate* (FERROUS SULFATE*) 325 Mg Tablet, 325 MG ORAL TWICE A DAY, #60 TAB 0 Refills Prov:Dai ([facility])Gloria TRIAGE CLINICIAN 04/18/17 Reported Medications Acetaminophen* (ACETAMINOPHEN 325MG TABLET*) 325 Mg Tablet, 325 MG ORAL Q4H Y for Mild Pain (Pain Scale 1-3), TAB 07/09/17 Ondansetron* (ZOFRAN*) 4 Mg Tablet, 4 MG ORAL Q6H Y for Nausea & Vomiting, TAB 07/09/17 Pantoprazole* (PROTONIX*) 40 Mg Tablet.dr, 40 MG ORAL DAILY, TAB 07/09/17 Mag Hydrox/Al Hydrox/Simeth (ALUM-MAG HYDROXIDE-SIMETH LIQ) 360 Ml Oral.susp, 30 ML PO EVERY 6 HOURS Y for DYSPEPSIA, ML 07/09/17 Polyethylene Glycol 3350* (MIRALAX*) 17 Gm Powd.pack, 17 GM ORAL DAILY for Constipation, PACKET 07/09/17 Loperamide Hcl (ANTI-DIARRHEA) 2 Mg Tablet, 2 MG PO, TAB 07/09/17 Na Phos,M-B/Na Phos,Di-Ba* (FLEET ENEMA*) 133 Ml Enema, 133 ML RECTAL DAILY, ML 0 Refills 07/09/17 Clonidine Hcl* (CATAPRES*) 0.1 Mg Tablet, 0.1 MG ORAL EVERY 6 HOURS, TAB 07/09/17 Acetaminophen* (ACETAMINOPHEN 325MG TABLET*) 325 Mg Tablet, 650 MG ORAL Q4H Y for Mild Pain/Temp > 100.5, TAB 05/26/17 Magnesium Hydroxide* (MILK OF MAGNESIA*) 400 Mg/5 Ml Oral.susp, 30 ML ORAL DAILY Y for Constipation, ML 05/26/17 Bisacodyl (DULCOLAX) 10 Mg Supp.rect, 10 MG RC DAILY Y for Constipation, SUPP 05/26/17 Docusate Sodium* (COLACE*) 100 Mg Capsule, 100 MG ORAL DAILY, CAP 05/26/17 Multivitamins* (MULTIVITAMINS*) 1 Each Tablet, 1 TAB ORAL DAILY, TAB 0 Refills 04/05/17 Allergies: Coded Allergies: LACTOSE (Unverified Allergy, Unknown, 05/16/17) GI: Plan Plan The patient was seen and examined at bedside and all new and available data was reviewed in the patients chart. I agree with the above findings, impression and plan. (Patient seen earlier today. Signature stamp does not reflect patient encounter time.). - MD Evy Hollis Anh Aj Santos Jul 11, 2017 16:25 LEXII XIAO Jul 12, 2017 12:21
--- NOTE | 2017-07-11 18:21 | Pulmonology Progress Note ---
Assessment/Plan Problems: (1) Rectal cancer (2) Episode of generalized weakness (3) Severe protein-calorie malnutrition Assessment/Plan pt agreed with hospice as long as he doesn't have to pay for it. Subjective ROS Limited/Unobtainable: No Allergies: Coded Allergies: LACTOSE (Unverified Allergy, Unknown, 05/16/17) Objective Last 24 Hour Vital Signs Date Time Temp Pulse Resp B/P (MAP) Pulse Ox O2 Delivery O2 Flow Rate FiO2 07/11/17 16:11 98.8 85 20 121/73 100 07/11/17 12:05 98.4 92 20 115/63 98 07/11/17 08:42 90 138/81 07/11/17 08:00 97.9 90 20 138/81 98 Room Air 07/11/17 04:00 97.3 77 20 145/83 98 Room Air 07/11/17 00:00 97.9 77 18 145/82 100 Room Air 07/10/17 20:00 97.7 86 18 136/78 99 07/10/17 20:00 Room Air Intake and Output 07/10/17 07/11/17 19:00 07:00 Intake Total 675 ml 1125 ml Balance 675 ml 1125 ml Intake Oral 240 ml IV Total 675 ml 885 ml # Voids 4 3 # Bowel Movements 4 2 General Appearance: cachetic HEENT: normocephalic Respiratory/Chest: chest wall non-tender, lungs clear, normal breath sounds Cardiovascular: normal peripheral pulses, normal rate, regular rhythm Genitourinary: normal external genitalia Extremities: no cyanosis Skin: no rash Neurologic/Psychiatric: consumer advocate II-XII grossly normal, no motor/sensory deficits Microbiology Date/Time Source Procedure Growth Status 07/08/17 20:15 Blood Blood Culture - Preliminary NO GROWTH AFTER 48 HOURS Resulted 07/08/17 20:00 Blood Blood Culture - Preliminary NO GROWTH AFTER 48 HOURS Resulted 07/08/17 20:15 Nasal Nares MRSA Culture - Final Staphylococcus Aureus - Mrsa Complete 07/08/17 20:15 Nasal Nares Influenza Types A,B Antigen (DACIA) - Final Complete 07/08/17 20:15 Rectum VRE Culture - Final Enterococcus Faecalis - Vre Complete Laboratory Tests 07/11/17 06:15: Stool Occult Blood Positive 07/11/17 08:30: Stool Occult Blood [Pending] Current Medications Medications (Trade) Dose Ordered Sig/Juana Route PRN Reason Start Time Stop Time Status Last Admin Dose Admin Acetaminophen (Tylenol) 650 mg Q4H PRN ORAL fever 07/08/17 22:45 08/07/17 22:44 Al Hydroxide/Mg Hydroxide (Mylanta II) 30 ml Q6H PRN ORAL dyspepsia 07/08/17 22:45 08/07/17 22:44 Albuterol/ Ipratropium (Albuterol/ Ipratropium) 3 ml Q4H PRN HHN Shortness of Breath 07/09/17 08:15 07/14/17 08:14 Amlodipine Besylate (Norvasc) 2.5 mg DAILY ORAL 07/09/17 09:30 08/08/17 09:29 07/11/17 08:42 Clonidine HCl (Catapres Tab) 0.1 mg Q6H PRN ORAL sbp above 160 07/09/17 08:15 08/08/17 08:14 Dextrose (Dextrose 50%) STAT PRN IV Hypoglycemia 07/08/17 22:45 08/07/17 22:44 Famotidine (Pepcid) 20 mg DAILY ORAL 07/09/17 09:30 08/08/17 09:29 07/11/17 08:42 Heparin Sodium (Porcine) (Heparin 5000 units/ml) 5,000 units EVERY 12 HOURS SUBQ 07/09/17 09:30 08/08/17 09:29 07/11/17 08:44 Iron Sucrose 100 mg/Sodium Chloride 60 ml @ 240 mls/hr BEDTIME IV 07/10/17 21:00 07/12/17 21:14 07/10/17 20:27 Loperamide HCl (Imodium) 2 mg Q4H PRN ORAL Diarrhea 07/10/17 10:00 08/09/17 09:59 Lorazepam (Ativan 2mg/ml 1ml) 0.5 mg Q4H PRN IV For Anxiety 07/08/17 22:45 07/15/17 22:44 Morphine Sulfate (Morphine Sulfate) 1 mg EVERY 4 HOURS PRN IVP For Pain 07/08/17 22:45 07/15/17 22:44 Ondansetron HCl (Zofran) 4 mg Q6H PRN IVP Nausea & Vomiting 07/08/17 22:45 08/07/17 22:44 Polyethylene Glycol (Miralax) 17 gm HSPRN PRN ORAL Constipation 07/08/17 22:45 08/07/17 22:44 Sodium 1,000 ml @ 75 mls/hr [id number] IV 07/09/17 10:00 08/08/17 09:59 07/11/17 15:20 Zolpidem Tartrate (Ambien) 5 mg HSPRN PRN ORAL Insomnia 07/08/17 22:45 07/15/17 22:44 CYN BAILEY Jul 11, 2017 18:21
[2017-07-11] MEDS: Iron Sucrose 100 MG in NS 55 ML IV SCH (20:42)
[2017-07-12 04:38] VITALS: BP 117/68
[2017-07-12] MEDS: 1/2NS w/KCl 20mEq 1000ml 1,000 ML IV SCH (06:00)
[2017-07-12 08:34] VITALS: BP 141/87
[2017-07-12] MEDS: Heparin 5000 units/ml inj SUBQ SCH ×2 (09:00→10:11)
[2017-07-12 10:04] VITALS: BP 138/73
[2017-07-12 11:48] VITALS: BP 138/85
--- NOTE | 2017-07-12 13:40 | Pulmonology Progress Note ---
Assessment/Plan Problems: (1) Rectal cancer (2) Episode of generalized weakness (3) Severe protein-calorie malnutrition Assessment/Plan pt agreed with hospice as long as he doesn't have to pay for it. dc planning h/h stable symptomatic treatment send back to [place]. Subjective ROS Limited/Unobtainable: No Constitutional: Reports: no symptoms HEENT: Repors: no symptoms Respiratory: Reports: no symptoms Allergies: Coded Allergies: LACTOSE (Unverified Allergy, Unknown, 05/16/17) Objective Last 24 Hour Vital Signs Date Time Temp Pulse Resp B/P (MAP) Pulse Ox O2 Delivery O2 Flow Rate FiO2 07/12/17 11:48 98.4 82 20 138/85 100 Room Air 07/12/17 10:09 85 138/73 07/12/17 10:04 85 138/73 07/12/17 08:34 98.0 79 20 141/87 100 07/12/17 08:34 Room Air 07/12/17 04:38 98.1 60 18 117/68 97 07/11/17 23:58 98.4 65 18 113/67 97 07/11/17 20:00 98.2 86 20 124/66 98 07/11/17 16:11 98.8 85 20 121/73 100 Intake and Output 07/11/17 07/12/17 19:00 07:00 Intake Total 840 ml 810 ml Balance 840 ml 810 ml Intake Oral 840 ml IV Total 810 ml # Voids 2 2 # Bowel Movements 2 2 General Appearance: cachetic HEENT: normocephalic, atraumatic Respiratory/Chest: chest wall non-tender, lungs clear Cardiovascular: normal rate, regular rhythm Abdomen: normal bowel sounds, soft, non tender Genitourinary: normal external genitalia Extremities: no clubbing Skin: no ulcers Laboratory Tests 07/11/17 18:25: RBC Folate Hemolysate [Pending], Red Blood Cell Folate [Pending] Current Medications Medications (Trade) Dose Ordered Sig/Juana Route PRN Reason Start Time Stop Time Status Last Admin Dose Admin Acetaminophen (Tylenol) 650 mg Q4H PRN ORAL fever 07/08/17 22:45 08/07/17 22:44 Al Hydroxide/Mg Hydroxide (Mylanta II) 30 ml Q6H PRN ORAL dyspepsia 07/08/17 22:45 08/07/17 22:44 Albuterol/ Ipratropium (Albuterol/ Ipratropium) 3 ml Q4H PRN HHN Shortness of Breath 07/09/17 08:15 07/14/17 08:14 Amlodipine Besylate (Norvasc) 2.5 mg DAILY ORAL 07/09/17 09:30 08/08/17 09:29 07/12/17 10:09 Clonidine HCl (Catapres Tab) 0.1 mg Q6H PRN ORAL sbp above 160 07/09/17 08:15 08/08/17 08:14 Dextrose (Dextrose 50%) STAT PRN IV Hypoglycemia 07/08/17 22:45 08/07/17 22:44 Famotidine (Pepcid) 20 mg DAILY ORAL 07/09/17 09:30 08/08/17 09:29 07/12/17 10:09 Heparin Sodium (Porcine) (Heparin 5000 units/ml) 5,000 units EVERY 12 HOURS SUBQ 07/09/17 09:30 08/08/17 09:29 07/11/17 08:44 Iron Sucrose 100 mg/Sodium Chloride 60 ml @ 240 mls/hr BEDTIME IV 07/10/17 21:00 07/12/17 21:14 07/11/17 20:42 Loperamide HCl (Imodium) 2 mg Q4H PRN ORAL Diarrhea 07/10/17 10:00 08/09/17 09:59 Lorazepam (Ativan 2mg/ml 1ml) 0.5 mg Q4H PRN IV For Anxiety 07/08/17 22:45 07/15/17 22:44 Morphine Sulfate (Morphine Sulfate) 1 mg EVERY 4 HOURS PRN IVP For Pain 07/08/17 22:45 07/15/17 22:44 Ondansetron HCl (Zofran) 4 mg Q6H PRN IVP Nausea & Vomiting 07/08/17 22:45 08/07/17 22:44 Polyethylene Glycol (Miralax) 17 gm HSPRN PRN ORAL Constipation 07/08/17 22:45 08/07/17 22:44 Sodium 1,000 ml @ 75 mls/hr [id number] IV 07/09/17 10:00 08/08/17 09:59 07/12/17 06:00 Zolpidem Tartrate (Ambien) 5 mg HSPRN PRN ORAL Insomnia 07/08/17 22:45 07/15/17 22:44 CYN BAILEY Jul 12, 2017 13:40
--- NOTE | 2017-07-12 15:57 | GI Progress Note ---
Assessment/Plan Problems: (1) Dehydration ICD Codes: E86.0 - Dehydration SNOMED: 71335234 (2) Rectal cancer ICD Codes: C20 - Malignant neoplasm of rectum SNOMED: 586676157 (3) Iron deficiency ICD Codes: E61.1 - Iron deficiency SNOMED: 26589717 (4) Gastrointestinal hemorrhage ICD Codes: K92.2 - Gastrointestinal hemorrhage, unspecified SNOMED: 50261603 (5) Sepsis ICD Codes: A41.9 - Sepsis, unspecified organism SNOMED: 38046419 (6) Severe protein-calorie malnutrition ICD Codes: E43 - Unspecified severe protein-calorie malnutrition SNOMED: 703876836 (7) Rectal mass ICD Codes: K62.9 - Disease of anus and rectum, unspecified SNOMED: 438453084 (8) Episode of generalized weakness ICD Codes: R53.1 - Weakness SNOMED: 20107526 Status: stable Status Narrative Discussed with Dr. Son. Assessment/Plan cdiff negative OB stool positive iron deficiency fu with oncology recommendations >> patient has not started treatment for rectal CA on regular diet monitor H&H PRN blood transfusion PT/OT evaluation venofer fu labs The patient was seen and examined at bedside and all new and available data was reviewed in the patients chart. I agree with the above findings, impression and plan. (Patient seen earlier today. Signature stamp does not reflect patient encounter time.). - Adam Son MD Subjective Gastrointestinal/Abdominal: Reports: no symptoms Objective Last 24 Hour Vital Signs Date Time Temp Pulse Resp B/P (MAP) Pulse Ox O2 Delivery O2 Flow Rate FiO2 07/12/17 11:48 98.4 82 20 138/85 100 Room Air 07/12/17 10:09 85 138/73 07/12/17 10:04 85 138/73 07/12/17 08:34 98.0 79 20 141/87 100 07/12/17 08:34 Room Air 07/12/17 07:45 80 16 Room Air 07/12/17 04:38 98.1 60 18 117/68 97 07/11/17 23:58 98.4 65 18 113/67 97 07/11/17 20:00 98.2 86 20 124/66 98 07/11/17 16:11 98.8 85 20 121/73 100 Intake and Output 07/11/17 07/12/17 19:00 07:00 Intake Total 840 ml 810 ml Balance 840 ml 810 ml Intake Oral 840 ml IV Total 810 ml # Voids 2 2 # Bowel Movements 2 2 Laboratory Tests Test 07/11/17 18:25 RBC Folate Hemolysate Pending Red Blood Cell Folate Pending Height (Feet): 5 Height (Inches): 9.00 Weight (Pounds): 130 General Appearance: WD/WN, no apparent distress, alert, thin Cardiovascular: normal rate Respiratory/Chest: normal breath sounds, no respiratory distress Abdominal Exam: normal bowel sounds, non tender, soft Extremities: normal range of motion, non-tender Linda Ratliff N.P. Jul 12, 2017 15:57 LEXII SON Jul 13, 2017 07:34
[2017-07-12 16:08] VITALS: BP 135/81
--- NOTE | 2017-07-12 23:44 | General Progress Note ---
Assessment/Plan Status: unchanged Assessment/Plan #. Stage III to IV rectal adenocarcinoma. --> The patient has not started treatment, currently with severe protein- calorie malnutrition. --> He is very fatigued and weak. --> Did not recommend any treatment at this moment. --> It appears the patient potentially benefit from no treatment. --> He has gotten worse after every single treatment in the past. #. Anemia of iron deficiency. --> Continue the patient on iron. --> Monitor iron levels. #. Anemia secondary to gastrointestinal bleed. --> Occult blood has been detected. --> Need GI followup. #. Severe protein-calorie malnutrition. #. History of gastrointestinal bleed. 6. Possible dehydration. Subjective Date patient seen: Jul 12, 2017 Constitutional: Denies: no symptoms, chills, diaphoresis, fever, malaise, weakness, other HEENT: Denies: no symptoms, eye pain, blurred vision, tearing, double vision, ear pain, ear discharge, nose pain, nose congestion, throat pain, throat swelling, mouth pain, mouth swelling, other Cardiovascular: Denies: no symptoms, chest pain, edema, irregular heart rate, lightheadedness, palpitations, syncope, other Respiratory: Denies: no symptoms, cough, orthopnea, shortness of breath, SOB with excertion, SOB at rest, sputum, stridor, wheezing, other Gastrointestinal/Abdominal: Denies: no symptoms, abdomen distended, abdominal pain, black stools, tarry stools, blood in stool, constipated, diarrhea, difficulty swallowing, nausea, poor appetite, poor fluid intake, rectal bleeding , vomiting, other Genitourinary: Denies: no symptoms, burning, discharge, frequency, flank pain, hematuria, incontinence, pain, urgency, other Allergies: Coded Allergies: LACTOSE (Unverified Allergy, Unknown, 05/16/17) Subjective Lethargic. No fever or chills. Objective Last 24 Hour Vital Signs Date Time Temp Pulse Resp B/P (MAP) Pulse Ox O2 Delivery O2 Flow Rate FiO2 07/12/17 16:08 98.2 82 20 135/81 100 07/12/17 11:48 98.4 82 20 138/85 100 Room Air 07/12/17 10:09 85 138/73 07/12/17 10:04 85 138/73 07/12/17 08:34 98.0 79 20 141/87 100 07/12/17 08:34 Room Air 07/12/17 07:45 80 16 Room Air 07/12/17 04:38 98.1 60 18 117/68 97 07/11/17 23:58 98.4 65 18 113/67 97 Intake and Output 07/11/17 07/12/17 19:00 07:00 Intake Total 840 ml 810 ml Balance 840 ml 810 ml Intake Oral 840 ml IV Total 810 ml # Voids 2 2 # Bowel Movements 2 2 Height (Feet): 5 Height (Inches): 9.00 Weight (Pounds): 130 General Appearance: lethargic Cardiovascular: normal rate Respiratory/Chest: decreased breath sounds Abdomen: soft Rommel Ching Jul 12, 2017 23:44
--- NOTE | 2017-07-15 13:27 | Discharge Summary ---
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
--- NOTE | 2017-07-15 23:00 | Discharge Summary 2 SIG ---
DATE OF ADMISSION: 07/08/2017 DATE OF DISCHARGE: 07/12/2017 CONSULTANTS: 1. Rommel Ching M.D. 2. Mainor Son M.D. BRIEF HOSPITAL COURSE: The patient is a 67-year-old male with medical history of rectal adenocarcinoma, anemia, hypertension, and GERD, presented to ED for evaluation of generalized weakness. The patient is a resident of [facility] and was reported to be feeling weak with poor appetite and low energy. He was having diarrhea for few months. On evaluation at ED, laboratory work showed no leukocytosis. Hemoglobin was 9.9, hematocrit was 32.4, and glucose was 100.8. ProBNP was 88. Urinalysis showed no evidence of urine infection. The patient has malnutrition and had generalized weakness. The patient was then admitted for further evaluation. He was started on IV hydration and was given anti-diarrheal p.r.n. and was placed on lactose-free diet. Ensure was added to the patient's meal. He had venous duplex of lower extremity that was negative for DVT. He was seen by Dr. Ching. The patient has stage 3 to 4 rectal adenocarcinoma and has not started on treatment yet and per recommendation, no treatment recommended at this moment due to the patient's overall condition. The patient is very fatigued and weak and with severe protein-calorie malnutrition. He was given iron and IV hydration. C. diff was negative. He was placed on regular diet. He was given PT and OT. Hemoglobin and hematocrit were stable. He was eventually discharged back to [facility] under hospice. FINAL DIAGNOSES: 1. Rectal adenocarcinoma. 2. Generalized weakness. 3. Severe protein-calorie malnutrition. 4. Malignant neoplasm of the rectum. 5. Gastrointestinal hemorrhage. DISPOSITION: The patient was discharged to [facility]. DISCHARGE MEDICATIONS: Refer to medication list. Monique Guido M.D. I have been assigned to dictate discharge summary on this account and I was not involved in the patient's management. Ann Cabrera N.P. DR: VAMSI JOB#: [id number] CC:
== END 2017-07-12 17:10 | DRG 374 ==
LOC: EDBD 19:35 → EMR 20:40 → 4W 20:44 → ENRESERV 21:21 → EDBEDREQ 21:41
DX: C20 Malignant neoplasm of rectum (principal); E43 Unspecified severe protein-calorie malnutrition; Z68.1 Body mass index [BMI] 19.9 or less, adult; K92.2 Gastrointestinal hemorrhage, unspecified; E86.0 Dehydration; I10 Essential (primary) hypertension; D50.0 Iron deficiency anemia secondary to blood loss (chronic); R53.1 Weakness; R19.7 Diarrhea, unspecified; Z66 Do not resuscitate; K21.9 Gastro-esophageal reflux disease without esophagitis
CPT/HCPCS: 36415; 71045; 80053; 80061; 81003; 82270; 82378; 82607; 82728; 82747; 83540; 83550; 83605; 83880; 84134; 84443; 85025; 86710; 87040; 87045; 87081; 87324; 93970; 94664; 97802; 99285